=== PATIENT | male | born 1950 | race Caucasian/White ===

== ENCOUNTER 2020-11-30 13:52 | Inpatient (IN) | payer MEDICARE, OTHER ==
[2020-11-30] MEDS ORDERED: Sodium Chloride 0.9% 2.5 ML Syringe FLUSH PRN (13:55)
[2020-11-30] MEDS ORDERED: Sodium Chloride 0.9% 10 ML Syringe FLUSH PRN (13:55)
[2020-11-30] MEDS ORDERED: REMDESIVIR 200 MG in Sodium Chloride 0.9% 250 ML IV ONE (14:45)
[2020-11-30] MEDS ORDERED: Dexamethasone 10 MG/ML SDV IVPUSH ONE (14:45)
[2020-11-30 14:46] LABS: BLOOD UREA NITROGEN,BUN 30 mg/dL (7.0-18.0); CARBON DIOXIDE,CO2 23.7 mmol/L (21.0-32.0); CHLORIDE,CL 100 mmol/L (98-107); GLUCOSE RANDOM 137 mg/dL (74-106); SODIUM,NA 136 mmol/L (136-148)
--- NOTE | 2020-11-30 15:18 | CR ---
Indication: Shortness of breath, COVID positive Technique: Chest 1 view Comparison: July 07, 2008 Findings/Impression: Normal cardiomediastinal silhouette. Diffuse opacities throughout the lungs are consistent with COVID-19 infection. No effusion or pneumothorax. No acute osseous abnormality. Dictated by Aishwarya Wills MD @ 11/30/2020 3:17:03 PM (Electronically Signed)
--- NOTE | 2020-11-30 16:37 | EDM.PDOC ---
ED HPI GENERAL MEDICAL PROBLEM - General Chief Complaint: Respiratory Problem Stated Complaint: COV POS HARD TIME BREATHING Time Seen by Provider: 11/30/20 14:05 - History of Present Illness INITIAL COMMENTS - FREE TEXT/NARRATIVE: CHIEF COMPLAINT(S): Shortness of breath HISTORY OF PRESENT ILLNESS: This is a 70-year-old man with a past medical history of a Covid positive test approximately 6 days ago at home who has no past medical history who presents to the emergency department as a medical resuscitation via walk-in triage with a chief complaint of shortness of breath. The patient states that for the last 6 days he has been experiencing shortness of breath, cough which is productive of unknown color of sputum. He denies any chest pain but states that he is having worsening shortness of breath and exertional dyspnea. He denies any lower extremity edema, recent travel, recent surgery or prior history of DVT or PE. He denies any history of CAD or CHF. He did not get the Covid vaccine. He denies any fever or chills and denies any pain anywhere in his body. He states that both his and his son have Covid. REVIEW OF SYSTEMS: Constitutional: Denies fever, chills. Eyes: Denies eye pain Ears, Nose, Mouth, & Throat: Denies earache Cardiovascular: Denies chest pain Respiratory: Positive for shortness of breath, productive cough, exertional dyspnea Gastrointestinal: Denies Nausea, vomiting, diarrhea, hematochezia. Genitourinary: Denies hematuria Skin:Denies a rash Neurological: Denies blurred vision Psychiatric: Denies depression PAST MEDICAL HISTORY: As per history of present illness and as reviewed below otherwise noncontributory. SURGICAL HISTORY: As per history of present illness and as reviewed below otherwise noncontributory SOCIAL HISTORY: As per history of present illness and as reviewed below otherwise noncontributory. FAMILY HISTORY: As per history of present illness and as reviewed below otherwise noncontributory. EXAMINATION OF ORGAN SYSTEMS/BODY AREAS: VITALS: Heart rate 94, respiratory rate 23 with an oxygen saturation of 59% on room air. 85% on 15 L nonrebreather. Blood pressure was 126/69 and temperature was 37.0. High flow nasal cannula with FiO2 of 89 and 40 L flow rate was 90 to 92% with good waveform.. GENERAL: The patient is well-nourished, well-developed, in no acute distress. Speaking in full sentences. HEAD: Normocephalic, atraumatic. EYES: EOMs intact. PERRL. ENT. External ears WNL. Nares patent. Oropharynx is clear with no erythema or exudate. No uvular or tongue swelling. NECK: Supple, no masses. Trachea is midline. LUNGS: The patient is mildly tachypneic but is speaking in full sentences. Bilateral inspiratory and expiratory lung sounds are normal without any wheezing, rales or rhonchi. CARDIOVASCULAR: Regular rate and rhythm with S1-S2. No murmur, rubs or gallops. No edema. No JVD. ABDOMEN: Soft, non-distended, non-tender. Bowel sounds present in all 4 quadrants. No rebound tenderness, guarding, or peritoneal signs. MUSCULOSKELETAL: No deformity. Patient is moving all 4 limbs spontaneously. NEUROLOGICAL: Alert and oriented x 3. No focal neurological deficits noted. SKIN: No rashes, or pallor. No signs of injury. MEDICAL DECISION MAKING AND COURSE IN THE ED WITH INTERPRETATION/REVIEW OF DIAGNOSTIC STUDIES: This is a 70-year-old man with a recent diagnosis of COVID- 19 approximately 6 days ago and no past medical history who presents to the emergency department as a medical resuscitation via walk-in triage with continued shortness of breath. Immediately upon entering the resuscitation room the patient was disrobed, placed on continuous cardiac monitoring, and IV access was established by nursing. Patient is able to speak thus displaying a patent airway, breath sounds are equal bilaterally, and patient has palpable pulses in all 4 extremities. Patient's room air oxygen was severely low therefore we placed the patient on 15 L nonrebreather. On 15 L nonrebreather the patient's pulse oximetry with good waveform was 85% persistently. Therefore we contacted respiratory therapy and started the patient on high flow nasal cannula with a flow rate of 40 L/min and FiO2 of 89%. The patient's pulse oximetry did come up to 90 to 93%. At this time we did obtain an EKG which was unremarkable. At this time given his history of COVID-19 we will obtain CBC, VBG, CMP, troponin, chest x-ray, and COVID-19 test. We did obtain a lactic acid. I do believe at this time that his hypoxia is secondary to COVID-19 as he has already been diagnosed however bacterial pneumonia cannot be excluded at this time. D ifferential also includes ACS. Laboratory: CBC is unremarkable. CMP reveals hyperglycemia at 137, elevated BUN at 30, elevated AST at 81, hypoalbuminemia at 2.8. Troponin is negative. Covid is positive. The radiological images were viewed by myself along with reading the report from the radiologist. Chest x-ray reveals diffuse opacities throughout the lungs which are consistent with COVID-19 infection. On reevaluation the patient's pulse oximetry continue to be in the low 90% range with good waveform. Patient was still tachypneic however he appeared to be more comfortable. At this time I did discuss admission and providing him with remdesivir and steroids. He was amenable to this plan. Therefore I contacted Dr. Feldman who accepted the patient for admission. DISPOSITION: Admission to ICU CONDITION: Serious PROCEDURES: Cardiac monitoring interpretation, pulse oximetry interpretation FINAL IMPRESSION(S)/DIAGNOSES: 1. Acute hypoxic respiratory failure requiring high flow nasal cannula secondary to COVID-19 pneumonia 2. Acute COVID-19 pneumonia. Critical Care Procedure Note Authorized and performed by: Jon Ye M.D. Critical Care Time: 68 minutes Due to a high probability of clinically significant, life threatening deterioration, the patient required my highest level of preparedness to intervene emergently and I personally spent this critical care time directly and personally managing the patient. This critical care time included obtaining a history, examining the patient, pulse oximetry; ordering and review of studies; arranging urgent treatment with development of a management plan; evaluation of a patients reponse to treatment; frequent assessment; and discussions with other providers. This critical care time was performed to assess and manage the high probability of imminent, life threatening deterioration that could result in multiorgan failure. It was exclusive of separate billable procedures and treating other patients. Please see MDM section and rest of the note for further information on patient assessment and treatment. Please see MDM section and rest of the note for further information on patient assessment and treatment. - Related Data Allergies Allergy/AdvReac Type Severity Reaction Status Date / Time No Known Allergies Allergy Verified 11/30/20 14:10 Home Meds: Home Meds . [No Known Home Meds] 11/30/20 [History] Past Medical History - Past Health History Medical/Surgical History: Denies Medical/Surgical History Social & Family History - Tobacco Use Tobacco Use Status *Q: Never Tobacco User - Recreational Drug Use Recreational Drug Use: No ED ROS GENERAL - Review of Systems Review Of Systems: See Below ED EXAM, GENERAL - Physical Exam Exam: See Below Course - Vital Signs Last Recorded V/S: Last Vital Signs Temp 37.5 C 11/30/20 18:53 Pulse 73 11/30/20 18:53 Resp 22 H 11/30/20 18:53 BP 120/88 11/30/20 18:53 Pulse Ox 91 L 11/30/20 18:53 - Orders/Labs/Meds Orders: Active Orders 24 hr Category Date Time Status Cardiac Monitoring [RC] . DIRECTED Care 11/30/20 14:00 Active CORONAVIRUS COVID-19 TONY [MOLEC] Stat Lab 11/30/20 14:00 Ordered Sodium Chloride 0.9% [Saline Flush] Med 11/30/20 13:55 Active 10 ml FLUSH ASDIRECTED PRN Sodium Chloride 0.9% [Saline Flush] Med 11/30/20 13:55 Active 2.5 ml FLUSH ASDIRECTED PRN Saline Lock Insert [OM.PC] Stat Oth 11/30/20 13:55 Ordered Medication Orders Albuterol/Ipratropium (Albuterol/Ipratropium 4 Gm Inhalation [place]) 0 gm INH Q4H PRN PRN Reason: Dyspnea Dexamethasone (Dexamethasone 4 Mg Tab) 6 mg PO DAILY [facility] Enoxaparin Sodium (Enoxaparin 40 Mg/0.4 Ml Syringe) 40 mg SUBCUT Q24H [facility] Last Admin: 11/30/20 19:07 Dose: 40 mg Documented by: NIA Famotidine (Famotidine 20 Mg/2 Ml Sdv) 20 mg IVPUSH BID [facility] Last Admin: 11/30/20 20:03 Dose: 20 mg Documented by: YISEL Remdesivir 100 mg/ Sodium (Chloride) 100 mls @ 100 mls/hr IV Q24H [facility] Stop: 12/04/20 14:59 Sodium Chloride (Sodium Chloride 0.9% 10 Ml Syringe) 10 ml FLUSH ASDIRECTED PRN PRN Reason: Keep Vein Open Last Admin: 11/30/20 14:17 Dose: 10 ml Documented by: RAINE Sodium Chloride (Sodium Chloride 0.9% 2.5 Ml Syringe) 2.5 ml FLUSH ASDIRECTED PRN PRN Reason: Keep Vein Open Last Admin: 11/30/20 14:17 Dose: 2.5 ml Documented by: RAINE Labs: Laboratory Tests 11/30/20 11/30/20 11/30/20 Range/Units 14:15 14:15 14:15 WBC 9.95 (4.0-11.0) K/uL RBC 4.68 (4.50-5.90) M/uL Hgb 14.7 (13.0-17.0) g/dL Hct 40.9 (38.0-50.0) % MCV 87.4 (80.0-98.0) fL MCH 31.4 (27.0-32.0) pg MCHC 35.9 (31.0-37.0) g/dL RDW Std Deviation 42.3 (28.0-62.0) fl RDW Coeff of Carly 13 (11.0-15.0) % Plt Count 247 (150-400) K/uL MPV 10.30 (7.40-12.00) fL Neut % (Auto) 88.3 H (48.0-80.0) % Lymph % (Auto) 5.4 L (16.0-40.0) % [place] % (Auto) 6.1 (0.0-15.0) % Eos % (Auto) 0.0 (0.0-7.0) % Baso % (Auto) 0.2 (0.0-1.5) % Neut # (Auto) 8.8 H (1.4-5.7) K/uL Lymph # (Auto) 0.5 L (0.6-2.4) K/uL [place] # (Auto) 0.6 (0.0-0.8) K/uL Eos # (Auto) 0.0 (0.0-0.7) K/uL Baso # (Auto) 0.0 (0.0-0.1) K/uL Nucleated RBC % 0.0 /100WBC Nucleated RBCs # 0 K/uL D-Dimer, Quantitative (0.0-0.50) mg/L FEU VBG pH 7.45 H (7.31-7.41) VBG pCO2 35 L (41-51) mmHG VBG pO2 33 mmHG VBG HCO3 25 (23-28) mEq/L VBG Total CO2 22 L (24-29) mmol/L VBG Base Excess 1.0 (-2.0-3.0) Sodium 136 (136-148) mmol/L Potassium 4.0 (3.5-5.1) mmol/L Chloride 100 (98-107) mmol/L Carbon Dioxide 23.7 (21.0-32.0) mmol/L BUN 30 H (7.0-18.0) mg/dL Creatinine 1.3 (0.8-1.3) mg/dL Est Cr Clr Drug Dosing 59.69 mL/min Estimated GFR (MDRD) 54.9 ml/min Glucose 137 H (74-106) mg/dL Lactic Acid (0.4-2.0) mmol/L Calcium 7.8 L (8.5-10.1) mg/dL Total Bilirubin 0.5 (0.2-1.0) mg/dL AST 81 H (15-37) IU/L ALT 52 (14-63) IU/L Alkaline Phosphatase 49 (46-116) U/L Troponin I < 0.050 (0.000-0.056) ng/mL C-Reactive Protein (0.00-0.90) mg/dL Total Protein 7.3 (6.4-8.2) g/dL Albumin 2.8 L (3.4-5.0) g/dL Globulin 4.5 H (2.6-4.0) g/dL Albumin/Globulin Ratio 0.6 L (0.9-1.6) SARS-CoV-2 RNA (TONY) (NEGATIVE) 11/30/20 11/30/20 11/30/20 Range/Units 14:15 14:15 14:18 WBC (4.0-11.0) K/uL RBC (4.50-5.90) M/uL Hgb (13.0-17.0) g/dL Hct (38.0-50.0) % MCV (80.0-98.0) fL MCH (27.0-32.0) pg MCHC (31.0-37.0) g/dL RDW Std Deviation (28.0-62.0) fl RDW Coeff of Carly (11.0-15.0) % Plt Count (150-400) K/uL MPV (7.40-12.00) fL Neut % (Auto) (48.0-80.0) % Lymph % (Auto) (16.0-40.0) % [place] % (Auto) (0.0-15.0) % Eos % (Auto) (0.0-7.0) % Baso % (Auto) (0.0-1.5) % Neut # (Auto) (1.4-5.7) K/uL Lymph # (Auto) (0.6-2.4) K/uL [place] # (Auto) (0.0-0.8) K/uL Eos # (Auto) (0.0-0.7) K/uL Baso # (Auto) (0.0-0.1) K/uL Nucleated RBC % /100WBC Nucleated RBCs # K/uL D-Dimer, Quantitative 1.38 H (0.0-0.50) mg/L FEU VBG pH (7.31-7.41) VBG pCO2 (41-51) mmHG VBG pO2 mmHG VBG HCO3 (23-28) mEq/L VBG Total CO2 (24-29) mmol/L VBG Base Excess (-2.0-3.0) Sodium (136-148) mmol/L Potassium (3.5-5.1) mmol/L Chloride (98-107) mmol/L Carbon Dioxide (21.0-32.0) mmol/L BUN (7.0-18.0) mg/dL Creatinine (0.8-1.3) mg/dL Est Cr Clr Drug Dosing mL/min Estimated GFR (MDRD) ml/min Glucose (74-106) mg/dL Lactic Acid (0.4-2.0) mmol/L Calcium (8.5-10.1) mg/dL Total Bilirubin (0.2-1.0) mg/dL AST (15-37) IU/L ALT (14-63) IU/L Alkaline Phosphatase (46-116) U/L Troponin I (0.000-0.056) ng/mL C-Reactive Protein 2.60 H (0.00-0.90) mg/dL Total Protein (6.4-8.2) g/dL Albumin (3.4-5.0) g/dL Globulin (2.6-4.0) g/dL Albumin/Globulin Ratio (0.9-1.6) SARS-CoV-2 RNA (TONY) POSITIVE H (NEGATIVE) 11/30/20 Range/Units 14:23 WBC (4.0-11.0) K/uL RBC (4.50-5.90) M/uL Hgb (13.0-17.0) g/dL Hct (38.0-50.0) % MCV (80.0-98.0) fL MCH (27.0-32.0) pg MCHC (31.0-37.0) g/dL RDW Std Deviation (28.0-62.0) fl RDW Coeff of Carly (11.0-15.0) % Plt Count (150-400) K/uL MPV (7.40-12.00) fL Neut % (Auto) (48.0-80.0) % Lymph % (Auto) (16.0-40.0) % [place] % (Auto) (0.0-15.0) % Eos % (Auto) (0.0-7.0) % Baso % (Auto) (0.0-1.5) % Neut # (Auto) (1.4-5.7) K/uL Lymph # (Auto) (0.6-2.4) K/uL [place] # (Auto) (0.0-0.8) K/uL Eos # (Auto) (0.0-0.7) K/uL Baso # (Auto) (0.0-0.1) K/uL Nucleated RBC % /100WBC Nucleated RBCs # K/uL D-Dimer, Quantitative (0.0-0.50) mg/L FEU VBG pH (7.31-7.41) VBG pCO2 (41-51) mmHG VBG pO2 mmHG VBG HCO3 (23-28) mEq/L VBG Total CO2 (24-29) mmol/L VBG Base Excess (-2.0-3.0) Sodium (136-148) mmol/L Potassium (3.5-5.1) mmol/L Chloride (98-107) mmol/L Carbon Dioxide (21.0-32.0) mmol/L BUN (7.0-18.0) mg/dL Creatinine (0.8-1.3) mg/dL Est Cr Clr Drug Dosing mL/min Estimated GFR (MDRD) ml/min Glucose (74-106) mg/dL Lactic Acid 1.7 (0.4-2.0) mmol/L Calcium (8.5-10.1) mg/dL Total Bilirubin (0.2-1.0) mg/dL AST (15-37) IU/L ALT (14-63) IU/L Alkaline Phosphatase (46-116) U/L Troponin I (0.000-0.056) ng/mL C-Reactive Protein (0.00-0.90) mg/dL Total Protein (6.4-8.2) g/dL Albumin (3.4-5.0) g/dL Globulin (2.6-4.0) g/dL Albumin/Globulin Ratio (0.9-1.6) SARS-CoV-2 RNA (TONY) (NEGATIVE) Meds: Medications Generic Name Dose Route Start Last Admin Trade Name Freq PRN Reason Stop Dose Admin Albuterol/Ipratropium 0 gm 11/30/20 18:18 Albuterol/Ipratropium 4 Gm Inhalation [place] INH Q4H PRN Dyspnea Dexamethasone 6 mg 12/01/20 14:00 Dexamethasone 4 Mg Tab PO DAILY [facility] Enoxaparin Sodium 40 mg 11/30/20 18:00 11/30/20 19:07 Enoxaparin 40 Mg/0.4 Ml Syringe SUBCUT 40 mg Q24H [facility] Administration Famotidine 20 mg 11/30/20 21:00 11/30/20 20:03 Famotidine 20 Mg/2 Ml Sdv IVPUSH 20 mg BID [facility] Administration Remdesivir 100 mg/ Sodium 100 mls @ 100 mls/hr 12/01/20 14:00 Chloride IV 12/04/20 14:59 Q24H [facility] Sodium Chloride 10 ml 11/30/20 13:55 11/30/20 14:17 Sodium Chloride 0.9% 10 Ml Syringe FLUSH 10 ml ASDIRECTED PRN Administration Keep Vein Open Sodium Chloride 2.5 ml 11/30/20 13:55 11/30/20 14:17 Sodium Chloride 0.9% 2.5 Ml Syringe FLUSH 2.5 ml ASDIRECTED PRN Administration Keep Vein Open Discontinued Medications Generic Name Dose Route Start Last Admin Trade Name Kyleq PRN Reason Stop Dose Admin Dexamethasone 6 mg 11/30/20 14:45 11/30/20 15:00 Dexamethasone 10 Mg/Ml Sdv IVPUSH 11/30/20 14:46 6 mg ONETIME ONE Administration Remdesivir 200 mg/ Sodium 250 mls @ 250 mls/hr 11/30/20 14:45 11/30/20 20:04 Chloride IV 11/30/20 14:46 250 mls/hr ONETIME ONE Administration Remdesivir 100 mg/ Sodium 100 mls @ 100 mls/hr 12/01/20 12:00 Chloride IV 12/04/20 12:59 Q24H [facility] Departure - Departure Time of Disposition: 15:26 Disposition: Admitted As Inpatient 68 Condition: Serious Clinical Impression: Acute hypoxemic respiratory failure due to COVID-19 - Discharge Information Sepsis Event Note (ED) - Evaluation Sepsis Screening Result: Possible Sepsis Risk - Focused Exam Vital Signs: Vital Signs Temp Pulse Resp BP Pulse Ox 11/30/20 14:05 37.0 C 94 23 H 126/69 59 L 11/30/20 13:55 85 L
--- NOTE | 2020-11-30 16:38 | PCM.EKG ---
#1 Interpretation EKG Date: 11/30/20 Time: 14:16 Rhythm: NSR Rate (Beats/Min): 83 [place]: Normal P-Wave: Present QRS: Normal ST-T: Normal QT: Normal Comparison: NA - No Prior EKG (Sinus rhythm with occasional PAC with nonspecific T wave inversion. Significant respiratory variation)
--- NOTE | 2020-11-30 18:00 | PN ---
THC Physician - Brief Progress [id number]/27/2021 17:53[facility] Patsy Mckeon, [place] - MWN (ARMANDO) - MWN REKHA SIMEON, LADYID+Date of Service 11/30/2020 17:53HPI/Ev ents of Note eICU Admission [id number] male admitted for acute hypoxemic respiratory failure sec ondary to COVID-19 pneumonia. Onset of symptoms was 6 days prior. Patient is unvaccinated. Requiri ng heated high flow nasal cannula.On cameraxthe patient is laying in bed, appears to be asleepReviewe dVitalsEMR notesLabsImagingAvailable microMedicationseICU impressionsAcute hypoxic respiratory failur eCOVID-19 pneumoniaQI measureseICU recommendationsHeated high flow nasal cannula, target SPO2 greater than or equal to 88%Self proning as toleratedFor progressive hypoxia or work of breathing can trial on noninvasive ventilationContinue Covid specific therapies, currently on Decadron and remdesivirCons ider eligibility for Tocilizumab or baricitinibCheck procalcitonin and D-dimerVTE prophylaxis, subcu Lovenox orderedGI prophylaxis, IV Pepcid orderedGlycemic control per protocolThank you for allowing u s to participate in the care of your patient. Critical care; 15 minutes total evaluation time Interve ntions Major-Hypoxemia - evaluation and management, Infection - evaluation and management, Respirator y failure - evaluation and management
--- NOTE | 2020-11-30 18:12 | PCM.HP.2 ---
H&P History of Present Illness - General Date of Service: 11/30/20 Admit Problem/Dx: Admission Diagnosis/Problem Admission Diagnosis/Problem Respiratory failure with hypoxia - History of Present Illness Initial Comments - Free Text/Narative: 70-year-old male presents to the emergency department due to shortness of breath. Patient states that he has been feeling ill for the past 6 to 7 days. Patient has no significant past medical history, does not take any prescription medications. Patient is not a smoker. Patient states over the weekend his symptoms became significantly worse and he was unable to walk around his home without significant shortness of breath. Out of concern patient presented to the emergency department today. Patient states fever, weakness, shortness of breath. Denies chest pain, chills, nausea, vomiting, diarrhea. Patient admitted to the ICU for close monitoring of acute hypoxic respiratory failure secondary to COVID-19 infection. Laboratory admission, white blood cell 9.95, platelet 247, D-dimer 1.3, BUN 30, creatinine 1.3, AST 81, ALT 52. Vitals in the ER oxygen saturation 59%, RR 23. Patient placed on heated high flow currently at O2 flow rate 60, FiO2 95 oxygen saturation 91% respiratory rate 22. Chest x-ray impression: Opacities throughout the lungs are consistent with COVID-19 infection. Patient was given dexamethasone and started on remdesivir in the ER. - Related Data Allergies/Adverse Reactions: Allergies Allergy/AdvReac Type Severity Reaction Status Date / Time No Known Allergies Allergy Verified 11/30/20 14:10 Home Medications: Home Meds . [No Known Home Meds] 11/30/20 [History] Past Medical History - Past Health History Medical/Surgical History: Denies Medical/Surgical History Social & Family History - Family History Family Medical History: No Pertinent Family History - Tobacco Use Tobacco Use Status *Q: Never Tobacco User - Caffeine Use Caffeine Use: Reports: Coffee, Soda - Recreational Drug Use Recreational Drug Use: No H&P Review of Systems - Review of Systems: Review Of Systems: See Below General: Reports: Weakness, Fatigue. Denies: Fever, Chills Pulmonary: Denies: Shortness of Breath, Wheezing, Cough Cardiovascular: Denies: Chest Pain, Orthopnea, Edema Gastrointestinal: Denies: Abdominal Pain, Diarrhea, Decreased Appetite, Nausea Neurological: Denies: Confusion, Dizziness, Headache Exam - Exam Exam: See Below - Vital Signs Vital Signs: Last Vital Signs Temp 98.6 F 11/30/20 14:05 Pulse 94 11/30/20 14:05 Resp 23 H 11/30/20 14:05 BP 126/69 11/30/20 14:05 Pulse Ox 59 L 11/30/20 14:05 Weight: 225 lb - Exam Quality Assessment: Supplemental Oxygen General: Alert, Oriented Lungs: Normal Respiratory Effort, Crackles Cardiovascular: Regular Rate, Regular Rhythm GI/Abdominal Exam: Soft, Non-Tender Extremities: No Pedal Edema Neuro Extensive - Mental Status: Alert, Oriented x3 Psychiatric: Alert - Patient Data Lab Results Last 24 hrs: Laboratory Results - last 24 hr 11/30/20 11/30/20 11/30/20 Range/Units 14:15 14:15 14:15 WBC 9.95 (4.0-11.0) K/uL RBC 4.68 (4.50-5.90) M/uL Hgb 14.7 (13.0-17.0) g/dL Hct 40.9 (38.0-50.0) % MCV 87.4 (80.0-98.0) fL MCH 31.4 (27.0-32.0) pg MCHC 35.9 (31.0-37.0) g/dL RDW Std Deviation 42.3 (28.0-62.0) fl RDW Coeff of Carly 13 (11.0-15.0) % Plt Count 247 (150-400) K/uL MPV 10.30 (7.40-12.00) fL Neut % (Auto) 88.3 H (48.0-80.0) % Lymph % (Auto) 5.4 L (16.0-40.0) % [place] % (Auto) 6.1 (0.0-15.0) % Eos % (Auto) 0.0 (0.0-7.0) % Baso % (Auto) 0.2 (0.0-1.5) % Neut # (Auto) 8.8 H (1.4-5.7) K/uL Lymph # (Auto) 0.5 L (0.6-2.4) K/uL [place] # (Auto) 0.6 (0.0-0.8) K/uL Eos # (Auto) 0.0 (0.0-0.7) K/uL Baso # (Auto) 0.0 (0.0-0.1) K/uL Nucleated RBC % 0.0 /100WBC Nucleated RBCs # 0 K/uL VBG pH 7.45 H (7.31-7.41) VBG pCO2 35 L (41-51) mmHG VBG pO2 33 mmHG VBG HCO3 25 (23-28) mEq/L VBG Total CO2 22 L (24-29) mmol/L VBG Base Excess 1.0 (-2.0-3.0) Sodium 136 (136-148) mmol/L Potassium 4.0 (3.5-5.1) mmol/L Chloride 100 (98-107) mmol/L Carbon Dioxide 23.7 (21.0-32.0) mmol/L BUN 30 H (7.0-18.0) mg/dL Creatinine 1.3 (0.8-1.3) mg/dL Est Cr Clr Drug Dosing 59.69 mL/min Estimated GFR (MDRD) 54.9 ml/min Glucose 137 H (74-106) mg/dL Lactic Acid (0.4-2.0) mmol/L Calcium 7.8 L (8.5-10.1) mg/dL Total Bilirubin 0.5 (0.2-1.0) mg/dL AST 81 H (15-37) IU/L ALT 52 (14-63) IU/L Alkaline Phosphatase 49 (46-116) U/L Troponin I < 0.050 (0.000-0.056) ng/mL C-Reactive Protein (0.00-0.90) mg/dL Total Protein 7.3 (6.4-8.2) g/dL Albumin 2.8 L (3.4-5.0) g/dL Globulin 4.5 H (2.6-4.0) g/dL Albumin/Globulin Ratio 0.6 L (0.9-1.6) SARS-CoV-2 RNA (TONY) (NEGATIVE) 11/30/20 11/30/20 11/30/20 Range/Units 14:15 14:18 14:23 WBC (4.0-11.0) K/uL RBC (4.50-5.90) M/uL Hgb (13.0-17.0) g/dL Hct (38.0-50.0) % MCV (80.0-98.0) fL MCH (27.0-32.0) pg MCHC (31.0-37.0) g/dL RDW Std Deviation (28.0-62.0) fl RDW Coeff of Carly (11.0-15.0) % Plt Count (150-400) K/uL MPV (7.40-12.00) fL Neut % (Auto) (48.0-80.0) % Lymph % (Auto) (16.0-40.0) % [place] % (Auto) (0.0-15.0) % Eos % (Auto) (0.0-7.0) % Baso % (Auto) (0.0-1.5) % Neut # (Auto) (1.4-5.7) K/uL Lymph # (Auto) (0.6-2.4) K/uL [place] # (Auto) (0.0-0.8) K/uL Eos # (Auto) (0.0-0.7) K/uL Baso # (Auto) (0.0-0.1) K/uL Nucleated RBC % /100WBC Nucleated RBCs # K/uL VBG pH (7.31-7.41) VBG pCO2 (41-51) mmHG VBG pO2 mmHG VBG HCO3 (23-28) mEq/L VBG Total CO2 (24-29) mmol/L VBG Base Excess (-2.0-3.0) Sodium (136-148) mmol/L Potassium (3.5-5.1) mmol/L Chloride (98-107) mmol/L Carbon Dioxide (21.0-32.0) mmol/L BUN (7.0-18.0) mg/dL Creatinine (0.8-1.3) mg/dL Est Cr Clr Drug Dosing mL/min Estimated GFR (MDRD) ml/min Glucose (74-106) mg/dL Lactic Acid 1.7 (0.4-2.0) mmol/L Calcium (8.5-10.1) mg/dL Total Bilirubin (0.2-1.0) mg/dL AST (15-37) IU/L ALT (14-63) IU/L Alkaline Phosphatase (46-116) U/L Troponin I (0.000-0.056) ng/mL C-Reactive Protein 2.60 H (0.00-0.90) mg/dL Total Protein (6.4-8.2) g/dL Albumin (3.4-5.0) g/dL Globulin (2.6-4.0) g/dL Albumin/Globulin Ratio (0.9-1.6) SARS-CoV-2 RNA (TONY) POSITIVE H (NEGATIVE) Result Diagrams: 11/30/20 14:15 11/30/20 14:15 Sepsis Event Note - Evaluation Sepsis Screening Result: No Definite Risk - Focused Exam Vital Signs: Vital Signs Temp Pulse Resp BP Pulse Ox 11/30/20 14:05 98.6 F 94 23 H 126/69 59 L 11/30/20 13:55 85 L - Problem List (1) Acute hypoxemic respiratory failure due to COVID-19 SNOMED Code(s): 270769960 ICD Code: U07.1 - COVID-19; J96.01 - ACUTE RESPIRATORY FAILURE WITH HYPOXIA Status: Acute Current Visit: Yes Problem List Initiated/Reviewed/Updated: Yes Orders Last 24hrs: Active Orders 24 hr Category Date Time Status Admission Status [Patient Status] [ADT] Stat ADT 11/30/20 15:26 Active Cardiac Monitoring [RC] . DIRECTED Care 11/30/20 14:00 Active Regular Diet [DIET] Diet 12/01/20 Dinner Active CORONAVIRUS COVID-19 TONY [MOLEC] Stat Lab 11/30/20 14:00 Ordered D-DIMER QUANTITATIVE [COAG] Routine Lab 11/30/20 14:15 Received PROCALCITONIN [REF] Routine Lab 11/30/20 14:15 Received Enoxaparin [Lovenox] Med 11/30/20 18:00 Active 40 mg SUBCUT Q24H Famotidine [Pepcid] Med 11/30/20 21:00 Active 20 mg IVPUSH BID Sodium Chloride 0.9% [Saline Flush] Med 11/30/20 13:55 Active 10 ml FLUSH ASDIRECTED PRN Sodium Chloride 0.9% [Saline Flush] Med 11/30/20 13:55 Active 2.5 ml FLUSH ASDIRECTED PRN Saline Lock Insert [OM.PC] Stat Oth 11/30/20 13:55 Ordered Medication Orders Enoxaparin Sodium (Enoxaparin 40 Mg/0.4 Ml Syringe) 40 mg SUBCUT Q24H FERNANDO Famotidine (Famotidine 20 Mg/2 Ml Sdv) 20 mg IVPUSH BID FERNANDO Sodium Chloride (Sodium Chloride 0.9% 10 Ml Syringe) 10 ml FLUSH ASDIRECTED PRN PRN Reason: Keep Vein Open Last Admin: 11/30/20 14:17 Dose: 10 ml Documented by: RAINE Sodium Chloride (Sodium Chloride 0.9% 2.5 Ml Syringe) 2.5 ml FLUSH ASDIRECTED PRN PRN Reason: Keep Vein Open Last Admin: 11/30/20 14:17 Dose: 2.5 ml Documented by: RAINE Assessment/Plan Comment:: Acute hypoxic respiratory failure secondary to COVID-19 pneumonia Currently on heated high flow, flow 40, FiO2 89. Monitor respiratory status may escalate to CPAP if necessary. Patient has received 200 mg IV remdesivir in the ED. Will begin 100 mg IV remdesivir every 24 hour days 25 Dexamethasone 6 mg p.o. daily Combivent as needed, incentive spirometry, prone positioning, Lovenox 40 mg subcu q24hr Patient states no history of past medical history or no prescription medications.
[2020-11-30] MEDS: Enoxaparin 40 MG/0.4 ML Syringe SUBCUT SCH (19:07)
[2020-11-30] MEDS: Famotidine 20 MG/2 ML SDV IVPUSH SCH (20:03)
[2020-12-01] MEDS: Albuterol/Ipratropium 4 GM Inhalation Spray INH PRN ×2 (02:25→21:10)
[2020-12-01 06:45] LABS: BLOOD UREA NITROGEN,BUN 26 mg/dL (7.0-18.0); CARBON DIOXIDE,CO2 26.6 mmol/L (21.0-32.0); CHLORIDE,CL 104 mmol/L (98-107); GLUCOSE RANDOM 152 mg/dL (74-106); POTASSIUM,K 4.5 mmol/L (3.5-5.1); SODIUM,NA 139 mmol/L (136-148)
[2020-12-01] MEDS: Famotidine 20 MG/2 ML SDV IVPUSH SCH ×2 (08:49→20:40)
--- NOTE | 2020-12-01 11:58 | PCM.PN ---
- General Info Date of Service: 12/01/20 - Review of Systems Systems Review Comment:: feeling better, reports cough - Patient Data Vitals - Most Recent: Last Vital Signs Temp 35.6 C L 12/01/20 04:00 Pulse 65 12/01/20 07:00 Resp 22 H 12/01/20 07:00 BP 107/66 12/01/20 06:00 Pulse Ox 91 L 12/01/20 07:00 Weight - Most Recent: 102.058 kg I&O - Last 24 Hours: Intake & Output 11/30/20 12/01/20 12/01/20 22:59 06:59 14:59 Intake Total 1200 200 Output Total 600 Balance 1200 -400 Lab Results Last 24 Hours: Laboratory Results - last 24 hr 11/30/20 11/30/20 11/30/20 Range/Units 14:15 14:15 14:15 WBC 9.95 (4.0-11.0) K/uL RBC 4.68 (4.50-5.90) M/uL Hgb 14.7 (13.0-17.0) g/dL Hct 40.9 (38.0-50.0) % MCV 87.4 (80.0-98.0) fL MCH 31.4 (27.0-32.0) pg MCHC 35.9 (31.0-37.0) g/dL RDW Std Deviation 42.3 (28.0-62.0) fl RDW Coeff of Carly 13 (11.0-15.0) % Plt Count 247 (150-400) K/uL MPV 10.30 (7.40-12.00) fL Neut % (Auto) 88.3 H (48.0-80.0) % Lymph % (Auto) 5.4 L (16.0-40.0) % [place] % (Auto) 6.1 (0.0-15.0) % Eos % (Auto) 0.0 (0.0-7.0) % Baso % (Auto) 0.2 (0.0-1.5) % Neut # (Auto) 8.8 H (1.4-5.7) K/uL Lymph # (Auto) 0.5 L (0.6-2.4) K/uL [place] # (Auto) 0.6 (0.0-0.8) K/uL Eos # (Auto) 0.0 (0.0-0.7) K/uL Baso # (Auto) 0.0 (0.0-0.1) K/uL Add Manual Diff Neutrophils % (Manual) (48.0-80.0) % Band Neutrophils % % Lymphocytes % (Manual) (16.0-40.0) % Monocytes % (Manual) (0.0-15.0) % Nucleated RBC % 0.0 /100WBC Absolute Seg Neuts (1.4-5.7) Band Neutrophils # Lymphocytes # (Manual) (0.6-2.4) Monocytes # (Manual) (0.0-0.8) Nucleated RBCs # 0 K/uL D-Dimer, Quantitative (0.0-0.50) mg/L FEU VBG pH 7.45 H (7.31-7.41) VBG pCO2 35 L (41-51) mmHG VBG pO2 33 mmHG VBG HCO3 25 (23-28) mEq/L VBG Total CO2 22 L (24-29) mmol/L VBG Base Excess 1.0 (-2.0-3.0) Sodium 136 (136-148) mmol/L Potassium 4.0 (3.5-5.1) mmol/L Chloride 100 (98-107) mmol/L Carbon Dioxide 23.7 (21.0-32.0) mmol/L BUN 30 H (7.0-18.0) mg/dL Creatinine 1.3 (0.8-1.3) mg/dL Est Cr Clr Drug Dosing 59.69 mL/min Estimated GFR (MDRD) 54.9 ml/min Glucose 137 H (74-106) mg/dL Lactic Acid (0.4-2.0) mmol/L Calcium 7.8 L (8.5-10.1) mg/dL Magnesium (1.8-2.4) mg/dL Total Bilirubin 0.5 (0.2-1.0) mg/dL AST 81 H (15-37) IU/L ALT 52 (14-63) IU/L Alkaline Phosphatase 49 (46-116) U/L Troponin I < 0.050 (0.000-0.056) ng/mL C-Reactive Protein (0.00-0.90) mg/dL Total Protein 7.3 (6.4-8.2) g/dL Albumin 2.8 L (3.4-5.0) g/dL Globulin 4.5 H (2.6-4.0) g/dL Albumin/Globulin Ratio 0.6 L (0.9-1.6) SARS-CoV-2 RNA (TONY) (NEGATIVE) 11/30/20 11/30/20 11/30/20 Range/Units 14:15 14:15 14:18 WBC (4.0-11.0) K/uL RBC (4.50-5.90) M/uL Hgb (13.0-17.0) g/dL Hct (38.0-50.0) % MCV (80.0-98.0) fL MCH (27.0-32.0) pg MCHC (31.0-37.0) g/dL RDW Std Deviation (28.0-62.0) fl RDW Coeff of Carly (11.0-15.0) % Plt Count (150-400) K/uL MPV (7.40-12.00) fL Neut % (Auto) (48.0-80.0) % Lymph % (Auto) (16.0-40.0) % [place] % (Auto) (0.0-15.0) % Eos % (Auto) (0.0-7.0) % Baso % (Auto) (0.0-1.5) % Neut # (Auto) (1.4-5.7) K/uL Lymph # (Auto) (0.6-2.4) K/uL [place] # (Auto) (0.0-0.8) K/uL Eos # (Auto) (0.0-0.7) K/uL Baso # (Auto) (0.0-0.1) K/uL Add Manual Diff Neutrophils % (Manual) (48.0-80.0) % Band Neutrophils % % Lymphocytes % (Manual) (16.0-40.0) % Monocytes % (Manual) (0.0-15.0) % Nucleated RBC % /100WBC Absolute Seg Neuts (1.4-5.7) Band Neutrophils # Lymphocytes # (Manual) (0.6-2.4) Monocytes # (Manual) (0.0-0.8) Nucleated RBCs # K/uL D-Dimer, Quantitative 1.38 H (0.0-0.50) mg/L FEU VBG pH (7.31-7.41) VBG pCO2 (41-51) mmHG VBG pO2 mmHG VBG HCO3 (23-28) mEq/L VBG Total CO2 (24-29) mmol/L VBG Base Excess (-2.0-3.0) Sodium (136-148) mmol/L Potassium (3.5-5.1) mmol/L Chloride (98-107) mmol/L Carbon Dioxide (21.0-32.0) mmol/L BUN (7.0-18.0) mg/dL Creatinine (0.8-1.3) mg/dL Est Cr Clr Drug Dosing mL/min Estimated GFR (MDRD) ml/min Glucose (74-106) mg/dL Lactic Acid (0.4-2.0) mmol/L Calcium (8.5-10.1) mg/dL Magnesium (1.8-2.4) mg/dL Total Bilirubin (0.2-1.0) mg/dL AST (15-37) IU/L ALT (14-63) IU/L Alkaline Phosphatase (46-116) U/L Troponin I (0.000-0.056) ng/mL C-Reactive Protein 2.60 H (0.00-0.90) mg/dL Total Protein (6.4-8.2) g/dL Albumin (3.4-5.0) g/dL Globulin (2.6-4.0) g/dL Albumin/Globulin Ratio (0.9-1.6) SARS-CoV-2 RNA (TONY) POSITIVE H (NEGATIVE) 11/30/20 12/01/20 12/01/20 Range/Units 14:23 04:35 04:35 WBC 8.06 (4.0-11.0) K/uL RBC 4.60 (4.50-5.90) M/uL Hgb 14.4 (13.0-17.0) g/dL Hct 40.3 (38.0-50.0) % MCV 87.6 (80.0-98.0) fL MCH 31.3 (27.0-32.0) pg MCHC 35.7 (31.0-37.0) g/dL RDW Std Deviation 42.3 (28.0-62.0) fl RDW Coeff of Carly 13 (11.0-15.0) % Plt Count 252 (150-400) K/uL MPV 10.50 (7.40-12.00) fL Neut % (Auto) (48.0-80.0) % Lymph % (Auto) (16.0-40.0) % [place] % (Auto) (0.0-15.0) % Eos % (Auto) (0.0-7.0) % Baso % (Auto) (0.0-1.5) % Neut # (Auto) (1.4-5.7) K/uL Lymph # (Auto) (0.6-2.4) K/uL [place] # (Auto) (0.0-0.8) K/uL Eos # (Auto) (0.0-0.7) K/uL Baso # (Auto) (0.0-0.1) K/uL Add Manual Diff YES Neutrophils % (Manual) 83 H (48.0-80.0) % Band Neutrophils % 2 % Lymphocytes % (Manual) 8 L (16.0-40.0) % Monocytes % (Manual) 7 (0.0-15.0) % Nucleated RBC % 0.0 /100WBC Absolute Seg Neuts 6.7 H (1.4-5.7) Band Neutrophils # 0.2 Lymphocytes # (Manual) 0.6 (0.6-2.4) Monocytes # (Manual) 0.6 (0.0-0.8) Nucleated RBCs # 0 K/uL D-Dimer, Quantitative (0.0-0.50) mg/L FEU VBG pH (7.31-7.41) VBG pCO2 (41-51) mmHG VBG pO2 mmHG VBG HCO3 (23-28) mEq/L VBG Total CO2 (24-29) mmol/L VBG Base Excess (-2.0-3.0) Sodium 139 (136-148) mmol/L Potassium 4.5 (3.5-5.1) mmol/L Chloride 104 (98-107) mmol/L Carbon Dioxide 26.6 (21.0-32.0) mmol/L BUN 26 H (7.0-18.0) mg/dL Creatinine 1.1 (0.8-1.3) mg/dL Est Cr Clr Drug Dosing 70.64 mL/min Estimated GFR (MDRD) > 60.0 ml/min Glucose 152 H (74-106) mg/dL Lactic Acid 1.7 (0.4-2.0) mmol/L Calcium 7.9 L (8.5-10.1) mg/dL Magnesium 2.5 H (1.8-2.4) mg/dL Total Bilirubin 0.4 (0.2-1.0) mg/dL AST 67 H (15-37) IU/L ALT 46 (14-63) IU/L Alkaline Phosphatase 45 L (46-116) U/L Troponin I (0.000-0.056) ng/mL C-Reactive Protein (0.00-0.90) mg/dL Total Protein 6.8 (6.4-8.2) g/dL Albumin 2.5 L (3.4-5.0) g/dL Globulin 4.3 H (2.6-4.0) g/dL Albumin/Globulin Ratio 0.6 L (0.9-1.6) SARS-CoV-2 RNA (TONY) (NEGATIVE) Med Orders - Current: Current Medications Albuterol/Ipratropium (Albuterol/Ipratropium 4 Gm Inhalation [place]) 0 gm INH Q4H PRN PRN Reason: Dyspnea Last Admin: 12/01/20 02:25 Dose: 1 puff Documented by: Dexamethasone (Dexamethasone 4 Mg Tab) 6 mg PO DAILY [facility] Enoxaparin Sodium (Enoxaparin 40 Mg/0.4 Ml Syringe) 40 mg SUBCUT Q24H [facility] Last Admin: 11/30/20 19:07 Dose: 40 mg Documented by: Famotidine (Famotidine 20 Mg/2 Ml Sdv) 20 mg IVPUSH BID [facility] Last Admin: 12/01/20 08:49 Dose: 20 mg Documented by: Remdesivir 100 mg/ Sodium (Chloride) 100 mls @ 100 mls/hr IV Q24H [facility] Stop: 12/04/20 18:59 Sodium Chloride (Sodium Chloride 0.9% 10 Ml Syringe) 10 ml FLUSH ASDIRECTED PRN PRN Reason: Keep Vein Open Last Admin: 11/30/20 14:17 Dose: 10 ml Documented by: Sodium Chloride (Sodium Chloride 0.9% 2.5 Ml Syringe) 2.5 ml FLUSH ASDIRECTED PRN PRN Reason: Keep Vein Open Last Admin: 11/30/20 14:17 Dose: 2.5 ml Documented by: Discontinued Medications Dexamethasone (Dexamethasone 10 Mg/Ml Sdv) 6 mg IVPUSH ONETIME ONE Stop: 11/30/20 14:46 Last Admin: 11/30/20 15:00 Dose: 6 mg Documented by: Remdesivir 200 mg/ Sodium (Chloride) 250 mls @ 250 mls/hr IV ONETIME ONE Stop: 11/30/20 14:46 Last Admin: 11/30/20 20:04 Dose: 250 mls/hr Documented by: - Exam General: Alert, Oriented Lungs: Normal Respiratory Effort, Rhonchi Cardiovascular: Regular Rate, Regular Rhythm GI/Abdominal Exam: Soft, Non-Tender, No Distention Extremities: Non-Tender, No Pedal Edema Skin: Warm, Dry, Intact Neurological: No New Focal Deficit - Patient Data Lab Results Last 24 hrs: Laboratory Results - last 24 hr 11/30/20 11/30/20 11/30/20 Range/Units 14:15 14:15 14:15 WBC 9.95 (4.0-11.0) K/uL RBC 4.68 (4.50-5.90) M/uL Hgb 14.7 (13.0-17.0) g/dL Hct 40.9 (38.0-50.0) % MCV 87.4 (80.0-98.0) fL MCH 31.4 (27.0-32.0) pg MCHC 35.9 (31.0-37.0) g/dL RDW Std Deviation 42.3 (28.0-62.0) fl RDW Coeff of Carly 13 (11.0-15.0) % Plt Count 247 (150-400) K/uL MPV 10.30 (7.40-12.00) fL Neut % (Auto) 88.3 H (48.0-80.0) % Lymph % (Auto) 5.4 L (16.0-40.0) % [place] % (Auto) 6.1 (0.0-15.0) % Eos % (Auto) 0.0 (0.0-7.0) % Baso % (Auto) 0.2 (0.0-1.5) % Neut # (Auto) 8.8 H (1.4-5.7) K/uL Lymph # (Auto) 0.5 L (0.6-2.4) K/uL [place] # (Auto) 0.6 (0.0-0.8) K/uL Eos # (Auto) 0.0 (0.0-0.7) K/uL Baso # (Auto) 0.0 (0.0-0.1) K/uL Add Manual Diff Neutrophils % (Manual) (48.0-80.0) % Band Neutrophils % % Lymphocytes % (Manual) (16.0-40.0) % Monocytes % (Manual) (0.0-15.0) % Nucleated RBC % 0.0 /100WBC Absolute Seg Neuts (1.4-5.7) Band Neutrophils # Lymphocytes # (Manual) (0.6-2.4) Monocytes # (Manual) (0.0-0.8) Nucleated RBCs # 0 K/uL D-Dimer, Quantitative (0.0-0.50) mg/L FEU VBG pH 7.45 H (7.31-7.41) VBG pCO2 35 L (41-51) mmHG VBG pO2 33 mmHG VBG HCO3 25 (23-28) mEq/L VBG Total CO2 22 L (24-29) mmol/L VBG Base Excess 1.0 (-2.0-3.0) Sodium 136 (136-148) mmol/L Potassium 4.0 (3.5-5.1) mmol/L Chloride 100 (98-107) mmol/L Carbon Dioxide 23.7 (21.0-32.0) mmol/L BUN 30 H (7.0-18.0) mg/dL Creatinine 1.3 (0.8-1.3) mg/dL Est Cr Clr Drug Dosing 59.69 mL/min Estimated GFR (MDRD) 54.9 ml/min Glucose 137 H (74-106) mg/dL Lactic Acid (0.4-2.0) mmol/L Calcium 7.8 L (8.5-10.1) mg/dL Magnesium (1.8-2.4) mg/dL Total Bilirubin 0.5 (0.2-1.0) mg/dL AST 81 H (15-37) IU/L ALT 52 (14-63) IU/L Alkaline Phosphatase 49 (46-116) U/L Troponin I < 0.050 (0.000-0.056) ng/mL C-Reactive Protein (0.00-0.90) mg/dL Total Protein 7.3 (6.4-8.2) g/dL Albumin 2.8 L (3.4-5.0) g/dL Globulin 4.5 H (2.6-4.0) g/dL Albumin/Globulin Ratio 0.6 L (0.9-1.6) SARS-CoV-2 RNA (TONY) (NEGATIVE) 11/30/20 11/30/20 11/30/20 Range/Units 14:15 14:15 14:18 WBC (4.0-11.0) K/uL RBC (4.50-5.90) M/uL Hgb (13.0-17.0) g/dL Hct (38.0-50.0) % MCV (80.0-98.0) fL MCH (27.0-32.0) pg MCHC (31.0-37.0) g/dL RDW Std Deviation (28.0-62.0) fl RDW Coeff of Carly (11.0-15.0) % Plt Count (150-400) K/uL MPV (7.40-12.00) fL Neut % (Auto) (48.0-80.0) % Lymph % (Auto) (16.0-40.0) % [place] % (Auto) (0.0-15.0) % Eos % (Auto) (0.0-7.0) % Baso % (Auto) (0.0-1.5) % Neut # (Auto) (1.4-5.7) K/uL Lymph # (Auto) (0.6-2.4) K/uL [place] # (Auto) (0.0-0.8) K/uL Eos # (Auto) (0.0-0.7) K/uL Baso # (Auto) (0.0-0.1) K/uL Add Manual Diff Neutrophils % (Manual) (48.0-80.0) % Band Neutrophils % % Lymphocytes % (Manual) (16.0-40.0) % Monocytes % (Manual) (0.0-15.0) % Nucleated RBC % /100WBC Absolute Seg Neuts (1.4-5.7) Band Neutrophils # Lymphocytes # (Manual) (0.6-2.4) Monocytes # (Manual) (0.0-0.8) Nucleated RBCs # K/uL D-Dimer, Quantitative 1.38 H (0.0-0.50) mg/L FEU VBG pH (7.31-7.41) VBG pCO2 (41-51) mmHG VBG pO2 mmHG VBG HCO3 (23-28) mEq/L VBG Total CO2 (24-29) mmol/L VBG Base Excess (-2.0-3.0) Sodium (136-148) mmol/L Potassium (3.5-5.1) mmol/L Chloride (98-107) mmol/L Carbon Dioxide (21.0-32.0) mmol/L BUN (7.0-18.0) mg/dL Creatinine (0.8-1.3) mg/dL Est Cr Clr Drug Dosing mL/min Estimated GFR (MDRD) ml/min Glucose (74-106) mg/dL Lactic Acid (0.4-2.0) mmol/L Calcium (8.5-10.1) mg/dL Magnesium (1.8-2.4) mg/dL Total Bilirubin (0.2-1.0) mg/dL AST (15-37) IU/L ALT (14-63) IU/L Alkaline Phosphatase (46-116) U/L Troponin I (0.000-0.056) ng/mL C-Reactive Protein 2.60 H (0.00-0.90) mg/dL Total Protein (6.4-8.2) g/dL Albumin (3.4-5.0) g/dL Globulin (2.6-4.0) g/dL Albumin/Globulin Ratio (0.9-1.6) SARS-CoV-2 RNA (TONY) POSITIVE H (NEGATIVE) 11/30/20 12/01/20 12/01/20 Range/Units 14:23 04:35 04:35 WBC 8.06 (4.0-11.0) K/uL RBC 4.60 (4.50-5.90) M/uL Hgb 14.4 (13.0-17.0) g/dL Hct 40.3 (38.0-50.0) % MCV 87.6 (80.0-98.0) fL MCH 31.3 (27.0-32.0) pg MCHC 35.7 (31.0-37.0) g/dL RDW Std Deviation 42.3 (28.0-62.0) fl RDW Coeff of Carly 13 (11.0-15.0) % Plt Count 252 (150-400) K/uL MPV 10.50 (7.40-12.00) fL Neut % (Auto) (48.0-80.0) % Lymph % (Auto) (16.0-40.0) % [place] % (Auto) (0.0-15.0) % Eos % (Auto) (0.0-7.0) % Baso % (Auto) (0.0-1.5) % Neut # (Auto) (1.4-5.7) K/uL Lymph # (Auto) (0.6-2.4) K/uL [place] # (Auto) (0.0-0.8) K/uL Eos # (Auto) (0.0-0.7) K/uL Baso # (Auto) (0.0-0.1) K/uL Add Manual Diff YES Neutrophils % (Manual) 83 H (48.0-80.0) % Band Neutrophils % 2 % Lymphocytes % (Manual) 8 L (16.0-40.0) % Monocytes % (Manual) 7 (0.0-15.0) % Nucleated RBC % 0.0 /100WBC Absolute Seg Neuts 6.7 H (1.4-5.7) Band Neutrophils # 0.2 Lymphocytes # (Manual) 0.6 (0.6-2.4) Monocytes # (Manual) 0.6 (0.0-0.8) Nucleated RBCs # 0 K/uL D-Dimer, Quantitative (0.0-0.50) mg/L FEU VBG pH (7.31-7.41) VBG pCO2 (41-51) mmHG VBG pO2 mmHG VBG HCO3 (23-28) mEq/L VBG Total CO2 (24-29) mmol/L VBG Base Excess (-2.0-3.0) Sodium 139 (136-148) mmol/L Potassium 4.5 (3.5-5.1) mmol/L Chloride 104 (98-107) mmol/L Carbon Dioxide 26.6 (21.0-32.0) mmol/L BUN 26 H (7.0-18.0) mg/dL Creatinine 1.1 (0.8-1.3) mg/dL Est Cr Clr Drug Dosing 70.64 mL/min Estimated GFR (MDRD) > 60.0 ml/min Glucose 152 H (74-106) mg/dL Lactic Acid 1.7 (0.4-2.0) mmol/L Calcium 7.9 L (8.5-10.1) mg/dL Magnesium 2.5 H (1.8-2.4) mg/dL Total Bilirubin 0.4 (0.2-1.0) mg/dL AST 67 H (15-37) IU/L ALT 46 (14-63) IU/L Alkaline Phosphatase 45 L (46-116) U/L Troponin I (0.000-0.056) ng/mL C-Reactive Protein (0.00-0.90) mg/dL Total Protein 6.8 (6.4-8.2) g/dL Albumin 2.5 L (3.4-5.0) g/dL Globulin 4.3 H (2.6-4.0) g/dL Albumin/Globulin Ratio 0.6 L (0.9-1.6) SARS-CoV-2 RNA (TONY) (NEGATIVE) Result Diagrams: 12/01/20 04:35 12/01/20 04:35 Sepsis Event Note - Evaluation Sepsis Screening Result: No Definite Risk - Focused Exam Vital Signs: Vital Signs Temp Pulse Resp BP Pulse Ox 12/01/20 07:00 65 22 H 91 L 12/01/20 06:00 53 L 15 107/66 93 L 12/01/20 05:00 54 L 15 102/63 92 L 12/01/20 04:00 35.6 C L 63 21 H 121/72 94 L 12/01/20 03:00 55 L 15 114/77 94 L 12/01/20 02:00 55 L 29 H 119/90 92 L 12/01/20 01:00 54 L 21 H 92 L 12/01/20 00:00 35.9 C L 57 L 25 H 111/67 92 L - Problem List Review Problem List Initiated/Reviewed/Updated: Yes - Plan Plan:: Acute hypoxic respiratory failure secondary to COVID-19 pneumonia Hypoxia: Currently on heated high flow, flow 55, FiO2 90. COVID: continue dexamethasone, and remdesivir. Combivent as needed, incentive spirometry, prone positioning, Lovenox 40 mg subcu q24hr
[2020-12-01] MEDS ORDERED: REMDESIVIR 100 MG in Sodium Chloride 0.9% 100 ML IV SCH ×2 (12:00→14:00)
[2020-12-01] MEDS: Dexamethasone 4 MG Tab PO SCH (14:42)
[2020-12-01] MEDS ORDERED: Iopamidol 755 MG/ML 500 ML Multipack Bottle IVPUSH STA (16:40)
--- NOTE | 2020-12-01 17:38 | CT ---
INDICATION: Shortness of breath. COVID-19 positive. COMPARISON: Chest radiograph from yesterday. TECHNIQUE: CT examination of the chest was performed with the uneventful intravenous administration of 100 cc of Isovue 370 while 1 mm thick axial sections were obtained through the pulmonary arteries. Please note that all CT scans at this facility use dose modulation, iterative reconstruction, and/or weight-based dosing when appropriate to reduce radiation dose to as low as reasonably achievable. FINDINGS: : There is no sign of pulmonary embolism, with normal enhancement and branching of the pulmonary arteries. There is mildly dense, confluent, ground-glass interstitial infiltrate involving the great majority of both lungs, with relative sparing anteriorly and superiorly. The findings are that of severe COVID-19 pneumonia. These findings correlate well with the appearance of yesterday`s chest radiograph. There is no sign of any pleural effusion. There is no sign of mediastinal or hilar mass or adenopathy. There is mild LAD coronary calcification. The heart is otherwise normal in appearance. There is age appropriate appearance of the thoracic aorta and ascending great vessels. There is no sign of supraclavicular or axillary mass or adenopathy. The visualized superior liver, spleen, pancreas, kidneys, and adrenals are normal in appearance. The osseous structures are normal in appearance for the patient`s age. IMPRESSION: No sign of pulmonary embolism. Severe COVID-19 pneumonia with mildly dense, confluent, ground-glass interstitial infiltrate involving the great majority of both lungs. Please note that all CT scans at this facility use dose modulation, iterative reconstruction, and/or weight-based dosing when appropriate to reduce radiation dose to as low as reasonably achievable. Dictated by Geraldo Amador MD @ 12/01/2020 5:36:53 PM (Electronically Signed)
[2020-12-01] MEDS: Enoxaparin 40 MG/0.4 ML Syringe SUBCUT SCH (18:48)
[2020-12-01] MEDS: REMDESIVIR 100 MG in Sodium Chloride 0.9% 100 ML IV SCH (18:49)
[2020-12-02] MEDS: Albuterol/Ipratropium 4 GM Inhalation Spray INH PRN ×3 (03:18→19:37)
[2020-12-02 06:41] LABS: BLOOD UREA NITROGEN,BUN 33 mg/dL (7.0-18.0); CARBON DIOXIDE,CO2 24.3 mmol/L (21.0-32.0); CHLORIDE,CL 103 mmol/L (98-107); GLUCOSE RANDOM 166 mg/dL (74-106); POTASSIUM,K 4.4 mmol/L (3.5-5.1); SODIUM,NA 139 mmol/L (136-148)
--- NOTE | 2020-12-02 08:49 | PCM.PN ---
- General Info Date of Service: 12/02/20 - Review of Systems Systems Review Comment:: feeling better, no new complaints, reports cough and shortness of breath - Patient Data Vitals - Most Recent: Last Vital Signs Temp 36.0 C L 12/02/20 04:00 Pulse 65 12/01/20 07:00 Resp 29 H 12/02/20 07:00 BP 118/62 12/02/20 07:00 Pulse Ox 93 L 12/02/20 07:00 Weight - Most Recent: 102.058 kg I&O - Last 24 Hours: Intake & Output 12/01/20 12/02/20 12/02/20 22:59 06:59 14:59 Intake Total 600 690 Output Total 520 800 Balance 80 -110 Lab Results Last 24 Hours: Laboratory Results - last 24 hr 11/30/20 12/01/20 12/02/20 Range/Units 14:15 04:35 05:48 WBC 10.82 (4.0-11.0) K/uL RBC 4.44 L (4.50-5.90) M/uL Hgb 14.0 (13.0-17.0) g/dL Hct 38.8 (38.0-50.0) % MCV 87.4 (80.0-98.0) fL MCH 31.5 (27.0-32.0) pg MCHC 36.1 (31.0-37.0) g/dL RDW Std Deviation 42.3 (28.0-62.0) fl RDW Coeff of Carly 13 (11.0-15.0) % Plt Count 338 (150-400) K/uL MPV 10.60 (7.40-12.00) fL Add Manual Diff YES Neutrophils % (Manual) 83 H 76 (48.0-80.0) % Band Neutrophils % 2 3 % Lymphocytes % (Manual) 8 L 12 L (16.0-40.0) % Monocytes % (Manual) 7 9 (0.0-15.0) % Absolute Seg Neuts 6.7 H 8.2 H (1.4-5.7) Band Neutrophils # 0.2 0.3 Lymphocytes # (Manual) 0.6 1.3 (0.6-2.4) Monocytes # (Manual) 0.6 1.0 H (0.0-0.8) Sodium (136-148) mmol/L Potassium (3.5-5.1) mmol/L Chloride (98-107) mmol/L Carbon Dioxide (21.0-32.0) mmol/L BUN (7.0-18.0) mg/dL Creatinine (0.8-1.3) mg/dL Est Cr Clr Drug Dosing mL/min Estimated GFR (MDRD) ml/min Glucose (74-106) mg/dL Calcium (8.5-10.1) mg/dL Total Bilirubin (0.2-1.0) mg/dL AST (15-37) IU/L ALT (14-63) IU/L Alkaline Phosphatase (46-116) U/L Total Protein (6.4-8.2) g/dL Albumin (3.4-5.0) g/dL Globulin (2.6-4.0) g/dL Albumin/Globulin Ratio (0.9-1.6) Procalcitonin 0.22 H ng/mL 12/02/20 Range/Units 05:48 WBC (4.0-11.0) K/uL RBC (4.50-5.90) M/uL Hgb (13.0-17.0) g/dL Hct (38.0-50.0) % MCV (80.0-98.0) fL MCH (27.0-32.0) pg MCHC (31.0-37.0) g/dL RDW Std Deviation (28.0-62.0) fl RDW Coeff of Carly (11.0-15.0) % Plt Count (150-400) K/uL MPV (7.40-12.00) fL Add Manual Diff Neutrophils % (Manual) (48.0-80.0) % Band Neutrophils % % Lymphocytes % (Manual) (16.0-40.0) % Monocytes % (Manual) (0.0-15.0) % Absolute Seg Neuts (1.4-5.7) Band Neutrophils # Lymphocytes # (Manual) (0.6-2.4) Monocytes # (Manual) (0.0-0.8) Sodium 139 (136-148) mmol/L Potassium 4.4 (3.5-5.1) mmol/L Chloride 103 (98-107) mmol/L Carbon Dioxide 24.3 (21.0-32.0) mmol/L BUN 33 H (7.0-18.0) mg/dL Creatinine 1.0 (0.8-1.3) mg/dL Est Cr Clr Drug Dosing 77.71 mL/min Estimated GFR (MDRD) > 60.0 ml/min Glucose 166 H (74-106) mg/dL Calcium 7.7 L (8.5-10.1) mg/dL Total Bilirubin 0.5 (0.2-1.0) mg/dL AST 57 H (15-37) IU/L ALT 48 (14-63) IU/L Alkaline Phosphatase 48 (46-116) U/L Total Protein 6.4 (6.4-8.2) g/dL Albumin 2.7 L (3.4-5.0) g/dL Globulin 3.7 (2.6-4.0) g/dL Albumin/Globulin Ratio 0.7 L (0.9-1.6) Procalcitonin ng/mL Med Orders - Current: Current Medications Albuterol/Ipratropium (Albuterol/Ipratropium 4 Gm Inhalation [place]) 0 gm INH Q4H PRN PRN Reason: Dyspnea Last Admin: 12/02/20 03:18 Dose: 1 puff Documented by: Dexamethasone (Dexamethasone 4 Mg Tab) 6 mg PO DAILY [facility] Last Admin: 12/01/20 14:42 Dose: 6 mg Documented by: Enoxaparin Sodium (Enoxaparin 40 Mg/0.4 Ml Syringe) 40 mg SUBCUT Q24H [facility] Last Admin: 12/01/20 18:48 Dose: 40 mg Documented by: Famotidine (Famotidine 20 Mg/2 Ml Sdv) 20 mg IVPUSH BID [facility] Last Admin: 12/01/20 20:40 Dose: 20 mg Documented by: Remdesivir 100 mg/ Sodium (Chloride) 100 mls @ 100 mls/hr IV Q24H [facility] Stop: 12/04/20 18:59 Last Admin: 12/01/20 18:49 Dose: 100 mls/hr Documented by: Sodium Chloride (Sodium Chloride 0.9% 10 Ml Syringe) 10 ml FLUSH ASDIRECTED PRN PRN Reason: Keep Vein Open Last Admin: 11/30/20 14:17 Dose: 10 ml Documented by: Sodium Chloride (Sodium Chloride 0.9% 2.5 Ml Syringe) 2.5 ml FLUSH ASDIRECTED PRN PRN Reason: Keep Vein Open Last Admin: 11/30/20 14:17 Dose: 2.5 ml Documented by: Discontinued Medications Dexamethasone (Dexamethasone 10 Mg/Ml Sdv) 6 mg IVPUSH ONETIME ONE Stop: 11/30/20 14:46 Last Admin: 11/30/20 15:00 Dose: 6 mg Documented by: Remdesivir 200 mg/ Sodium (Chloride) 250 mls @ 250 mls/hr IV ONETIME ONE Stop: 11/30/20 14:46 Last Admin: 11/30/20 20:04 Dose: 250 mls/hr Documented by: Iopamidol (Iopamidol 755 Mg/Ml 500 Ml Multipack Bottle) 100 ml IVPUSH ONETIME STA Stop: 12/01/20 16:41 Last Admin: 12/01/20 16:41 Dose: 100 ml Documented by: - Exam General: Alert, Oriented Neck: Supple Lungs: Clear to Auscultation, Normal Respiratory Effort Cardiovascular: Regular Rate, Regular Rhythm GI/Abdominal Exam: Normal Bowel Sounds, Soft, Non-Tender, No Distention Extremities: Non-Tender, No Pedal Edema Skin: Warm, Dry, Intact Neurological: No New Focal Deficit - Patient Data Lab Results Last 24 hrs: Laboratory Results - last 24 hr 11/30/20 12/01/20 12/02/20 Range/Units 14:15 04:35 05:48 WBC 10.82 (4.0-11.0) K/uL RBC 4.44 L (4.50-5.90) M/uL Hgb 14.0 (13.0-17.0) g/dL Hct 38.8 (38.0-50.0) % MCV 87.4 (80.0-98.0) fL MCH 31.5 (27.0-32.0) pg MCHC 36.1 (31.0-37.0) g/dL RDW Std Deviation 42.3 (28.0-62.0) fl RDW Coeff of Carly 13 (11.0-15.0) % Plt Count 338 (150-400) K/uL MPV 10.60 (7.40-12.00) fL Add Manual Diff YES Neutrophils % (Manual) 83 H 76 (48.0-80.0) % Band Neutrophils % 2 3 % Lymphocytes % (Manual) 8 L 12 L (16.0-40.0) % Monocytes % (Manual) 7 9 (0.0-15.0) % Absolute Seg Neuts 6.7 H 8.2 H (1.4-5.7) Band Neutrophils # 0.2 0.3 Lymphocytes # (Manual) 0.6 1.3 (0.6-2.4) Monocytes # (Manual) 0.6 1.0 H (0.0-0.8) Sodium (136-148) mmol/L Potassium (3.5-5.1) mmol/L Chloride (98-107) mmol/L Carbon Dioxide (21.0-32.0) mmol/L BUN (7.0-18.0) mg/dL Creatinine (0.8-1.3) mg/dL Est Cr Clr Drug Dosing mL/min Estimated GFR (MDRD) ml/min Glucose (74-106) mg/dL Calcium (8.5-10.1) mg/dL Total Bilirubin (0.2-1.0) mg/dL AST (15-37) IU/L ALT (14-63) IU/L Alkaline Phosphatase (46-116) U/L Total Protein (6.4-8.2) g/dL Albumin (3.4-5.0) g/dL Globulin (2.6-4.0) g/dL Albumin/Globulin Ratio (0.9-1.6) Procalcitonin 0.22 H ng/mL 12/02/20 Range/Units 05:48 WBC (4.0-11.0) K/uL RBC (4.50-5.90) M/uL Hgb (13.0-17.0) g/dL Hct (38.0-50.0) % MCV (80.0-98.0) fL MCH (27.0-32.0) pg MCHC (31.0-37.0) g/dL RDW Std Deviation (28.0-62.0) fl RDW Coeff of Carly (11.0-15.0) % Plt Count (150-400) K/uL MPV (7.40-12.00) fL Add Manual Diff Neutrophils % (Manual) (48.0-80.0) % Band Neutrophils % % Lymphocytes % (Manual) (16.0-40.0) % Monocytes % (Manual) (0.0-15.0) % Absolute Seg Neuts (1.4-5.7) Band Neutrophils # Lymphocytes # (Manual) (0.6-2.4) Monocytes # (Manual) (0.0-0.8) Sodium 139 (136-148) mmol/L Potassium 4.4 (3.5-5.1) mmol/L Chloride 103 (98-107) mmol/L Carbon Dioxide 24.3 (21.0-32.0) mmol/L BUN 33 H (7.0-18.0) mg/dL Creatinine 1.0 (0.8-1.3) mg/dL Est Cr Clr Drug Dosing 77.71 mL/min Estimated GFR (MDRD) > 60.0 ml/min Glucose 166 H (74-106) mg/dL Calcium 7.7 L (8.5-10.1) mg/dL Total Bilirubin 0.5 (0.2-1.0) mg/dL AST 57 H (15-37) IU/L ALT 48 (14-63) IU/L Alkaline Phosphatase 48 (46-116) U/L Total Protein 6.4 (6.4-8.2) g/dL Albumin 2.7 L (3.4-5.0) g/dL Globulin 3.7 (2.6-4.0) g/dL Albumin/Globulin Ratio 0.7 L (0.9-1.6) Procalcitonin ng/mL Result Diagrams: 12/02/20 05:48 12/02/20 05:48 Sepsis Event Note - Evaluation Sepsis Screening Result: No Definite Risk - Focused Exam Vital Signs: Vital Signs Temp Resp BP Pulse Ox 12/02/20 07:00 29 H 118/62 93 L 12/02/20 06:00 26 H 108/63 90 L 12/02/20 05:00 27 H 116/70 93 L 12/02/20 04:00 36.0 C L 31 H 112/73 93 L 12/02/20 03:00 31 H 110/68 93 L 12/02/20 02:00 20 110/63 91 L 12/02/20 01:00 36.0 C L 25 H 95/63 96 12/02/20 00:00 26 H 106/66 93 L 12/01/20 23:00 28 H 99/68 91 L 12/01/20 22:00 26 H 120/69 91 L 12/01/20 21:00 35.4 C L 18 105/63 86 L - Problem List Review Problem List Initiated/Reviewed/Updated: Yes - Plan Plan:: Acute hypoxic respiratory failure secondary to COVID-19 pneumonia Hypoxia: Currently on heated high flow, flow 60, FiO2 85. with CPAP prn COVID: continue dexamethasone, and remdesivir. Combivent as needed, incentive spirometry, prone positioning, Lovenox 40 mg subcu q24hr
[2020-12-02] MEDS: Famotidine 20 MG/2 ML SDV IVPUSH SCH ×2 (08:52→21:04)
[2020-12-02] MEDS: Dexamethasone 4 MG Tab PO SCH (08:53)
[2020-12-02] MEDS: guaiFENesin/Dextromethorphan 100-10 MG/5 ML Soln 10 ML Cup PO PRN ×2 (08:59→13:22)
[2020-12-02] MEDS: REMDESIVIR 100 MG in Sodium Chloride 0.9% 100 ML IV SCH (17:42)
[2020-12-02] MEDS: Enoxaparin 40 MG/0.4 ML Syringe SUBCUT SCH (17:44)
[2020-12-03] MEDS: Albuterol/Ipratropium 4 GM Inhalation Spray INH PRN ×3 (05:00→20:39)
[2020-12-03 07:52] LABS: BLOOD UREA NITROGEN,BUN 34 mg/dL (7.0-18.0); CARBON DIOXIDE,CO2 25.7 mmol/L (21.0-32.0); CHLORIDE,CL 104 mmol/L (98-107); GLUCOSE RANDOM 124 mg/dL (74-106); POTASSIUM,K 4.3 mmol/L (3.5-5.1); SODIUM,NA 140 mmol/L (136-148)
[2020-12-03] MEDS: Dexamethasone 4 MG Tab PO SCH (09:31)
[2020-12-03] MEDS: Famotidine 20 MG/2 ML SDV IVPUSH SCH ×2 (09:32→20:35)
--- NOTE | 2020-12-03 10:01 | PN ---
[facility] Physician - Brief Progress [id number]/29/2021 16:03[facility] Patsy Mckeon, [place] - MYRNA (ARMANDO) - MYRNA TELLEZREKHA PEREZDaija, COVID+Date of Service 12/02/2020 16:03HPI /Events of Note eICU Progress [id number] male, no significant PMH, admitted on 11/30 for acute hypoxemic respiratory failure secondary to COVID-19 pneumonia. Onset of symptoms was 6 days prior. Guille olivia is unvaccinated. Requiring heated high flow nasal cannula. CT OE on admission was negative for PE. On treatment with decadron, remdesivir and lovenox.Per RN report, patient is feeling better today , last night did not tolerate Bipap due to claustrophobia, he looks comfortable today. Patient was se en in camera, he was sitting up in a chair. Case discussed with bedside RN.eICU Recommendations:Wean off O2 as tolerated.Self proning as tolerated.Covid managment per hospital guidelinesTry to keep nega tive fluid balanceIn case of clinical deterioration obtain resp culture to guide antibiotic therapy a nd CT chest with contrast to evaluate for PE.Continue DVT prophylaxis and PUD prophylaxisThank you fo r allowing us to participate in the care of your patient.Interventions Major-Hypoxemia - evaluation a nd management, Respiratory failure - evaluation and managementIntermediate-Communication with other ealthcare providers and/or family
--- NOTE | 2020-12-03 11:41 | PCM.PN ---
<Abelardo Garza - Last Filed: 12/03/20 11:38> - General Info Date of Service: 12/03/20 Subjective Update: No overnight concerns, patient states sleeping well in the recliner. Patient denies fever, chills, nausea, vomiting. Patient states tolerating diet. Patient states mild intermittent cough which is controlled with Robitussin. - Review of Systems General: Denies: Fever, Chills Pulmonary: Reports: Cough. Denies: Wheezing Cardiovascular: Reports: Dyspnea on Exertion. Denies: Chest Pain, Edema Gastrointestinal: Denies: Abdominal Pain, Diarrhea, Nausea, Vomiting Neurological: Denies: Confusion, Dizziness - Patient Data Vitals - Most Recent: Last Vital Signs Temp 96.8 F L 12/03/20 06:00 Pulse 65 12/01/20 07:00 Resp 18 12/03/20 10:00 BP 119/73 12/03/20 10:00 Pulse Ox 90 L 12/03/20 10:00 Weight - Most Recent: 102.058 kg I&O - Last 24 Hours: Intake & Output 12/02/20 12/03/20 12/03/20 22:59 06:59 14:59 Intake Total 940 650 Output Total 900 750 Balance 40 -100 Lab Results Last 24 Hours: Laboratory Results - last 24 hr 12/03/20 12/03/20 Range/Units 06:16 06:16 WBC 13.25 H (4.0-11.0) K/uL RBC 4.47 L (4.50-5.90) M/uL Hgb 13.7 (13.0-17.0) g/dL Hct 39.4 (38.0-50.0) % MCV 88.1 (80.0-98.0) fL MCH 30.6 (27.0-32.0) pg MCHC 34.8 (31.0-37.0) g/dL RDW Std Deviation 42.7 (28.0-62.0) fl RDW Coeff of Carly 13 (11.0-15.0) % Plt Count 371 (150-400) K/uL MPV 10.60 (7.40-12.00) fL Add Manual Diff YES Neutrophils % (Manual) 83 H (48.0-80.0) % Lymphocytes % (Manual) 4 L (16.0-40.0) % Atypical Lymphs % 4 Monocytes % (Manual) 8 (0.0-15.0) % Eosinophils % (Manual) 1 (0.0-7.0) % Nucleated RBC % 0.0 /100WBC Absolute Seg Neuts 11.0 H (1.4-5.7) Lymphocytes # (Manual) 0.5 L (0.6-2.4) Monocytes # (Manual) 1.1 H (0.0-0.8) Eosinophils # (Manual) 0.1 (0.0-0.7) Nucleated RBCs # 0 K/uL Sodium 140 (136-148) mmol/L Potassium 4.3 (3.5-5.1) mmol/L Chloride 104 (98-107) mmol/L Carbon Dioxide 25.7 (21.0-32.0) mmol/L BUN 34 H (7.0-18.0) mg/dL Creatinine 1.0 (0.8-1.3) mg/dL Est Cr Clr Drug Dosing 77.71 mL/min Estimated GFR (MDRD) > 60.0 ml/min Glucose 124 H (74-106) mg/dL Calcium 7.6 L (8.5-10.1) mg/dL Phosphorus 4.1 (2.6-4.7) mg/dL Magnesium 2.4 (1.8-2.4) mg/dL Total Bilirubin 0.6 (0.2-1.0) mg/dL AST 45 H (15-37) IU/L ALT 43 (14-63) IU/L Alkaline Phosphatase 43 L (46-116) U/L Total Protein 6.1 L (6.4-8.2) g/dL Albumin 2.6 L (3.4-5.0) g/dL Globulin 3.5 (2.6-4.0) g/dL Albumin/Globulin Ratio 0.7 L (0.9-1.6) Med Orders - Current: Current Medications Albuterol/Ipratropium (Albuterol/Ipratropium 4 Gm Inhalation [place]) 0 gm INH Q4H PRN PRN Reason: Dyspnea Last Admin: 12/03/20 05:00 Dose: 1 puff Documented by: Dexamethasone (Dexamethasone 4 Mg Tab) 6 mg PO DAILY [facility] Last Admin: 12/03/20 09:31 Dose: 6 mg Documented by: Enoxaparin Sodium (Enoxaparin 40 Mg/0.4 Ml Syringe) 40 mg SUBCUT Q24H [facility] Last Admin: 12/02/20 17:44 Dose: 40 mg Documented by: Famotidine (Famotidine 20 Mg/2 Ml Sdv) 20 mg IVPUSH BID [facility] Last Admin: 12/03/20 09:32 Dose: 20 mg Documented by: Guaifenesin/Dextromethorphan (Guaifenesin/Dextromethorphan 100-10 Mg/5 Ml Soln 10 Ml Cup) 10 ml PO Q4H PRN PRN Reason: Cough Last Admin: 12/02/20 13:22 Dose: 10 ml Documented by: Remdesivir 100 mg/ Sodium (Chloride) 100 mls @ 100 mls/hr IV Q24H [facility] Stop: 12/04/20 18:59 Last Admin: 12/02/20 17:42 Dose: 100 mls/hr Documented by: Sodium Chloride (Sodium Chloride 0.9% 10 Ml Syringe) 10 ml FLUSH ASDIRECTED PRN PRN Reason: Keep Vein Open Last Admin: 11/30/20 14:17 Dose: 10 ml Documented by: Sodium Chloride (Sodium Chloride 0.9% 2.5 Ml Syringe) 2.5 ml FLUSH ASDIRECTED PRN PRN Reason: Keep Vein Open Last Admin: 11/30/20 14:17 Dose: 2.5 ml Documented by: Discontinued Medications Dexamethasone (Dexamethasone 10 Mg/Ml Sdv) 6 mg IVPUSH ONETIME ONE Stop: 11/30/20 14:46 Last Admin: 11/30/20 15:00 Dose: 6 mg Documented by: Remdesivir 200 mg/ Sodium (Chloride) 250 mls @ 250 mls/hr IV ONETIME ONE Stop: 11/30/20 14:46 Last Admin: 11/30/20 20:04 Dose: 250 mls/hr Documented by: Iopamidol (Iopamidol 755 Mg/Ml 500 Ml Multipack Bottle) 100 ml IVPUSH ONETIME STA Stop: 12/01/20 16:41 Last Admin: 12/01/20 16:41 Dose: 100 ml Documented by: - Exam Quality Assessment: Supplemental Oxygen (hhf) General: Alert, Oriented Lungs: Normal Respiratory Effort (while resting). No: Wheezing Cardiovascular: Regular Rate, Regular Rhythm GI/Abdominal Exam: Soft, Non-Tender Extremities: No Pedal Edema Psy/Mental Status: Alert - Patient Data Lab Results Last 24 hrs: Laboratory Results - last 24 hr 12/03/20 12/03/20 Range/Units 06:16 06:16 WBC 13.25 H (4.0-11.0) K/uL RBC 4.47 L (4.50-5.90) M/uL Hgb 13.7 (13.0-17.0) g/dL Hct 39.4 (38.0-50.0) % MCV 88.1 (80.0-98.0) fL MCH 30.6 (27.0-32.0) pg MCHC 34.8 (31.0-37.0) g/dL RDW Std Deviation 42.7 (28.0-62.0) fl RDW Coeff of Carly 13 (11.0-15.0) % Plt Count 371 (150-400) K/uL MPV 10.60 (7.40-12.00) fL Add Manual Diff YES Neutrophils % (Manual) 83 H (48.0-80.0) % Lymphocytes % (Manual) 4 L (16.0-40.0) % Atypical Lymphs % 4 Monocytes % (Manual) 8 (0.0-15.0) % Eosinophils % (Manual) 1 (0.0-7.0) % Nucleated RBC % 0.0 /100WBC Absolute Seg Neuts 11.0 H (1.4-5.7) Lymphocytes # (Manual) 0.5 L (0.6-2.4) Monocytes # (Manual) 1.1 H (0.0-0.8) Eosinophils # (Manual) 0.1 (0.0-0.7) Nucleated RBCs # 0 K/uL Sodium 140 (136-148) mmol/L Potassium 4.3 (3.5-5.1) mmol/L Chloride 104 (98-107) mmol/L Carbon Dioxide 25.7 (21.0-32.0) mmol/L BUN 34 H (7.0-18.0) mg/dL Creatinine 1.0 (0.8-1.3) mg/dL Est Cr Clr Drug Dosing 77.71 mL/min Estimated GFR (MDRD) > 60.0 ml/min Glucose 124 H (74-106) mg/dL Calcium 7.6 L (8.5-10.1) mg/dL Phosphorus 4.1 (2.6-4.7) mg/dL Magnesium 2.4 (1.8-2.4) mg/dL Total Bilirubin 0.6 (0.2-1.0) mg/dL AST 45 H (15-37) IU/L ALT 43 (14-63) IU/L Alkaline Phosphatase 43 L (46-116) U/L Total Protein 6.1 L (6.4-8.2) g/dL Albumin 2.6 L (3.4-5.0) g/dL Globulin 3.5 (2.6-4.0) g/dL Albumin/Globulin Ratio 0.7 L (0.9-1.6) Result Diagrams: 12/03/20 06:16 12/03/20 06:16 Sepsis Event Note - Evaluation Sepsis Screening Result: No Definite Risk - Focused Exam Vital Signs: Vital Signs Temp Resp BP Pulse Ox 12/03/20 10:00 18 119/73 90 L 12/03/20 09:00 25 H 90 L 12/03/20 08:00 26 H 91 L 12/03/20 07:00 25 H 120/63 94 L 12/03/20 06:00 96.8 F L 24 H 121/71 92 L 12/03/20 05:00 26 H 89 L 12/03/20 04:00 29 H 89 L 12/03/20 03:00 29 H 94 L 12/03/20 02:00 32 H 90 L 12/03/20 01:00 31 H 93 L 12/03/20 00:00 35 H 90 L - Problem List & Annotations (1) Acute hypoxemic respiratory failure due to COVID-19 SNOMED Code(s): 153842968 Code(s): U07.1 - COVID-19; J96.01 - ACUTE RESPIRATORY FAILURE WITH HYPOXIA Status: Acute Current Visit: Yes - Problem List Review Problem List Initiated/Reviewed/Updated: Yes - Plan Plan:: Acute hypoxic respiratory failure secondary to COVID-19 pneumonia Hypoxia: Currently on heated high flow, flow 60, FiO2 85. with CPAP prn COVID: continue dexamethasone, and remdesivir. Combivent as needed, incentive spirometry, prone positioning, Lovenox 40 mg subcu q24hr, Robitussin for cough. <Nimisha Julian - Last Filed: 12/05/20 15:31> - Patient Data Vitals - Most Recent: Last Vital Signs Temp 36.7 C 12/05/20 12:00 Pulse 65 12/01/20 07:00 Resp 26 H 12/05/20 12:00 BP 136/74 12/05/20 12:00 Pulse Ox 89 L 12/05/20 12:00 I&O - Last 24 Hours: Intake & Output 12/05/20 12/05/20 12/05/20 06:59 14:59 22:59 Intake Total 400 Output Total 650 Balance -250 Lab Results Last 24 Hours: Laboratory Results - last 24 hr 12/05/20 12/05/20 Range/Units 06:40 06:40 WBC 13.05 H (4.0-11.0) K/uL RBC 4.61 (4.50-5.90) M/uL Hgb 14.2 (13.0-17.0) g/dL Hct 40.7 (38.0-50.0) % MCV 88.3 (80.0-98.0) fL MCH 30.8 (27.0-32.0) pg MCHC 34.9 (31.0-37.0) g/dL RDW Std Deviation 42.7 (28.0-62.0) fl RDW Coeff of Carly 13 (11.0-15.0) % Plt Count 293 (150-400) K/uL MPV 10.10 (7.40-12.00) fL Neut % (Auto) 82.8 H (48.0-80.0) % Lymph % (Auto) 7.7 L (16.0-40.0) % Sampson % (Auto) 8.4 (0.0-15.0) % Eos % (Auto) 0.9 (0.0-7.0) % Baso % (Auto) 0.2 (0.0-1.5) % Neut # (Auto) 10.8 H (1.4-5.7) K/uL Lymph # (Auto) 1.0 (0.6-2.4) K/uL Sampson # (Auto) 1.1 H (0.0-0.8) K/uL Eos # (Auto) 0.1 (0.0-0.7) K/uL Baso # (Auto) 0.0 (0.0-0.1) K/uL Nucleated RBC % 0.0 /100WBC Nucleated RBCs # 0 K/uL Sodium 138 (136-148) mmol/L Potassium 4.5 (3.5-5.1) mmol/L Chloride 103 (98-107) mmol/L Carbon Dioxide 25.2 (21.0-32.0) mmol/L BUN 29 H (7.0-18.0) mg/dL Creatinine 0.9 (0.8-1.3) mg/dL Est Cr Clr Drug Dosing 86.34 mL/min Estimated GFR (MDRD) > 60.0 ml/min Glucose 101 (74-106) mg/dL Calcium 7.8 L (8.5-10.1) mg/dL Phosphorus 3.8 (2.6-4.7) mg/dL Magnesium 2.3 (1.8-2.4) mg/dL Total Bilirubin 0.8 (0.2-1.0) mg/dL AST 41 H (15-37) IU/L ALT 56 (14-63) IU/L Alkaline Phosphatase 47 (46-116) U/L Total Protein 6.3 L (6.4-8.2) g/dL Albumin 2.7 L (3.4-5.0) g/dL Globulin 3.6 (2.6-4.0) g/dL Albumin/Globulin Ratio 0.8 L (0.9-1.6) Med Orders - Current: Current Medications Albuterol/Ipratropium (Albuterol/Ipratropium 4 Gm Inhalation [place]) 0 gm INH Q4H PRN PRN Reason: Dyspnea Last Admin: 12/05/20 11:54 Dose: 1 puff Documented by: Dexamethasone (Dexamethasone 4 Mg Tab) 6 mg PO DAILY [facility] Last Admin: 12/05/20 08:55 Dose: 6 mg Documented by: Enoxaparin Sodium (Enoxaparin 40 Mg/0.4 Ml Syringe) 40 mg SUBCUT Q24H [facility] Last Admin: 12/04/20 18:12 Dose: 40 mg Documented by: Guaifenesin (Guaifenesin 100 Mg/5 Ml Soln 5 Ml Ud Cup) 100 mg PO Q4H [facility] Last Admin: 12/05/20 11:58 Dose: 100 mg Documented by: Pantoprazole Sodium 40 mg/ (Sodium Chloride) 10 mls @ 300 mls/hr IV Q24H [facility] Levofloxacin/Dextrose 750 mg/ (Premix) 150 mls @ 100 mls/hr IV Q24H [facility] Last Admin: 12/05/20 15:24 Dose: 100 mls/hr Documented by: Polyethylene Glycol (Polyethylene Glycol 3350 Powder 17 Gm Packet) 17 gm PO BEDTIME [facility] Sodium Chloride (Sodium Chloride 0.9% 10 Ml Syringe) 10 ml FLUSH ASDIRECTED PRN PRN Reason: Keep Vein Open Last Admin: 11/30/20 14:17 Dose: 10 ml Documented by: Sodium Chloride (Sodium Chloride 0.9% 2.5 Ml Syringe) 2.5 ml FLUSH ASDIRECTED PRN PRN Reason: Keep Vein Open Last Admin: 11/30/20 14:17 Dose: 2.5 ml Documented by: Discontinued Medications Dexamethasone (Dexamethasone 10 Mg/Ml Sdv) 6 mg IVPUSH ONETIME ONE Stop: 11/30/20 14:46 Last Admin: 11/30/20 15:00 Dose: 6 mg Documented by: Famotidine (Famotidine 20 Mg/2 Ml Sdv) 20 mg IVPUSH BID [facility] Last Admin: 12/05/20 08:55 Dose: 20 mg Documented by: Guaifenesin/Dextromethorphan (Guaifenesin/Dextromethorphan 100-10 Mg/5 Ml Soln 10 Ml Cup) 10 ml PO Q4H PRN PRN Reason: Cough Last Admin: 12/03/20 12:45 Dose: 10 ml Documented by: Guaifenesin/Dextromethorphan (Guaifenesin/Dextromethorphan 100-10 Mg/5 Ml Soln 10 Ml Cup) 10 ml PO Q4H [facility] Last Admin: 12/05/20 10:24 Dose: Not Given Documented by: Remdesivir 200 mg/ Sodium (Chloride) 250 mls @ 250 mls/hr IV ONETIME ONE Stop: 11/30/20 14:46 Last Admin: 11/30/20 20:04 Dose: 250 mls/hr Documented by: Remdesivir 100 mg/ Sodium (Chloride) 100 mls @ 100 mls/hr IV Q24H [facility] Stop: 12/04/20 18:59 Last Admin: 12/04/20 18:12 Dose: 100 mls/hr Documented by: Iopamidol (Iopamidol 755 Mg/Ml 500 Ml Multipack Bottle) 100 ml IVPUSH ONETIME STA Stop: 12/01/20 16:41 Last Admin: 12/01/20 16:41 Dose: 100 ml Documented by: - Patient Data Lab Results Last 24 hrs: Laboratory Results - last 24 hr 12/05/20 12/05/20 Range/Units 06:40 06:40 WBC 13.05 H (4.0-11.0) K/uL RBC 4.61 (4.50-5.90) M/uL Hgb 14.2 (13.0-17.0) g/dL Hct 40.7 (38.0-50.0) % MCV 88.3 (80.0-98.0) fL MCH 30.8 (27.0-32.0) pg MCHC 34.9 (31.0-37.0) g/dL RDW Std Deviation 42.7 (28.0-62.0) fl RDW Coeff of Carly 13 (11.0-15.0) % Plt Count 293 (150-400) K/uL MPV 10.10 (7.40-12.00) fL Neut % (Auto) 82.8 H (48.0-80.0) % Lymph % (Auto) 7.7 L (16.0-40.0) % Sampson % (Auto) 8.4 (0.0-15.0) % Eos % (Auto) 0.9 (0.0-7.0) % Baso % (Auto) 0.2 (0.0-1.5) % Neut # (Auto) 10.8 H (1.4-5.7) K/uL Lymph # (Auto) 1.0 (0.6-2.4) K/uL Sampson # (Auto) 1.1 H (0.0-0.8) K/uL Eos # (Auto) 0.1 (0.0-0.7) K/uL Baso # (Auto) 0.0 (0.0-0.1) K/uL Nucleated RBC % 0.0 /100WBC Nucleated RBCs # 0 K/uL Sodium 138 (136-148) mmol/L Potassium 4.5 (3.5-5.1) mmol/L Chloride 103 (98-107) mmol/L Carbon Dioxide 25.2 (21.0-32.0) mmol/L BUN 29 H (7.0-18.0) mg/dL Creatinine 0.9 (0.8-1.3) mg/dL Est Cr Clr Drug Dosing 86.34 mL/min Estimated GFR (MDRD) > 60.0 ml/min Glucose 101 (74-106) mg/dL Calcium 7.8 L (8.5-10.1) mg/dL Phosphorus 3.8 (2.6-4.7) mg/dL Magnesium 2.3 (1.8-2.4) mg/dL Total Bilirubin 0.8 (0.2-1.0) mg/dL AST 41 H (15-37) IU/L ALT 56 (14-63) IU/L Alkaline Phosphatase 47 (46-116) U/L Total Protein 6.3 L (6.4-8.2) g/dL Albumin 2.7 L (3.4-5.0) g/dL Globulin 3.6 (2.6-4.0) g/dL Albumin/Globulin Ratio 0.8 L (0.9-1.6) Result Diagrams: 12/05/20 06:40 12/05/20 06:40 Sepsis Event Note - Focused Exam Vital Signs: Vital Signs Temp Resp BP Pulse Ox 12/05/20 12:00 36.7 C 26 H 136/74 89 L 12/05/20 11:00 30 H 92 L 12/05/20 10:00 32 H 92 L 12/05/20 09:00 36.4 C 32 H 129/71 90 L 12/05/20 08:00 28 H 88 L 12/05/20 07:00 26 H 91 L 12/05/20 06:00 18 136/68 93 L 12/05/20 05:00 21 H 93 L 12/05/20 04:00 36.5 C 24 H 92 L - Plan Plan:: I have seen and evaluated the patient and agree with the residents note unless specified in my note
[2020-12-03] MEDS: guaiFENesin/Dextromethorphan 100-10 MG/5 ML Soln 10 ML Cup PO PRN (12:45)
[2020-12-03] MEDS: guaiFENesin/Dextromethorphan 100-10 MG/5 ML Soln 10 ML Cup PO SCH ×3 (16:41→23:38)
[2020-12-03] MEDS: REMDESIVIR 100 MG in Sodium Chloride 0.9% 100 ML IV SCH (17:54)
[2020-12-03] MEDS: Enoxaparin 40 MG/0.4 ML Syringe SUBCUT SCH (17:56)
[2020-12-04] MEDS: guaiFENesin/Dextromethorphan 100-10 MG/5 ML Soln 10 ML Cup PO SCH ×6 (03:10→23:50)
[2020-12-04] MEDS: Albuterol/Ipratropium 4 GM Inhalation Spray INH PRN (07:17)
[2020-12-04 07:24] LABS: BLOOD UREA NITROGEN,BUN 31 mg/dL (7.0-18.0); CARBON DIOXIDE,CO2 26.5 mmol/L (21.0-32.0); CHLORIDE,CL 104 mmol/L (98-107); GLUCOSE RANDOM 100 mg/dL (74-106); POTASSIUM,K 4.6 mmol/L (3.5-5.1); SODIUM,NA 139 mmol/L (136-148)
[2020-12-04] MEDS: Famotidine 20 MG/2 ML SDV IVPUSH SCH ×2 (08:15→21:06)
[2020-12-04] MEDS: Dexamethasone 4 MG Tab PO SCH (08:15)
--- NOTE | 2020-12-04 11:49 | PN ---
TH[facility] Physician - Brief Progress [id number]/01/2021 11:46[facility] Patsy lawler, [place] - MYRNA (ARMANDO) - REKHA ANDREWS, LADYID+Date of Service 12/04/2020 11:46HPI /Events of Note PICU progress noteActive problems:1. Acute hypoxemic respiratory failure2. COVID-19 pneumoniaLast 24 hours events:-Patient is sitting up in chair this morning on high flow oxygen nasal cannula and 85% FiO2-Afebrile, hemodynamically stableChart, labs and images reviewedPatient was eval uated by [facility] recommendations:-Continue current treatment plan as per primary hospital m edicine team: Dexamethasone, remdesivir, follow-up chest x-ray, wean FiO2, self proning as tolerated, DVT and stress ulcer prophylaxis-Case discussed with bedside ICU nursing staff, no immediate needs f rom eICU at this time.Interventions Major-Respiratory failure - evaluation and managementElectronical ly Signed by: Nancie Tan) on 12/04/2020 11:48
[2020-12-04] MEDS: Enoxaparin 40 MG/0.4 ML Syringe SUBCUT SCH (18:12)
[2020-12-04] MEDS: REMDESIVIR 100 MG in Sodium Chloride 0.9% 100 ML IV SCH (18:12)
--- NOTE | 2020-12-04 21:16 | PCM.PN ---
<Abelardo Garza - Last Filed: 12/04/20 21:13> - General Info Date of Service: 12/04/20 Subjective Update: Patient states not sleeping well overnight, due to uncomfortable vision. Patient also concerned about his shortness of breath with ambulation. Patient had prior reservations of using CPAP BiPAP, but upon conversation today patient states that he would try CPAP if it will improve his shortness of breath. Patient denies fever, chills, nausea, vomiting, vomiting, diarrhea. - Review of Systems General: Denies: Fever, Chills Pulmonary: Reports: Shortness of Breath Cardiovascular: Reports: Dyspnea on Exertion. Denies: Chest Pain, Edema Gastrointestinal: Denies: Decreased Appetite, Diarrhea, Nausea, Vomiting Neurological: Denies: Confusion, Dizziness Psychiatric: Denies: Confusion - Patient Data Vitals - Most Recent: Last Vital Signs Temp 97.7 F 12/04/20 20:00 Pulse 65 12/01/20 07:00 Resp 21 H 12/04/20 20:00 BP 128/79 12/04/20 16:00 Pulse Ox 93 L 12/04/20 20:00 Weight - Most Recent: 102.058 kg I&O - Last 24 Hours: Intake & Output 12/04/20 12/04/20 12/04/20 06:59 14:59 22:59 Intake Total 700 690 Output Total 800 500 Balance -100 190 Lab Results Last 24 Hours: Laboratory Results - last 24 hr 12/04/20 12/04/20 Range/Units 05:52 05:52 WBC 13.04 H (4.0-11.0) K/uL RBC 4.48 L (4.50-5.90) M/uL Hgb 13.7 (13.0-17.0) g/dL Hct 39.5 (38.0-50.0) % MCV 88.2 (80.0-98.0) fL MCH 30.6 (27.0-32.0) pg MCHC 34.7 (31.0-37.0) g/dL RDW Std Deviation 42.8 (28.0-62.0) fl RDW Coeff of Carly 13 (11.0-15.0) % Plt Count 342 (150-400) K/uL MPV 10.30 (7.40-12.00) fL Neut % (Auto) 83.6 H (48.0-80.0) % Lymph % (Auto) 7.7 L (16.0-40.0) % [place] % (Auto) 8.4 (0.0-15.0) % Eos % (Auto) 0.1 (0.0-7.0) % Baso % (Auto) 0.2 (0.0-1.5) % Neut # (Auto) 10.9 H (1.4-5.7) K/uL Lymph # (Auto) 1.0 (0.6-2.4) K/uL [place] # (Auto) 1.1 H (0.0-0.8) K/uL Eos # (Auto) 0.0 (0.0-0.7) K/uL Baso # (Auto) 0.0 (0.0-0.1) K/uL Nucleated RBC % 0.0 /100WBC Nucleated RBCs # 0 K/uL Sodium 139 (136-148) mmol/L Potassium 4.6 (3.5-5.1) mmol/L Chloride 104 (98-107) mmol/L Carbon Dioxide 26.5 (21.0-32.0) mmol/L BUN 31 H (7.0-18.0) mg/dL Creatinine 1.0 (0.8-1.3) mg/dL Est Cr Clr Drug Dosing 77.71 mL/min Estimated GFR (MDRD) > 60.0 ml/min Glucose 100 (74-106) mg/dL Calcium 7.5 L (8.5-10.1) mg/dL Phosphorus 3.8 (2.6-4.7) mg/dL Magnesium 2.3 (1.8-2.4) mg/dL Total Bilirubin 0.7 (0.2-1.0) mg/dL AST 62 H (15-37) IU/L ALT 62 (14-63) IU/L Alkaline Phosphatase 44 L (46-116) U/L Total Protein 6.0 L (6.4-8.2) g/dL Albumin 2.6 L (3.4-5.0) g/dL Globulin 3.4 (2.6-4.0) g/dL Albumin/Globulin Ratio 0.8 L (0.9-1.6) Med Orders - Current: Current Medications Albuterol/Ipratropium (Albuterol/Ipratropium 4 Gm Inhalation [place]) 0 gm INH Q4H PRN PRN Reason: Dyspnea Last Admin: 12/04/20 07:17 Dose: 1 puff Documented by: Dexamethasone (Dexamethasone 4 Mg Tab) 6 mg PO DAILY [facility] Last Admin: 12/04/20 08:15 Dose: 6 mg Documented by: Enoxaparin Sodium (Enoxaparin 40 Mg/0.4 Ml Syringe) 40 mg SUBCUT Q24H [facility] Last Admin: 12/04/20 18:12 Dose: 40 mg Documented by: Famotidine (Famotidine 20 Mg/2 Ml Sdv) 20 mg IVPUSH BID [facility] Last Admin: 12/04/20 21:06 Dose: 20 mg Documented by: Guaifenesin/Dextromethorphan (Guaifenesin/Dextromethorphan 100-10 Mg/5 Ml Soln 10 Ml Cup) 10 ml PO Q4H [facility] Last Admin: 12/04/20 18:42 Dose: 10 ml Documented by: Sodium Chloride (Sodium Chloride 0.9% 10 Ml Syringe) 10 ml FLUSH ASDIRECTED PRN PRN Reason: Keep Vein Open Last Admin: 11/30/20 14:17 Dose: 10 ml Documented by: Sodium Chloride (Sodium Chloride 0.9% 2.5 Ml Syringe) 2.5 ml FLUSH ASDIRECTED PRN PRN Reason: Keep Vein Open Last Admin: 11/30/20 14:17 Dose: 2.5 ml Documented by: Discontinued Medications Dexamethasone (Dexamethasone 10 Mg/Ml Sdv) 6 mg IVPUSH ONETIME ONE Stop: 11/30/20 14:46 Last Admin: 11/30/20 15:00 Dose: 6 mg Documented by: Guaifenesin/Dextromethorphan (Guaifenesin/Dextromethorphan 100-10 Mg/5 Ml Soln 10 Ml Cup) 10 ml PO Q4H PRN PRN Reason: Cough Last Admin: 12/03/20 12:45 Dose: 10 ml Documented by: Remdesivir 200 mg/ Sodium (Chloride) 250 mls @ 250 mls/hr IV ONETIME ONE Stop: 11/30/20 14:46 Last Admin: 11/30/20 20:04 Dose: 250 mls/hr Documented by: Remdesivir 100 mg/ Sodium (Chloride) 100 mls @ 100 mls/hr IV Q24H [facility] Stop: 12/04/20 18:59 Last Admin: 12/04/20 18:12 Dose: 100 mls/hr Documented by: Iopamidol (Iopamidol 755 Mg/Ml 500 Ml Multipack Bottle) 100 ml IVPUSH ONETIME STA Stop: 12/01/20 16:41 Last Admin: 12/01/20 16:41 Dose: 100 ml Documented by: - Exam General: Alert, Oriented Lungs: Crackles. No: Normal Respiratory Effort (increased work of breathing) Cardiovascular: Regular Rate, Regular Rhythm GI/Abdominal Exam: Soft, Non-Tender Extremities: No Pedal Edema Psy/Mental Status: Alert - Patient Data Lab Results Last 24 hrs: Laboratory Results - last 24 hr 12/04/20 12/04/20 Range/Units 05:52 05:52 WBC 13.04 H (4.0-11.0) K/uL RBC 4.48 L (4.50-5.90) M/uL Hgb 13.7 (13.0-17.0) g/dL Hct 39.5 (38.0-50.0) % MCV 88.2 (80.0-98.0) fL MCH 30.6 (27.0-32.0) pg MCHC 34.7 (31.0-37.0) g/dL RDW Std Deviation 42.8 (28.0-62.0) fl RDW Coeff of Carly 13 (11.0-15.0) % Plt Count 342 (150-400) K/uL MPV 10.30 (7.40-12.00) fL Neut % (Auto) 83.6 H (48.0-80.0) % Lymph % (Auto) 7.7 L (16.0-40.0) % [place] % (Auto) 8.4 (0.0-15.0) % Eos % (Auto) 0.1 (0.0-7.0) % Baso % (Auto) 0.2 (0.0-1.5) % Neut # (Auto) 10.9 H (1.4-5.7) K/uL Lymph # (Auto) 1.0 (0.6-2.4) K/uL [place] # (Auto) 1.1 H (0.0-0.8) K/uL Eos # (Auto) 0.0 (0.0-0.7) K/uL Baso # (Auto) 0.0 (0.0-0.1) K/uL Nucleated RBC % 0.0 /100WBC Nucleated RBCs # 0 K/uL Sodium 139 (136-148) mmol/L Potassium 4.6 (3.5-5.1) mmol/L Chloride 104 (98-107) mmol/L Carbon Dioxide 26.5 (21.0-32.0) mmol/L BUN 31 H (7.0-18.0) mg/dL Creatinine 1.0 (0.8-1.3) mg/dL Est Cr Clr Drug Dosing 77.71 mL/min Estimated GFR (MDRD) > 60.0 ml/min Glucose 100 (74-106) mg/dL Calcium 7.5 L (8.5-10.1) mg/dL Phosphorus 3.8 (2.6-4.7) mg/dL Magnesium 2.3 (1.8-2.4) mg/dL Total Bilirubin 0.7 (0.2-1.0) mg/dL AST 62 H (15-37) IU/L ALT 62 (14-63) IU/L Alkaline Phosphatase 44 L (46-116) U/L Total Protein 6.0 L (6.4-8.2) g/dL Albumin 2.6 L (3.4-5.0) g/dL Globulin 3.4 (2.6-4.0) g/dL Albumin/Globulin Ratio 0.8 L (0.9-1.6) Result Diagrams: 12/04/20 05:52 12/04/20 05:52 Sepsis Event Note - Evaluation Sepsis Screening Result: Sepsis Risk - Focused Exam Vital Signs: Vital Signs Temp Resp BP Pulse Ox 12/04/20 20:00 97.7 F 21 H 93 L 12/04/20 19:00 31 H 95 12/04/20 18:00 23 H 91 L 12/04/20 17:00 22 H 94 L 12/04/20 16:00 97.5 F 24 H 128/79 92 L 12/04/20 15:00 28 H 92 L 12/04/20 14:00 32 H 95 12/04/20 13:00 35 H 93 L 12/04/20 12:00 97.3 F 34 H 116/69 90 L 12/04/20 11:00 35 H 92 L 12/04/20 10:00 32 H 93 L - Problem List & Annotations (1) Acute hypoxemic respiratory failure due to COVID-19 SNOMED Code(s): 721988011 Code(s): U07.1 - COVID-19; J96.01 - ACUTE RESPIRATORY FAILURE WITH HYPOXIA Status: Acute Current Visit: Yes - Problem List Review Problem List Initiated/Reviewed/Updated: Yes - My Orders Last 24 Hours: My Active Orders 12/04/20 11:08 Intake and Output Strict [RC] Q12H - Plan Plan:: Acute hypoxic respiratory failure secondary to COVID-19 pneumonia Hypoxia: Currently on heated high flow, flow 55, FiO2 75. with CPAP prn COVID: continue dexamethasone, and remdesivir. Combivent as needed, incentive spirometry, prone positioning, Lovenox 40 mg subcu q24hr, Robitussin for cough. <Nimisha Julian - Last Filed: 12/05/20 15:37> - Patient Data Vitals - Most Recent: Last Vital Signs Temp 36.7 C 12/05/20 12:00 Pulse 65 12/01/20 07:00 Resp 26 H 12/05/20 12:00 BP 136/74 12/05/20 12:00 Pulse Ox 89 L 12/05/20 12:00 I&O - Last 24 Hours: Intake & Output 12/05/20 12/05/20 12/05/20 06:59 14:59 22:59 Intake Total 400 Output Total 650 Balance -250 Lab Results Last 24 Hours: Laboratory Results - last 24 hr 12/05/20 12/05/20 Range/Units 06:40 06:40 WBC 13.05 H (4.0-11.0) K/uL RBC 4.61 (4.50-5.90) M/uL Hgb 14.2 (13.0-17.0) g/dL Hct 40.7 (38.0-50.0) % MCV 88.3 (80.0-98.0) fL MCH 30.8 (27.0-32.0) pg MCHC 34.9 (31.0-37.0) g/dL RDW Std Deviation 42.7 (28.0-62.0) fl RDW Coeff of Carly 13 (11.0-15.0) % Plt Count 293 (150-400) K/uL MPV 10.10 (7.40-12.00) fL Neut % (Auto) 82.8 H (48.0-80.0) % Lymph % (Auto) 7.7 L (16.0-40.0) % [place] % (Auto) 8.4 (0.0-15.0) % Eos % (Auto) 0.9 (0.0-7.0) % Baso % (Auto) 0.2 (0.0-1.5) % Neut # (Auto) 10.8 H (1.4-5.7) K/uL Lymph # (Auto) 1.0 (0.6-2.4) K/uL [place] # (Auto) 1.1 H (0.0-0.8) K/uL Eos # (Auto) 0.1 (0.0-0.7) K/uL Baso # (Auto) 0.0 (0.0-0.1) K/uL Nucleated RBC % 0.0 /100WBC Nucleated RBCs # 0 K/uL Sodium 138 (136-148) mmol/L Potassium 4.5 (3.5-5.1) mmol/L Chloride 103 (98-107) mmol/L Carbon Dioxide 25.2 (21.0-32.0) mmol/L BUN 29 H (7.0-18.0) mg/dL Creatinine 0.9 (0.8-1.3) mg/dL Est Cr Clr Drug Dosing 86.34 mL/min Estimated GFR (MDRD) > 60.0 ml/min Glucose 101 (74-106) mg/dL Calcium 7.8 L (8.5-10.1) mg/dL Phosphorus 3.8 (2.6-4.7) mg/dL Magnesium 2.3 (1.8-2.4) mg/dL Total Bilirubin 0.8 (0.2-1.0) mg/dL AST 41 H (15-37) IU/L ALT 56 (14-63) IU/L Alkaline Phosphatase 47 (46-116) U/L Total Protein 6.3 L (6.4-8.2) g/dL Albumin 2.7 L (3.4-5.0) g/dL Globulin 3.6 (2.6-4.0) g/dL Albumin/Globulin Ratio 0.8 L (0.9-1.6) Med Orders - Current: Current Medications Albuterol/Ipratropium (Albuterol/Ipratropium 4 Gm Inhalation [place]) 0 gm INH Q4H PRN PRN Reason: Dyspnea Last Admin: 12/05/20 11:54 Dose: 1 puff Documented by: Dexamethasone (Dexamethasone 4 Mg Tab) 6 mg PO DAILY [facility] Last Admin: 12/05/20 08:55 Dose: 6 mg Documented by: Enoxaparin Sodium (Enoxaparin 40 Mg/0.4 Ml Syringe) 40 mg SUBCUT Q24H [facility] Last Admin: 12/04/20 18:12 Dose: 40 mg Documented by: Guaifenesin (Guaifenesin 100 Mg/5 Ml Soln 5 Ml Ud Cup) 100 mg PO Q4H [facility] Last Admin: 12/05/20 11:58 Dose: 100 mg Documented by: Pantoprazole Sodium 40 mg/ (Sodium Chloride) 10 mls @ 300 mls/hr IV Q24H [facility] Levofloxacin/Dextrose 750 mg/ (Premix) 150 mls @ 100 mls/hr IV Q24H [facility] Last Admin: 12/05/20 15:24 Dose: 100 mls/hr Documented by: Polyethylene Glycol (Polyethylene Glycol 3350 Powder 17 Gm Packet) 17 gm PO BEDTIME [facility] Sodium Chloride (Sodium Chloride 0.9% 10 Ml Syringe) 10 ml FLUSH ASDIRECTED PRN PRN Reason: Keep Vein Open Last Admin: 11/30/20 14:17 Dose: 10 ml Documented by: Sodium Chloride (Sodium Chloride 0.9% 2.5 Ml Syringe) 2.5 ml FLUSH ASDIRECTED PRN PRN Reason: Keep Vein Open Last Admin: 11/30/20 14:17 Dose: 2.5 ml Documented by: Discontinued Medications Dexamethasone (Dexamethasone 10 Mg/Ml Sdv) 6 mg IVPUSH ONETIME ONE Stop: 11/30/20 14:46 Last Admin: 11/30/20 15:00 Dose: 6 mg Documented by: Famotidine (Famotidine 20 Mg/2 Ml Sdv) 20 mg IVPUSH BID [facility] Last Admin: 12/05/20 08:55 Dose: 20 mg Documented by: Guaifenesin/Dextromethorphan (Guaifenesin/Dextromethorphan 100-10 Mg/5 Ml Soln 10 Ml Cup) 10 ml PO Q4H PRN PRN Reason: Cough Last Admin: 12/03/20 12:45 Dose: 10 ml Documented by: Guaifenesin/Dextromethorphan (Guaifenesin/Dextromethorphan 100-10 Mg/5 Ml Soln 10 Ml Cup) 10 ml PO Q4H [facility] Last Admin: 12/05/20 10:24 Dose: Not Given Documented by: Remdesivir 200 mg/ Sodium (Chloride) 250 mls @ 250 mls/hr IV ONETIME ONE Stop: 11/30/20 14:46 Last Admin: 11/30/20 20:04 Dose: 250 mls/hr Documented by: Remdesivir 100 mg/ Sodium (Chloride) 100 mls @ 100 mls/hr IV Q24H [facility] Stop: 12/04/20 18:59 Last Admin: 12/04/20 18:12 Dose: 100 mls/hr Documented by: Iopamidol (Iopamidol 755 Mg/Ml 500 Ml Multipack Bottle) 100 ml IVPUSH ONETIME STA Stop: 12/01/20 16:41 Last Admin: 12/01/20 16:41 Dose: 100 ml Documented by: - Patient Data Lab Results Last 24 hrs: Laboratory Results - last 24 hr 12/05/20 12/05/20 Range/Units 06:40 06:40 WBC 13.05 H (4.0-11.0) K/uL RBC 4.61 (4.50-5.90) M/uL Hgb 14.2 (13.0-17.0) g/dL Hct 40.7 (38.0-50.0) % MCV 88.3 (80.0-98.0) fL MCH 30.8 (27.0-32.0) pg MCHC 34.9 (31.0-37.0) g/dL RDW Std Deviation 42.7 (28.0-62.0) fl RDW Coeff of Carly 13 (11.0-15.0) % Plt Count 293 (150-400) K/uL MPV 10.10 (7.40-12.00) fL Neut % (Auto) 82.8 H (48.0-80.0) % Lymph % (Auto) 7.7 L (16.0-40.0) % [place] % (Auto) 8.4 (0.0-15.0) % Eos % (Auto) 0.9 (0.0-7.0) % Baso % (Auto) 0.2 (0.0-1.5) % Neut # (Auto) 10.8 H (1.4-5.7) K/uL Lymph # (Auto) 1.0 (0.6-2.4) K/uL [place] # (Auto) 1.1 H (0.0-0.8) K/uL Eos # (Auto) 0.1 (0.0-0.7) K/uL Baso # (Auto) 0.0 (0.0-0.1) K/uL Nucleated RBC % 0.0 /100WBC Nucleated RBCs # 0 K/uL Sodium 138 (136-148) mmol/L Potassium 4.5 (3.5-5.1) mmol/L Chloride 103 (98-107) mmol/L Carbon Dioxide 25.2 (21.0-32.0) mmol/L BUN 29 H (7.0-18.0) mg/dL Creatinine 0.9 (0.8-1.3) mg/dL Est Cr Clr Drug Dosing 86.34 mL/min Estimated GFR (MDRD) > 60.0 ml/min Glucose 101 (74-106) mg/dL Calcium 7.8 L (8.5-10.1) mg/dL Phosphorus 3.8 (2.6-4.7) mg/dL Magnesium 2.3 (1.8-2.4) mg/dL Total Bilirubin 0.8 (0.2-1.0) mg/dL AST 41 H (15-37) IU/L ALT 56 (14-63) IU/L Alkaline Phosphatase 47 (46-116) U/L Total Protein 6.3 L (6.4-8.2) g/dL Albumin 2.7 L (3.4-5.0) g/dL Globulin 3.6 (2.6-4.0) g/dL Albumin/Globulin Ratio 0.8 L (0.9-1.6) Result Diagrams: 12/05/20 06:40 12/05/20 06:40 Sepsis Event Note - Focused Exam Vital Signs: Vital Signs Temp Resp BP Pulse Ox 12/05/20 12:00 36.7 C 26 H 136/74 89 L 12/05/20 11:00 30 H 92 L 12/05/20 10:00 32 H 92 L 12/05/20 09:00 36.4 C 32 H 129/71 90 L 12/05/20 08:00 28 H 88 L 12/05/20 07:00 26 H 91 L 12/05/20 06:00 18 136/68 93 L 12/05/20 05:00 21 H 93 L 12/05/20 04:00 36.5 C 24 H 92 L - Plan Plan:: I have seen and evaluated the patient and agree with the residents note unless specified in my note
[2020-12-05] MEDS: Albuterol/Ipratropium 4 GM Inhalation Spray INH PRN ×5 (01:30→22:17)
[2020-12-05] MEDS: guaiFENesin/Dextromethorphan 100-10 MG/5 ML Soln 10 ML Cup PO SCH ×2 (03:27→10:24)
[2020-12-05 07:39] LABS: BLOOD UREA NITROGEN,BUN 29 mg/dL (7.0-18.0); CARBON DIOXIDE,CO2 25.2 mmol/L (21.0-32.0); CHLORIDE,CL 103 mmol/L (98-107); GLUCOSE RANDOM 101 mg/dL (74-106); POTASSIUM,K 4.5 mmol/L (3.5-5.1); SODIUM,NA 138 mmol/L (136-148)
[2020-12-05] MEDS: Famotidine 20 MG/2 ML SDV IVPUSH SCH (08:55)
[2020-12-05] MEDS: Dexamethasone 4 MG Tab PO SCH (08:55)
[2020-12-05] MEDS ORDERED: guaiFENesin 100 MG/5 ML Soln 5 ML UD Cup PO PRN (11:00)
[2020-12-05] MEDS ORDERED: guaiFENesin 100 MG/5 ML Soln 5 ML UD Cup PO SCH (11:45)
[2020-12-05] MEDS: guaiFENesin 100 MG/5 ML Soln 5 ML UD Cup PO SCH ×4 (11:58→23:43)
--- NOTE | 2020-12-05 12:01 | CR ---
Indication: Hypoxia. Technique: AP portable view of the chest. Comparison: November 30, 2020. Findings: The heart is normal in size. Bilateral patchy infiltrates are identified. These are slightly increased in density, particularly within the left lower lobe. No pleural effusion or pneumothorax is identified. Impression: Bilateral infiltrates, slightly increased particularly within the left lower lobe. Dictated by Abbie Dolan MD @ 12/05/2020 11:59:30 AM (Electronically Signed)
--- NOTE | 2020-12-05 12:56 | PCM.PN ---
<Abelardo Garza - Last Filed: 12/05/20 13:01> - General Info Date of Service: 12/05/20 Subjective Update: Patient appears frustrated this morning upon conversation. Patient would like to know when he will get better, would also like to know if he can go home on oxygen. Have explained the patient that he is to be assessed daily, and there is no accurate timeline on when patients can be discharged. Patient also explained that due to his current oxygen demand we would not advise him to go home. Patient denies fever, chills, nausea, vomiting. Patient states moderate shortness of breath with activity. - Review of Systems General: Reports: Fatigue. Denies: Fever, Chills Pulmonary: Reports: Shortness of Breath, Cough Cardiovascular: Reports: Dyspnea on Exertion. Denies: Chest Pain, Edema Gastrointestinal: Denies: Abdominal Pain, Diarrhea, Nausea, Vomiting Neurological: Denies: Confusion, Dizziness, Headache Psychiatric: Denies: Confusion - Patient Data Vitals - Most Recent: Last Vital Signs Temp 98.1 F 12/05/20 12:00 Pulse 65 12/01/20 07:00 Resp 26 H 12/05/20 12:00 BP 136/74 12/05/20 12:00 Pulse Ox 89 L 12/05/20 12:00 Weight - Most Recent: 102.058 kg I&O - Last 24 Hours: Intake & Output 12/04/20 12/05/20 12/05/20 22:59 06:59 14:59 Intake Total 690 400 Output Total 500 650 Balance 190 -250 Lab Results Last 24 Hours: Laboratory Results - last 24 hr 12/05/20 12/05/20 Range/Units 06:40 06:40 WBC 13.05 H (4.0-11.0) K/uL RBC 4.61 (4.50-5.90) M/uL Hgb 14.2 (13.0-17.0) g/dL Hct 40.7 (38.0-50.0) % MCV 88.3 (80.0-98.0) fL MCH 30.8 (27.0-32.0) pg MCHC 34.9 (31.0-37.0) g/dL RDW Std Deviation 42.7 (28.0-62.0) fl RDW Coeff of Carly 13 (11.0-15.0) % Plt Count 293 (150-400) K/uL MPV 10.10 (7.40-12.00) fL Neut % (Auto) 82.8 H (48.0-80.0) % Lymph % (Auto) 7.7 L (16.0-40.0) % [place] % (Auto) 8.4 (0.0-15.0) % Eos % (Auto) 0.9 (0.0-7.0) % Baso % (Auto) 0.2 (0.0-1.5) % Neut # (Auto) 10.8 H (1.4-5.7) K/uL Lymph # (Auto) 1.0 (0.6-2.4) K/uL [place] # (Auto) 1.1 H (0.0-0.8) K/uL Eos # (Auto) 0.1 (0.0-0.7) K/uL Baso # (Auto) 0.0 (0.0-0.1) K/uL Nucleated RBC % 0.0 /100WBC Nucleated RBCs # 0 K/uL Sodium 138 (136-148) mmol/L Potassium 4.5 (3.5-5.1) mmol/L Chloride 103 (98-107) mmol/L Carbon Dioxide 25.2 (21.0-32.0) mmol/L BUN 29 H (7.0-18.0) mg/dL Creatinine 0.9 (0.8-1.3) mg/dL Est Cr Clr Drug Dosing 86.34 mL/min Estimated GFR (MDRD) > 60.0 ml/min Glucose 101 (74-106) mg/dL Calcium 7.8 L (8.5-10.1) mg/dL Phosphorus 3.8 (2.6-4.7) mg/dL Magnesium 2.3 (1.8-2.4) mg/dL Total Bilirubin 0.8 (0.2-1.0) mg/dL AST 41 H (15-37) IU/L ALT 56 (14-63) IU/L Alkaline Phosphatase 47 (46-116) U/L Total Protein 6.3 L (6.4-8.2) g/dL Albumin 2.7 L (3.4-5.0) g/dL Globulin 3.6 (2.6-4.0) g/dL Albumin/Globulin Ratio 0.8 L (0.9-1.6) Med Orders - Current: Current Medications Albuterol/Ipratropium (Albuterol/Ipratropium 4 Gm Inhalation [place]) 0 gm INH Q4H PRN PRN Reason: Dyspnea Last Admin: 12/05/20 11:54 Dose: 1 puff Documented by: Dexamethasone (Dexamethasone 4 Mg Tab) 6 mg PO DAILY [facility] Last Admin: 12/05/20 08:55 Dose: 6 mg Documented by: Enoxaparin Sodium (Enoxaparin 40 Mg/0.4 Ml Syringe) 40 mg SUBCUT Q24H [facility] Last Admin: 12/04/20 18:12 Dose: 40 mg Documented by: Famotidine (Famotidine 20 Mg/2 Ml Sdv) 20 mg IVPUSH BID [facility] Last Admin: 12/05/20 08:55 Dose: 20 mg Documented by: Guaifenesin (Guaifenesin 100 Mg/5 Ml Soln 5 Ml Ud Cup) 100 mg PO Q4H [facility] Last Admin: 12/05/20 11:58 Dose: 100 mg Documented by: Polyethylene Glycol (Polyethylene Glycol 3350 Powder 17 Gm Packet) 17 gm PO BEDTIME [facility] Sodium Chloride (Sodium Chloride 0.9% 10 Ml Syringe) 10 ml FLUSH ASDIRECTED PRN PRN Reason: Keep Vein Open Last Admin: 11/30/20 14:17 Dose: 10 ml Documented by: Sodium Chloride (Sodium Chloride 0.9% 2.5 Ml Syringe) 2.5 ml FLUSH ASDIRECTED PRN PRN Reason: Keep Vein Open Last Admin: 11/30/20 14:17 Dose: 2.5 ml Documented by: Discontinued Medications Dexamethasone (Dexamethasone 10 Mg/Ml Sdv) 6 mg IVPUSH ONETIME ONE Stop: 11/30/20 14:46 Last Admin: 11/30/20 15:00 Dose: 6 mg Documented by: Guaifenesin/Dextromethorphan (Guaifenesin/Dextromethorphan 100-10 Mg/5 Ml Soln 10 Ml Cup) 10 ml PO Q4H PRN PRN Reason: Cough Last Admin: 12/03/20 12:45 Dose: 10 ml Documented by: Guaifenesin/Dextromethorphan (Guaifenesin/Dextromethorphan 100-10 Mg/5 Ml Soln 10 Ml Cup) 10 ml PO Q4H [facility] Last Admin: 12/05/20 10:24 Dose: Not Given Documented by: Remdesivir 200 mg/ Sodium (Chloride) 250 mls @ 250 mls/hr IV ONETIME ONE Stop: 11/30/20 14:46 Last Admin: 11/30/20 20:04 Dose: 250 mls/hr Documented by: Remdesivir 100 mg/ Sodium (Chloride) 100 mls @ 100 mls/hr IV Q24H [facility] Stop: 12/04/20 18:59 Last Admin: 12/04/20 18:12 Dose: 100 mls/hr Documented by: Iopamidol (Iopamidol 755 Mg/Ml 500 Ml Multipack Bottle) 100 ml IVPUSH ONETIME S TA Stop: 12/01/20 16:41 Last Admin: 12/01/20 16:41 Dose: 100 ml Documented by: - Exam General: Alert, Oriented Lungs: Crackles (FINE). No: Normal Respiratory Effort Cardiovascular: Regular Rate, Regular Rhythm GI/Abdominal Exam: Soft, Non-Tender, No Distention Extremities: No Pedal Edema Psy/Mental Status: Alert - Patient Data Lab Results Last 24 hrs: Laboratory Results - last 24 hr 12/05/20 12/05/20 Range/Units 06:40 06:40 WBC 13.05 H (4.0-11.0) K/uL RBC 4.61 (4.50-5.90) M/uL Hgb 14.2 (13.0-17.0) g/dL Hct 40.7 (38.0-50.0) % MCV 88.3 (80.0-98.0) fL MCH 30.8 (27.0-32.0) pg MCHC 34.9 (31.0-37.0) g/dL RDW Std Deviation 42.7 (28.0-62.0) fl RDW Coeff of Carly 13 (11.0-15.0) % Plt Count 293 (150-400) K/uL MPV 10.10 (7.40-12.00) fL Neut % (Auto) 82.8 H (48.0-80.0) % Lymph % (Auto) 7.7 L (16.0-40.0) % [place] % (Auto) 8.4 (0.0-15.0) % Eos % (Auto) 0.9 (0.0-7.0) % Baso % (Auto) 0.2 (0.0-1.5) % Neut # (Auto) 10.8 H (1.4-5.7) K/uL Lymph # (Auto) 1.0 (0.6-2.4) K/uL [place] # (Auto) 1.1 H (0.0-0.8) K/uL Eos # (Auto) 0.1 (0.0-0.7) K/uL Baso # (Auto) 0.0 (0.0-0.1) K/uL Nucleated RBC % 0.0 /100WBC Nucleated RBCs # 0 K/uL Sodium 138 (136-148) mmol/L Potassium 4.5 (3.5-5.1) mmol/L Chloride 103 (98-107) mmol/L Carbon Dioxide 25.2 (21.0-32.0) mmol/L BUN 29 H (7.0-18.0) mg/dL Creatinine 0.9 (0.8-1.3) mg/dL Est Cr Clr Drug Dosing 86.34 mL/min Estimated GFR (MDRD) > 60.0 ml/min Glucose 101 (74-106) mg/dL Calcium 7.8 L (8.5-10.1) mg/dL Phosphorus 3.8 (2.6-4.7) mg/dL Magnesium 2.3 (1.8-2.4) mg/dL Total Bilirubin 0.8 (0.2-1.0) mg/dL AST 41 H (15-37) IU/L ALT 56 (14-63) IU/L Alkaline Phosphatase 47 (46-116) U/L Total Protein 6.3 L (6.4-8.2) g/dL Albumin 2.7 L (3.4-5.0) g/dL Globulin 3.6 (2.6-4.0) g/dL Albumin/Globulin Ratio 0.8 L (0.9-1.6) Result Diagrams: 12/05/20 06:40 12/05/20 06:40 Sepsis Event Note - Evaluation Sepsis Screening Result: Sepsis Risk - Focused Exam Vital Signs: Vital Signs Temp Resp BP Pulse Ox 12/05/20 12:00 98.1 F 26 H 136/74 89 L 12/05/20 11:00 30 H 92 L 12/05/20 10:00 32 H 92 L 12/05/20 09:00 97.5 F 32 H 129/71 90 L 12/05/20 08:00 28 H 88 L 12/05/20 07:00 26 H 91 L 12/05/20 06:00 18 136/68 93 L 12/05/20 05:00 21 H 93 L 12/05/20 04:00 97.7 F 24 H 92 L 12/05/20 03:00 27 H 136/72 92 L 12/05/20 02:00 26 H 90 L 12/05/20 01:00 23 H 93 L - Problem List & Annotations (1) Acute hypoxemic respiratory failure due to COVID-19 SNOMED Code(s): 702173132 Code(s): U07.1 - COVID-19; J96.01 - ACUTE RESPIRATORY FAILURE WITH HYPOXIA Status: Acute Current Visit: Yes - Problem List Review Problem List Initiated/Reviewed/Updated: Yes - My Orders Last 24 Hours: My Active Orders 12/05/20 11:54 guaiFENesin [Robitussin] 100 mg PO Q4H 12/05/20 21:00 polyethylene glycoL 3350 [MiraLAX] 17 gm PO BEDTIME - Plan Plan:: Acute hypoxic respiratory failure secondary to COVID-19 pneumonia Hypoxia: Currently on heated high flow, flow 55, FiO2 70. with CPAP prn. Wean oxygen as tolerated. COVID: continue dexamethasone, remdesivir course completed Combivent as needed, incentive spirometry, prone positioning, Lovenox 40 mg subcu q24hr, Robitussin for cough. Patient's daughter contacted and given updated of patient's situation. <Nimisha Julian - Last Filed: 12/19/20 15:32> - Patient Data Vitals - Most Recent: Last Vital Signs Temp 35.8 C L 12/19/20 12:00 Pulse 65 12/01/20 07:00 Resp 15 12/19/20 15:00 BP 121/77 12/19/20 15:00 Pulse Ox 95 12/19/20 15:00 I&O - Last 24 Hours: Intake & Output 12/19/20 12/19/20 12/19/20 06:59 14:59 22:59 Intake Total 450 Output Total 750 Balance -300 Lab Results Last 24 Hours: Laboratory Results - last 24 hr 12/19/20 12/19/20 Range/Units 05:45 05:45 WBC 13.69 H (4.0-11.0) K/uL RBC 4.23 L (4.50-5.90) M/uL Hgb 13.1 (13.0-17.0) g/dL Hct 38.6 (38.0-50.0) % MCV 91.3 (80.0-98.0) fL MCH 31.0 (27.0-32.0) pg MCHC 33.9 (31.0-37.0) g/dL RDW Std Deviation 46.0 (28.0-62.0) fl RDW Coeff of Carly 14 (11.0-15.0) % Plt Count 245 (150-400) K/uL MPV 10.00 (7.40-12.00) fL Add Manual Diff YES Neutrophils % (Manual) 60 (48.0-80.0) % Band Neutrophils % 3 % Lymphocytes % (Manual) 21 (16.0-40.0) % Monocytes % (Manual) 12 (0.0-15.0) % Eosinophils % (Manual) 4 (0.0-7.0) % Nucleated RBC % 0.0 /100WBC Absolute Seg Neuts 8.2 H (1.4-5.7) Band Neutrophils # 0.4 Lymphocytes # (Manual) 2.9 H (0.6-2.4) Monocytes # (Manual) 1.6 H (0.0-0.8) Eosinophils # (Manual) 0.5 (0.0-0.7) Nucleated RBCs # 0 K/uL Sodium 139 (136-148) mmol/L Potassium 4.5 (3.5-5.1) mmol/L Chloride 104 (98-107) mmol/L Carbon Dioxide 28.2 (21.0-32.0) mmol/L BUN 27 H (7.0-18.0) mg/dL Creatinine 0.8 (0.8-1.3) mg/dL Est Cr Clr Drug Dosing 97.14 mL/min Estimated GFR (MDRD) > 60.0 ml/min Glucose 85 (74-106) mg/dL Calcium 8.0 L (8.5-10.1) mg/dL Total Bilirubin 0.6 (0.2-1.0) mg/dL AST 23 (15-37) IU/L ALT 47 (14-63) IU/L Alkaline Phosphatase 56 (46-116) U/L Total Protein 5.8 L (6.4-8.2) g/dL Albumin 2.3 L (3.4-5.0) g/dL Globulin 3.5 (2.6-4.0) g/dL Albumin/Globulin Ratio 0.7 L (0.9-1.6) Med Orders - Current: Current Medications Albuterol/Ipratropium (Albuterol/Ipratropium 4 Gm Inhalation [place]) 0 gm INH Q4H PRN PRN Reason: Dyspnea Last Admin: 12/15/20 14:20 Dose: 1 puff Documented by: Albuterol/Ipratropium (Albuterol/Ipratropium 3.0-0.5 Mg/3 Ml Neb Soln) 3 ml NEB Q4HRRT PRN PRN Reason: Wheezing Last Admin: 12/18/20 18:07 Dose: 3 ml Documented by: Alprazolam (Alprazolam 0.25 Mg Tab) 0.25 mg PO Q6H PRN PRN Reason: Anxiety Last Admin: 12/19/20 14:37 Dose: 0.25 mg Documented by: Benzonatate (Benzonatate 100 Mg Cap) 200 mg PO TID [facility] Last Admin: 12/19/20 14:36 Dose: 200 mg Documented by: Docusate Sodium (Docusate Sodium 100 Mg Cap) 100 mg PO BID [facility] Last Admin: 12/19/20 08:05 Dose: 100 mg Documented by: Enoxaparin Sodium (Enoxaparin 40 Mg/0.4 Ml Syringe) 40 mg SUBCUT Q24H [facility] Last Admin: 12/18/20 19:16 Dose: 40 mg Documented by: Guaifenesin/Codeine Phosphate (Codeine/Guaifenesin 10-100 Mg/5 Ml Syrup 5 Ml Cup) 5 ml PO Q4H PRN PRN Reason: Cough Melatonin (Melatonin 3 Mg Tab) 6 mg PO BEDTIME PRN PRN Reason: Insomnia Last Admin: 12/18/20 20:32 Dose: 6 mg Documented by: Pantoprazole Sodium (Pantoprazole 40 Mg Tab.Cr) 40 mg PO DAILY [facility] Last Admin: 12/19/20 08:04 Dose: 40 mg Documented by: Polyethylene Glycol (Polyethylene Glycol 3350 Powder 17 Gm Packet) 17 gm PO DAILY [facility] Last Admin: 12/19/20 08:05 Dose: 17 gm Documented by: Prednisone (Prednisone 20 Mg Tab) 40 mg PO WITHBREAKFAST [facility] Last Admin: 12/19/20 08:04 Dose: 40 mg Documented by: Sodium Chloride (Sodium Chloride 0.9% 10 Ml Syringe) 10 ml FLUSH ASDIRECTED PRN PRN Reason: Keep Vein Open Last Admin: 11/30/20 14:17 Dose: 10 ml Documented by: Sodium Chloride (Sodium Chloride 0.9% 2.5 Ml Syringe) 2.5 ml FLUSH ASDIRECTED P RN PRN Reason: Keep Vein Open Last Admin: 11/30/20 14:17 Dose: 2.5 ml Documented by: Sodium Chloride (Sodium Chloride 0.65% Nasal [place] 45 Ml Bottle) 1 ml LATHA Q6H PRN PRN Reason: Congestion Last Admin: 12/09/20 12:20 Dose: 1 spray Documented by: Discontinued Medications Dexamethasone (Dexamethasone 10 Mg/Ml Sdv) 6 mg IVPUSH ONETIME ONE Stop: 11/30/20 14:46 Last Admin: 11/30/20 15:00 Dose: 6 mg Documented by: Dexamethasone (Dexamethasone 4 Mg Tab) 6 mg PO DAILY [facility] Last Admin: 12/12/20 09:12 Dose: 6 mg Documented by: Famotidine (Famotidine 20 Mg/2 Ml Sdv) 20 mg IVPUSH BID [facility] Last Admin: 12/05/20 08:55 Dose: 20 mg Documented by: Guaifenesin (Guaifenesin 100 Mg/5 Ml Soln 5 Ml Ud Cup) 100 mg PO Q4H [facility] Last Admin: 12/06/20 04:02 Dose: 100 mg Documented by: Guaifenesin/Codeine Phosphate (Codeine/Guaifenesin 10-100 Mg/5 Ml Syrup 5 Ml Cup) 5 ml PO Q4H [facility] Last Admin: 12/11/20 17:21 Dose: 5 ml Documented by: Guaifenesin/Codeine Phosphate (Codeine/Guaifenesin 10-100 Mg/5 Ml Syrup 5 Ml Cup) 5 ml PO Q4H [facility] Last Admin: 12/19/20 12:47 Dose: 5 ml Documented by: Guaifenesin/Dextromethorphan (Guaifenesin/Dextromethorphan 100-10 Mg/5 Ml Soln 10 Ml Cup) 10 ml PO Q4H PRN PRN Reason: Cough Last Admin: 12/03/20 12:45 Dose: 10 ml Documented by: Guaifenesin/Dextromethorphan (Guaifenesin/Dextromethorphan 100-10 Mg/5 Ml Soln 10 Ml Cup) 10 ml PO Q4H [facility] Last Admin: 12/05/20 10:24 Dose: Not Given Documented by: Remdesivir 200 mg/ Sodium (Chloride) 250 mls @ 250 mls/hr IV ONETIME ONE Stop: 11/30/20 14:46 Last Admin: 11/30/20 20:04 Dose: 250 mls/hr Documented by: Remdesivir 100 mg/ Sodium (Chloride) 100 mls @ 100 mls/hr IV Q24H [facility] Stop: 12/04/20 18:59 Last Admin: 12/04/20 18:12 Dose: 100 mls/hr Documented by: Pantoprazole Sodium 40 mg/ (Sodium Chloride) 10 mls @ 300 mls/hr IV Q24H [facility] Last Admin: 12/09/20 08:56 Dose: 300 mls/hr Documented by: Levofloxacin/Dextrose 750 mg/ (Premix) 150 mls @ 100 mls/hr IV Q24H [facility] Last Admin: 12/11/20 15:24 Dose: 100 mls/hr Documented by: Lactated Ringer's (Ringers, Lactated) 250 mls @ 250 mls/hr IV ASDIRECTED [facility] Iopamidol (Iopamidol 755 Mg/Ml 500 Ml Multipack Bottle) 100 ml IVPUSH ONETIME [facility]A Stop: 12/01/20 16:41 Last Admin: 12/01/20 16:41 Dose: 100 ml Documented by: Lorazepam (Lorazepam 2 Mg/Ml Sdv) 1 mg IVPUSH Q12H PRN PRN Reason: Anxiety Last Admin: 12/12/20 15:53 Dose: 1 mg Documented by: Lorazepam (Lorazepam 2 Mg/Ml Sdv) 0.5 mg IVPUSH Q8H PRN PRN Reason: Anxiety Melatonin (Melatonin 3 Mg Tab) 6 mg PO BEDTIME [facility] Melatonin (Melatonin 3 Mg Tab) 6 mg PO BEDTIME PRN PRN Reason: Insomnia Last Admin: 12/06/20 21:39 Dose: 6 mg Documented by: Methylprednisolone Sodium Succinate (Methylprednisolone Sodium Succinate 40 Mg/1 Ml Sdv) 40 mg IVPUSH Q8H [facility] Last Admin: 12/16/20 03:51 Dose: 40 mg Documented by: Methylprednisolone Sodium Succinate (Methylprednisolone Sodium Succinate 40 Mg/1 Ml Sdv) 40 mg IVPUSH Q12H [facility] Last Admin: 12/18/20 09:06 Dose: 40 mg Documented by: Polyethylene Glycol (Polyethylene Glycol 3350 Powder 17 Gm Packet) 17 gm PO BEDTIME [facility] Last Admin: 12/12/20 22:28 Dose: Not Given Documented by: - Patient Data Lab Results Last 24 hrs: Laboratory Results - last 24 hr 12/19/20 12/19/20 Range/Units 05:45 05:45 WBC 13.69 H (4.0-11.0) K/uL RBC 4.23 L (4.50-5.90) M/uL Hgb 13.1 (13.0-17.0) g/dL Hct 38.6 (38.0-50.0) % MCV 91.3 (80.0-98.0) fL MCH 31.0 (27.0-32.0) pg MCHC 33.9 (31.0-37.0) g/dL RDW Std Deviation 46.0 (28.0-62.0) fl RDW Coeff of Carly 14 (11.0-15.0) % Plt Count 245 (150-400) K/uL MPV 10.00 (7.40-12.00) fL Add Manual Diff YES Neutrophils % (Manual) 60 (48.0-80.0) % Band Neutrophils % 3 % Lymphocytes % (Manual) 21 (16.0-40.0) % Monocytes % (Manual) 12 (0.0-15.0) % Eosinophils % (Manual) 4 (0.0-7.0) % Nucleated RBC % 0.0 /100WBC Absolute Seg Neuts 8.2 H (1.4-5.7) Band Neutrophils # 0.4 Lymphocytes # (Manual) 2.9 H (0.6-2.4) Monocytes # (Manual) 1.6 H (0.0-0.8) Eosinophils # (Manual) 0.5 (0.0-0.7) Nucleated RBCs # 0 K/uL Sodium 139 (136-148) mmol/L Potassium 4.5 (3.5-5.1) mmol/L Chloride 104 (98-107) mmol/L Carbon Dioxide 28.2 (21.0-32.0) mmol/L BUN 27 H (7.0-18.0) mg/dL Creatinine 0.8 (0.8-1.3) mg/dL Est Cr Clr Drug Dosing 97.14 mL/min Estimated GFR (MDRD) > 60.0 ml/min Glucose 85 (74-106) mg/dL Calcium 8.0 L (8.5-10.1) mg/dL Total Bilirubin 0.6 (0.2-1.0) mg/dL AST 23 (15-37) IU/L ALT 47 (14-63) IU/L Alkaline Phosphatase 56 (46-116) U/L Total Protein 5.8 L (6.4-8.2) g/dL Albumin 2.3 L (3.4-5.0) g/dL Globulin 3.5 (2.6-4.0) g/dL Albumin/Globulin Ratio 0.7 L (0.9-1.6) Result Diagrams: 12/19/20 05:45 12/19/20 05:45 Sepsis Event Note - Focused Exam Vital Signs: Vital Signs Temp Resp BP Pulse Ox 12/19/20 15:00 15 121/77 95 12/19/20 14:00 28 H 125/68 93 L 12/19/20 13:00 25 H 118/65 95 12/19/20 12:00 35.8 C L 23 H 113/64 91 L 12/19/20 11:00 19 117/61 93 L 12/19/20 10:00 23 H 122/86 88 L 12/19/20 09:00 17 112/58 L 91 L 12/19/20 08:00 36.4 C 15 110/58 L 96 12/19/20 07:00 13 109/59 L 92 L 12/19/20 06:00 17 107/60 97 12/19/20 05:00 36.3 C 19 106/58 L 99 12/19/20 04:00 17 106/56 L 99 - Problem List & Annotations (1) Acute hypoxemic respiratory failure due to COVID-19 SNOMED Code(s): 121513634 Code(s): U07.1 - COVID-19; J96.01 - ACUTE RESPIRATORY FAILURE WITH HYPOXIA Status: Acute Current Visit: Yes (2) Anxiety about health SNOMED Code(s): 452164616 Code(s): F41.8 - OTHER SPECIFIED ANXIETY DISORDERS Status: Acute Current Visit: Yes - Plan Plan:: I have seen and evaluated the patient and agree with the residents note unless specified in my note
[2020-12-05] MEDS: Levofloxacin/Dextrose 5%-Water 750 MG in Premix Bag 1 BAG IV SCH (15:24)
[2020-12-05] MEDS: Enoxaparin 40 MG/0.4 ML Syringe SUBCUT SCH (18:16)
[2020-12-05] MEDS: Polyethylene Glycol 3350 Powder 17 GM Packet PO SCH (20:43)
[2020-12-06] MEDS: Albuterol/Ipratropium 4 GM Inhalation Spray INH PRN ×2 (02:50→08:18)
[2020-12-06] MEDS: guaiFENesin 100 MG/5 ML Soln 5 ML UD Cup PO SCH (04:02)
[2020-12-06 07:19] LABS: BLOOD UREA NITROGEN,BUN 25 mg/dL (7.0-18.0); CARBON DIOXIDE,CO2 25.6 mmol/L (21.0-32.0); CHLORIDE,CL 102 mmol/L (98-107); GLUCOSE RANDOM 104 mg/dL (74-106); POTASSIUM,K 4.7 mmol/L (3.5-5.1); SODIUM,NA 137 mmol/L (136-148)
[2020-12-06] MEDS: Codeine/guaiFENesin 10-100 MG/5 ML Syrup 5 ML Cup PO SCH ×4 (07:51→20:19)
[2020-12-06] MEDS: Dexamethasone 4 MG Tab PO SCH (08:09)
[2020-12-06] MEDS: Pantoprazole 40 MG in Sodium Chloride 0.9% 10 ML IV SCH (08:09)
--- NOTE | 2020-12-06 13:23 | PCM.PN ---
- General Info Date of Service: 12/06/20 - Review of Systems Systems Review Comment:: reports fatigue, short of breath with exertion - Patient Data Vitals - Most Recent: Last Vital Signs Temp 36.4 C 12/06/20 08:00 Pulse 65 12/01/20 07:00 Resp 34 H 12/06/20 10:00 BP 130/64 12/06/20 08:00 Pulse Ox 88 L 12/06/20 10:00 Weight - Most Recent: 102.058 kg I&O - Last 24 Hours: Intake & Output 12/05/20 12/06/20 12/06/20 22:59 06:59 14:59 Intake Total 570 310 Output Total 500 550 Balance 70 -240 Lab Results Last 24 Hours: Laboratory Results - last 24 hr 12/06/20 12/06/20 Range/Units 06:20 06:20 WBC 14.68 H (4.0-11.0) K/uL RBC 4.49 L (4.50-5.90) M/uL Hgb 14.0 (13.0-17.0) g/dL Hct 39.4 (38.0-50.0) % MCV 87.8 (80.0-98.0) fL MCH 31.2 (27.0-32.0) pg MCHC 35.5 (31.0-37.0) g/dL RDW Std Deviation 42.2 (28.0-62.0) fl RDW Coeff of Carly 13 (11.0-15.0) % Plt Count 282 (150-400) K/uL MPV 10.00 (7.40-12.00) fL Add Manual Diff YES Neutrophils % (Manual) 85 H (48.0-80.0) % Band Neutrophils % 1 % Lymphocytes % (Manual) 8 L (16.0-40.0) % Monocytes % (Manual) 5 (0.0-15.0) % Eosinophils % (Manual) 1 (0.0-7.0) % Nucleated RBC % 0.0 /100WBC Absolute Seg Neuts 12.5 H (1.4-5.7) Band Neutrophils # 0.1 Lymphocytes # (Manual) 1.2 (0.6-2.4) Monocytes # (Manual) 0.7 (0.0-0.8) Eosinophils # (Manual) 0.1 (0.0-0.7) Nucleated RBCs # 0 K/uL Sodium 137 (136-148) mmol/L Potassium 4.7 (3.5-5.1) mmol/L Chloride 102 (98-107) mmol/L Carbon Dioxide 25.6 (21.0-32.0) mmol/L BUN 25 H (7.0-18.0) mg/dL Creatinine 1.0 (0.8-1.3) mg/dL Est Cr Clr Drug Dosing 77.71 mL/min Estimated GFR (MDRD) > 60.0 ml/min Glucose 104 (74-106) mg/dL Calcium 7.7 L (8.5-10.1) mg/dL Magnesium 2.3 (1.8-2.4) mg/dL Total Bilirubin 0.7 (0.2-1.0) mg/dL AST 28 (15-37) IU/L ALT 47 (14-63) IU/L Alkaline Phosphatase 46 (46-116) U/L Total Protein 6.2 L (6.4-8.2) g/dL Albumin 2.5 L (3.4-5.0) g/dL Globulin 3.7 (2.6-4.0) g/dL Albumin/Globulin Ratio 0.7 L (0.9-1.6) Med Orders - Current: Current Medications Albuterol/Ipratropium (Albuterol/Ipratropium 4 Gm Inhalation [place]) 0 gm INH Q4H PRN PRN Reason: Dyspnea Last Admin: 12/06/20 08:18 Dose: 1 puff Documented by: Dexamethasone (Dexamethasone 4 Mg Tab) 6 mg PO DAILY [facility] Last Admin: 12/06/20 08:09 Dose: 6 mg Documented by: Enoxaparin Sodium (Enoxaparin 40 Mg/0.4 Ml Syringe) 40 mg SUBCUT Q24H [facility] Last Admin: 12/05/20 18:16 Dose: 40 mg Documented by: Guaifenesin/Codeine Phosphate (Codeine/Guaifenesin 10-100 Mg/5 Ml Syrup 5 Ml Cup) 5 ml PO Q4H [facility] Last Admin: 12/06/20 11:57 Dose: 5 ml Documented by: Pantoprazole Sodium 40 mg/ (Sodium Chloride) 10 mls @ 300 mls/hr IV Q24H [facility] Last Admin: 10/03/21 08:09 Dose: 300 mls/hr Documented by: Levofloxacin/Dextrose 750 mg/ (Premix) 150 mls @ 100 mls/hr IV Q24H [facility] Last Admin: 12/05/20 15:24 Dose: 100 mls/hr Documented by: Polyethylene Glycol (Polyethylene Glycol 3350 Powder 17 Gm Packet) 17 gm PO BEDTIME [facility] Last Admin: 12/05/20 20:43 Dose: Not Given Documented by: Sodium Chloride (Sodium Chloride 0.9% 10 Ml Syringe) 10 ml FLUSH ASDIRECTED PRN PRN Reason: Keep Vein Open Last Admin: 11/30/20 14:17 Dose: 10 ml Documented by: Sodium Chloride (Sodium Chloride 0.9% 2.5 Ml Syringe) 2.5 ml FLUSH ASDIRECTED PRN PRN Reason: Keep Vein Open Last Admin: 11/30/20 14:17 Dose: 2.5 ml Documented by: Discontinued Medications Dexamethasone (Dexamethasone 10 Mg/Ml Sdv) 6 mg IVPUSH ONETIME ONE Stop: 11/30/20 14:46 Last Admin: 11/30/20 15:00 Dose: 6 mg Documented by: Famotidine (Famotidine 20 Mg/2 Ml Sdv) 20 mg IVPUSH BID [facility] Last Admin: 12/05/20 08:55 Dose: 20 mg Documented by: Guaifenesin (Guaifenesin 100 Mg/5 Ml Soln 5 Ml Ud Cup) 100 mg PO Q4H [facility] Last Admin: 12/06/20 04:02 Dose: 100 mg Documented by: Guaifenesin/Dextromethorphan (Guaifenesin/Dextromethorphan 100-10 Mg/5 Ml Soln 10 Ml Cup) 10 ml PO Q4H PRN PRN Reason: Cough Last Admin: 12/03/20 12:45 Dose: 10 ml Documented by: Guaifenesin/Dextromethorphan (Guaifenesin/Dextromethorphan 100-10 Mg/5 Ml Soln 10 Ml Cup) 10 ml PO Q4H [facility] Last Admin: 12/05/20 10:24 Dose: Not Given Documented by: Remdesivir 200 mg/ Sodium (Chloride) 250 mls @ 250 mls/hr IV ONETIME ONE Stop: 11/30/20 14:46 Last Admin: 11/30/20 20:04 Dose: 250 mls/hr Documented by: Remdesivir 100 mg/ Sodium (Chloride) 100 mls @ 100 mls/hr IV Q24H [facility] Stop: 12/04/20 18:59 Last Admin: 12/04/20 18:12 Dose: 100 mls/hr Documented by: Iopamidol (Iopamidol 755 Mg/Ml 500 Ml Multipack Bottle) 100 ml IVPUSH ONETIME STA Stop: 12/01/20 16:41 Last Admin: 12/01/20 16:41 Dose: 100 ml Documented by: - Exam General: Alert, Oriented Neck: Supple Lungs: Clear to Auscultation, Normal Respiratory Effort Cardiovascular: Regular Rate, Regular Rhythm GI/Abdominal Exam: Normal Bowel Sounds, Soft, Non-Tender Extremities: Non-Tender, No Pedal Edema Skin: Warm, Dry, Intact Neurological: No New Focal Deficit - Patient Data Lab Results Last 24 hrs: Laboratory Results - last 24 hr 12/06/20 12/06/20 Range/Units 06:20 06:20 WBC 14.68 H (4.0-11.0) K/uL RBC 4.49 L (4.50-5.90) M/uL Hgb 14.0 (13.0-17.0) g/dL Hct 39.4 (38.0-50.0) % MCV 87.8 (80.0-98.0) fL MCH 31.2 (27.0-32.0) pg MCHC 35.5 (31.0-37.0) g/dL RDW Std Deviation 42.2 (28.0-62.0) fl RDW Coeff of Carly 13 (11.0-15.0) % Plt Count 282 (150-400) K/uL MPV 10.00 (7.40-12.00) fL Add Manual Diff YES Neutrophils % (Manual) 85 H (48.0-80.0) % Band Neutrophils % 1 % Lymphocytes % (Manual) 8 L (16.0-40.0) % Monocytes % (Manual) 5 (0.0-15.0) % Eosinophils % (Manual) 1 (0.0-7.0) % Nucleated RBC % 0.0 /100WBC Absolute Seg Neuts 12.5 H (1.4-5.7) Band Neutrophils # 0.1 Lymphocytes # (Manual) 1.2 (0.6-2.4) Monocytes # (Manual) 0.7 (0.0-0.8) Eosinophils # (Manual) 0.1 (0.0-0.7) Nucleated RBCs # 0 K/uL Sodium 137 (136-148) mmol/L Potassium 4.7 (3.5-5.1) mmol/L Chloride 102 (98-107) mmol/L Carbon Dioxide 25.6 (21.0-32.0) mmol/L BUN 25 H (7.0-18.0) mg/dL Creatinine 1.0 (0.8-1.3) mg/dL Est Cr Clr Drug Dosing 77.71 mL/min Estimated GFR (MDRD) > 60.0 ml/min Glucose 104 (74-106) mg/dL Calcium 7.7 L (8.5-10.1) mg/dL Magnesium 2.3 (1.8-2.4) mg/dL Total Bilirubin 0.7 (0.2-1.0) mg/dL AST 28 (15-37) IU/L ALT 47 (14-63) IU/L Alkaline Phosphatase 46 (46-116) U/L Total Protein 6.2 L (6.4-8.2) g/dL Albumin 2.5 L (3.4-5.0) g/dL Globulin 3.7 (2.6-4.0) g/dL Albumin/Globulin Ratio 0.7 L (0.9-1.6) Result Diagrams: 12/06/20 06:20 12/06/20 06:20 Sepsis Event Note - Evaluation Sepsis Screening Result: Sepsis Risk - Focused Exam Vital Signs: Vital Signs Temp Resp BP Pulse Ox 12/06/20 10:00 34 H 88 L 12/06/20 09:00 26 H 90 L 12/06/20 08:00 36.4 C 34 H 130/64 90 L 12/06/20 07:00 25 H 92 L 12/06/20 06:00 24 H 92 L 12/06/20 05:00 26 H 92 L 12/06/20 04:00 36.3 C 21 H 128/75 90 L 12/06/20 03:00 23 H 91 L 12/06/20 02:00 21 H 91 L - Problem List & Annotations (1) Acute hypoxemic respiratory failure due to COVID-19 SNOMED Code(s): 343972849 Code(s): U07.1 - COVID-19; J96.01 - ACUTE RESPIRATORY FAILURE WITH HYPOXIA Status: Acute Current Visit: Yes - Problem List Review Problem List Initiated/Reviewed/Updated: Yes - Plan Plan:: Acute hypoxic respiratory failure secondary to COVID-19 pneumonia Hypoxia: Currently on heated high flow, flow 55, FiO2 65. with CPAP prn. Wean oxygen as tolerated. COVID: continue dexamethasone, remdesivir course completed started Levaquin yesterday Combivent as needed, incentive spirometry, prone positioning, Lovenox 40 mg subcu q24hr, Robitussin for cough.
[2020-12-06] MEDS: Levofloxacin/Dextrose 5%-Water 750 MG in Premix Bag 1 BAG IV SCH (15:21)
[2020-12-06] MEDS: Enoxaparin 40 MG/0.4 ML Syringe SUBCUT SCH (17:48)
[2020-12-06] MEDS: Polyethylene Glycol 3350 Powder 17 GM Packet PO SCH (20:19)
[2020-12-06] MEDS ORDERED: Melatonin 3 MG Tab PO PRN (21:36)
[2020-12-07] MEDS: Codeine/guaiFENesin 10-100 MG/5 ML Syrup 5 ML Cup PO SCH ×7 (00:01→23:19)
[2020-12-07] MEDS: Pantoprazole 40 MG in Sodium Chloride 0.9% 10 ML IV SCH (08:18)
[2020-12-07] MEDS: Dexamethasone 4 MG Tab PO SCH (08:19)
[2020-12-07 09:22] LABS: BLOOD UREA NITROGEN,BUN 28 mg/dL (7.0-18.0); CARBON DIOXIDE,CO2 25.9 mmol/L (21.0-32.0); CHLORIDE,CL 100 mmol/L (98-107); GLUCOSE RANDOM 124 mg/dL (74-106); POTASSIUM,K 4.2 mmol/L (3.5-5.1); SODIUM,NA 136 mmol/L (136-148)
[2020-12-07] MEDS: Albuterol/Ipratropium 4 GM Inhalation Spray INH PRN ×3 (11:56→21:10)
--- NOTE | 2020-12-07 14:38 | PCM.PN ---
- General Info Date of Service: 12/07/20 - Review of Systems Systems Review Comment:: reports shortness of breath with exertion and rest - Patient Data Vitals - Most Recent: Last Vital Signs Temp 36.8 C 12/07/20 12:00 Pulse 65 12/01/20 07:00 Resp 30 H 12/07/20 14:00 BP 106/68 12/07/20 12:00 Pulse Ox 90 L 12/07/20 14:00 Weight - Most Recent: 102.058 kg I&O - Last 24 Hours: Intake & Output 12/06/20 12/07/20 12/07/20 22:59 06:59 14:59 Intake Total 690 450 Output Total 1025 650 Balance -335 -200 Lab Results Last 24 Hours: Laboratory Results - last 24 hr 12/07/20 12/07/20 Range/Units 08:16 08:16 WBC 16.64 H (4.0-11.0) K/uL RBC 4.79 (4.50-5.90) M/uL Hgb 14.9 (13.0-17.0) g/dL Hct 42.5 (38.0-50.0) % MCV 88.7 (80.0-98.0) fL MCH 31.1 (27.0-32.0) pg MCHC 35.1 (31.0-37.0) g/dL RDW Std Deviation 43.5 (28.0-62.0) fl RDW Coeff of Carly 13 (11.0-15.0) % Plt Count 321 (150-400) K/uL MPV 9.90 (7.40-12.00) fL Add Manual Diff YES Neutrophils % (Manual) 80 (48.0-80.0) % Band Neutrophils % 2 % Lymphocytes % (Manual) 4 L (16.0-40.0) % Monocytes % (Manual) 8 (0.0-15.0) % Eosinophils % (Manual) 6 (0.0-7.0) % Nucleated RBC % 0.0 /100WBC Absolute Seg Neuts 13.3 H (1.4-5.7) Band Neutrophils # 0.3 Lymphocytes # (Manual) 0.7 (0.6-2.4) Monocytes # (Manual) 1.3 H (0.0-0.8) Eosinophils # (Manual) 1.0 H (0.0-0.7) Nucleated RBCs # 0 K/uL Sodium 136 (136-148) mmol/L Potassium 4.2 (3.5-5.1) mmol/L Chloride 100 (98-107) mmol/L Carbon Dioxide 25.9 (21.0-32.0) mmol/L BUN 28 H (7.0-18.0) mg/dL Creatinine 1.2 (0.8-1.3) mg/dL Est Cr Clr Drug Dosing 64.76 mL/min Estimated GFR (MDRD) > 60.0 ml/min Glucose 124 H (74-106) mg/dL Calcium 8.0 L (8.5-10.1) mg/dL Total Bilirubin 0.8 (0.2-1.0) mg/dL AST 31 (15-37) IU/L ALT 46 (14-63) IU/L Alkaline Phosphatase 56 (46-116) U/L Total Protein 6.7 (6.4-8.2) g/dL Albumin 2.7 L (3.4-5.0) g/dL Globulin 4.0 (2.6-4.0) g/dL Albumin/Globulin Ratio 0.7 L (0.9-1.6) Med Orders - Current: Current Medications Albuterol/Ipratropium (Albuterol/Ipratropium 4 Gm Inhalation [place]) 0 gm INH Q4H PRN PRN Reason: Dyspnea Last Admin: 12/07/20 11:56 Dose: 1 puff Documented by: Dexamethasone (Dexamethasone 4 Mg Tab) 6 mg PO DAILY [facility] Last Admin: 12/07/20 08:19 Dose: 6 mg Documented by: Enoxaparin Sodium (Enoxaparin 40 Mg/0.4 Ml Syringe) 40 mg SUBCUT Q24H [facility] Last Admin: 12/06/20 17:48 Dose: 40 mg Documented by: Guaifenesin/Codeine Phosphate (Codeine/Guaifenesin 10-100 Mg/5 Ml Syrup 5 Ml Cup) 5 ml PO Q4H [facility] Last Admin: 12/07/20 11:36 Dose: 5 ml Documented by: Pantoprazole Sodium 40 mg/ (Sodium Chloride) 10 mls @ 300 mls/hr IV Q24H [facility] Last Admin: 12/07/20 08:18 Dose: 300 mls/hr Documented by: Levofloxacin/Dextrose 750 mg/ (Premix) 150 mls @ 100 mls/hr IV Q24H [facility] Last Admin: 12/06/20 15:21 Dose: 100 mls/hr Documented by: Melatonin (Melatonin 3 Mg Tab) 6 mg PO BEDTIME PRN PRN Reason: Insomnia Last Admin: 12/06/20 21:39 Dose: 6 mg Documented by: Polyethylene Glycol (Polyethylene Glycol 3350 Powder 17 Gm Packet) 17 gm PO BEDTIME [facility] Last Admin: 12/06/20 20:19 Dose: Not Given Documented by: Sodium Chloride (Sodium Chloride 0.9% 10 Ml Syringe) 10 ml FLUSH ASDIRECTED PRN PRN Reason: Keep Vein Open Last Admin: 11/30/20 14:17 Dose: 10 ml Documented by: Sodium Chloride (Sodium Chloride 0.9% 2.5 Ml Syringe) 2.5 ml FLUSH ASDIRECTED PRN PRN Reason: Keep Vein Open Last Admin: 11/30/20 14:17 Dose: 2.5 ml Documented by: Discontinued Medications Dexamethasone (Dexamethasone 10 Mg/Ml Sdv) 6 mg IVPUSH ONETIME ONE Stop: 11/30/20 14:46 Last Admin: 11/30/20 15:00 Dose: 6 mg Documented by: Famotidine (Famotidine 20 Mg/2 Ml Sdv) 20 mg IVPUSH BID [facility] Last Admin: 12/05/20 08:55 Dose: 20 mg Documented by: Guaifenesin (Guaifenesin 100 Mg/5 Ml Soln 5 Ml Ud Cup) 100 mg PO Q4H [facility] Last Admin: 12/06/20 04:02 Dose: 100 mg Documented by: Guaifenesin/Dextromethorphan (Guaifenesin/Dextromethorphan 100-10 Mg/5 Ml Soln 10 Ml Cup) 10 ml PO Q4H PRN PRN Reason: Cough Last Admin: 12/03/20 12:45 Dose: 10 ml Documented by: Guaifenesin/Dextromethorphan (Guaifenesin/Dextromethorphan 100-10 Mg/5 Ml Soln 10 Ml Cup) 10 ml PO Q4H [facility] Last Admin: 12/05/20 10:24 Dose: Not Given Documented by: Remdesivir 200 mg/ Sodium (Chloride) 250 mls @ 250 mls/hr IV ONETIME ONE Stop: 11/30/20 14:46 Last Admin: 11/30/20 20:04 Dose: 250 mls/hr Documented by: Remdesivir 100 mg/ Sodium (Chloride) 100 mls @ 100 mls/hr IV Q24H [facility] Stop: 12/04/20 18:59 Last Admin: 12/04/20 18:12 Dose: 100 mls/hr Documented by: Iopamidol (Iopamidol 755 Mg/Ml 500 Ml Multipack Bottle) 100 ml IVPUSH ONETIME [facility]A Stop: 12/01/20 16:41 Last Admin: 12/01/20 16:41 Dose: 100 ml Documented by: Melatonin (Melatonin 3 Mg Tab) 6 mg PO BEDTIME [facility] - Exam General: Alert, Oriented Neck: Supple Lungs: Normal Respiratory Effort, Rhonchi GI/Abdominal Exam: Soft, Non-Tender, No Distention Extremities: Non-Tender, No Pedal Edema Skin: Warm, Dry, Intact Neurological: No New Focal Deficit - Patient Data Lab Results Last 24 hrs: Laboratory Results - last 24 hr 12/07/20 12/07/20 Range/Units 08:16 08:16 WBC 16.64 H (4.0-11.0) K/uL RBC 4.79 (4.50-5.90) M/uL Hgb 14.9 (13.0-17.0) g/dL Hct 42.5 (38.0-50.0) % MCV 88.7 (80.0-98.0) fL MCH 31.1 (27.0-32.0) pg MCHC 35.1 (31.0-37.0) g/dL RDW Std Deviation 43.5 (28.0-62.0) fl RDW Coeff of Carly 13 (11.0-15.0) % Plt Count 321 (150-400) K/uL MPV 9.90 (7.40-12.00) fL Add Manual Diff YES Neutrophils % (Manual) 80 (48.0-80.0) % Band Neutrophils % 2 % Lymphocytes % (Manual) 4 L (16.0-40.0) % Monocytes % (Manual) 8 (0.0-15.0) % Eosinophils % (Manual) 6 (0.0-7.0) % Nucleated RBC % 0.0 /100WBC Absolute Seg Neuts 13.3 H (1.4-5.7) Band Neutrophils # 0.3 Lymphocytes # (Manual) 0.7 (0.6-2.4) Monocytes # (Manual) 1.3 H (0.0-0.8) Eosinophils # (Manual) 1.0 H (0.0-0.7) Nucleated RBCs # 0 K/uL Sodium 136 (136-148) mmol/L Potassium 4.2 (3.5-5.1) mmol/L Chloride 100 (98-107) mmol/L Carbon Dioxide 25.9 (21.0-32.0) mmol/L BUN 28 H (7.0-18.0) mg/dL Creatinine 1.2 (0.8-1.3) mg/dL Est Cr Clr Drug Dosing 64.76 mL/min Estimated GFR (MDRD) > 60.0 ml/min Glucose 124 H (74-106) mg/dL Calcium 8.0 L (8.5-10.1) mg/dL Total Bilirubin 0.8 (0.2-1.0) mg/dL AST 31 (15-37) IU/L ALT 46 (14-63) IU/L Alkaline Phosphatase 56 (46-116) U/L Total Protein 6.7 (6.4-8.2) g/dL Albumin 2.7 L (3.4-5.0) g/dL Globulin 4.0 (2.6-4.0) g/dL Albumin/Globulin Ratio 0.7 L (0.9-1.6) Result Diagrams: 12/07/20 08:16 12/07/20 08:16 Sepsis Event Note - Evaluation Sepsis Screening Result: Sepsis Risk - Focused Exam Vital Signs: Vital Signs Temp Resp BP Pulse Ox 12/07/20 14:00 30 H 90 L 12/07/20 13:00 28 H 91 L 12/07/20 12:00 36.8 C 30 H 106/68 89 L 12/07/20 11:00 29 H 89 L 12/07/20 10:00 31 H 91 L 12/07/20 09:00 28 H 90 L 12/07/20 08:00 36.7 C 25 H 122/68 89 L 12/07/20 07:00 24 H 91 L 12/07/20 06:00 25 H 91 L 12/07/20 05:00 22 H 92 L 12/07/20 04:00 36.3 C 22 H 121/69 92 L 12/07/20 03:00 22 H 93 L - Problem List & Annotations (1) Acute hypoxemic respiratory failure due to COVID-19 SNOMED Code(s): 648165111 Code(s): U07.1 - COVID-19; J96.01 - ACUTE RESPIRATORY FAILURE WITH HYPOXIA Status: Acute Current Visit: Yes - Problem List Review Problem List Initiated/Reviewed/Updated: Yes - My Orders Last 24 Hours: My Active Orders 12/08/20 05:11 CBC WITH AUTO DIFF [HEME] AM COMPREHENSIVE METABOLIC PN,CMP [CHEM] AM - Plan Plan:: Acute hypoxic respiratory failure secondary to COVID-19 pneumonia Hypoxia: Currently on heated high flow, flow 55, FiO2 60. with CPAP prn. Wean oxygen as tolerated. COVID: continue dexamethasone, remdesivir course completed continue levaquin Combivent as needed, incentive spirometry, prone positioning, Lovenox 40 mg subcu q24hr, Robitussin for cough.
[2020-12-07] MEDS: Levofloxacin/Dextrose 5%-Water 750 MG in Premix Bag 1 BAG IV SCH (15:50)
[2020-12-07] MEDS: Enoxaparin 40 MG/0.4 ML Syringe SUBCUT SCH (18:34)
[2020-12-07] MEDS: Polyethylene Glycol 3350 Powder 17 GM Packet PO SCH (20:40)
[2020-12-07] MEDS ORDERED: Melatonin 3 MG Tab PO SCH (21:00)
[2020-12-07] MEDS: Melatonin 3 MG Tab PO PRN (21:09)
[2020-12-08] MEDS: Albuterol/Ipratropium 4 GM Inhalation Spray INH PRN ×4 (01:07→15:56)
[2020-12-08] MEDS ORDERED: Albuterol/Ipratropium 3.0-0.5 MG/3 ML Neb Soln NEB PRN (02:56)
[2020-12-08] MEDS: Codeine/guaiFENesin 10-100 MG/5 ML Syrup 5 ML Cup PO SCH ×5 (03:04→20:45)
[2020-12-08] MEDS: Albuterol/Ipratropium 3.0-0.5 MG/3 ML Neb Soln NEB PRN ×2 (03:04→08:17)
[2020-12-08 07:25] LABS: BLOOD UREA NITROGEN,BUN 31 mg/dL (7.0-18.0); CHLORIDE,CL 100 mmol/L (98-107); GLUCOSE RANDOM 93 mg/dL (74-106); POTASSIUM,K 4.8 mmol/L (3.5-5.1); SODIUM,NA 135 mmol/L (136-148)
[2020-12-08] MEDS: Pantoprazole 40 MG in Sodium Chloride 0.9% 10 ML IV SCH (08:18)
[2020-12-08] MEDS: Dexamethasone 4 MG Tab PO SCH (08:18)
--- NOTE | 2020-12-08 13:10 | PCM.PN ---
- General Info Date of Service: 12/08/20 Subjective Update: Patient states good sleep overnight with melatonin. Patient also states symptom relief with duo nebs. Patient still states moderate shortness of breath with am bulation. Patient states tolerating oral diet - Review of Systems General: Denies: Fever, Chills Pulmonary: Reports: Cough Cardiovascular: Reports: Dyspnea on Exertion. Denies: Chest Pain, Edema Gastrointestinal: Denies: Abdominal Pain, Decreased Appetite, Diarrhea, Nausea, Vomiting Neurological: Denies: Confusion, Dizziness, Headache Psychiatric: Denies: Confusion - Patient Data Vitals - Most Recent: Last Vital Signs Temp 96.1 F L 12/08/20 08:00 Pulse 65 12/01/20 07:00 Resp 32 H 12/08/20 12:00 BP 114/73 12/08/20 09:00 Pulse Ox 90 L 12/08/20 12:00 Weight - Most Recent: 224 lb 15.99 oz I&O - Last 24 Hours: Intake & Output 12/07/20 12/08/20 12/08/20 22:59 06:59 14:59 Intake Total 690 500 10 Output Total 425 750 Balance 265 -250 10 Lab Results Last 24 Hours: Laboratory Results - last 24 hr 12/08/20 12/08/20 Range/Units 05:07 05:07 WBC 17.11 H (4.0-11.0) K/uL RBC 4.79 (4.50-5.90) M/uL Hgb 14.5 (13.0-17.0) g/dL Hct 41.9 (38.0-50.0) % MCV 87.5 (80.0-98.0) fL MCH 30.3 (27.0-32.0) pg MCHC 34.6 (31.0-37.0) g/dL RDW Std Deviation 42.8 (28.0-62.0) fl RDW Coeff of Carly 13 (11.0-15.0) % Plt Count 308 (150-400) K/uL MPV 10.10 (7.40-12.00) fL Add Manual Diff YES Neutrophils % (Manual) 70 (48.0-80.0) % Band Neutrophils % 2 % Lymphocytes % (Manual) 5 L (16.0-40.0) % Monocytes % (Manual) 17 H (0.0-15.0) % Metamyelocytes % 3 % Myelocytes % 3 % Nucleated RBC % 0.0 /100WBC Absolute Seg Neuts 12.0 H (1.4-5.7) Band Neutrophils # 0.3 Lymphocytes # (Manual) 0.9 (0.6-2.4) Monocytes # (Manual) 2.9 H (0.0-0.8) Absolute Metamyelocyte 0.5 Absolute Myelocytes 0.5 Nucleated RBCs # 0 K/uL Sodium 135 L (136-148) mmol/L Potassium 4.8 (3.5-5.1) mmol/L Chloride 100 (98-107) mmol/L Carbon Dioxide 21.0 (21.0-32.0) mmol/L BUN 31 H (7.0-18.0) mg/dL Creatinine 0.9 (0.8-1.3) mg/dL Est Cr Clr Drug Dosing 86.34 mL/min Estimated GFR (MDRD) > 60.0 ml/min Glucose 93 (74-106) mg/dL Calcium 8.3 L (8.5-10.1) mg/dL Total Bilirubin 0.7 (0.2-1.0) mg/dL AST 21 (15-37) IU/L ALT 35 (14-63) IU/L Alkaline Phosphatase 49 (46-116) U/L Total Protein 6.7 (6.4-8.2) g/dL Albumin 2.7 L (3.4-5.0) g/dL Globulin 4.0 (2.6-4.0) g/dL Albumin/Globulin Ratio 0.7 L (0.9-1.6) Med Orders - Current: Current Medications Albuterol/Ipratropium (Albuterol/Ipratropium 4 Gm Inhalation [place]) 0 gm INH Q4H PRN PRN Reason: Dyspnea Last Admin: 12/08/20 05:56 Dose: 1 puff Documented by: Albuterol/Ipratropium (Albuterol/Ipratropium 3.0-0.5 Mg/3 Ml Neb Soln) 3 ml NEB Q4HRRT PRN PRN Reason: Wheezing Last Admin: 12/08/20 08:17 Dose: 3 ml Documented by: Dexamethasone (Dexamethasone 4 Mg Tab) 6 mg PO DAILY [facility] Last Admin: 12/08/20 08:18 Dose: 6 mg Documented by: Enoxaparin Sodium (Enoxaparin 40 Mg/0.4 Ml Syringe) 40 mg SUBCUT Q24H [facility] Last Admin: 12/07/20 18:34 Dose: 40 mg Documented by: Guaifenesin/Codeine Phosphate (Codeine/Guaifenesin 10-100 Mg/5 Ml Syrup 5 Ml Cup) 5 ml PO Q4H [facility] Last Admin: 12/08/20 12:13 Dose: 5 ml Documented by: Pantoprazole Sodium 40 mg/ (Sodium Chloride) 10 mls @ 300 mls/hr IV Q24H [facility] Last Admin: 12/08/20 08:18 Dose: 300 mls/hr Documented by: Levofloxacin/Dextrose 750 mg/ (Premix) 150 mls @ 100 mls/hr IV Q24H [facility] Last Admin: 12/07/20 15:50 Dose: 100 mls/hr Documented by: Melatonin (Melatonin 3 Mg Tab) 6 mg PO BEDTIME PRN PRN Reason: Insomnia Last Admin: 12/07/20 21:09 Dose: 6 mg Documented by: Polyethylene Glycol (Polyethylene Glycol 3350 Powder 17 Gm Packet) 17 gm PO BEDTIME [facility] Last Admin: 12/07/20 20:40 Dose: Not Given Documented by: Sodium Chloride (Sodium Chloride 0.9% 10 Ml Syringe) 10 ml FLUSH ASDIRECTED PRN PRN Reason: Keep Vein Open Last Admin: 11/30/20 14:17 Dose: 10 ml Documented by: Sodium Chloride (Sodium Chloride 0.9% 2.5 Ml Syringe) 2.5 ml FLUSH ASDIRECTED PRN PRN Reason: Keep Vein Open Last Admin: 11/30/20 14:17 Dose: 2.5 ml Documented by: Discontinued Medications Dexamethasone (Dexamethasone 10 Mg/Ml Sdv) 6 mg IVPUSH ONETIME ONE Stop: 11/30/20 14:46 Last Admin: 11/30/20 15:00 Dose: 6 mg Documented by: Famotidine (Famotidine 20 Mg/2 Ml Sdv) 20 mg IVPUSH BID [facility] Last Admin: 12/05/20 08:55 Dose: 20 mg Documented by: Guaifenesin (Guaifenesin 100 Mg/5 Ml Soln 5 Ml Ud Cup) 100 mg PO Q4H [facility] Last Admin: 12/06/20 04:02 Dose: 100 mg Documented by: Guaifenesin/Dextromethorphan (Guaifenesin/Dextromethorphan 100-10 Mg/5 Ml Soln 10 Ml Cup) 10 ml PO Q4H PRN PRN Reason: Cough Last Admin: 12/03/20 12:45 Dose: 10 ml Documented by: Guaifenesin/Dextromethorphan (Guaifenesin/Dextromethorphan 100-10 Mg/5 Ml Soln 10 Ml Cup) 10 ml PO Q4H [facility]ERNANDO Last Admin: 12/05/20 10:24 Dose: Not Given Documented by: Remdesivir 200 mg/ Sodium (Chloride) 250 mls @ 250 mls/hr IV ONETIME ONE Stop: 11/30/20 14:46 Last Admin: 11/30/20 20:04 Dose: 250 mls/hr Documented by: Remdesivir 100 mg/ Sodium (Chloride) 100 mls @ 100 mls/hr IV Q24H [facility]ER[facility] Stop: 12/04/20 18:59 Last Admin: 12/04/20 18:12 Dose: 100 mls/hr Documented by: Iopamidol (Iopamidol 755 Mg/Ml 500 Ml Multipack Bottle) 100 ml IVPUSH ONETIME STA Stop: 12/01/20 16:41 Last Admin: 12/01/20 16:41 Dose: 100 ml Documented by: Melatonin (Melatonin 3 Mg Tab) 6 mg PO BEDTIME FERNANDO Melatonin (Melatonin 3 Mg Tab) 6 mg PO BEDTIME PRN PRN Reason: Insomnia Last Admin: 12/06/20 21:39 Dose: 6 mg Documented by: - Exam Quality Assessment: Supplemental Oxygen General: Alert, Oriented Lungs: Clear to Auscultation, Crackles (fine ) Cardiovascular: Regular Rate, Regular Rhythm GI/Abdominal Exam: Soft, Non-Tender, No Distention Extremities: No Pedal Edema Psy/Mental Status: Alert - Patient Data Lab Results Last 24 hrs: Laboratory Results - last 24 hr 12/08/20 12/08/20 Range/Units 05:07 05:07 WBC 17.11 H (4.0-11.0) K/uL RBC 4.79 (4.50-5.90) M/uL Hgb 14.5 (13.0-17.0) g/dL Hct 41.9 (38.0-50.0) % MCV 87.5 (80.0-98.0) fL MCH 30.3 (27.0-32.0) pg MCHC 34.6 (31.0-37.0) g/dL RDW Std Deviation 42.8 (28.0-62.0) fl RDW Coeff of Carly 13 (11.0-15.0) % Plt Count 308 (150-400) K/uL MPV 10.10 (7.40-12.00) fL Add Manual Diff YES Neutrophils % (Manual) 70 (48.0-80.0) % Band Neutrophils % 2 % Lymphocytes % (Manual) 5 L (16.0-40.0) % Monocytes % (Manual) 17 H (0.0-15.0) % Metamyelocytes % 3 % Myelocytes % 3 % Nucleated RBC % 0.0 /100WBC Absolute Seg Neuts 12.0 H (1.4-5.7) Band Neutrophils # 0.3 Lymphocytes # (Manual) 0.9 (0.6-2.4) Monocytes # (Manual) 2.9 H (0.0-0.8) Absolute Metamyelocyte 0.5 Absolute Myelocytes 0.5 Nucleated RBCs # 0 K/uL Sodium 135 L (136-148) mmol/L Potassium 4.8 (3.5-5.1) mmol/L Chloride 100 (98-107) mmol/L Carbon Dioxide 21.0 (21.0-32.0) mmol/L BUN 31 H (7.0-18.0) mg/dL Creatinine 0.9 (0.8-1.3) mg/dL Est Cr Clr Drug Dosing 86.34 mL/min Estimated GFR (MDRD) > 60.0 ml/min Glucose 93 (74-106) mg/dL Calcium 8.3 L (8.5-10.1) mg/dL Total Bilirubin 0.7 (0.2-1.0) mg/dL AST 21 (15-37) IU/L ALT 35 (14-63) IU/L Alkaline Phosphatase 49 (46-116) U/L Total Protein 6.7 (6.4-8.2) g/dL Albumin 2.7 L (3.4-5.0) g/dL Globulin 4.0 (2.6-4.0) g/dL Albumin/Globulin Ratio 0.7 L (0.9-1.6) Result Diagrams: 12/08/20 05:07 12/08/20 05:07 Sepsis Event Note - Evaluation Sepsis Screening Result: Sepsis Risk - Focused Exam Vital Signs: Vital Signs Temp Temp Resp BP Pulse Ox 12/08/20 12:00 32 H 90 L 12/08/20 11:00 30 H 92 L 12/08/20 10:00 32 H 90 L 12/08/20 09:00 26 H 114/73 91 L 12/08/20 08:00 96.1 F L 28 H 90 L 12/08/20 07:00 31 H 89 L 12/08/20 06:00 25 H 92 L 12/08/20 05:00 24 H 91 L 12/08/20 04:00 97.7 F 28 H 90 L 12/08/20 03:30 109/72 12/08/20 03:00 23 H 93 L 12/08/20 02:00 30 H 90 L - Problem List & Annotations (1) Acute hypoxemic respiratory failure due to COVID-19 SNOMED Code(s): 932361701 Code(s): U07.1 - COVID-19; J96.01 - ACUTE RESPIRATORY FAILURE WITH HYPOXIA Status: Acute Current Visit: Yes - Problem List Review Problem List Initiated/Reviewed/Updated: Yes - My Orders Last 24 Hours: My Active Orders 12/07/20 21:00 Melatonin 6 mg PO BEDTIME PRN - Plan Plan:: Acute hypoxic respiratory failure secondary to COVID-19 pneumonia Hypoxia: Currently on heated high flow, flow 55, FiO2 70, with CPAP prn. Wean oxygen as tolerated. COVID: continue dexamethasone, remdesivir course completed continue levaquin Combivent as needed, incentive spirometry, prone positioning, Lovenox 40 mg subcu q24hr, Robitussin for cough. Melatonin 6mg prn bedtime
[2020-12-08] MEDS: Levofloxacin/Dextrose 5%-Water 750 MG in Premix Bag 1 BAG IV SCH (15:51)
[2020-12-08] MEDS: Enoxaparin 40 MG/0.4 ML Syringe SUBCUT SCH (17:54)
--- NOTE | 2020-12-08 19:46 | PN ---
THC Physician - Brief Progress [id number]/05/2021 19:40[facility] Patsy Mckeon, [place] - MARLYN (ARMANDO) - MWN REKHA SIMEON, LADYID+Date of Service 12/08/2020 19:40HPI /Events of Note Pt sitting in chair, mildly dyspneic at rest on HHFNC with flow 55 L and fio2 65%. Sp o2 is 89-90% consistently. Later this evening, he was on a phone call and had conversational dyspnea, but spo2 unchanged. VS: 83, 29, 91%. No BP or temp recorded for several hours.Gen: Comfortable, NADH eart: NSR with normal HR on telemetryLungs: Tachypneic and mildly dyspneic at rest on HHFNC with flow 55L and fio2 65%, +conversational dyspneaNeuro: Awake, A&O to his phone conversation, NAD moves all 4 limbs without difficultyASSESSMENT:Acute hypoxic respiratory failureCommunity acquired pneumonia d/ t [id number] via HHFNC, wean as toleratedMaintain spo2 >90% and po2 >60 mmHgDroplet isolation per protocolDexamethasoneDuoNeb PRNEmpiric Levaquin per bedside teamInterventions Major-Hypoxemia - e valuation and management, Infection - evaluation and management, Respiratory failure - evaluation and management
[2020-12-08] MEDS: Polyethylene Glycol 3350 Powder 17 GM Packet PO SCH (20:55)
[2020-12-08] MEDS: Melatonin 3 MG Tab PO PRN (20:55)
[2020-12-09] MEDS: Codeine/guaiFENesin 10-100 MG/5 ML Syrup 5 ML Cup PO SCH ×6 (00:02→21:01)
[2020-12-09 07:41] LABS: BLOOD UREA NITROGEN,BUN 28 mg/dL (7.0-18.0); CARBON DIOXIDE,CO2 25.7 mmol/L (21.0-32.0); CHLORIDE,CL 100 mmol/L (98-107); GLUCOSE RANDOM 88 mg/dL (74-106); POTASSIUM,K 4.8 mmol/L (3.5-5.1); SODIUM,NA 136 mmol/L (136-148)
[2020-12-09] MEDS: Albuterol/Ipratropium 4 GM Inhalation Spray INH PRN ×4 (08:00→21:01)
[2020-12-09] MEDS: Dexamethasone 4 MG Tab PO SCH (08:56)
[2020-12-09] MEDS: Pantoprazole 40 MG in Sodium Chloride 0.9% 10 ML IV SCH (08:56)
[2020-12-09] MEDS ORDERED: Sodium Chloride 0.65% Nasal Spray 45 ML Bottle NAS PRN (12:13)
--- NOTE | 2020-12-09 13:15 | PCM.PN ---
<Abelardo Garza - Last Filed: 12/09/20 13:05> - General Info Date of Service: 12/09/20 Subjective Update: Patient states feeling better this morning. Patient states less shortness of breath, able to speak in full sentences without shortness of breath. Patient denies fever, chills, nausea, vomiting, headaches. States mild nasal stuffiness. - Review of Systems General: Denies: Fever, Chills Pulmonary: Reports: Shortness of Breath, Cough Cardiovascular: Reports: Dyspnea on Exertion. Denies: Chest Pain, Edema Gastrointestinal: Denies: Abdominal Pain, Decreased Appetite, Nausea, Vomiting Neurological: Denies: Confusion, Dizziness, Headache - Patient Data Vitals - Most Recent: Last Vital Signs Temp 96.3 F L 12/09/20 08:00 Pulse 65 12/01/20 07:00 Resp 34 H 12/09/20 10:00 BP 123/66 12/09/20 08:00 Pulse Ox 91 L 12/09/20 10:00 Weight - Most Recent: 102.058 kg I&O - Last 24 Hours: Intake & Output 12/08/20 12/09/20 12/09/20 22:59 06:59 14:59 Intake Total 750 Output Total 250 Balance 500 Lab Results Last 24 Hours: Laboratory Results - last 24 hr 12/09/20 12/09/20 Range/Units 05:35 05:35 WBC 19.10 H (4.0-11.0) K/uL RBC 4.58 (4.50-5.90) M/uL Hgb 14.2 (13.0-17.0) g/dL Hct 40.8 (38.0-50.0) % MCV 89.1 (80.0-98.0) fL MCH 31.0 (27.0-32.0) pg MCHC 34.8 (31.0-37.0) g/dL RDW Std Deviation 43.7 (28.0-62.0) fl RDW Coeff of Carly 13 (11.0-15.0) % Plt Count 286 (150-400) K/uL MPV 10.40 (7.40-12.00) fL Add Manual Diff YES Neutrophils % (Manual) 75 (48.0-80.0) % Band Neutrophils % 2 % Lymphocytes % (Manual) 5 L (16.0-40.0) % Monocytes % (Manual) 15 (0.0-15.0) % Eosinophils % (Manual) 1 (0.0-7.0) % Nucleated RBC % 0.0 /100WBC Absolute Seg Neuts 14.3 H (1.4-5.7) Band Neutrophils # 0.4 Lymphocytes # (Manual) 1.0 (0.6-2.4) Monocytes # (Manual) 2.9 H (0.0-0.8) Eosinophils # (Manual) 0.2 (0.0-0.7) Nucleated RBCs # 0 K/uL Sodium 136 (136-148) mmol/L Potassium 4.8 (3.5-5.1) mmol/L Chloride 100 (98-107) mmol/L Carbon Dioxide 25.7 (21.0-32.0) mmol/L BUN 28 H (7.0-18.0) mg/dL Creatinine 0.9 (0.8-1.3) mg/dL Est Cr Clr Drug Dosing 86.34 mL/min Estimated GFR (MDRD) > 60.0 ml/min Glucose 88 (74-106) mg/dL Calcium 7.9 L (8.5-10.1) mg/dL Total Bilirubin 0.7 (0.2-1.0) mg/dL AST 25 (15-37) IU/L ALT 38 (14-63) IU/L Alkaline Phosphatase 50 (46-116) U/L Total Protein 6.3 L (6.4-8.2) g/dL Albumin 2.5 L (3.4-5.0) g/dL Globulin 3.8 (2.6-4.0) g/dL Albumin/Globulin Ratio 0.7 L (0.9-1.6) Med Orders - Current: Current Medications Albuterol/Ipratropium (Albuterol/Ipratropium 4 Gm Inhalation [place]) 0 gm INH Q4H PRN PRN Reason: Dyspnea Last Admin: 12/09/20 12:10 Dose: 1 puff Documented by: Albuterol/Ipratropium (Albuterol/Ipratropium 3.0-0.5 Mg/3 Ml Neb Soln) 3 ml NEB Q4HRRT PRN PRN Reason: Wheezing Last Admin: 12/08/20 08:17 Dose: 3 ml Documented by: Dexamethasone (Dexamethasone 4 Mg Tab) 6 mg PO DAILY [facility] [place] Last Admin: 12/09/20 08:56 Dose: 6 mg Documented by: Enoxaparin Sodium (Enoxaparin 40 Mg/0.4 Ml Syringe) 40 mg SUBCUT Q24H [facility] [place] Last Admin: 12/08/20 17:54 Dose: 40 mg Documented by: Guaifenesin/Codeine Phosphate (Codeine/Guaifenesin 10-100 Mg/5 Ml Syrup 5 Ml Cup) 5 ml PO Q4H [facility] [place] Last Admin: 12/09/20 12:10 Dose: 5 ml Documented by: Pantoprazole Sodium 40 mg/ (Sodium Chloride) 10 mls @ 300 mls/hr IV Q24H [facility] [place] Last Admin: 12/09/20 08:56 Dose: 300 mls/hr Documented by: Levofloxacin/Dextrose 750 mg/ (Premix) 150 mls @ 100 mls/hr IV Q24H [facility] [place] Last Admin: 12/08/20 15:51 Dose: 100 mls/hr Documented by: Melatonin (Melatonin 3 Mg Tab) 6 mg PO BEDTIME PRN PRN Reason: Insomnia Last Admin: 12/08/20 20:55 Dose: 6 mg Documented by: Polyethylene Glycol (Polyethylene Glycol 3350 Powder 17 Gm Packet) 17 gm PO BEDTIME [facility] [place] Last Admin: 12/08/20 20:55 Dose: Not Given Documented by: Sodium Chloride (Sodium Chloride 0.9% 10 Ml Syringe) 10 ml FLUSH ASDIRECTED PRN PRN Reason: Keep Vein Open Last Admin: 11/30/20 14:17 Dose: 10 ml Documented by: Sodium Chloride (Sodium Chloride 0.9% 2.5 Ml Syringe) 2.5 ml FLUSH ASDIRECTED PRN PRN Reason: Keep Vein Open Last Admin: 11/30/20 14:17 Dose: 2.5 ml Documented by: Sodium Chloride (Sodium Chloride 0.65% Nasal [place] 45 Ml Bottle) 1 ml LATHA Q6H PRN PRN Reason: Congestion Last Admin: 12/09/20 12:20 Dose: 1 spray Documented by: Discontinued Medications Dexamethasone (Dexamethasone 10 Mg/Ml Sdv) 6 mg IVPUSH ONETIME ONE Stop: 11/30/20 14:46 Last Admin: 11/30/20 15:00 Dose: 6 mg Documented by: Famotidine (Famotidine 20 Mg/2 Ml Sdv) 20 mg IVPUSH BID [facility] [place] Last Admin: 12/05/20 08:55 Dose: 20 mg Documented by: Guaifenesin (Guaifenesin 100 Mg/5 Ml Soln 5 Ml Ud Cup) 100 mg PO Q4H FERNANDO Last Admin: 12/06/20 04:02 Dose: 100 mg Documented by: Guaifenesin/Dextromethorphan (Guaifenesin/Dextromethorphan 100-10 Mg/5 Ml Soln 10 Ml Cup) 10 ml PO Q4H PRN PRN Reason: Cough Last Admin: 12/03/20 12:45 Dose: 10 ml Documented by: Guaifenesin/Dextromethorphan (Guaifenesin/Dextromethorphan 100-10 Mg/5 Ml Soln 10 Ml Cup) 10 ml PO Q4H [facility] [place] Last Admin: 12/05/20 10:24 Dose: Not Given Documented by: Remdesivir 200 mg/ Sodium (Chloride) 250 mls @ 250 mls/hr IV ONETIME ONE Stop: 11/30/20 14:46 Last Admin: 11/30/20 20:04 Dose: 250 mls/hr Documented by: Remdesivir 100 mg/ Sodium (Chloride) 100 mls @ 100 mls/hr IV Q24H [facility]ER[place]NDO Stop: 12/04/20 18:59 Last Admin: 12/04/20 18:12 Dose: 100 mls/hr Documented by: Iopamidol (Iopamidol 755 Mg/Ml 500 Ml Multipack Bottle) 100 ml IVPUSH ONETIME STA Stop: 12/01/20 16:41 Last Admin: 12/01/20 16:41 Dose: 100 ml Documented by: Melatonin (Melatonin 3 Mg Tab) 6 mg PO BEDTIME [facility] Melatonin (Melatonin 3 Mg Tab) 6 mg PO BEDTIME PRN PRN Reason: Insomnia Last Admin: 12/06/20 21:39 Dose: 6 mg Documented by: - Exam Quality Assessment: Supplemental Oxygen General: Alert, Oriented Lungs: Normal Respiratory Effort (with hhf), Crackles Cardiovascular: Regular Rate, Regular Rhythm GI/Abdominal Exam: Soft, Non-Tender, No Distention Extremities: No Pedal Edema Psy/Mental Status: Alert - Patient Data Lab Results Last 24 hrs: Laboratory Results - last 24 hr 12/09/20 12/09/20 Range/Units 05:35 05:35 WBC 19.10 H (4.0-11.0) K/uL RBC 4.58 (4.50-5.90) M/uL Hgb 14.2 (13.0-17.0) g/dL Hct 40.8 (38.0-50.0) % MCV 89.1 (80.0-98.0) fL MCH 31.0 (27.0-32.0) pg MCHC 34.8 (31.0-37.0) g/dL RDW Std Deviation 43.7 (28.0-62.0) fl RDW Coeff of Carly 13 (11.0-15.0) % Plt Count 286 (150-400) K/uL MPV 10.40 (7.40-12.00) fL Add Manual Diff YES Neutrophils % (Manual) 75 (48.0-80.0) % Band Neutrophils % 2 % Lymphocytes % (Manual) 5 L (16.0-40.0) % Monocytes % (Manual) 15 (0.0-15.0) % Eosinophils % (Manual) 1 (0.0-7.0) % Nucleated RBC % 0.0 /100WBC Absolute Seg Neuts 14.3 H (1.4-5.7) Band Neutrophils # 0.4 Lymphocytes # (Manual) 1.0 (0.6-2.4) Monocytes # (Manual) 2.9 H (0.0-0.8) Eosinophils # (Manual) 0.2 (0.0-0.7) Nucleated RBCs # 0 K/uL Sodium 136 (136-148) mmol/L Potassium 4.8 (3.5-5.1) mmol/L Chloride 100 (98-107) mmol/L Carbon Dioxide 25.7 (21.0-32.0) mmol/L BUN 28 H (7.0-18.0) mg/dL Creatinine 0.9 (0.8-1.3) mg/dL Est Cr Clr Drug Dosing 86.34 mL/min Estimated GFR (MDRD) > 60.0 ml/min Glucose 88 (74-106) mg/dL Calcium 7.9 L (8.5-10.1) mg/dL Total Bilirubin 0.7 (0.2-1.0) mg/dL AST 25 (15-37) IU/L ALT 38 (14-63) IU/L Alkaline Phosphatase 50 (46-116) U/L Total Protein 6.3 L (6.4-8.2) g/dL Albumin 2.5 L (3.4-5.0) g/dL Globulin 3.8 (2.6-4.0) g/dL Albumin/Globulin Ratio 0.7 L (0.9-1.6) Result Diagrams: 12/09/20 05:35 12/09/20 05:35 Sepsis Event Note - Evaluation Sepsis Screening Result: Sepsis Risk - Focused Exam Vital Signs: Vital Signs Temp Resp BP Pulse Ox 12/09/20 10:00 34 H 91 L 12/09/20 09:00 26 H 90 L 12/09/20 08:00 96.3 F L 34 H 123/66 88 L 12/09/20 07:20 88 L 12/09/20 07:00 33 H 82 L 12/09/20 02:00 19 91 L - Problem List & Annotations (1) Acute hypoxemic respiratory failure due to COVID-19 SNOMED Code(s): 473001166 Code(s): U07.1 - COVID-19; J96.01 - ACUTE RESPIRATORY FAILURE WITH HYPOXIA Status: Acute Current Visit: Yes - Problem List Review Problem List Initiated/Reviewed/Updated: Yes - My Orders Last 24 Hours: My Active Orders 12/09/20 12:13 Sodium Chloride 0.65% [[place] Nasal [place]] 1 ml LATHA Q6H PRN 12/10/20 05:11 CBC WITH AUTO DIFF [HEME] AM CMP [COMPREHENSIVE METABOLIC PN,CMP] [CHEM] AM 12/11/20 05:11 CBC WITH AUTO DIFF [HEME] AM CMP [COMPREHENSIVE METABOLIC PN,CMP] [CHEM] AM - Plan Plan:: Acute hypoxic respiratory failure secondary to COVID-19 pneumonia Hypoxia: Currently on heated high flow, flow 55, FiO2 75, with CPAP prn. Wean oxygen as tolerated. COVID: continue dexamethasone, remdesivir course completed continue levaquin Combivent as needed, incentive spirometry, prone positioning, Lovenox 40 mg subcu q24hr, Robitussin for cough, ocean spray for nasal stuffiness. Melatonin 6mg prn bedtime <Nimisha Julian - Last Filed: 12/19/20 15:43> - Patient Data Vitals - Most Recent: Last Vital Signs Temp 35.8 C L 12/19/20 12:00 Pulse 65 12/01/20 07:00 Resp 15 12/19/20 15:00 BP 121/77 12/19/20 15:00 Pulse Ox 95 12/19/20 15:00 I&O - Last 24 Hours: Intake & Output 12/19/20 12/19/20 12/19/20 06:59 14:59 22:59 Intake Total 450 Output Total 750 Balance -300 Lab Results Last 24 Hours: Laboratory Results - last 24 hr 12/19/20 12/19/20 Range/Units 05:45 05:45 WBC 13.69 H (4.0-11.0) K/uL RBC 4.23 L (4.50-5.90) M/uL Hgb 13.1 (13.0-17.0) g/dL Hct 38.6 (38.0-50.0) % MCV 91.3 (80.0-98.0) fL MCH 31.0 (27.0-32.0) pg MCHC 33.9 (31.0-37.0) g/dL RDW Std Deviation 46.0 (28.0-62.0) fl RDW Coeff of Carly 14 (11.0-15.0) % Plt Count 245 (150-400) K/uL MPV 10.00 (7.40-12.00) fL Add Manual Diff YES Neutrophils % (Manual) 60 (48.0-80.0) % Band Neutrophils % 3 % Lymphocytes % (Manual) 21 (16.0-40.0) % Monocytes % (Manual) 12 (0.0-15.0) % Eosinophils % (Manual) 4 (0.0-7.0) % Nucleated RBC % 0.0 /100WBC Absolute Seg Neuts 8.2 H (1.4-5.7) Band Neutrophils # 0.4 Lymphocytes # (Manual) 2.9 H (0.6-2.4) Monocytes # (Manual) 1.6 H (0.0-0.8) Eosinophils # (Manual) 0.5 (0.0-0.7) Nucleated RBCs # 0 K/uL Sodium 139 (136-148) mmol/L Potassium 4.5 (3.5-5.1) mmol/L Chloride 104 (98-107) mmol/L Carbon Dioxide 28.2 (21.0-32.0) mmol/L BUN 27 H (7.0-18.0) mg/dL Creatinine 0.8 (0.8-1.3) mg/dL Est Cr Clr Drug Dosing 97.14 mL/min Estimated GFR (MDRD) > 60.0 ml/min Glucose 85 (74-106) mg/dL Calcium 8.0 L (8.5-10.1) mg/dL Total Bilirubin 0.6 (0.2-1.0) mg/dL AST 23 (15-37) IU/L ALT 47 (14-63) IU/L Alkaline Phosphatase 56 (46-116) U/L Total Protein 5.8 L (6.4-8.2) g/dL Albumin 2.3 L (3.4-5.0) g/dL Globulin 3.5 (2.6-4.0) g/dL Albumin/Globulin Ratio 0.7 L (0.9-1.6) Med Orders - Current: Current Medications Albuterol/Ipratropium (Albuterol/Ipratropium 4 Gm Inhalation [place]) 0 gm INH Q4H PRN PRN Reason: Dyspnea Last Admin: 12/15/20 14:20 Dose: 1 puff Documented by: Albuterol/Ipratropium (Albuterol/Ipratropium 3.0-0.5 Mg/3 Ml Neb Soln) 3 ml NEB Q4HRRT PRN PRN Reason: Wheezing Last Admin: 12/18/20 18:07 Dose: 3 ml Documented by: Alprazolam (Alprazolam 0.25 Mg Tab) 0.25 mg PO Q6H PRN PRN Reason: Anxiety Last Admin: 12/19/20 14:37 Dose: 0.25 mg Documented by: Benzonatate (Benzonatate 100 Mg Cap) 200 mg PO TID [facility] Last Admin: 12/19/20 14:36 Dose: 200 mg Documented by: Docusate Sodium (Docusate Sodium 100 Mg Cap) 100 mg PO BID [facility] [place] Last Admin: 12/19/20 08:05 Dose: 100 mg Documented by: Enoxaparin Sodium (Enoxaparin 40 Mg/0.4 Ml Syringe) 40 mg SUBCUT Q24H [facility] [place] Last Admin: 12/18/20 19:16 Dose: 40 mg Documented by: Guaifenesin/Codeine Phosphate (Codeine/Guaifenesin 10-100 Mg/5 Ml Syrup 5 Ml Cup) 5 ml PO Q4H PRN PRN Reason: Cough Melatonin (Melatonin 3 Mg Tab) 6 mg PO BEDTIME PRN PRN Reason: Insomnia Last Admin: 12/18/20 20:32 Dose: 6 mg Documented by: Pantoprazole Sodium (Pantoprazole 40 Mg Tab.Cr) 40 mg PO DAILY [facility] [place] Last Admin: 12/19/20 08:04 Dose: 40 mg Documented by: Polyethylene Glycol (Polyethylene Glycol 3350 Powder 17 Gm Packet) 17 gm PO DAILY [facility] [place] Last Admin: 12/19/20 08:05 Dose: 17 gm Documented by: Prednisone (Prednisone 20 Mg Tab) 40 mg PO WITHBREAKFAST [facility] [place] Last Admin: 12/19/20 08:04 Dose: 40 mg Documented by: Sodium Chloride (Sodium Chloride 0.9% 10 Ml Syringe) 10 ml FLUSH ASDIRECTED PRN PRN Reason: Keep Vein Open Last Admin: 11/30/20 14:17 Dose: 10 ml Documented by: Sodium Chloride (Sodium Chloride 0.9% 2.5 Ml Syringe) 2.5 ml FLUSH ASDIRECTED PRN PRN Reason: Keep Vein Open Last Admin: 11/30/20 14:17 Dose: 2.5 ml Documented by: Sodium Chloride (Sodium Chloride 0.65% Nasal [place] 45 Ml Bottle) 1 ml LATHA Q6H PRN PRN Reason: Congestion Last Admin: 12/09/20 12:20 Dose: 1 spray Documented by: Discontinued Medications Dexamethasone (Dexamethasone 10 Mg/Ml Sdv) 6 mg IVPUSH ONETIME ONE Stop: 11/30/20 14:46 Last Admin: 11/30/20 15:00 Dose: 6 mg Documented by: Dexamethasone (Dexamethasone 4 Mg Tab) 6 mg PO DAILY [facility] [place] Last Admin: 12/12/20 09:12 Dose: 6 mg Documented by: Famotidine (Famotidine 20 Mg/2 Ml Sdv) 20 mg IVPUSH BID [facility] [place] Last Admin: 12/05/20 08:55 Dose: 20 mg Documented by: Guaifenesin (Guaifenesin 100 Mg/5 Ml Soln 5 Ml Ud Cup) 100 mg PO Q4H [facility] Last Admin: 12/06/20 04:02 Dose: 100 mg Documented by: Guaifenesin/Codeine Phosphate (Codeine/Guaifenesin 10-100 Mg/5 Ml Syrup 5 Ml Cup) 5 ml PO Q4H [facility] [place] Last Admin: 12/11/20 17:21 Dose: 5 ml Documented by: Guaifenesin/Codeine Phosphate (Codeine/Guaifenesin 10-100 Mg/5 Ml Syrup 5 Ml Cup) 5 ml PO Q4H [facility] [place] Last Admin: 12/19/20 12:47 Dose: 5 ml Documented by: Guaifenesin/Dextromethorphan (Guaifenesin/Dextromethorphan 100-10 Mg/5 Ml Soln 10 Ml Cup) 10 ml PO Q4H PRN PRN Reason: Cough Last Admin: 12/03/20 12:45 Dose: 10 ml Documented by: Guaifenesin/Dextromethorphan (Guaifenesin/Dextromethorphan 100-10 Mg/5 Ml Soln 10 Ml Cup) 10 ml PO Q4H [facility] [place] Last Admin: 12/05/20 10:24 Dose: Not Given Documented by: Remdesivir 200 mg/ Sodium (Chloride) 250 mls @ 250 mls/hr IV ONETIME ONE Stop: 11/30/20 14:46 Last Admin: 11/30/20 20:04 Dose: 250 mls/hr Documented by: Remdesivir 100 mg/ Sodium (Chloride) 100 mls @ 100 mls/hr IV Q24H [facility] [place] Stop: 12/04/20 18:59 Last Admin: 12/04/20 18:12 Dose: 100 mls/hr Documented by: Pantoprazole Sodium 40 mg/ (Sodium Chloride) 10 mls @ 300 mls/hr IV Q24H [facility] [place] Last Admin: 12/09/20 08:56 Dose: 300 mls/hr Documented by: Levofloxacin/Dextrose 750 mg/ (Premix) 150 mls @ 100 mls/hr IV Q24H [facility] [place] Last Admin: 12/11/20 15:24 Dose: 100 mls/hr Documented by: Lactated Ringer's (Ringers, Lactated) 250 mls @ 250 mls/hr IV ASDIRECTED [facility] [place] Iopamidol (Iopamidol 755 Mg/Ml 500 Ml Multipack Bottle) 100 ml IVPUSH ONETIME STA Stop: 12/01/20 16:41 Last Admin: 12/01/20 16:41 Dose: 100 ml Documented by: Lorazepam (Lorazepam 2 Mg/Ml Sdv) 1 mg IVPUSH Q12H PRN PRN Reason: Anxiety Last Admin: 12/12/20 15:53 Dose: 1 mg Documented by: Lorazepam (Lorazepam 2 Mg/Ml Sdv) 0.5 mg IVPUSH Q8H PRN PRN Reason: Anxiety Melatonin (Melatonin 3 Mg Tab) 6 mg PO BEDTIME [facility]ER[place]NDO Melatonin (Melatonin 3 Mg Tab) 6 mg PO BEDTIME PRN PRN Reason: Insomnia Last Admin: 12/06/20 21:39 Dose: 6 mg Documented by: Methylprednisolone Sodium Succinate (Methylprednisolone Sodium Succinate 40 Mg/1 Ml Sdv) 40 mg IVPUSH Q8H [facility] [place] Last Admin: 12/16/20 03:51 Dose: 40 mg Documented by: Methylprednisolone Sodium Succinate (Methylprednisolone Sodium Succinate 40 Mg/1 Ml Sdv) 40 mg IVPUSH Q12H [facility] [place] Last Admin: 12/18/20 09:06 Dose: 40 mg Documented by: Polyethylene Glycol (Polyethylene Glycol 3350 Powder 17 Gm Packet) 17 gm PO BEDTIME [facility] [place] Last Admin: 12/12/20 22:28 Dose: Not Given Documented by: - Patient Data Lab Results Last 24 hrs: Laboratory Results - last 24 hr 12/19/20 12/19/20 Range/Units 05:45 05:45 WBC 13.69 H (4.0-11.0) K/uL RBC 4.23 L (4.50-5.90) M/uL Hgb 13.1 (13.0-17.0) g/dL Hct 38.6 (38.0-50.0) % MCV 91.3 (80.0-98.0) fL MCH 31.0 (27.0-32.0) pg MCHC 33.9 (31.0-37.0) g/dL RDW Std Deviation 46.0 (28.0-62.0) fl RDW Coeff of Carly 14 (11.0-15.0) % Plt Count 245 (150-400) K/uL MPV 10.00 (7.40-12.00) fL Add Manual Diff YES Neutrophils % (Manual) 60 (48.0-80.0) % Band Neutrophils % 3 % Lymphocytes % (Manual) 21 (16.0-40.0) % Monocytes % (Manual) 12 (0.0-15.0) % Eosinophils % (Manual) 4 (0.0-7.0) % Nucleated RBC % 0.0 /100WBC Absolute Seg Neuts 8.2 H (1.4-5.7) Band Neutrophils # 0.4 Lymphocytes # (Manual) 2.9 H (0.6-2.4) Monocytes # (Manual) 1.6 H (0.0-0.8) Eosinophils # (Manual) 0.5 (0.0-0.7) Nucleated RBCs # 0 K/uL Sodium 139 (136-148) mmol/L Potassium 4.5 (3.5-5.1) mmol/L Chloride 104 (98-107) mmol/L Carbon Dioxide 28.2 (21.0-32.0) mmol/L BUN 27 H (7.0-18.0) mg/dL Creatinine 0.8 (0.8-1.3) mg/dL Est Cr Clr Drug Dosing 97.14 mL/min Estimated GFR (MDRD) > 60.0 ml/min Glucose 85 (74-106) mg/dL Calcium 8.0 L (8.5-10.1) mg/dL Total Bilirubin 0.6 (0.2-1.0) mg/dL AST 23 (15-37) IU/L ALT 47 (14-63) IU/L Alkaline Phosphatase 56 (46-116) U/L Total Protein 5.8 L (6.4-8.2) g/dL Albumin 2.3 L (3.4-5.0) g/dL Globulin 3.5 (2.6-4.0) g/dL Albumin/Globulin Ratio 0.7 L (0.9-1.6) Result Diagrams: 12/19/20 05:45 12/19/20 05:45 Sepsis Event Note - Focused Exam Vital Signs: Vital Signs Temp Resp BP Pulse Ox 12/19/20 15:00 15 121/77 95 12/19/20 14:00 28 H 125/68 93 L 12/19/20 13:00 25 H 118/65 95 12/19/20 12:00 35.8 C L 23 H 113/64 91 L 12/19/20 11:00 19 117/61 93 L 12/19/20 10:00 23 H 122/86 88 L 12/19/20 09:00 17 112/58 L 91 L 12/19/20 08:00 36.4 C 15 110/58 L 96 12/19/20 07:00 13 109/59 L 92 L 12/19/20 06:00 17 107/60 97 12/19/20 05:00 36.3 C 19 106/58 L 99 12/19/20 04:00 17 106/56 L 99 - Problem List & Annotations (1) Acute hypoxemic respiratory failure due to COVID-19 SNOMED Code(s): 275887024 Code(s): U07.1 - COVID-19; J96.01 - ACUTE RESPIRATORY FAILURE WITH HYPOXIA Status: Acute Current Visit: Yes (2) Anxiety about health SNOMED Code(s): 360431338 Code(s): F41.8 - OTHER SPECIFIED ANXIETY DISORDERS Status: Acute Current Visit: Yes - Plan Plan:: I have seen and evaluated the patient and agree with the residents note unless specified in my note
[2020-12-09] MEDS: Levofloxacin/Dextrose 5%-Water 750 MG in Premix Bag 1 BAG IV SCH (15:13)
[2020-12-09] MEDS: Enoxaparin 40 MG/0.4 ML Syringe SUBCUT SCH (18:16)
[2020-12-09] MEDS: Melatonin 3 MG Tab PO PRN (21:01)
[2020-12-09] MEDS: Polyethylene Glycol 3350 Powder 17 GM Packet PO SCH (21:03)
[2020-12-10] MEDS: Codeine/guaiFENesin 10-100 MG/5 ML Syrup 5 ML Cup PO SCH ×7 (00:27→21:03)
[2020-12-10] MEDS: Albuterol/Ipratropium 4 GM Inhalation Spray INH PRN ×3 (06:30→21:00)
[2020-12-10 06:32] LABS: BLOOD UREA NITROGEN,BUN 26 mg/dL (7.0-18.0); CARBON DIOXIDE,CO2 28.4 mmol/L (21.0-32.0); CHLORIDE,CL 100 mmol/L (98-107); GLUCOSE RANDOM 98 mg/dL (74-106); POTASSIUM,K 4.8 mmol/L (3.5-5.1); SODIUM,NA 138 mmol/L (136-148)
[2020-12-10] MEDS: Pantoprazole 40 MG Tab.CR PO SCH (08:50)
[2020-12-10] MEDS: Dexamethasone 4 MG Tab PO SCH (08:50)
[2020-12-10] MEDS ORDERED: Lactated Ringers 250 ML IV SCH (09:30)
--- NOTE | 2020-12-10 10:31 | PCM.PN ---
<Abelardo Garza - Last Filed: 12/10/20 10:32> - General Info Date of Service: 12/10/20 Subjective Update: Patient states no concerns overnight. Patient states sleeping very well, tolerating diet. States improvement in shortness of breath with ambulation. - Review of Systems General: Denies: Fever, Chills Pulmonary: Reports: Shortness of Breath, Cough Cardiovascular: Reports: Dyspnea on Exertion (Improving). Denies: Chest Pain, Edema Gastrointestinal: Denies: Abdominal Pain, Decreased Appetite, Diarrhea, Nausea, Vomiting Neurological: Denies: Confusion, Dizziness, Headache Psychiatric: Denies: Confusion - Patient Data Vitals - Most Recent: Last Vital Signs Temp 98 F 12/10/20 00:00 Pulse 65 12/01/20 07:00 Resp 22 H 12/10/20 07:00 BP 111/73 12/10/20 04:00 Pulse Ox 96 12/10/20 07:00 Weight - Most Recent: 102.058 kg I&O - Last 24 Hours: Intake & Output 12/09/20 12/10/20 12/10/20 22:59 06:59 14:59 Intake Total 1120 450 Output Total 300 550 Balance 820 -100 Lab Results Last 24 Hours: Laboratory Results - last 24 hr 12/10/20 12/10/20 Range/Units 05:07 05:07 WBC 16.90 H (4.0-11.0) K/uL RBC 4.58 (4.50-5.90) M/uL Hgb 14.3 (13.0-17.0) g/dL Hct 41.1 (38.0-50.0) % MCV 89.7 (80.0-98.0) fL MCH 31.2 (27.0-32.0) pg MCHC 34.8 (31.0-37.0) g/dL RDW Std Deviation 43.8 (28.0-62.0) fl RDW Coeff of Carly 13 (11.0-15.0) % Plt Count 264 (150-400) K/uL MPV 10.40 (7.40-12.00) fL Add Manual Diff YES Neutrophils % (Manual) 72 (48.0-80.0) % Lymphocytes % (Manual) 6 L (16.0-40.0) % Monocytes % (Manual) 13 (0.0-15.0) % Metamyelocytes % 5 % Myelocytes % 4 % Nucleated RBC % 0.0 /100WBC Absolute Seg Neuts 12.2 H (1.4-5.7) Lymphocytes # (Manual) 1.0 (0.6-2.4) Monocytes # (Manual) 2.2 H (0.0-0.8) Absolute Metamyelocyte 0.8 Absolute Myelocytes 0.7 Nucleated RBCs # 0 K/uL Sodium 138 (136-148) mmol/L Potassium 4.8 (3.5-5.1) mmol/L Chloride 100 (98-107) mmol/L Carbon Dioxide 28.4 (21.0-32.0) mmol/L BUN 26 H (7.0-18.0) mg/dL Creatinine 0.9 (0.8-1.3) mg/dL Est Cr Clr Drug Dosing 86.34 mL/min Estimated GFR (MDRD) > 60.0 ml/min Glucose 98 (74-106) mg/dL Calcium 8.1 L (8.5-10.1) mg/dL Total Bilirubin 0.8 (0.2-1.0) mg/dL AST 19 (15-37) IU/L ALT 36 (14-63) IU/L Alkaline Phosphatase 52 (46-116) U/L Total Protein 6.5 (6.4-8.2) g/dL Albumin 2.5 L (3.4-5.0) g/dL Globulin 4.0 (2.6-4.0) g/dL Albumin/Globulin Ratio 0.6 L (0.9-1.6) Med Orders - Current: Current Medications Albuterol/Ipratropium (Albuterol/Ipratropium 4 Gm Inhalation Mcintosh) 0 gm INH Q4H PRN PRN Reason: Dyspnea Last Admin: 12/10/20 06:30 Dose: 1 puff Documented by: Albuterol/Ipratropium (Albuterol/Ipratropium 3.0-0.5 Mg/3 Ml Neb Soln) 3 ml NEB Q4HRRT PRN PRN Reason: Wheezing Last Admin: 12/08/20 08:17 Dose: 3 ml Documented by: Dexamethasone (Dexamethasone 4 Mg Tab) 6 mg PO DAILY [facility] Last Admin: 12/10/20 08:50 Dose: 6 mg Documented by: Enoxaparin Sodium (Enoxaparin 40 Mg/0.4 Ml Syringe) 40 mg SUBCUT Q24H [facility] Last Admin: 12/09/20 18:16 Dose: 40 mg Documented by: Guaifenesin/Codeine Phosphate (Codeine/Guaifenesin 10-100 Mg/5 Ml Syrup 5 Ml Cup) 5 ml PO Q4H [facility] Last Admin: 12/10/20 08:50 Dose: 5 ml Documented by: Levofloxacin/Dextrose 750 mg/ (Premix) 150 mls @ 100 mls/hr IV Q24H [facility] Last Admin: 12/09/20 15:13 Dose: 100 mls/hr Documented by: Melatonin (Melatonin 3 Mg Tab) 6 mg PO BEDTIME PRN PRN Reason: Insomnia Last Admin: 12/09/20 21:01 Dose: 6 mg Documented by: Pantoprazole Sodium (Pantoprazole 40 Mg Tab.Cr) 40 mg PO DAILY [facility] Last Admin: 12/10/20 08:50 Dose: 40 mg Documented by: Polyethylene Glycol (Polyethylene Glycol 3350 Powder 17 Gm Packet) 17 gm PO BEDTIME [facility] Last Admin: 12/09/20 21:03 Dose: Not Given Documented by: Sodium Chloride (Sodium Chloride 0.9% 10 Ml Syringe) 10 ml FLUSH ASDIRECTED PRN PRN Reason: Keep Vein Open Last Admin: 11/30/20 14:17 Dose: 10 ml Documented by: Sodium Chloride (Sodium Chloride 0.9% 2.5 Ml Syringe) 2.5 ml FLUSH ASDIRECTED PRN PRN Reason: Keep Vein Open Last Admin: 11/30/20 14:17 Dose: 2.5 ml Documented by: Sodium Chloride (Sodium Chloride 0.65% Nasal Mcintosh 45 Ml Bottle) 1 ml LATHA Q6H PRN PRN Reason: Congestion Last Admin: 12/09/20 12:20 Dose: 1 spray Documented by: Discontinued Medications Dexamethasone (Dexamethasone 10 Mg/Ml Sdv) 6 mg IVPUSH ONETIME ONE Stop: 11/30/20 14:46 Last Admin: 11/30/20 15:00 Dose: 6 mg Documented by: Famotidine (Famotidine 20 Mg/2 Ml Sdv) 20 mg IVPUSH BID [facility] Last Admin: 12/05/20 08:55 Dose: 20 mg Documented by: Guaifenesin (Guaifenesin 100 Mg/5 Ml Soln 5 Ml Ud Cup) 100 mg PO Q4H [facility] Last Admin: 12/06/20 04:02 Dose: 100 mg Documented by: Guaifenesin/Dextromethorphan (Guaifenesin/Dextromethorphan 100-10 Mg/5 Ml Soln 10 Ml Cup) 10 ml PO Q4H PRN PRN Reason: Cough Last Admin: 12/03/20 12:45 Dose: 10 ml Documented by: Guaifenesin/Dextromethorphan (Guaifenesin/Dextromethorphan 100-10 Mg/5 Ml Soln 10 Ml Cup) 10 ml PO Q4H [facility] Last Admin: 12/05/20 10:24 Dose: Not Given Documented by: Remdesivir 200 mg/ Sodium (Chloride) 250 mls @ 250 mls/hr IV ONETIME ONE Stop: 11/30/20 14:46 Last Admin: 11/30/20 20:04 Dose: 250 mls/hr Documented by: Remdesivir 100 mg/ Sodium (Chloride) 100 mls @ 100 mls/hr IV Q24H [facility] Stop: 12/04/20 18:59 Last Admin: 12/04/20 18:12 Dose: 100 mls/hr Documented by: Pantoprazole Sodium 40 mg/ (Sodium Chloride) 10 mls @ 300 mls/hr IV Q24H [facility] Last Admin: 12/09/20 08:56 Dose: 300 mls/hr Documented by: Lactated Ringer's (Ringers, Lactated) 250 mls @ 250 mls/hr IV ASDIRECTED [facility] Iopamidol (Iopamidol 755 Mg/Ml 500 Ml Multipack Bottle) 100 ml IVPUSH ONETIME STA Stop: 12/01/20 16:41 Last Admin: 12/01/20 16:41 Dose: 100 ml Documented by: Melatonin (Melatonin 3 Mg Tab) 6 mg PO BEDTIME [facility] Melatonin (Melatonin 3 Mg Tab) 6 mg PO BEDTIME PRN PRN Reason: Insomnia Last Admin: 12/06/20 21:39 Dose: 6 mg Documented by: - Exam Quality Assessment: Supplemental Oxygen (hhf) General: Alert, Oriented Lungs: Normal Respiratory Effort (with hhf), Crackles (fine). No: Clear to Auscultation Cardiovascular: Regular Rate, Regular Rhythm GI/Abdominal Exam: Non-Tender, No Distention Extremities: No Pedal Edema - Patient Data Lab Results Last 24 hrs: Laboratory Results - last 24 hr 12/10/20 12/10/20 Range/Units 05:07 05:07 WBC 16.90 H (4.0-11.0) K/uL RBC 4.58 (4.50-5.90) M/uL Hgb 14.3 (13.0-17.0) g/dL Hct 41.1 (38.0-50.0) % MCV 89.7 (80.0-98.0) fL MCH 31.2 (27.0-32.0) pg MCHC 34.8 (31.0-37.0) g/dL RDW Std Deviation 43.8 (28.0-62.0) fl RDW Coeff of Carly 13 (11.0-15.0) % Plt Count 264 (150-400) K/uL MPV 10.40 (7.40-12.00) fL Add Manual Diff YES Neutrophils % (Manual) 72 (48.0-80.0) % Lymphocytes % (Manual) 6 L (16.0-40.0) % Monocytes % (Manual) 13 (0.0-15.0) % Metamyelocytes % 5 % Myelocytes % 4 % Nucleated RBC % 0.0 /100WBC Absolute Seg Neuts 12.2 H (1.4-5.7) Lymphocytes # (Manual) 1.0 (0.6-2.4) Monocytes # (Manual) 2.2 H (0.0-0.8) Absolute Metamyelocyte 0.8 Absolute Myelocytes 0.7 Nucleated RBCs # 0 K/uL Sodium 138 (136-148) mmol/L Potassium 4.8 (3.5-5.1) mmol/L Chloride 100 (98-107) mmol/L Carbon Dioxide 28.4 (21.0-32.0) mmol/L BUN 26 H (7.0-18.0) mg/dL Creatinine 0.9 (0.8-1.3) mg/dL Est Cr Clr Drug Dosing 86.34 mL/min Estimated GFR (MDRD) > 60.0 ml/min Glucose 98 (74-106) mg/dL Calcium 8.1 L (8.5-10.1) mg/dL Total Bilirubin 0.8 (0.2-1.0) mg/dL AST 19 (15-37) IU/L ALT 36 (14-63) IU/L Alkaline Phosphatase 52 (46-116) U/L Total Protein 6.5 (6.4-8.2) g/dL Albumin 2.5 L (3.4-5.0) g/dL Globulin 4.0 (2.6-4.0) g/dL Albumin/Globulin Ratio 0.6 L (0.9-1.6) Result Diagrams: 12/10/20 05:07 12/10/20 05:07 Sepsis Event Note - Evaluation Sepsis Screening Result: Sepsis Risk - Focused Exam Vital Signs: Vital Signs Temp Resp BP Pulse Ox 12/10/20 07:00 22 H 96 12/10/20 06:00 25 H 88 L 12/10/20 05:00 18 96 12/10/20 04:00 25 H 111/73 93 L 12/10/20 03:00 18 94 L 12/10/20 02:00 17 95 12/10/20 01:00 29 H 94 L 12/10/20 00:00 98 F 23 H 114/62 92 L 12/09/20 23:00 18 93 L - Problem List & Annotations (1) Acute hypoxemic respiratory failure due to COVID-19 SNOMED Code(s): 108508351 Code(s): U07.1 - COVID-19; J96.01 - ACUTE RESPIRATORY FAILURE WITH HYPOXIA Status: Acute Current Visit: Yes - Problem List Review Problem List Initiated/Reviewed/Updated: Yes - My Orders Last 24 Hours: My Active Orders 12/09/20 12:13 Sodium Chloride 0.65% [[place] Nasal Mcintosh] 1 ml LATHA Q6H PRN 12/11/20 05:11 CBC WITH AUTO DIFF [HEME] AM CMP [COMPREHENSIVE METABOLIC PN,CMP] [CHEM] AM - Plan Plan:: Acute hypoxic respiratory failure secondary to COVID-19 pneumonia Hypoxia: Currently on heated high flow, flow 55, FiO2 75, with CPAP prn. Wean oxygen as tolerated. White blood cell count decreased to 16.09. COVID: continue dexamethasone, remdesivir course completed continue levaquin Combivent as needed, incentive spirometry, prone positioning, Lovenox 40 mg subcu q24hr, Robitussin for cough, ocean spray for nasal stuffiness. Melatonin 6mg prn bedtime <Nimisha Julian - Last Filed: 12/19/20 15:48> - Patient Data Vitals - Most Recent: Last Vital Signs Temp 35.8 C L 12/19/20 12:00 Pulse 65 12/01/20 07:00 Resp 15 12/19/20 15:00 BP 121/77 12/19/20 15:00 Pulse Ox 95 12/19/20 15:00 I&O - Last 24 Hours: Intake & Output 12/19/20 12/19/20 12/19/20 06:59 14:59 22:59 Intake Total 450 Output Total 750 Balance -300 Lab Results Last 24 Hours: Laboratory Results - last 24 hr 12/19/20 12/19/20 Range/Units 05:45 05:45 WBC 13.69 H (4.0-11.0) K/uL RBC 4.23 L (4.50-5.90) M/uL Hgb 13.1 (13.0-17.0) g/dL Hct 38.6 (38.0-50.0) % MCV 91.3 (80.0-98.0) fL MCH 31.0 (27.0-32.0) pg MCHC 33.9 (31.0-37.0) g/dL RDW Std Deviation 46.0 (28.0-62.0) fl RDW Coeff of Carly 14 (11.0-15.0) % Plt Count 245 (150-400) K/uL MPV 10.00 (7.40-12.00) fL Add Manual Diff YES Neutrophils % (Manual) 60 (48.0-80.0) % Band Neutrophils % 3 % Lymphocytes % (Manual) 21 (16.0-40.0) % Monocytes % (Manual) 12 (0.0-15.0) % Eosinophils % (Manual) 4 (0.0-7.0) % Nucleated RBC % 0.0 /100WBC Absolute Seg Neuts 8.2 H (1.4-5.7) Band Neutrophils # 0.4 Lymphocytes # (Manual) 2.9 H (0.6-2.4) Monocytes # (Manual) 1.6 H (0.0-0.8) Eosinophils # (Manual) 0.5 (0.0-0.7) Nucleated RBCs # 0 K/uL Sodium 139 (136-148) mmol/L Potassium 4.5 (3.5-5.1) mmol/L Chloride 104 (98-107) mmol/L Carbon Dioxide 28.2 (21.0-32.0) mmol/L BUN 27 H (7.0-18.0) mg/dL Creatinine 0.8 (0.8-1.3) mg/dL Est Cr Clr Drug Dosing 97.14 mL/min Estimated GFR (MDRD) > 60.0 ml/min Glucose 85 (74-106) mg/dL Calcium 8.0 L (8.5-10.1) mg/dL Total Bilirubin 0.6 (0.2-1.0) mg/dL AST 23 (15-37) IU/L ALT 47 (14-63) IU/L Alkaline Phosphatase 56 (46-116) U/L Total Protein 5.8 L (6.4-8.2) g/dL Albumin 2.3 L (3.4-5.0) g/dL Globulin 3.5 (2.6-4.0) g/dL Albumin/Globulin Ratio 0.7 L (0.9-1.6) Med Orders - Current: Current Medications Albuterol/Ipratropium (Albuterol/Ipratropium 4 Gm Inhalation Mcintosh) 0 gm INH Q4H PRN PRN Reason: Dyspnea Last Admin: 12/15/20 14:20 Dose: 1 puff Documented by: Albuterol/Ipratropium (Albuterol/Ipratropium 3.0-0.5 Mg/3 Ml Neb Soln) 3 ml NEB Q4HRRT PRN PRN Reason: Wheezing Last Admin: 12/18/20 18:07 Dose: 3 ml Documented by: Alprazolam (Alprazolam 0.25 Mg Tab) 0.25 mg PO Q6H PRN PRN Reason: Anxiety Last Admin: 12/19/20 14:37 Dose: 0.25 mg Documented by: Benzonatate (Benzonatate 100 Mg Cap) 200 mg PO TID [facility] Last Admin: 12/19/20 14:36 Dose: 200 mg Documented by: Docusate Sodium (Docusate Sodium 100 Mg Cap) 100 mg PO BID [facility] Last Admin: 12/19/20 08:05 Dose: 100 mg Documented by: Enoxaparin Sodium (Enoxaparin 40 Mg/0.4 Ml Syringe) 40 mg SUBCUT Q24H [facility] Last Admin: 12/18/20 19:16 Dose: 40 mg Documented by: Guaifenesin/Codeine Phosphate (Codeine/Guaifenesin 10-100 Mg/5 Ml Syrup 5 Ml Cup) 5 ml PO Q4H PRN PRN Reason: Cough Melatonin (Melatonin 3 Mg Tab) 6 mg PO BEDTIME PRN PRN Reason: Insomnia Last Admin: 12/18/20 20:32 Dose: 6 mg Documented by: Pantoprazole Sodium (Pantoprazole 40 Mg Tab.Cr) 40 mg PO DAILY [facility] Last Admin: 12/19/20 08:04 Dose: 40 mg Documented by: Polyethylene Glycol (Polyethylene Glycol 3350 Powder 17 Gm Packet) 17 gm PO DAILY [facility] Last Admin: 12/19/20 08:05 Dose: 17 gm Documented by: Prednisone (Prednisone 20 Mg Tab) 40 mg PO WITHBREAKFAST [facility] Last Admin: 12/19/20 08:04 Dose: 40 mg Documented by: Sodium Chloride (Sodium Chloride 0.9% 10 Ml Syringe) 10 ml FLUSH ASDIRECTED PRN PRN Reason: Keep Vein Open Last Admin: 11/30/20 14:17 Dose: 10 ml Documented by: Sodium Chloride (Sodium Chloride 0.9% 2.5 Ml Syringe) 2.5 ml FLUSH ASDIRECTED PRN PRN Reason: Keep Vein Open Last Admin: 11/30/20 14:17 Dose: 2.5 ml Documented by: Sodium Chloride (Sodium Chloride 0.65% Nasal Mcintosh 45 Ml Bottle) 1 ml LATHA Q6H PRN PRN Reason: Congestion Last Admin: 12/09/20 12:20 Dose: 1 spray Documented by: Discontinued Medications Dexamethasone (Dexamethasone 10 Mg/Ml Sdv) 6 mg IVPUSH ONETIME ONE Stop: 11/30/20 14:46 Last Admin: 11/30/20 15:00 Dose: 6 mg Documented by: Dexamethasone (Dexamethasone 4 Mg Tab) 6 mg PO DAILY [facility] Last Admin: 12/12/20 09:12 Dose: 6 mg Documented by: Famotidine (Famotidine 20 Mg/2 Ml Sdv) 20 mg IVPUSH BID [facility] Last Admin: 12/05/20 08:55 Dose: 20 mg Documented by: Guaifenesin (Guaifenesin 100 Mg/5 Ml Soln 5 Ml Ud Cup) 100 mg PO Q4H [facility] Last Admin: 12/06/20 04:02 Dose: 100 mg Documented by: Guaifenesin/Codeine Phosphate (Codeine/Guaifenesin 10-100 Mg/5 Ml Syrup 5 Ml Cup) 5 ml PO Q4H [facility] Last Admin: 12/11/20 17:21 Dose: 5 ml Documented by: Guaifenesin/Codeine Phosphate (Codeine/Guaifenesin 10-100 Mg/5 Ml Syrup 5 Ml Cup) 5 ml PO Q4H [facility] Last Admin: 12/19/20 12:47 Dose: 5 ml Documented by: Guaifenesin/Dextromethorphan (Guaifenesin/Dextromethorphan 100-10 Mg/5 Ml Soln 10 Ml Cup) 10 ml PO Q4H PRN PRN Reason: Cough Last Admin: 12/03/20 12:45 Dose: 10 ml Documented by: Guaifenesin/Dextromethorphan (Guaifenesin/Dextromethorphan 100-10 Mg/5 Ml Soln 10 Ml Cup) 10 ml PO Q4H [facility] Last Admin: 12/05/20 10:24 Dose: Not Given Documented by: Remdesivir 200 mg/ Sodium (Chloride) 250 mls @ 250 mls/hr IV ONETIME ONE Stop: 11/30/20 14:46 Last Admin: 11/30/20 20:04 Dose: 250 mls/hr Documented by: Remdesivir 100 mg/ Sodium (Chloride) 100 mls @ 100 mls/hr IV Q24H [facility] Stop: 12/04/20 18:59 Last Admin: 12/04/20 18:12 Dose: 100 mls/hr Documented by: Pantoprazole Sodium 40 mg/ (Sodium Chloride) 10 mls @ 300 mls/hr IV Q24H [facility] Last Admin: 12/09/20 08:56 Dose: 300 mls/hr Documented by: Levofloxacin/Dextrose 750 mg/ (Premix) 150 mls @ 100 mls/hr IV Q24H [facility] Last Admin: 12/11/20 15:24 Dose: 100 mls/hr Documented by: Lactated Ringer's (Ringers, Lactated) 250 mls @ 250 mls/hr IV ASDIRECTED [facility] Iopamidol (Iopamidol 755 Mg/Ml 500 Ml Multipack Bottle) 100 ml IVPUSH ONETIME STA Stop: 12/01/20 16:41 Last Admin: 12/01/20 16:41 Dose: 100 ml Documented by: Lorazepam (Lorazepam 2 Mg/Ml Sdv) 1 mg IVPUSH Q12H PRN PRN Reason: Anxiety Last Admin: 12/12/20 15:53 Dose: 1 mg Documented by: Lorazepam (Lorazepam 2 Mg/Ml Sdv) 0.5 mg IVPUSH Q8H PRN PRN Reason: Anxiety Melatonin (Melatonin 3 Mg Tab) 6 mg PO BEDTIME [facility] Melatonin (Melatonin 3 Mg Tab) 6 mg PO BEDTIME PRN PRN Reason: Insomnia Last Admin: 12/06/20 21:39 Dose: 6 mg Documented by: Methylprednisolone Sodium Succinate (Methylprednisolone Sodium Succinate 40 Mg/1 Ml Sdv) 40 mg IVPUSH Q8H [facility] Last Admin: 12/16/20 03:51 Dose: 40 mg Documented by: Methylprednisolone Sodium Succinate (Methylprednisolone Sodium Succinate 40 Mg/1 Ml Sdv) 40 mg IVPUSH Q12H [facility] Last Admin: 12/18/20 09:06 Dose: 40 mg Documented by: Polyethylene Glycol (Polyethylene Glycol 3350 Powder 17 Gm Packet) 17 gm PO BE DTIME [facility] Last Admin: 12/12/20 22:28 Dose: Not Given Documented by: - Patient Data Lab Results Last 24 hrs: Laboratory Results - last 24 hr 12/19/20 12/19/20 Range/Units 05:45 05:45 WBC 13.69 H (4.0-11.0) K/uL RBC 4.23 L (4.50-5.90) M/uL Hgb 13.1 (13.0-17.0) g/dL Hct 38.6 (38.0-50.0) % MCV 91.3 (80.0-98.0) fL MCH 31.0 (27.0-32.0) pg MCHC 33.9 (31.0-37.0) g/dL RDW Std Deviation 46.0 (28.0-62.0) fl RDW Coeff of Carly 14 (11.0-15.0) % Plt Count 245 (150-400) K/uL MPV 10.00 (7.40-12.00) fL Add Manual Diff YES Neutrophils % (Manual) 60 (48.0-80.0) % Band Neutrophils % 3 % Lymphocytes % (Manual) 21 (16.0-40.0) % Monocytes % (Manual) 12 (0.0-15.0) % Eosinophils % (Manual) 4 (0.0-7.0) % Nucleated RBC % 0.0 /100WBC Absolute Seg Neuts 8.2 H (1.4-5.7) Band Neutrophils # 0.4 Lymphocytes # (Manual) 2.9 H (0.6-2.4) Monocytes # (Manual) 1.6 H (0.0-0.8) Eosinophils # (Manual) 0.5 (0.0-0.7) Nucleated RBCs # 0 K/uL Sodium 139 (136-148) mmol/L Potassium 4.5 (3.5-5.1) mmol/L Chloride 104 (98-107) mmol/L Carbon Dioxide 28.2 (21.0-32.0) mmol/L BUN 27 H (7.0-18.0) mg/dL Creatinine 0.8 (0.8-1.3) mg/dL Est Cr Clr Drug Dosing 97.14 mL/min Estimated GFR (MDRD) > 60.0 ml/min Glucose 85 (74-106) mg/dL Calcium 8.0 L (8.5-10.1) mg/dL Total Bilirubin 0.6 (0.2-1.0) mg/dL AST 23 (15-37) IU/L ALT 47 (14-63) IU/L Alkaline Phosphatase 56 (46-116) U/L Total Protein 5.8 L (6.4-8.2) g/dL Albumin 2.3 L (3.4-5.0) g/dL Globulin 3.5 (2.6-4.0) g/dL Albumin/Globulin Ratio 0.7 L (0.9-1.6) Result Diagrams: 12/19/20 05:45 12/19/20 05:45 Sepsis Event Note - Focused Exam Vital Signs: Vital Signs Temp Resp BP Pulse Ox 12/19/20 15:00 15 121/77 95 12/19/20 14:00 28 H 125/68 93 L 12/19/20 13:00 25 H 118/65 95 12/19/20 12:00 35.8 C L 23 H 113/64 91 L 12/19/20 11:00 19 117/61 93 L 12/19/20 10:00 23 H 122/86 88 L 12/19/20 09:00 17 112/58 L 91 L 12/19/20 08:00 36.4 C 15 110/58 L 96 12/19/20 07:00 13 109/59 L 92 L 12/19/20 06:00 17 107/60 97 12/19/20 05:00 36.3 C 19 106/58 L 99 12/19/20 04:00 17 106/56 L 99 - Problem List & Annotations (1) Acute hypoxemic respiratory failure due to COVID-19 SNOMED Code(s): 397239482 Code(s): U07.1 - COVID-19; J96.01 - ACUTE RESPIRATORY FAILURE WITH HYPOXIA Status: Acute Current Visit: Yes (2) Anxiety about health SNOMED Code(s): 484835421 Code(s): F41.8 - OTHER SPECIFIED ANXIETY DISORDERS Status: Acute Current Visit: Yes - Plan Plan:: I have seen and evaluated the patient and agree with the residents note unless specified in my note
[2020-12-10] MEDS: Levofloxacin/Dextrose 5%-Water 750 MG in Premix Bag 1 BAG IV SCH (16:00)
[2020-12-10] MEDS: Enoxaparin 40 MG/0.4 ML Syringe SUBCUT SCH (18:05)
[2020-12-10] MEDS: Polyethylene Glycol 3350 Powder 17 GM Packet PO SCH (20:28)
[2020-12-10] MEDS: Melatonin 3 MG Tab PO PRN (21:03)
[2020-12-11] MEDS: Codeine/guaiFENesin 10-100 MG/5 ML Syrup 5 ML Cup PO SCH ×6 (00:09→21:21)
[2020-12-11] MEDS: Albuterol/Ipratropium 4 GM Inhalation Spray INH PRN ×3 (05:36→21:45)
[2020-12-11 07:20] LABS: BLOOD UREA NITROGEN,BUN 25 mg/dL (7.0-18.0); CARBON DIOXIDE,CO2 28.1 mmol/L (21.0-32.0); CHLORIDE,CL 102 mmol/L (98-107); GLUCOSE RANDOM 88 mg/dL (74-106); SODIUM,NA 137 mmol/L (136-148)
[2020-12-11] MEDS: Pantoprazole 40 MG Tab.CR PO SCH (08:23)
[2020-12-11] MEDS: Dexamethasone 4 MG Tab PO SCH (08:23)
--- NOTE | 2020-12-11 14:00 | PCM.PN ---
- General Info Date of Service: 12/11/20 Admission Dx/Problem (Free Text): Admission Diagnosis/Problem Admission Diagnosis/Problem Respiratory failure with hypoxia Subjective Update: Patient states no concerns overnight. States improvement in shortness of breath with ambulation. Currently needing 60% FiO2 on heated high flow Functional Status: Reports: Tolerating Diet, Ambulating, Urinating - Review of Systems General: Reports: Weakness, Fatigue. Denies: Fever, Malaise, Chills Cardiovascular: Reports: Dyspnea on Exertion. Denies: Chest Pain, Palpitations, Lightheadedness Gastrointestinal: Denies: Abdominal Pain, Constipation, Decreased Appetite Genitourinary: Denies: Dysuria, Frequency, Burning, Pain Musculoskeletal: Denies: Neck Pain, Shoulder Pain, Arm Pain Skin: Denies: Cyanosis, Jaundice, Mottled, Pallor Neurological: Denies: Confusion, Dizziness, Headache, Numbness - Patient Data Vitals - Most Recent: Last Vital Signs Temp 35.6 C L 12/11/20 09:00 Pulse 65 12/01/20 07:00 Resp 32 H 12/11/20 12:00 BP 111/57 L 12/11/20 09:00 Pulse Ox 88 L 12/11/20 12:00 Weight - Most Recent: 102.058 kg I&O - Last 24 Hours: Intake & Output 12/10/20 12/11/20 12/11/20 22:59 06:59 14:59 Intake Total 650 350 100 Output Total 400 350 Balance 250 0 100 Lab Results Last 24 Hours: Laboratory Results - last 24 hr 12/11/20 12/11/20 Range/Units 05:35 05:35 WBC 14.79 H (4.0-11.0) K/uL RBC 4.46 L (4.50-5.90) M/uL Hgb 13.9 (13.0-17.0) g/dL Hct 39.8 (38.0-50.0) % MCV 89.2 (80.0-98.0) fL MCH 31.2 (27.0-32.0) pg MCHC 34.9 (31.0-37.0) g/dL RDW Std Deviation 44.3 (28.0-62.0) fl RDW Coeff of Carly 14 (11.0-15.0) % Plt Count 246 (150-400) K/uL MPV 10.50 (7.40-12.00) fL Add Manual Diff YES Neutrophils % (Manual) 64 (48.0-80.0) % Lymphocytes % (Manual) 15 L (16.0-40.0) % Monocytes % (Manual) 14 (0.0-15.0) % Eosinophils % (Manual) 1 (0.0-7.0) % Metamyelocytes % 4 % Myelocytes % 1 % Nucleated RBC % 0.0 /100WBC Absolute Seg Neuts 9.5 H (1.4-5.7) Lymphocytes # (Manual) 2.2 (0.6-2.4) Monocytes # (Manual) 2.1 H (0.0-0.8) Eosinophils # (Manual) 0.1 (0.0-0.7) Absolute Metamyelocyte 0.6 Absolute Myelocytes 0.1 Nucleated RBCs # 0 K/uL Sodium 137 (136-148) mmol/L Potassium 5.0 (3.5-5.1) mmol/L Chloride 102 (98-107) mmol/L Carbon Dioxide 28.1 (21.0-32.0) mmol/L BUN 25 H (7.0-18.0) mg/dL Creatinine 0.9 (0.8-1.3) mg/dL Est Cr Clr Drug Dosing 86.34 mL/min Estimated GFR (MDRD) > 60.0 ml/min Glucose 88 (74-106) mg/dL Calcium 8.0 L (8.5-10.1) mg/dL Total Bilirubin 0.6 (0.2-1.0) mg/dL AST 24 (15-37) IU/L ALT 36 (14-63) IU/L Alkaline Phosphatase 49 (46-116) U/L Total Protein 6.1 L (6.4-8.2) g/dL Albumin 2.3 L (3.4-5.0) g/dL Globulin 3.8 (2.6-4.0) g/dL Albumin/Globulin Ratio 0.6 L (0.9-1.6) Med Orders - Current: Current Medications Albuterol/Ipratropium (Albuterol/Ipratropium 4 Gm Inhalation [place]) 0 gm INH Q4H PRN PRN Reason: Dyspnea Last Admin: 12/11/20 05:36 Dose: 1 puff Documented by: Albuterol/Ipratropium (Albuterol/Ipratropium 3.0-0.5 Mg/3 Ml Neb Soln) 3 ml NEB Q4HRRT PRN PRN Reason: Wheezing Last Admin: 12/08/20 08:17 Dose: 3 ml Documented by: Dexamethasone (Dexamethasone 4 Mg Tab) 6 mg PO DAILY [facility] Last Admin: 12/11/20 08:23 Dose: 6 mg Documented by: Enoxaparin Sodium (Enoxaparin 40 Mg/0.4 Ml Syringe) 40 mg SUBCUT Q24H [facility] Last Admin: 12/10/20 18:05 Dose: 40 mg Documented by: Guaifenesin/Codeine Phosphate (Codeine/Guaifenesin 10-100 Mg/5 Ml Syrup 5 Ml Cup ) 5 ml PO Q4H [facility] Last Admin: 12/11/20 13:52 Dose: 5 ml Documented by: Levofloxacin/Dextrose 750 mg/ (Premix) 150 mls @ 100 mls/hr IV Q24H [facility] Last Admin: 12/10/20 16:00 Dose: 100 mls/hr Documented by: Melatonin (Melatonin 3 Mg Tab) 6 mg PO BEDTIME PRN PRN Reason: Insomnia Last Admin: 12/10/20 21:03 Dose: 6 mg Documented by: Pantoprazole Sodium (Pantoprazole 40 Mg Tab.Cr) 40 mg PO DAILY [facility] Last Admin: 12/11/20 08:23 Dose: 40 mg Documented by: Polyethylene Glycol (Polyethylene Glycol 3350 Powder 17 Gm Packet) 17 gm PO BEDTIME [facility] Last Admin: 12/10/20 20:28 Dose: Not Given Documented by: Sodium Chloride (Sodium Chloride 0.9% 10 Ml Syringe) 10 ml FLUSH ASDIRECTED PRN PRN Reason: Keep Vein Open Last Admin: 11/30/20 14:17 Dose: 10 ml Documented by: Sodium Chloride (Sodium Chloride 0.9% 2.5 Ml Syringe) 2.5 ml FLUSH ASDIRECTED PRN PRN Reason: Keep Vein Open Last Admin: 11/30/20 14:17 Dose: 2.5 ml Documented by: Sodium Chloride (Sodium Chloride 0.65% Nasal [place] 45 Ml Bottle) 1 ml LATHA Q6H PRN PRN Reason: Congestion Last Admin: 12/09/20 12:20 Dose: 1 spray Documented by: Discontinued Medications Dexamethasone (Dexamethasone 10 Mg/Ml Sdv) 6 mg IVPUSH ONETIME ONE Stop: 11/30/20 14:46 Last Admin: 11/30/20 15:00 Dose: 6 mg Documented by: Famotidine (Famotidine 20 Mg/2 Ml Sdv) 20 mg IVPUSH BID [facility] Last Admin: 12/05/20 08:55 Dose: 20 mg Documented by: Guaifenesin (Guaifenesin 100 Mg/5 Ml Soln 5 Ml Ud Cup) 100 mg PO Q4H [facility] Last Admin: 12/06/20 04:02 Dose: 100 mg Documented by: Guaifenesin/Dextromethorphan (Guaifenesin/Dextromethorphan 100-10 Mg/5 Ml Soln 10 Ml Cup) 10 ml PO Q4H PRN PRN Reason: Cough Last Admin: 12/03/20 12:45 Dose: 10 ml Documented by: Guaifenesin/Dextromethorphan (Guaifenesin/Dextromethorphan 100-10 Mg/5 Ml Soln 10 Ml Cup) 10 ml PO Q4H [facility] Last Admin: 12/05/20 10:24 Dose: Not Given Documented by: Remdesivir 200 mg/ Sodium (Chloride) 250 mls @ 250 mls/hr IV ONETIME ONE Stop: 11/30/20 14:46 Last Admin: 11/30/20 20:04 Dose: 250 mls/hr Documented by: Remdesivir 100 mg/ Sodium (Chloride) 100 mls @ 100 mls/hr IV Q24H [facility] Stop: 12/04/20 18:59 Last Admin: 12/04/20 18:12 Dose: 100 mls/hr Documented by: Pantoprazole Sodium 40 mg/ (Sodium Chloride) 10 mls @ 300 mls/hr IV Q24H [facility] Last Admin: 12/09/20 08:56 Dose: 300 mls/hr Documented by: Lactated Ringer's (Ringers, Lactated) 250 mls @ 250 mls/hr IV ASDIRECTED [facility] Iopamidol (Iopamidol 755 Mg/Ml 500 Ml Multipack Bottle) 100 ml IVPUSH ONETIME STA Stop: 12/01/20 16:41 Last Admin: 12/01/20 16:41 Dose: 100 ml Documented by: Melatonin (Melatonin 3 Mg Tab) 6 mg PO BEDTIME [facility] Melatonin (Melatonin 3 Mg Tab) 6 mg PO BEDTIME PRN PRN Reason: Insomnia Last Admin: 12/06/20 21:39 Dose: 6 mg Documented by: - Exam Quality Assessment: Supplemental Oxygen General: Alert, Oriented, Cooperative, No Acute Distress Neck: Supple Lungs: Normal Respiratory Effort, Decreased Breath Sounds, Crackles Cardiovascular: Regular Rate, Regular Rhythm, No Murmurs GI/Abdominal Exam: Normal Bowel Sounds, Soft, Non-Tender - Patient Data Lab Results Last 24 hrs: Laboratory Results - last 24 hr 12/11/20 12/11/20 Range/Units 05:35 05:35 WBC 14.79 H (4.0-11.0) K/uL RBC 4.46 L (4.50-5.90) M/uL Hgb 13.9 (13.0-17.0) g/dL Hct 39.8 (38.0-50.0) % MCV 89.2 (80.0-98.0) fL MCH 31.2 (27.0-32.0) pg MCHC 34.9 (31.0-37.0) g/dL RDW Std Deviation 44.3 (28.0-62.0) fl RDW Coeff of Carly 14 (11.0-15.0) % Plt Count 246 (150-400) K/uL MPV 10.50 (7.40-12.00) fL Add Manual Diff YES Neutrophils % (Manual) 64 (48.0-80.0) % Lymphocytes % (Manual) 15 L (16.0-40.0) % Monocytes % (Manual) 14 (0.0-15.0) % Eosinophils % (Manual) 1 (0.0-7.0) % Metamyelocytes % 4 % Myelocytes % 1 % Nucleated RBC % 0.0 /100WBC Absolute Seg Neuts 9.5 H (1.4-5.7) Lymphocytes # (Manual) 2.2 (0.6-2.4) Monocytes # (Manual) 2.1 H (0.0-0.8) Eosinophils # (Manual) 0.1 (0.0-0.7) Absolute Metamyelocyte 0.6 Absolute Myelocytes 0.1 Nucleated RBCs # 0 K/uL Sodium 137 (136-148) mmol/L Potassium 5.0 (3.5-5.1) mmol/L Chloride 102 (98-107) mmol/L Carbon Dioxide 28.1 (21.0-32.0) mmol/L BUN 25 H (7.0-18.0) mg/dL Creatinine 0.9 (0.8-1.3) mg/dL Est Cr Clr Drug Dosing 86.34 mL/min Estimated GFR (MDRD) > 60.0 ml/min Glucose 88 (74-106) mg/dL Calcium 8.0 L (8.5-10.1) mg/dL Total Bilirubin 0.6 (0.2-1.0) mg/dL AST 24 (15-37) IU/L ALT 36 (14-63) IU/L Alkaline Phosphatase 49 (46-116) U/L Total Protein 6.1 L (6.4-8.2) g/dL Albumin 2.3 L (3.4-5.0) g/dL Globulin 3.8 (2.6-4.0) g/dL Albumin/Globulin Ratio 0.6 L (0.9-1.6) Result Diagrams: 12/11/20 05:35 12/11/20 05:35 Sepsis Event Note - Evaluation Sepsis Screening Result: Sepsis Risk - Focused Exam Vital Signs: Vital Signs Temp Resp BP Pulse Ox 12/11/20 12:00 32 H 88 L 12/11/20 11:00 30 H 92 L 12/11/20 10:00 27 H 92 L 12/11/20 09:00 35.6 C L 29 H 111/57 L 92 L 12/11/20 08:00 18 94 L 12/11/20 07:00 20 95 12/11/20 06:00 19 95 12/11/20 05:00 30 H 114/69 95 12/11/20 04:00 18 95 12/11/20 03:00 16 96 12/11/20 02:00 18 94 L - Problem List Review Problem List Initiated/Reviewed/Updated: Yes - My Orders Last 24 Hours: My Active Orders 12/11/20 13:18 Consult to Physical Therapy [PT Evaluation and Treatment] [CONS] Routine - Plan Plan:: Acute hypoxic respiratory failure secondary to COVID-19 pneumonia Hypoxia: Currently on heated high flow, flow 55, FiO2 60, Wean oxygen as tolerated. COVID: continue dexamethasone, remdesivir course completed continue levaquin, last dose today Combivent as needed, incentive spirometry, prone positioning, Lovenox 40 mg subcu q24hr, Robitussin for cough, ocean spray for nasal stuffiness. Melatonin 6mg prn bedtime We will consult physical therapy
[2020-12-11] MEDS: Levofloxacin/Dextrose 5%-Water 750 MG in Premix Bag 1 BAG IV SCH (15:24)
[2020-12-11] MEDS: Enoxaparin 40 MG/0.4 ML Syringe SUBCUT SCH (17:21)
[2020-12-11] MEDS: Melatonin 3 MG Tab PO PRN (21:21)
[2020-12-11] MEDS: Polyethylene Glycol 3350 Powder 17 GM Packet PO SCH (22:01)
[2020-12-12] MEDS: Codeine/guaiFENesin 10-100 MG/5 ML Syrup 5 ML Cup PO SCH ×6 (00:50→20:43)
[2020-12-12 07:30] LABS: BLOOD UREA NITROGEN,BUN 24 mg/dL (7.0-18.0); CARBON DIOXIDE,CO2 27.7 mmol/L (21.0-32.0); CHLORIDE,CL 102 mmol/L (98-107); GLUCOSE RANDOM 80 mg/dL (74-106); POTASSIUM,K 4.7 mmol/L (3.5-5.1); SODIUM,NA 138 mmol/L (136-148)
[2020-12-12] MEDS: Dexamethasone 4 MG Tab PO SCH (09:12)
[2020-12-12] MEDS: Pantoprazole 40 MG Tab.CR PO SCH (09:13)
[2020-12-12] MEDS: Albuterol/Ipratropium 4 GM Inhalation Spray INH PRN (09:30)
[2020-12-12] MEDS ORDERED: LORazepam 2 MG/ML SDV IVPUSH PRN ×2 (13:03→19:00)
--- NOTE | 2020-12-12 15:01 | PCM.PN ---
- General Info Date of Service: 12/12/20 Admission Dx/Problem (Free Text): Admission Diagnosis/Problem Admission Diagnosis/Problem Respiratory failure with hypoxia Subjective Update: Patient seen at bedside, during physical therapy patient's oxygen saturations dropped and FiO2 had to be bumped up to 90 percent, currently FiO2 is 80 percent and we are continuing to wean it back down, patient is tolerated the weaning process well, patient does get anxious during the process of weaning as he feels that he could drop his oxygen and feels short of breath again, education was provided to the patient about weaning off the oxygen and necessity to decrease FiO2 as tolerated. Patient understands and is cooperative. Functional Status: Reports: Tolerating Diet, Ambulating, Urinating - Review of Systems General: Reports: Weakness, Fatigue, Malaise. Denies: Fever, Chills, Night Sweats Pulmonary: Reports: Shortness of Breath, Cough. Denies: Pleuritic Chest Pain Cardiovascular: Reports: Dyspnea on Exertion. Denies: Palpitations, Orthopnea, Lightheadedness Gastrointestinal: Denies: Abdominal Pain, Constipation, Decreased Appetite Genitourinary: Denies: Dysuria, Frequency, Burning Musculoskeletal: Denies: Neck Pain, Shoulder Pain, Arm Pain Skin: Denies: Cyanosis, Jaundice, Mottled, Pallor, Diaphoresis - Patient Data Vitals - Most Recent: Last Vital Signs Temp 36.2 C 12/12/20 12:00 Pulse 65 12/01/20 07:00 Resp 31 H 12/12/20 13:00 BP 121/61 12/12/20 08:00 Pulse Ox 89 L 12/12/20 13:00 Weight - Most Recent: 102.058 kg I&O - Last 24 Hours: Intake & Output 12/11/20 12/12/20 12/12/20 22:59 06:59 14:59 Intake Total 1050 500 Output Total 850 600 225 Balance 200 -100 -225 Lab Results Last 24 Hours: Laboratory Results - last 24 hr 12/12/20 12/12/20 Range/Units 06:41 06:41 WBC 16.22 H (4.0-11.0) K/uL RBC 4.52 (4.50-5.90) M/uL Hgb 14.1 (13.0-17.0) g/dL Hct 40.7 (38.0-50.0) % MCV 90.0 (80.0-98.0) fL MCH 31.2 (27.0-32.0) pg MCHC 34.6 (31.0-37.0) g/dL RDW Std Deviation 44.8 (28.0-62.0) fl RDW Coeff of Carly 14 (11.0-15.0) % Plt Count 264 (150-400) K/uL MPV 10.40 (7.40-12.00) fL Add Manual Diff YES Neutrophils % (Manual) 77 (48.0-80.0) % Band Neutrophils % 1 % Lymphocytes % (Manual) 9 L (16.0-40.0) % Monocytes % (Manual) 10 (0.0-15.0) % Eosinophils % (Manual) 1 (0.0-7.0) % Metamyelocytes % 1 % Myelocytes % 1 % Nucleated RBC % 0.0 /100WBC Absolute Seg Neuts 12.5 H (1.4-5.7) Band Neutrophils # 0.2 Lymphocytes # (Manual) 1.5 (0.6-2.4) Monocytes # (Manual) 1.6 H (0.0-0.8) Eosinophils # (Manual) 0.2 (0.0-0.7) Absolute Metamyelocyte 0.2 Absolute Myelocytes 0.2 Nucleated RBCs # 0 K/uL Sodium 138 (136-148) mmol/L Potassium 4.7 (3.5-5.1) mmol/L Chloride 102 (98-107) mmol/L Carbon Dioxide 27.7 (21.0-32.0) mmol/L BUN 24 H (7.0-18.0) mg/dL Creatinine 0.9 (0.8-1.3) mg/dL Est Cr Clr Drug Dosing 86.34 mL/min Estimated GFR (MDRD) > 60.0 ml/min Glucose 80 (74-106) mg/dL Calcium 8.1 L (8.5-10.1) mg/dL Phosphorus 4.1 (2.6-4.7) mg/dL Magnesium 2.3 (1.8-2.4) mg/dL Med Orders - Current: Current Medications Albuterol/Ipratropium (Albuterol/Ipratropium 4 Gm Inhalation [place]) 0 gm INH Q4H PRN PRN Reason: Dyspnea Last Admin: 12/12/20 09:30 Dose: 1 puff Documented by: Albuterol/Ipratropium (Albuterol/Ipratropium 3.0-0.5 Mg/3 Ml Neb Soln) 3 ml NEB Q4HRRT PRN PRN Reason: Wheezing Last Admin: 12/08/20 08:17 Dose: 3 ml Documented by: Dexamethasone (Dexamethasone 4 Mg Tab) 6 mg PO DAILY [facility] Last Admin: 12/12/20 09:12 Dose: 6 mg Documented by: Enoxaparin Sodium (Enoxaparin 40 Mg/0.4 Ml Syringe) 40 mg SUBCUT Q24H [facility] Last Admin: 12/11/20 17:21 Dose: 40 mg Documented by: Guaifenesin/Codeine Phosphate (Codeine/Guaifenesin 10-100 Mg/5 Ml Syrup 5 Ml Cup) 5 ml PO Q4H [facility] Last Admin: 12/12/20 13:17 Dose: 5 ml Documented by: Lorazepam (Lorazepam 2 Mg/Ml Sdv) 1 mg IVPUSH Q12H PRN PRN Reason: Anxiety Melatonin (Melatonin 3 Mg Tab) 6 mg PO BEDTIME PRN PRN Reason: Insomnia Last Admin: 12/11/20 21:21 Dose: 6 mg Documented by: Pantoprazole Sodium (Pantoprazole 40 Mg Tab.Cr) 40 mg PO DAILY [facility] Last Admin: 12/12/20 09:13 Dose: 40 mg Documented by: Polyethylene Glycol (Polyethylene Glycol 3350 Powder 17 Gm Packet) 17 gm PO BEDTIME [facility] Last Admin: 12/11/20 22:01 Dose: Not Given Documented by: Sodium Chloride (Sodium Chloride 0.9% 10 Ml Syringe) 10 ml FLUSH ASDIRECTED PRN PRN Reason: Keep Vein Open Last Admin: 11/30/20 14:17 Dose: 10 ml Documented by: Sodium Chloride (Sodium Chloride 0.9% 2.5 Ml Syringe) 2.5 ml FLUSH ASDIRECTED PRN PRN Reason: Keep Vein Open Last Admin: 11/30/20 14:17 Dose: 2.5 ml Documented by: Sodium Chloride (Sodium Chloride 0.65% Nasal [place] 45 Ml Bottle) 1 ml LATHA Q6H PRN PRN Reason: Congestion Last Admin: 12/09/20 12:20 Dose: 1 spray Documented by: Discontinued Medications Dexamethasone (Dexamethasone 10 Mg/Ml Sdv) 6 mg IVPUSH ONETIME ONE Stop: 11/30/20 14:46 Last Admin: 11/30/20 15:00 Dose: 6 mg Documented by: Famotidine (Famotidine 20 Mg/2 Ml Sdv) 20 mg IVPUSH BID [facility] Last Admin: 12/05/20 08:55 Dose: 20 mg Documented by: Guaifenesin (Guaifenesin 100 Mg/5 Ml Soln 5 Ml Ud Cup) 100 mg PO Q4H [facility] Last Admin: 12/06/20 04:02 Dose: 100 mg Documented by: Guaifenesin/Codeine Phosphate (Codeine/Guaifenesin 10-100 Mg/5 Ml Syrup 5 Ml Cup) 5 ml PO Q4H [facility] Last Admin: 12/11/20 17:21 Dose: 5 ml Documented by: Guaifenesin/Dextromethorphan (Guaifenesin/Dextromethorphan 100-10 Mg/5 Ml Soln 10 Ml Cup) 10 ml PO Q4H PRN PRN Reason: Cough Last Admin: 12/03/20 12:45 Dose: 10 ml Documented by: Guaifenesin/Dextromethorphan (Guaifenesin/Dextromethorphan 100-10 Mg/5 Ml Soln 10 Ml Cup) 10 ml PO Q4H [facility] Last Admin: 12/05/20 10:24 Dose: Not Given Documented by: Remdesivir 200 mg/ Sodium (Chloride) 250 mls @ 250 mls/hr IV ONETIME ONE Stop: 11/30/20 14:46 Last Admin: 11/30/20 20:04 Dose: 250 mls/hr Documented by: Remdesivir 100 mg/ Sodium (Chloride) 100 mls @ 100 mls/hr IV Q24H [facility] Stop: 12/04/20 18:59 Last Admin: 12/04/20 18:12 Dose: 100 mls/hr Documented by: Pantoprazole Sodium 40 mg/ (Sodium Chloride) 10 mls @ 300 mls/hr IV Q24H [facility] Last Admin: 12/09/20 08:56 Dose: 300 mls/hr Documented by: Levofloxacin/Dextrose 750 mg/ (Premix) 150 mls @ 100 mls/hr IV Q24H [facility] Last Admin: 12/11/20 15:24 Dose: 100 mls/hr Documented by: Lactated Ringer's (Ringers, Lactated) 250 mls @ 250 mls/hr IV ASDIRECTED [facility] Iopamidol (Iopamidol 755 Mg/Ml 500 Ml Multipack Bottle) 100 ml IVPUSH ONETIME STA Stop: 12/01/20 16:41 Last Admin: 12/01/20 16:41 Dose: 100 ml Documented by: Melatonin (Melatonin 3 Mg Tab) 6 mg PO BEDTIME [facility] Melatonin (Melatonin 3 Mg Tab) 6 mg PO BEDTIME PRN PRN Reason: Insomnia Last Admin: 12/06/20 21:39 Dose: 6 mg Documented by: - Exam Quality Assessment: Supplemental Oxygen General: Alert, Oriented Lungs: Decreased Breath Sounds, Crackles, Rales Cardiovascular: Regular Rate, Regular Rhythm GI/Abdominal Exam: Normal Bowel Sounds, Soft, Non-Tender Extremities: Normal Inspection, Normal Range of Motion - Patient Data Lab Results Last 24 hrs: Laboratory Results - last 24 hr 12/12/20 12/12/20 Range/Units 06:41 06:41 WBC 16.22 H (4.0-11.0) K/uL RBC 4.52 (4.50-5.90) M/uL Hgb 14.1 (13.0-17.0) g/dL Hct 40.7 (38.0-50.0) % MCV 90.0 (80.0-98.0) fL MCH 31.2 (27.0-32.0) pg MCHC 34.6 (31.0-37.0) g/dL RDW Std Deviation 44.8 (28.0-62.0) fl RDW Coeff of Carly 14 (11.0-15.0) % Plt Count 264 (150-400) K/uL MPV 10.40 (7.40-12.00) fL Add Manual Diff YES Neutrophils % (Manual) 77 (48.0-80.0) % Band Neutrophils % 1 % Lymphocytes % (Manual) 9 L (16.0-40.0) % Monocytes % (Manual) 10 (0.0-15.0) % Eosinophils % (Manual) 1 (0.0-7.0) % Metamyelocytes % 1 % Myelocytes % 1 % Nucleated RBC % 0.0 /100WBC Absolute Seg Neuts 12.5 H (1.4-5.7) Band Neutrophils # 0.2 Lymphocytes # (Manual) 1.5 (0.6-2.4) Monocytes # (Manual) 1.6 H (0.0-0.8) Eosinophils # (Manual) 0.2 (0.0-0.7) Absolute Metamyelocyte 0.2 Absolute Myelocytes 0.2 Nucleated RBCs # 0 K/uL Sodium 138 (136-148) mmol/L Potassium 4.7 (3.5-5.1) mmol/L Chloride 102 (98-107) mmol/L Carbon Dioxide 27.7 (21.0-32.0) mmol/L BUN 24 H (7.0-18.0) mg/dL Creatinine 0.9 (0.8-1.3) mg/dL Est Cr Clr Drug Dosing 86.34 mL/min Estimated GFR (MDRD) > 60.0 ml/min Glucose 80 (74-106) mg/dL Calcium 8.1 L (8.5-10.1) mg/dL Phosphorus 4.1 (2.6-4.7) mg/dL Magnesium 2.3 (1.8-2.4) mg/dL Result Diagrams: 12/12/20 06:41 12/12/20 06:41 Sepsis Event Note - Evaluation Sepsis Screening Result: Sepsis Risk - Focused Exam Vital Signs: Vital Signs Temp Resp BP Pulse Ox 12/12/20 13:00 31 H 89 L 12/12/20 12:00 36.2 C 40 H 89 L 12/12/20 11:00 32 H 90 L 12/12/20 10:40 82 L 12/12/20 10:00 26 H 76 L 12/12/20 09:00 36 H 79 L 12/12/20 08:00 36.5 C 29 H 121/61 87 L 12/12/20 07:00 27 H 90 L 12/12/20 06:00 28 H 88 L 12/12/20 05:00 36.6 C 21 H 124/64 91 L 12/12/20 04:00 25 H 89 L 12/12/20 03:00 17 93 L - Problem List & Annotations (1) Acute hypoxemic respiratory failure due to COVID-19 SNOMED Code(s): 771296756 Code(s): U07.1 - COVID-19; J96.01 - ACUTE RESPIRATORY FAILURE WITH HYPOXIA Status: Acute Current Visit: Yes (2) Anxiety about health SNOMED Code(s): 609717231 Code(s): F41.8 - OTHER SPECIFIED ANXIETY DISORDERS Status: Acute Current Visit: Yes - Problem List Review Problem List Initiated/Reviewed/Updated: Yes - My Orders Last 24 Hours: My Active Orders 12/12/20 13:03 LORazepam [Ativan] 1 mg IVPUSH Q12H PRN 12/12/20 14:56 CRP, HIGH SENSITIVITY [REF] Routine - Plan Plan:: Acute hypoxic respiratory failure secondary to COVID-19 pneumonia Hypoxia: Currently on heated high flow, flow 55, FiO2 80, Wean oxygen as tolerated, FiO2 requirement went up to morning session physical therapy. COVID: continue dexamethasone, remdesivir course completed Complete course of Levaquin, will check CRP and decide if patient needs to be started on baricitinib Combivent as needed, incentive spirometry, prone positioning, Lovenox 40 mg subcu q24hr, Robitussin for cough, ocean spray for nasal stuffiness. Melatonin 6mg prn bedtime Physical therapy on board Patient will receive 1 mg IV Ativan for anxiety, we will watch respiratory status very closely
[2020-12-12] MEDS: Enoxaparin 40 MG/0.4 ML Syringe SUBCUT SCH (17:03)
[2020-12-12] MEDS: methylPREDNISolone Sodium Succinate 40 MG/1 ML SDV IVPUSH SCH (20:43)
[2020-12-12] MEDS: Melatonin 3 MG Tab PO PRN (21:30)
[2020-12-12] MEDS: Polyethylene Glycol 3350 Powder 17 GM Packet PO SCH (22:28)
[2020-12-13] MEDS: Codeine/guaiFENesin 10-100 MG/5 ML Syrup 5 ML Cup PO SCH ×6 (00:51→20:37)
[2020-12-13] MEDS: methylPREDNISolone Sodium Succinate 40 MG/1 ML SDV IVPUSH SCH ×3 (04:52→20:04)
[2020-12-13 07:34] LABS: BLOOD UREA NITROGEN,BUN 27 mg/dL (7.0-18.0); CARBON DIOXIDE,CO2 25.9 mmol/L (21.0-32.0); CHLORIDE,CL 102 mmol/L (98-107); GLUCOSE RANDOM 139 mg/dL (74-106); POTASSIUM,K 4.9 mmol/L (3.5-5.1); SODIUM,NA 138 mmol/L (136-148)
[2020-12-13] MEDS: Pantoprazole 40 MG Tab.CR PO SCH (09:48)
[2020-12-13] MEDS: Polyethylene Glycol 3350 Powder 17 GM Packet PO SCH ×2 (09:48→11:05)
--- NOTE | 2020-12-13 15:56 | PCM.PN ---
- General Info Date of Service: 12/13/20 Admission Dx/Problem (Free Text): Admission Diagnosis/Problem Admission Diagnosis/Problem Respiratory failure with hypoxia Subjective Update: Patient seen at bedside, no acute distress, requiring 70% FiO2, states he can breathe better and has more energy as well as appetite. Functional Status: Reports: Tolerating Diet, Ambulating, Urinating - Review of Systems General: Reports: Weakness, Fatigue. Denies: Malaise, Chills Pulmonary: Reports: Shortness of Breath, Cough. Denies: Pleuritic Chest Pain Cardiovascular: Reports: Dyspnea on Exertion. Denies: Chest Pain, Palpitations, Orthopnea Gastrointestinal: Denies: Abdominal Pain, Constipation, Decreased Appetite Genitourinary: Denies: Dysuria, Frequency, Burning, Pain Musculoskeletal: Denies: Neck Pain, Shoulder Pain, Arm Pain, Hand Pain Skin: Denies: Cyanosis, Jaundice, Mottled, Pallor - Patient Data Vitals - Most Recent: Last Vital Signs Temp 36.3 C 12/13/20 12:00 Pulse 65 12/01/20 07:00 Resp 30 H 12/13/20 13:00 BP 130/72 12/13/20 12:00 Pulse Ox 90 L 12/13/20 13:00 Weight - Most Recent: 102.058 kg I&O - Last 24 Hours: Intake & Output 12/13/20 12/13/20 12/13/20 06:59 14:59 22:59 Intake Total 300 Output Total 400 Balance -100 Lab Results Last 24 Hours: Laboratory Results - last 24 hr 12/13/20 12/13/20 Range/Units 06:32 06:32 WBC 16.22 H (4.0-11.0) K/uL RBC 4.19 L (4.50-5.90) M/uL Hgb 12.9 L (13.0-17.0) g/dL Hct 37.1 L (38.0-50.0) % MCV 88.5 (80.0-98.0) fL MCH 30.8 (27.0-32.0) pg MCHC 34.8 (31.0-37.0) g/dL RDW Std Deviation 43.5 (28.0-62.0) fl RDW Coeff of Carly 13 (11.0-15.0) % Plt Count 276 (150-400) K/uL MPV 10.30 (7.40-12.00) fL Add Manual Diff YES Neutrophils % (Manual) 80 (48.0-80.0) % Band Neutrophils % 4 % Lymphocytes % (Manual) 5 L (16.0-40.0) % Monocytes % (Manual) 6 (0.0-15.0) % Metamyelocytes % 3 % Myelocytes % 2 % Nucleated RBC % 0.0 /100WBC Absolute Seg Neuts 13.0 H (1.4-5.7) Band Neutrophils # 0.6 Lymphocytes # (Manual) 0.8 (0.6-2.4) Monocytes # (Manual) 1.0 H (0.0-0.8) Absolute Metamyelocyte 0.5 Absolute Myelocytes 0.3 Nucleated RBCs # 0 K/uL Sodium 138 (136-148) mmol/L Potassium 4.9 (3.5-5.1) mmol/L Chloride 102 (98-107) mmol/L Carbon Dioxide 25.9 (21.0-32.0) mmol/L BUN 27 H (7.0-18.0) mg/dL Creatinine 0.8 (0.8-1.3) mg/dL Est Cr Clr Drug Dosing 97.14 mL/min Estimated GFR (MDRD) > 60.0 ml/min Glucose 139 H (74-106) mg/dL Calcium 8.0 L (8.5-10.1) mg/dL Phosphorus 4.6 (2.6-4.7) mg/dL Magnesium 2.2 (1.8-2.4) mg/dL Total Bilirubin 0.6 (0.2-1.0) mg/dL AST 20 (15-37) IU/L ALT 30 (14-63) IU/L Alkaline Phosphatase 55 (46-116) U/L Total Protein 6.1 L (6.4-8.2) g/dL Albumin 2.2 L (3.4-5.0) g/dL Globulin 3.9 (2.6-4.0) g/dL Albumin/Globulin Ratio 0.6 L (0.9-1.6) Med Orders - Current: Current Medications Albuterol/Ipratropium (Albuterol/Ipratropium 4 Gm Inhalation [place]) 0 gm INH Q4H PRN PRN Reason: Dyspnea Last Admin: 12/12/20 09:30 Dose: 1 puff Documented by: Albuterol/Ipratropium (Albuterol/Ipratropium 3.0-0.5 Mg/3 Ml Neb Soln) 3 ml NEB Q4HRRT PRN PRN Reason: Wheezing Last Admin: 12/08/20 08:17 Dose: 3 ml Documented by: Enoxaparin Sodium (Enoxaparin 40 Mg/0.4 Ml Syringe) 40 mg SUBCUT Q24H [facility] Last Admin: 12/12/20 17:03 Dose: 40 mg Documented by: Guaifenesin/Codeine Phosphate (Codeine/Guaifenesin 10-100 Mg/5 Ml Syrup 5 Ml Cup) 5 ml PO Q4H [facility] Last Admin: 12/13/20 12:36 Dose: 5 ml Documented by: Lorazepam (Lorazepam 2 Mg/Ml Sdv) 0.5 mg IVPUSH Q8H PRN PRN Reason: Anxiety Melatonin (Melatonin 3 Mg Tab) 6 mg PO BEDTIME PRN PRN Reason: Insomnia Last Admin: 12/12/20 21:30 Dose: 6 mg Documented by: Methylprednisolone Sodium Succinate (Methylprednisolone Sodium Succinate 40 Mg/1 Ml Sdv) 40 mg IVPUSH Q8H [facility] Last Admin: 12/13/20 12:36 Dose: 40 mg Documented by: Pantoprazole Sodium (Pantoprazole 40 Mg Tab.Cr) 40 mg PO DAILY [facility] Last Admin: 12/13/20 09:48 Dose: 40 mg Documented by: Polyethylene Glycol (Polyethylene Glycol 3350 Powder 17 Gm Packet) 17 gm PO DAILY [facility] Last Admin: 12/13/20 11:05 Dose: Not Given Documented by: Sodium Chloride (Sodium Chloride 0.9% 10 Ml Syringe) 10 ml FLUSH ASDIRECTED PRN PRN Reason: Keep Vein Open Last Admin: 11/30/20 14:17 Dose: 10 ml Documented by: Sodium Chloride (Sodium Chloride 0.9% 2.5 Ml Syringe) 2.5 ml FLUSH ASDIRECTED PRN PRN Reason: Keep Vein Open Last Admin: 11/30/20 14:17 Dose: 2.5 ml Documented by: Sodium Chloride (Sodium Chloride 0.65% Nasal [place] 45 Ml Bottle) 1 ml LATHA Q6H PRN PRN Reason: Congestion Last Admin: 12/09/20 12:20 Dose: 1 spray Documented by: Discontinued Medications Dexamethasone (Dexamethasone 10 Mg/Ml Sdv) 6 mg IVPUSH ONETIME ONE Stop: 11/30/20 14:46 Last Admin: 11/30/20 15:00 Dose: 6 mg Documented by: Dexamethasone (Dexamethasone 4 Mg Tab) 6 mg PO DAILY [facility] Last Admin: 12/12/20 09:12 Dose: 6 mg Documented by: Famotidine (Famotidine 20 Mg/2 Ml Sdv) 20 mg IVPUSH BID [facility] Last Admin: 12/05/20 08:55 Dose: 20 mg Documented by: Guaifenesin (Guaifenesin 100 Mg/5 Ml Soln 5 Ml Ud Cup) 100 mg PO Q4H [facility] Last Admin: 12/06/20 04:02 Dose: 100 mg Documented by: Guaifenesin/Codeine Phosphate (Codeine/Guaifenesin 10-100 Mg/5 Ml Syrup 5 Ml Cup) 5 ml PO Q4H [facility] Last Admin: 12/11/20 17:21 Dose: 5 ml Documented by: Guaifenesin/Dextromethorphan (Guaifenesin/Dextromethorphan 100-10 Mg/5 Ml Soln 10 Ml Cup) 10 ml PO Q4H PRN PRN Reason: Cough Last Admin: 12/03/20 12:45 Dose: 10 ml Documented by: Guaifenesin/Dextromethorphan (Guaifenesin/Dextromethorphan 100-10 Mg/5 Ml Soln 10 Ml Cup) 10 ml PO Q4H [facility] Last Admin: 12/05/20 10:24 Dose: Not Given Documented by: Remdesivir 200 mg/ Sodium (Chloride) 250 mls @ 250 mls/hr IV ONETIME ONE Stop: 11/30/20 14:46 Last Admin: 11/30/20 20:04 Dose: 250 mls/hr Documented by: Remdesivir 100 mg/ Sodium (Chloride) 100 mls @ 100 mls/hr IV Q24H [facility] Stop: 12/04/20 18:59 Last Admin: 12/04/20 18:12 Dose: 100 mls/hr Documented by: Pantoprazole Sodium 40 mg/ (Sodium Chloride) 10 mls @ 300 mls/hr IV Q24H [facility] Last Admin: 12/09/20 08:56 Dose: 300 mls/hr Documented by: Levofloxacin/Dextrose 750 mg/ (Premix) 150 mls @ 100 mls/hr IV Q24H [facility] Last Admin: 12/11/20 15:24 Dose: 100 mls/hr Documented by: Lactated Ringer's (Ringers, Lactated) 250 mls @ 250 mls/hr IV ASDIRECTED [facility] Iopamidol (Iopamidol 755 Mg/Ml 500 Ml Multipack Bottle) 100 ml IVPUSH ONETIME STA Stop: 12/01/20 16:41 Last Admin: 12/01/20 16:41 Dose: 100 ml Documented by: Lorazepam (Lorazepam 2 Mg/Ml Sdv) 1 mg IVPUSH Q12H PRN PRN Reason: Anxiety Last Admin: 12/12/20 15:53 Dose: 1 mg Documented by: Melatonin (Melatonin 3 Mg Tab) 6 mg PO BEDTIME [facility] Melatonin (Melatonin 3 Mg Tab) 6 mg PO BEDTIME PRN PRN Reason: Insomnia Last Admin: 12/06/20 21:39 Dose: 6 mg Documented by: Polyethylene Glycol (Polyethylene Glycol 3350 Powder 17 Gm Packet) 17 gm PO BEDTIME [facility] Last Admin: 12/12/20 22:28 Dose: Not Given Documented by: - Exam Quality Assessment: Supplemental Oxygen General: Alert, Oriented, Cooperative, No Acute Distress Neck: Supple Lungs: Decreased Breath Sounds, Crackles, Rales Cardiovascular: Regular Rate, Regular Rhythm. No: Bradycardia, Tachycardia GI/Abdominal Exam: Normal Bowel Sounds, Soft, Non-Tender - Patient Data Lab Results Last 24 hrs: Laboratory Results - last 24 hr 12/13/20 12/13/20 Range/Units 06:32 06:32 WBC 16.22 H (4.0-11.0) K/uL RBC 4.19 L (4.50-5.90) M/uL Hgb 12.9 L (13.0-17.0) g/dL Hct 37.1 L (38.0-50.0) % MCV 88.5 (80.0-98.0) fL MCH 30.8 (27.0-32.0) pg MCHC 34.8 (31.0-37.0) g/dL RDW Std Deviation 43.5 (28.0-62.0) fl RDW Coeff of Carly 13 (11.0-15.0) % Plt Count 276 (150-400) K/uL MPV 10.30 (7.40-12.00) fL Add Manual Diff YES Neutrophils % (Manual) 80 (48.0-80.0) % Band Neutrophils % 4 % Lymphocytes % (Manual) 5 L (16.0-40.0) % Monocytes % (Manual) 6 (0.0-15.0) % Metamyelocytes % 3 % Myelocytes % 2 % Nucleated RBC % 0.0 /100WBC Absolute Seg Neuts 13.0 H (1.4-5.7) Band Neutrophils # 0.6 Lymphocytes # (Manual) 0.8 (0.6-2.4) Monocytes # (Manual) 1.0 H (0.0-0.8) Absolute Metamyelocyte 0.5 Absolute Myelocytes 0.3 Nucleated RBCs # 0 K/uL Sodium 138 (136-148) mmol/L Potassium 4.9 (3.5-5.1) mmol/L Chloride 102 (98-107) mmol/L Carbon Dioxide 25.9 (21.0-32.0) mmol/L BUN 27 H (7.0-18.0) mg/dL Creatinine 0.8 (0.8-1.3) mg/dL Est Cr Clr Drug Dosing 97.14 mL/min Estimated GFR (MDRD) > 60.0 ml/min Glucose 139 H (74-106) mg/dL Calcium 8.0 L (8.5-10.1) mg/dL Phosphorus 4.6 (2.6-4.7) mg/dL Magnesium 2.2 (1.8-2.4) mg/dL Total Bilirubin 0.6 (0.2-1.0) mg/dL AST 20 (15-37) IU/L ALT 30 (14-63) IU/L Alkaline Phosphatase 55 (46-116) U/L Total Protein 6.1 L (6.4-8.2) g/dL Albumin 2.2 L (3.4-5.0) g/dL Globulin 3.9 (2.6-4.0) g/dL Albumin/Globulin Ratio 0.6 L (0.9-1.6) Result Diagrams: 12/13/20 06:32 12/13/20 06:32 Sepsis Event Note - Evaluation Sepsis Screening Result: Sepsis Risk - Focused Exam Vital Signs: Vital Signs Temp Resp BP Pulse Ox 12/13/20 13:00 30 H 90 L 12/13/20 12:00 36.3 C 22 H 130/72 87 L 12/13/20 11:00 26 H 86 L 12/13/20 10:00 26 H 88 L 12/13/20 09:00 31 H 88 L 12/13/20 08:00 36.2 C 30 H 117/73 87 L 12/13/20 07:00 20 91 L 12/13/20 06:00 22 H 92 L 12/13/20 05:00 36.1 C 27 H 114/65 91 L 12/13/20 04:00 27 H 94 L - Problem List & Annotations (1) Acute hypoxemic respiratory failure due to COVID-19 SNOMED Code(s): 741140436 Code(s): U07.1 - COVID-19; J96.01 - ACUTE RESPIRATORY FAILURE WITH HYPOXIA Status: Acute Current Visit: Yes (2) Anxiety about health SNOMED Code(s): 155938940 Code(s): F41.8 - OTHER SPECIFIED ANXIETY DISORDERS Status: Acute Current Visit: Yes - Problem List Review Problem List Initiated/Reviewed/Updated: Yes - My Orders Last 24 Hours: My Active Orders 12/12/20 19:00 LORazepam [Ativan] 0.5 mg IVPUSH Q8H PRN 12/12/20 20:00 methylPREDNISolone Sod Succ [Solu-MEDROL] 40 mg IVPUSH Q8H 12/13/20 06:32 CRP [C-REACTIVE PROTEIN] [CHEM] Routine 12/14/20 05:11 CBC WITH AUTO DIFF [HEME] AM CMP [COMPREHENSIVE METABOLIC PN,CMP] [CHEM] AM MAGNESIUM [CHEM] AM PHOSPHORUS [CHEM] AM - Plan Plan:: Acute hypoxic respiratory failure secondary to COVID-19 pneumonia Hypoxia: Currently on heated high flow, flow 55, FiO2 70, Wean oxygen as tolerated, COVID: continue dexamethasone, remdesivir course completed Complete course of Levaquin, f/u on crp and decide if patient needs to be started on baricitinib Combivent as needed, incentive spirometry, prone positioning, Lovenox 40 mg subcu q24hr, Robitussin for cough, ocean spray for nasal stuffiness. Melatonin 6mg prn bedtime Physical therapy on board
[2020-12-13] MEDS: Enoxaparin 40 MG/0.4 ML Syringe SUBCUT SCH (17:47)
[2020-12-13] MEDS: Docusate Sodium 100 MG Cap PO SCH (21:58)
[2020-12-13] MEDS: Melatonin 3 MG Tab PO PRN (21:58)
[2020-12-14] MEDS: Codeine/guaiFENesin 10-100 MG/5 ML Syrup 5 ML Cup PO SCH ×6 (00:56→21:04)
[2020-12-14] MEDS: methylPREDNISolone Sodium Succinate 40 MG/1 ML SDV IVPUSH SCH ×3 (04:54→21:04)
[2020-12-14 06:34] LABS: BLOOD UREA NITROGEN,BUN 27 mg/dL (7.0-18.0); CARBON DIOXIDE,CO2 27.2 mmol/L (21.0-32.0); CHLORIDE,CL 102 mmol/L (98-107); GLUCOSE RANDOM 118 mg/dL (74-106); POTASSIUM,K 4.7 mmol/L (3.5-5.1); SODIUM,NA 138 mmol/L (136-148)
[2020-12-14] MEDS: Docusate Sodium 100 MG Cap PO SCH ×2 (09:18→21:04)
[2020-12-14] MEDS: Pantoprazole 40 MG Tab.CR PO SCH (09:18)
[2020-12-14] MEDS: Polyethylene Glycol 3350 Powder 17 GM Packet PO SCH ×2 (09:18→10:27)
--- NOTE | 2020-12-14 16:09 | PCM.PN ---
- General Info Date of Service: 12/14/20 Subjective Update: Patient states mild to moderate shortness of breath while ambulating. Patient states he is not working with physical therapy as he begins to cough and feel shortness of breath. Patient denies fever, chills, nausea, vomiting. - Review of Systems General: Denies: Fever, Chills Pulmonary: Reports: Cough. Denies: Wheezing Cardiovascular: Reports: Dyspnea on Exertion. Denies: Chest Pain, Orthopnea, Edema Gastrointestinal: Denies: Abdominal Pain, Decreased Appetite, Diarrhea, Nausea, Vomiting Neurological: Denies: Confusion, Dizziness, Headache Psychiatric: Denies: Confusion - Patient Data Vitals - Most Recent: Last Vital Signs Temp 96.6 F L 12/14/20 12:00 Pulse 65 12/01/20 07:00 Resp 29 H 12/14/20 15:00 BP 120/57 L 12/14/20 13:00 Pulse Ox 90 L 12/14/20 15:00 Weight - Most Recent: 224 lb 15.99 oz I&O - Last 24 Hours: Intake & Output 12/14/20 12/14/20 12/14/20 06:59 14:59 22:59 Intake Total 600 Output Total 800 Balance -200 Lab Results Last 24 Hours: Laboratory Results - last 24 hr 12/12/20 12/14/20 12/14/20 Range/Units 06:41 05:24 05:24 WBC 20.20 H (4.0-11.0) K/uL RBC 4.43 L (4.50-5.90) M/uL Hgb 13.7 (13.0-17.0) g/dL Hct 39.8 (38.0-50.0) % MCV 89.8 (80.0-98.0) fL MCH 30.9 (27.0-32.0) pg MCHC 34.4 (31.0-37.0) g/dL RDW Std Deviation 42.2 (28.0-62.0) fl RDW Coeff of Carly 13 (11.0-15.0) % Plt Count 280 (150-400) K/uL MPV 10.20 (7.40-12.00) fL Neut % (Auto) 85.6 H (48.0-80.0) % Lymph % (Auto) 5.4 L (16.0-40.0) % [place] % (Auto) 8.9 (0.0-15.0) % Eos % (Auto) 0.0 (0.0-7.0) % Baso % (Auto) 0.1 (0.0-1.5) % Neut # (Auto) 17.3 H (1.4-5.7) K/uL Lymph # (Auto) 1.1 (0.6-2.4) K/uL [place] # (Auto) 1.8 H (0.0-0.8) K/uL Eos # (Auto) 0.0 (0.0-0.7) K/uL Baso # (Auto) 0.0 (0.0-0.1) K/uL Sodium 138 (136-148) mmol/L Potassium 4.7 (3.5-5.1) mmol/L Chloride 102 (98-107) mmol/L Carbon Dioxide 27.2 (21.0-32.0) mmol/L BUN 27 H (7.0-18.0) mg/dL Creatinine 0.9 (0.8-1.3) mg/dL Est Cr Clr Drug Dosing 86.34 mL/min Estimated GFR (MDRD) > 60.0 ml/min Glucose 118 H (74-106) mg/dL Calcium 8.4 L (8.5-10.1) mg/dL Phosphorus 4.4 (2.6-4.7) mg/dL Magnesium 2.1 (1.8-2.4) mg/dL Total Bilirubin 0.6 (0.2-1.0) mg/dL AST 26 (15-37) IU/L ALT 39 (14-63) IU/L Alkaline Phosphatase 55 (46-116) U/L C-React Prot High Sens 11.42 mg/L Total Protein 6.3 L (6.4-8.2) g/dL Albumin 2.3 L (3.4-5.0) g/dL Globulin 4.0 (2.6-4.0) g/dL Albumin/Globulin Ratio 0.6 L (0.9-1.6) Med Orders - Current: Current Medications Albuterol/Ipratropium (Albuterol/Ipratropium 4 Gm Inhalation [place]) 0 gm INH Q4H PRN PRN Reason: Dyspnea Last Admin: 12/12/20 09:30 Dose: 1 puff Documented by: Albuterol/Ipratropium (Albuterol/Ipratropium 3.0-0.5 Mg/3 Ml Neb Soln) 3 ml NEB Q4HRRT PRN PRN Reason: Wheezing Last Admin: 12/08/20 08:17 Dose: 3 ml Documented by: Docusate Sodium (Docusate Sodium 100 Mg Cap) 100 mg PO BID [facility] Last Admin: 12/14/20 09:18 Dose: 100 mg Documented by: Enoxaparin Sodium (Enoxaparin 40 Mg/0.4 Ml Syringe) 40 mg SUBCUT Q24H [facility] Last Admin: 12/13/20 17:47 Dose: 40 mg Documented by: Guaifenesin/Codeine Phosphate (Codeine/Guaifenesin 10-100 Mg/5 Ml Syrup 5 Ml Cup) 5 ml PO Q4H [facility] Last Admin: 12/14/20 13:10 Dose: 5 ml Documented by: Lorazepam (Lorazepam 2 Mg/Ml Sdv) 0.5 mg IVPUSH Q8H PRN PRN Reason: Anxiety Melatonin (Melatonin 3 Mg Tab) 6 mg PO BEDTIME PRN PRN Reason: Insomnia Last Admin: 12/13/20 21:58 Dose: 6 mg Documented by: Methylprednisolone Sodium Succinate (Methylprednisolone Sodium Succinate 40 Mg/1 Ml Sdv) 40 mg IVPUSH Q8H [facility] Last Admin: 12/14/20 13:00 Dose: 40 mg Documented by: Pantoprazole Sodium (Pantoprazole 40 Mg Tab.Cr) 40 mg PO DAILY [facility] Last Admin: 12/14/20 09:18 Dose: 40 mg Documented by: Polyethylene Glycol (Polyethylene Glycol 3350 Powder 17 Gm Packet) 17 gm PO DAILY [facility] Last Admin: 12/14/20 10:27 Dose: Not Given Documented by: Sodium Chloride (Sodium Chloride 0.9% 10 Ml Syringe) 10 ml FLUSH ASDIRECTED PRN PRN Reason: Keep Vein Open Last Admin: 11/30/20 14:17 Dose: 10 ml Documented by: Sodium Chloride (Sodium Chloride 0.9% 2.5 Ml Syringe) 2.5 ml FLUSH ASDIRECTED PRN PRN Reason: Keep Vein Open Last Admin: 11/30/20 14:17 Dose: 2.5 ml Documented by: Sodium Chloride (Sodium Chloride 0.65% Nasal [place] 45 Ml Bottle) 1 ml LATHA Q6H PRN PRN Reason: Congestion Last Admin: 12/09/20 12:20 Dose: 1 spray Documented by: Discontinued Medications Dexamethasone (Dexamethasone 10 Mg/Ml Sdv) 6 mg IVPUSH ONETIME ONE Stop: 11/30/20 14:46 Last Admin: 11/30/20 15:00 Dose: 6 mg Documented by: Dexamethasone (Dexamethasone 4 Mg Tab) 6 mg PO DAILY [facility] Last Admin: 12/12/20 09:12 Dose: 6 mg Documented by: Famotidine (Famotidine 20 Mg/2 Ml Sdv) 20 mg IVPUSH BID [facility] Last Admin: 12/05/20 08:55 Dose: 20 mg Documented by: Guaifenesin (Guaifenesin 100 Mg/5 Ml Soln 5 Ml Ud Cup) 100 mg PO Q4H [facility] Last Admin: 12/06/20 04:02 Dose: 100 mg Documented by: Guaifenesin/Codeine Phosphate (Codeine/Guaifenesin 10-100 Mg/5 Ml Syrup 5 Ml Cup) 5 ml PO Q4H [facility] Last Admin: 12/11/20 17:21 Dose: 5 ml Documented by: Guaifenesin/Dextromethorphan (Guaifenesin/Dextromethorphan 100-10 Mg/5 Ml Soln 10 Ml Cup) 10 ml PO Q4H PRN PRN Reason: Cough Last Admin: 12/03/20 12:45 Dose: 10 ml Documented by: Guaifenesin/Dextromethorphan (Guaifenesin/Dextromethorphan 100-10 Mg/5 Ml Soln 10 Ml Cup) 10 ml PO Q4H [facility] Last Admin: 12/05/20 10:24 Dose: Not Given Documented by: Remdesivir 200 mg/ Sodium (Chloride) 250 mls @ 250 mls/hr IV ONETIME ONE Stop: 11/30/20 14:46 Last Admin: 11/30/20 20:04 Dose: 250 mls/hr Documented by: Remdesivir 100 mg/ Sodium (Chloride) 100 mls @ 100 mls/hr IV Q24H [facility] Stop: 12/04/20 18:59 Last Admin: 12/04/20 18:12 Dose: 100 mls/hr Documented by: Pantoprazole Sodium 40 mg/ (Sodium Chloride) 10 mls @ 300 mls/hr IV Q24H [facility] Last Admin: 12/09/20 08:56 Dose: 300 mls/hr Documented by: Levofloxacin/Dextrose 750 mg/ (Premix) 150 mls @ 100 mls/hr IV Q24H [facility] Last Admin: 12/11/20 15:24 Dose: 100 mls/hr Documented by: Lactated Ringer's (Ringers, Lactated) 250 mls @ 250 mls/hr IV ASDIRECTED [facility] Iopamidol (Iopamidol 755 Mg/Ml 500 Ml Multipack Bottle) 100 ml IVPUSH ONETIME STA Stop: 12/01/20 16:41 Last Admin: 12/01/20 16:41 Dose: 100 ml Documented by: Lorazepam (Lorazepam 2 Mg/Ml Sdv) 1 mg IVPUSH Q12H PRN PRN Reason: Anxiety Last Admin: 12/12/20 15:53 Dose: 1 mg Documented by: Melatonin (Melatonin 3 Mg Tab) 6 mg PO BEDTIME [facility] Melatonin (Melatonin 3 Mg Tab) 6 mg PO BEDTIME PRN PRN Reason: Insomnia Last Admin: 12/06/20 21:39 Dose: 6 mg Documented by: Polyethylene Glycol (Polyethylene Glycol 3350 Powder 17 Gm Packet) 17 gm PO BEDTIME [facility] Last Admin: 12/12/20 22:28 Dose: Not Given Documented by: - Exam Quality Assessment: Supplemental Oxygen General: Alert, Oriented Lungs: Crackles. No: Normal Respiratory Effort (guarding due to cough) Cardiovascular: Regular Rate, Regular Rhythm GI/Abdominal Exam: Soft, Non-Tender, No Distention Extremities: No Pedal Edema Psy/Mental Status: Alert - Patient Data Lab Results Last 24 hrs: Laboratory Results - last 24 hr 12/12/20 12/14/20 12/14/20 Range/Units 06:41 05:24 05:24 WBC 20.20 H (4.0-11.0) K/uL RBC 4.43 L (4.50-5.90) M/uL Hgb 13.7 (13.0-17.0) g/dL Hct 39.8 (38.0-50.0) % MCV 89.8 (80.0-98.0) fL MCH 30.9 (27.0-32.0) pg MCHC 34.4 (31.0-37.0) g/dL RDW Std Deviation 42.2 (28.0-62.0) fl RDW Coeff of Carly 13 (11.0-15.0) % Plt Count 280 (150-400) K/uL MPV 10.20 (7.40-12.00) fL Neut % (Auto) 85.6 H (48.0-80.0) % Lymph % (Auto) 5.4 L (16.0-40.0) % [place] % (Auto) 8.9 (0.0-15.0) % Eos % (Auto) 0.0 (0.0-7.0) % Baso % (Auto) 0.1 (0.0-1.5) % Neut # (Auto) 17.3 H (1.4-5.7) K/uL Lymph # (Auto) 1.1 (0.6-2.4) K/uL [place] # (Auto) 1.8 H (0.0-0.8) K/uL Eos # (Auto) 0.0 (0.0-0.7) K/uL Baso # (Auto) 0.0 (0.0-0.1) K/uL Sodium 138 (136-148) mmol/L Potassium 4.7 (3.5-5.1) mmol/L Chloride 102 (98-107) mmol/L Carbon Dioxide 27.2 (21.0-32.0) mmol/L BUN 27 H (7.0-18.0) mg/dL Creatinine 0.9 (0.8-1.3) mg/dL Est Cr Clr Drug Dosing 86.34 mL/min Estimated GFR (MDRD) > 60.0 ml/min Glucose 118 H (74-106) mg/dL Calcium 8.4 L (8.5-10.1) mg/dL Phosphorus 4.4 (2.6-4.7) mg/dL Magnesium 2.1 (1.8-2.4) mg/dL Total Bilirubin 0.6 (0.2-1.0) mg/dL AST 26 (15-37) IU/L ALT 39 (14-63) IU/L Alkaline Phosphatase 55 (46-116) U/L C-React Prot High Sens 11.42 mg/L Total Protein 6.3 L (6.4-8.2) g/dL Albumin 2.3 L (3.4-5.0) g/dL Globulin 4.0 (2.6-4.0) g/dL Albumin/Globulin Ratio 0.6 L (0.9-1.6) Result Diagrams: 12/14/20 05:24 12/14/20 05:24 Sepsis Event Note - Evaluation Sepsis Screening Result: Sepsis Risk - Focused Exam Vital Signs: Vital Signs Temp Resp BP BP Pulse Ox 12/14/20 15:00 29 H 90 L 12/14/20 14:00 22 H 84 L 12/14/20 13:00 26 H 120/57 L 87 L 12/14/20 12:00 96.6 F L 12/14/20 11:00 29 H 88 L 12/14/20 10:00 30 H 130/72 88 L 12/14/20 09:00 25 H 85 L 12/14/20 08:00 21 H 89 L 12/14/20 07:00 17 92 L 12/14/20 06:00 18 94 L 12/14/20 05:00 97.3 F 22 H 121/73 90 L - Problem List & Annotations (1) Acute hypoxemic respiratory failure due to COVID-19 SNOMED Code(s): 863259636 Code(s): U07.1 - COVID-19; J96.01 - ACUTE RESPIRATORY FAILURE WITH HYPOXIA Status: Acute Current Visit: Yes - Problem List Review Problem List Initiated/Reviewed/Updated: Yes - Plan Plan:: Acute hypoxic respiratory failure secondary to COVID-19 pneumonia Hypoxia: Currently on heated high flow, flow 40, FiO2 60, Wean oxygen as tolerated, encourage physical therapy, I/S. (Patient has guarding with deep inspiration as he believes he will cough) COVID: continue dexamethasone, remdesivir course completed Barcitinib- CRP 2.3-patient is currently on day 15 of admission and began covid symptoms prior 2-3 days prior to admission. Discussion with eICU with recommendation that barcitinib would not change patients current oxygen demand at this time due to duration of time and low elevated crp of 2.3. Patient may however take barcitinib if patient would like to try medication and exhaust all treatment options. Will discuss barcitinib with patient and daughter. Combivent as needed, incentive spirometry, prone positioning, Lovenox 40 mg subcu q24hr, Robitussin for cough, ocean spray for nasal stuffiness. Melatonin 6mg prn bedtime Physical therapy-Patient has not been working with physical therapy as he states that he develops shortness of breath and weakness while therapy. Physical therapy has educated the patient and give him exercises to complete while on his own time.
[2020-12-14] MEDS: Enoxaparin 40 MG/0.4 ML Syringe SUBCUT SCH (17:01)
[2020-12-14] MEDS: Melatonin 3 MG Tab PO PRN (21:05)
[2020-12-14] MEDS: Albuterol/Ipratropium 4 GM Inhalation Spray INH PRN (21:06)
--- NOTE | 2020-12-14 21:49 | PN ---
[facility] Physician - Brief Progress [id number]/11/2021 21:49[facility] Patsy Mcke[place], [place] - MYRNA (ARMANDO) - MYRNA REKHA SIMEON, COVID+Date of Service 12/14/2020 21:49HPI /Events of Note eICU Progress NotePt is a 70 yo M admitted 11/30 with COVID pneumonia. He was started on Dexamethasone and Remdesivir, but hesitant about Baricitinib, so it was not given at the time. He has subsequently received a course of Levofloxicin during his stay, but continues to remain relativel y stagnant on HF NC with little improvement. I discussed considering Baricitinib therapy at this poin t with the resident physician on the case. Although it will not likely make an impact on his overall status, they are going to discuss giving the medication with the patient, and if agreeable, they may give it to him. Pt is currently sitting up in a chair in [facility] with stable VS on an FiO2 of 60% with 40 L of flow. Case was discussed with the resident physician and the patient's nurse Maribel.eICU Recomme ndations:1) Consider course of Baricitinib if pt agreeable2) Encourage activity and sitting up in a c hair as tolerated3) Pt may benefit from BIPAP at HS to allow for better rest and respiratory support and further weaning of HF NC during the day4) Continue GI/DVT prophylaxis per protocolThank you for a llowing us to participate in the care of your patient.Interventions Major-Hypoxemia - evaluation and management, Infection - evaluation and management, Respiratory failure - evaluation and managementInt [id number]-Bsaq-xjiqrbgn therapies (e.g. VTE, beta karma, etc.), Communication with other healthcare providers and/or family, Medication change / dose adjustment
[2020-12-15] MEDS: Codeine/guaiFENesin 10-100 MG/5 ML Syrup 5 ML Cup PO SCH ×6 (01:00→21:08)
[2020-12-15] MEDS: methylPREDNISolone Sodium Succinate 40 MG/1 ML SDV IVPUSH SCH ×3 (04:13→21:08)
[2020-12-15 06:58] LABS: BLOOD UREA NITROGEN,BUN 30 mg/dL (7.0-18.0); CARBON DIOXIDE,CO2 27.9 mmol/L (21.0-32.0); CHLORIDE,CL 102 mmol/L (98-107); GLUCOSE RANDOM 121 mg/dL (74-106); POTASSIUM,K 4.7 mmol/L (3.5-5.1); SODIUM,NA 138 mmol/L (136-148)
[2020-12-15] MEDS: Pantoprazole 40 MG Tab.CR PO SCH (09:17)
[2020-12-15] MEDS: Docusate Sodium 100 MG Cap PO SCH ×2 (09:17→21:08)
[2020-12-15] MEDS: Polyethylene Glycol 3350 Powder 17 GM Packet PO SCH (09:28)
--- NOTE | 2020-12-15 09:51 | PCM.PN ---
- General Info Date of Service: 12/15/20 - Review of Systems Systems Review Comment:: no new symptoms, reports cough and shortness of breath. - Patient Data Vitals - Most Recent: Last Vital Signs Temp 36.0 C L 12/15/20 05:00 Pulse 65 12/01/20 07:00 Resp 27 H 12/15/20 07:00 BP 115/68 12/15/20 05:00 Pulse Ox 87 L 12/15/20 07:00 Weight - Most Recent: 102.058 kg I&O - Last 24 Hours: Intake & Output 12/14/20 12/15/20 12/15/20 22:59 06:59 14:59 Intake Total 700 240 Output Total 1000 650 Balance -300 -410 Lab Results Last 24 Hours: Laboratory Results - last 24 hr 12/15/20 12/15/20 Range/Units 05:33 05:33 WBC 18.78 H (4.0-11.0) K/uL RBC 4.41 L (4.50-5.90) M/uL Hgb 13.7 (13.0-17.0) g/dL Hct 40.1 (38.0-50.0) % MCV 90.9 (80.0-98.0) fL MCH 31.1 (27.0-32.0) pg MCHC 34.2 (31.0-37.0) g/dL RDW Std Deviation 42.9 (28.0-62.0) fl RDW Coeff of Carly 13 (11.0-15.0) % Plt Count 270 (150-400) K/uL MPV 10.20 (7.40-12.00) fL Add Manual Diff YES Neutrophils % (Manual) 74 (48.0-80.0) % Band Neutrophils % 2 % Lymphocytes % (Manual) 13 L (16.0-40.0) % Monocytes % (Manual) 10 (0.0-15.0) % Myelocytes % 1 % Absolute Seg Neuts 13.9 H (1.4-5.7) Band Neutrophils # 0.4 Lymphocytes # (Manual) 2.4 (0.6-2.4) Monocytes # (Manual) 1.9 H (0.0-0.8) Absolute Myelocytes 0.2 Sodium 138 (136-148) mmol/L Potassium 4.7 (3.5-5.1) mmol/L Chloride 102 (98-107) mmol/L Carbon Dioxide 27.9 (21.0-32.0) mmol/L BUN 30 H (7.0-18.0) mg/dL Creatinine 0.8 (0.8-1.3) mg/dL Est Cr Clr Drug Dosing 97.14 mL/min Estimated GFR (MDRD) > 60.0 ml/min Glucose 121 H (74-106) mg/dL Calcium 8.1 L (8.5-10.1) mg/dL Med Orders - Current: Current Medications Albuterol/Ipratropium (Albuterol/Ipratropium 4 Gm Inhalation [place]) 0 gm INH Q4H PRN PRN Reason: Dyspnea Last Admin: 12/14/20 21:06 Dose: 1 puff Documented by: Albuterol/Ipratropium (Albuterol/Ipratropium 3.0-0.5 Mg/3 Ml Neb Soln) 3 ml NEB Q4HRRT PRN PRN Reason: Wheezing Last Admin: 12/08/20 08:17 Dose: 3 ml Documented by: Docusate Sodium (Docusate Sodium 100 Mg Cap) 100 mg PO BID [facility] Last Admin: 12/15/20 09:17 Dose: 100 mg Documented by: Enoxaparin Sodium (Enoxaparin 40 Mg/0.4 Ml Syringe) 40 mg SUBCUT Q24H [facility] Last Admin: 12/14/20 17:01 Dose: 40 mg Documented by: Guaifenesin/Codeine Phosphate (Codeine/Guaifenesin 10-100 Mg/5 Ml Syrup 5 Ml Cup) 5 ml PO Q4H [facility] Last Admin: 12/15/20 09:17 Dose: 5 ml Documented by: Lorazepam (Lorazepam 2 Mg/Ml Sdv) 0.5 mg IVPUSH Q8H PRN PRN Reason: Anxiety Melatonin (Melatonin 3 Mg Tab) 6 mg PO BEDTIME PRN PRN Reason: Insomnia Last Admin: 12/14/20 21:05 Dose: 6 mg Documented by: Methylprednisolone Sodium Succinate (Methylprednisolone Sodium Succinate 40 Mg/1 Ml Sdv) 40 mg IVPUSH Q8H [facility] Last Admin: 12/15/20 04:13 Dose: 40 mg Documented by: Pantoprazole Sodium (Pantoprazole 40 Mg Tab.Cr) 40 mg PO DAILY [facility] Last Admin: 12/15/20 09:17 Dose: 40 mg Documented by: Polyethylene Glycol (Polyethylene Glycol 3350 Powder 17 Gm Packet) 17 gm PO DAILY [facility] Last Admin: 12/15/20 09:28 Dose: 17 gm Documented by: Sodium Chloride (Sodium Chloride 0.9% 10 Ml Syringe) 10 ml FLUSH ASDIRECTED PRN PRN Reason: Keep Vein Open Last Admin: 11/30/20 14:17 Dose: 10 ml Documented by: Sodium Chloride (Sodium Chloride 0.9% 2.5 Ml Syringe) 2.5 ml FLUSH ASDIRECTED PRN PRN Reason: Keep Vein Open Last Admin: 11/30/20 14:17 Dose: 2.5 ml Documented by: Sodium Chloride (Sodium Chloride 0.65% Nasal [place] 45 Ml Bottle) 1 ml LATHA Q6H PRN PRN Reason: Congestion Last Admin: 12/09/20 12:20 Dose: 1 spray Documented by: Discontinued Medications Dexamethasone (Dexamethasone 10 Mg/Ml Sdv) 6 mg IVPUSH ONETIME ONE Stop: 11/30/20 14:46 Last Admin: 11/30/20 15:00 Dose: 6 mg Documented by: Dexamethasone (Dexamethasone 4 Mg Tab) 6 mg PO DAILY [facility] Last Admin: 12/12/20 09:12 Dose: 6 mg Documented by: Famotidine (Famotidine 20 Mg/2 Ml Sdv) 20 mg IVPUSH BID [facility] Last Admin: 12/05/20 08:55 Dose: 20 mg Documented by: Guaifenesin (Guaifenesin 100 Mg/5 Ml Soln 5 Ml Ud Cup) 100 mg PO Q4H [facility] Last Admin: 12/06/20 04:02 Dose: 100 mg Documented by: Guaifenesin/Codeine Phosphate (Codeine/Guaifenesin 10-100 Mg/5 Ml Syrup 5 Ml Cup) 5 ml PO Q4H [facility] Last Admin: 12/11/20 17:21 Dose: 5 ml Documented by: Guaifenesin/Dextromethorphan (Guaifenesin/Dextromethorphan 100-10 Mg/5 Ml Soln 10 Ml Cup) 10 ml PO Q4H PRN PRN Reason: Cough Last Admin: 12/03/20 12:45 Dose: 10 ml Documented by: Guaifenesin/Dextromethorphan (Guaifenesin/Dextromethorphan 100-10 Mg/5 Ml Soln 10 Ml Cup) 10 ml PO Q4H [facility] Last Admin: 12/05/20 10:24 Dose: Not Given Documented by: Remdesivir 200 mg/ Sodium (Chloride) 250 mls @ 250 mls/hr IV ONETIME ONE Stop: 11/30/20 14:46 Last Admin: 11/30/20 20:04 Dose: 250 mls/hr Documented by: Remdesivir 100 mg/ Sodium (Chloride) 100 mls @ 100 mls/hr IV Q24H [facility] Stop: 12/04/20 18:59 Last Admin: 12/04/20 18:12 Dose: 100 mls/hr Documented by: Pantoprazole Sodium 40 mg/ (Sodium Chloride) 10 mls @ 300 mls/hr IV Q24H [facility] Last Admin: 12/09/20 08:56 Dose: 300 mls/hr Documented by: Levofloxacin/Dextrose 750 mg/ (Premix) 150 mls @ 100 mls/hr IV Q24H [facility] Last Admin: 12/11/20 15:24 Dose: 100 mls/hr Documented by: Lactated Ringer's (Ringers, Lactated) 250 mls @ 250 mls/hr IV ASDIRECTED [facility] Iopamidol (Iopamidol 755 Mg/Ml 500 Ml Multipack Bottle) 100 ml IVPUSH ONETIME STA Stop: 12/01/20 16:41 Last Admin: 12/01/20 16:41 Dose: 100 ml Documented by: Lorazepam (Lorazepam 2 Mg/Ml Sdv) 1 mg IVPUSH Q12H PRN PRN Reason: Anxiety Last Admin: 12/12/20 15:53 Dose: 1 mg Documented by: Melatonin (Melatonin 3 Mg Tab) 6 mg PO BEDTIME [facility] Melatonin (Melatonin 3 Mg Tab) 6 mg PO BEDTIME PRN PRN Reason: Insomnia Last Admin: 12/06/20 21:39 Dose: 6 mg Documented by: Polyethylene Glycol (Polyethylene Glycol 3350 Powder 17 Gm Packet) 17 gm PO BEDTIME [facility] Last Admin: 12/12/20 22:28 Dose: Not Given Documented by: - Exam General: Alert, Oriented Lungs: Normal Respiratory Effort, Rhonchi Cardiovascular: Regular Rate, Regular Rhythm GI/Abdominal Exam: Soft, Non-Tender Extremities: Non-Tender, No Pedal Edema Skin: Warm, Dry, Intact Neurological: No New Focal Deficit - Patient Data Lab Results Last 24 hrs: Laboratory Results - last 24 hr 12/15/20 12/15/20 Range/Units 05:33 05:33 WBC 18.78 H (4.0-11.0) K/uL RBC 4.41 L (4.50-5.90) M/uL Hgb 13.7 (13.0-17.0) g/dL Hct 40.1 (38.0-50.0) % MCV 90.9 (80.0-98.0) fL MCH 31.1 (27.0-32.0) pg MCHC 34.2 (31.0-37.0) g/dL RDW Std Deviation 42.9 (28.0-62.0) fl RDW Coeff of Carly 13 (11.0-15.0) % Plt Count 270 (150-400) K/uL MPV 10.20 (7.40-12.00) fL Add Manual Diff YES Neutrophils % (Manual) 74 (48.0-80.0) % Band Neutrophils % 2 % Lymphocytes % (Manual) 13 L (16.0-40.0) % Monocytes % (Manual) 10 (0.0-15.0) % Myelocytes % 1 % Absolute Seg Neuts 13.9 H (1.4-5.7) Band Neutrophils # 0.4 Lymphocytes # (Manual) 2.4 (0.6-2.4) Monocytes # (Manual) 1.9 H (0.0-0.8) Absolute Myelocytes 0.2 Sodium 138 (136-148) mmol/L Potassium 4.7 (3.5-5.1) mmol/L Chloride 102 (98-107) mmol/L Carbon Dioxide 27.9 (21.0-32.0) mmol/L BUN 30 H (7.0-18.0) mg/dL Creatinine 0.8 (0.8-1.3) mg/dL Est Cr Clr Drug Dosing 97.14 mL/min Estimated GFR (MDRD) > 60.0 ml/min Glucose 121 H (74-106) mg/dL Calcium 8.1 L (8.5-10.1) mg/dL Result Diagrams: 12/15/20 05:33 12/15/20 05:33 Sepsis Event Note - Evaluation Sepsis Screening Result: Sepsis Risk - Focused Exam Vital Signs: Vital Signs Temp Resp BP Pulse Ox 12/15/20 07:00 27 H 87 L 12/15/20 06:00 23 H 87 L 12/15/20 05:00 36.0 C L 18 115/68 90 L 12/15/20 04:00 17 93 L 12/15/20 03:00 17 92 L 12/15/20 02:00 21 H 91 L 12/15/20 01:00 36.2 C 20 115/71 91 L 12/15/20 00:00 20 92 L 12/14/20 23:00 18 94 L 12/14/20 22:00 19 92 L - Problem List & Annotations (1) Acute hypoxemic respiratory failure due to COVID-19 SNOMED Code(s): 128747439 Code(s): U07.1 - COVID-19; J96.01 - ACUTE RESPIRATORY FAILURE WITH HYPOXIA Status: Acute Current Visit: Yes - Problem List Review Problem List Initiated/Reviewed/Updated: Yes - Plan Plan:: 70 yo male admitted for Acute hypoxic respiratory failure secondary to COVID-19 pneumonia Hypoxia: Currently on heated high flow, flow 40, FiO2 60, Wean oxygen as tolerated, encourage physical therapy, I/S. COVID: on solumdrol, remdesivir course completed Combivent as needed, incentive spirometry, prone positioning, Lovenox 40 mg subcu q24hr, Robitussin for cough, ocean spray for nasal stuffiness. Melatonin 6mg prn bedtime
[2020-12-15] MEDS: Albuterol/Ipratropium 4 GM Inhalation Spray INH PRN (14:20)
[2020-12-15] MEDS: Albuterol/Ipratropium 3.0-0.5 MG/3 ML Neb Soln NEB PRN (14:21)
[2020-12-15] MEDS: Enoxaparin 40 MG/0.4 ML Syringe SUBCUT SCH (17:13)
[2020-12-15] MEDS: Melatonin 3 MG Tab PO PRN (21:09)
[2020-12-16] MEDS: Codeine/guaiFENesin 10-100 MG/5 ML Syrup 5 ML Cup PO SCH ×6 (00:37→21:10)
[2020-12-16] MEDS: methylPREDNISolone Sodium Succinate 40 MG/1 ML SDV IVPUSH SCH ×3 (03:51→19:42)
[2020-12-16 06:33] LABS: BLOOD UREA NITROGEN,BUN 40 mg/dL (7.0-18.0); CHLORIDE,CL 102 mmol/L (98-107); GLUCOSE RANDOM 134 mg/dL (74-106); POTASSIUM,K 4.9 mmol/L (3.5-5.1); SODIUM,NA 138 mmol/L (136-148)
[2020-12-16] MEDS: Pantoprazole 40 MG Tab.CR PO SCH (08:59)
[2020-12-16] MEDS: Docusate Sodium 100 MG Cap PO SCH ×2 (08:59→21:11)
[2020-12-16] MEDS: Polyethylene Glycol 3350 Powder 17 GM Packet PO SCH (09:00)
--- NOTE | 2020-12-16 13:51 | PCM.PN ---
- General Info Date of Service: 12/16/20 Subjective Update: Patient states increase fatigue this morning, states mild shortness of breath with ambulation. Patient denies chest pain, fever, chills. - Review of Systems General: Reports: Fatigue. Denies: Fever, Chills Pulmonary: Reports: Cough Cardiovascular: Reports: Dyspnea on Exertion. Denies: Chest Pain, Edema Gastrointestinal: Denies: Abdominal Pain, Diarrhea, Nausea, Vomiting Neurological: Denies: Confusion, Dizziness, Headache - Patient Data Vitals - Most Recent: Last Vital Signs Temp 95.6 F L 12/16/20 04:00 Pulse 65 12/01/20 07:00 Resp 26 H 12/16/20 06:00 BP 123/81 12/16/20 04:00 Pulse Ox 87 L 12/16/20 06:00 Weight - Most Recent: 224 lb 15.99 oz I&O - Last 24 Hours: Intake & Output 12/15/20 12/16/20 12/16/20 22:59 06:59 14:59 Intake Total 980 100 Output Total 600 400 Balance 380 -300 Lab Results Last 24 Hours: Laboratory Results - last 24 hr 12/16/20 12/16/20 Range/Units 04:50 04:50 WBC 19.61 H (4.0-11.0) K/uL RBC 4.86 (4.50-5.90) M/uL Hgb 15.1 (13.0-17.0) g/dL Hct 43.2 (38.0-50.0) % MCV 88.9 (80.0-98.0) fL MCH 31.1 (27.0-32.0) pg MCHC 35.0 (31.0-37.0) g/dL RDW Std Deviation 44.2 (28.0-62.0) fl RDW Coeff of Carly 14 (11.0-15.0) % Plt Count 318 (150-400) K/uL MPV 10.40 (7.40-12.00) fL Add Manual Diff YES Neutrophils % (Manual) 85 H (48.0-80.0) % Lymphocytes % (Manual) 6 L (16.0-40.0) % Monocytes % (Manual) 9 (0.0-15.0) % Nucleated RBC % 0.0 /100WBC Absolute Seg Neuts 16.7 H (1.4-5.7) Lymphocytes # (Manual) 1.2 (0.6-2.4) Monocytes # (Manual) 1.8 H (0.0-0.8) Nucleated RBCs # 0 K/uL Sodium 138 (136-148) mmol/L Potassium 4.9 (3.5-5.1) mmol/L Chloride 102 (98-107) mmol/L Carbon Dioxide 24.0 (21.0-32.0) mmol/L BUN 40 H (7.0-18.0) mg/dL Creatinine 0.8 (0.8-1.3) mg/dL Est Cr Clr Drug Dosing 97.14 mL/min Estimated GFR (MDRD) > 60.0 ml/min Glucose 134 H (74-106) mg/dL Calcium 8.4 L (8.5-10.1) mg/dL Total Bilirubin 0.8 (0.2-1.0) mg/dL AST 20 (15-37) IU/L ALT 48 (14-63) IU/L Alkaline Phosphatase 65 (46-116) U/L Total Protein 7.4 (6.4-8.2) g/dL Albumin 2.8 L (3.4-5.0) g/dL Globulin 4.6 H (2.6-4.0) g/dL Albumin/Globulin Ratio 0.6 L (0.9-1.6) Med Orders - Current: Current Medications Albuterol/Ipratropium (Albuterol/Ipratropium 4 Gm Inhalation [place]) 0 gm INH Q4H PRN PRN Reason: Dyspnea Last Admin: 12/15/20 14:20 Dose: 1 puff Documented by: Albuterol/Ipratropium (Albuterol/Ipratropium 3.0-0.5 Mg/3 Ml Neb Soln) 3 ml NEB Q4HRRT PRN PRN Reason: Wheezing Last Admin: 12/15/20 14:21 Dose: 3 ml Documented by: Docusate Sodium (Docusate Sodium 100 Mg Cap) 100 mg PO BID [facility] Last Admin: 12/16/20 08:59 Dose: 100 mg Documented by: Enoxaparin Sodium (Enoxaparin 40 Mg/0.4 Ml Syringe) 40 mg SUBCUT Q24H [facility] Last Admin: 12/15/20 17:13 Dose: 40 mg Documented by: Guaifenesin/Codeine Phosphate (Codeine/Guaifenesin 10-100 Mg/5 Ml Syrup 5 Ml Cup) 5 ml PO Q4H [facility] Last Admin: 12/16/20 13:04 Dose: 5 ml Documented by: Lorazepam (Lorazepam 2 Mg/Ml Sdv) 0.5 mg IVPUSH Q8H PRN PRN Reason: Anxiety Melatonin (Melatonin 3 Mg Tab) 6 mg PO BEDTIME PRN PRN Reason: Insomnia Last Admin: 12/15/20 21:09 Dose: 6 mg Documented by: Methylprednisolone Sodium Succinate (Methylprednisolone Sodium Succinate 40 Mg/1 Ml Sdv) 40 mg IVPUSH Q12H [facility] Last Admin: 12/16/20 08:59 Dose: 40 mg Documented by: Pantoprazole Sodium (Pantoprazole 40 Mg Tab.Cr) 40 mg PO DAILY [facility] Last Admin: 12/16/20 08:59 Dose: 40 mg Documented by: Polyethylene Glycol (Polyethylene Glycol 3350 Powder 17 Gm Packet) 17 gm PO DAILY [facility] Last Admin: 12/16/20 09:00 Dose: 17 gm Documented by: Sodium Chloride (Sodium Chloride 0.9% 10 Ml Syringe) 10 ml FLUSH ASDIRECTED PRN PRN Reason: Keep Vein Open Last Admin: 11/30/20 14:17 Dose: 10 ml Documented by: Sodium Chloride (Sodium Chloride 0.9% 2.5 Ml Syringe) 2.5 ml FLUSH ASDIRECTED PRN PRN Reason: Keep Vein Open Last Admin: 11/30/20 14:17 Dose: 2.5 ml Documented by: Sodium Chloride (Sodium Chloride 0.65% Nasal [place] 45 Ml Bottle) 1 ml LATHA Q6H PRN PRN Reason: Congestion Last Admin: 12/09/20 12:20 Dose: 1 spray Documented by: Discontinued Medications Dexamethasone (Dexamethasone 10 Mg/Ml Sdv) 6 mg IVPUSH ONETIME ONE Stop: 11/30/20 14:46 Last Admin: 11/30/20 15:00 Dose: 6 mg Documented by: Dexamethasone (Dexamethasone 4 Mg Tab) 6 mg PO DAILY [facility] Last Admin: 12/12/20 09:12 Dose: 6 mg Documented by: Famotidine (Famotidine 20 Mg/2 Ml Sdv) 20 mg IVPUSH BID [facility] Last Admin: 12/05/20 08:55 Dose: 20 mg Documented by: Guaifenesin (Guaifenesin 100 Mg/5 Ml Soln 5 Ml Ud Cup) 100 mg PO Q4H [facility] Last Admin: 12/06/20 04:02 Dose: 100 mg Documented by: Guaifenesin/Codeine Phosphate (Codeine/Guaifenesin 10-100 Mg/5 Ml Syrup 5 Ml Cup) 5 ml PO Q4H [facility] Last Admin: 12/11/20 17:21 Dose: 5 ml Documented by: Guaifenesin/Dextromethorphan (Guaifenesin/Dextromethorphan 100-10 Mg/5 Ml Soln 10 Ml Cup) 10 ml PO Q4H PRN PRN Reason: Cough Last Admin: 12/03/20 12:45 Dose: 10 ml Documented by: Guaifenesin/Dextromethorphan (Guaifenesin/Dextromethorphan 100-10 Mg/5 Ml Soln 10 Ml Cup) 10 ml PO Q4H [facility] Last Admin: 12/05/20 10:24 Dose: Not Given Documented by: Remdesivir 200 mg/ Sodium (Chloride) 250 mls @ 250 mls/hr IV ONETIME ONE Stop: 11/30/20 14:46 Last Admin: 11/30/20 20:04 Dose: 250 mls/hr Documented by: Remdesivir 100 mg/ Sodium (Chloride) 100 mls @ 100 mls/hr IV Q24H [facility] Stop: 12/04/20 18:59 Last Admin: 12/04/20 18:12 Dose: 100 mls/hr Documented by: Pantoprazole Sodium 40 mg/ (Sodium Chloride) 10 mls @ 300 mls/hr IV Q24H [facility] Last Admin: 12/09/20 08:56 Dose: 300 mls/hr Documented by: Levofloxacin/Dextrose 750 mg/ (Premix) 150 mls @ 100 mls/hr IV Q24H [facility] Last Admin: 12/11/20 15:24 Dose: 100 mls/hr Documented by: Lactated Ringer's (Ringers, Lactated) 250 mls @ 250 mls/hr IV ASDIRECTED [facility] Iopamidol (Iopamidol 755 Mg/Ml 500 Ml Multipack Bottle) 100 ml IVPUSH ONETIME STA Stop: 12/01/20 16:41 Last Admin: 12/01/20 16:41 Dose: 100 ml Documented by: Lorazepam (Lorazepam 2 Mg/Ml Sdv) 1 mg IVPUSH Q12H PRN PRN Reason: Anxiety Last Admin: 12/12/20 15:53 Dose: 1 mg Documented by: Melatonin (Melatonin 3 Mg Tab) 6 mg PO BEDTIME [facility] Melatonin (Melatonin 3 Mg Tab) 6 mg PO BEDTIME PRN PRN Reason: Insomnia Last Admin: 12/06/20 21:39 Dose: 6 mg Documented by: Methylprednisolone Sodium Succinate (Methylprednisolone Sodium Succinate 40 Mg/1 Ml Sdv) 40 mg IVPUSH Q8H [facility] Last Admin: 12/16/20 03:51 Dose: 40 mg Documented by: Polyethylene Glycol (Polyethylene Glycol 3350 Powder 17 Gm Packet) 17 gm PO BEDTIME [facility] Last Admin: 12/12/20 22:28 Dose: Not Given Documented by: - Exam Quality Assessment: Supplemental Oxygen General: Alert, Oriented Lungs: Crackles. No: Normal Respiratory Effort Cardiovascular: Regular Rate, Regular Rhythm GI/Abdominal Exam: Soft, Non-Tender, No Distention Extremities: No Pedal Edema Psy/Mental Status: Alert - Patient Data Lab Results Last 24 hrs: Laboratory Results - last 24 hr 12/16/20 12/16/20 Range/Units 04:50 04:50 WBC 19.61 H (4.0-11.0) K/uL RBC 4.86 (4.50-5.90) M/uL Hgb 15.1 (13.0-17.0) g/dL Hct 43.2 (38.0-50.0) % MCV 88.9 (80.0-98.0) fL MCH 31.1 (27.0-32.0) pg MCHC 35.0 (31.0-37.0) g/dL RDW Std Deviation 44.2 (28.0-62.0) fl RDW Coeff of Carly 14 (11.0-15.0) % Plt Count 318 (150-400) K/uL MPV 10.40 (7.40-12.00) fL Add Manual Diff YES Neutrophils % (Manual) 85 H (48.0-80.0) % Lymphocytes % (Manual) 6 L (16.0-40.0) % Monocytes % (Manual) 9 (0.0-15.0) % Nucleated RBC % 0.0 /100WBC Absolute Seg Neuts 16.7 H (1.4-5.7) Lymphocytes # (Manual) 1.2 (0.6-2.4) Monocytes # (Manual) 1.8 H (0.0-0.8) Nucleated RBCs # 0 K/uL Sodium 138 (136-148) mmol/L Potassium 4.9 (3.5-5.1) mmol/L Chloride 102 (98-107) mmol/L Carbon Dioxide 24.0 (21.0-32.0) mmol/L BUN 40 H (7.0-18.0) mg/dL Creatinine 0.8 (0.8-1.3) mg/dL Est Cr Clr Drug Dosing 97.14 mL/min Estimated GFR (MDRD) > 60.0 ml/min Glucose 134 H (74-106) mg/dL Calcium 8.4 L (8.5-10.1) mg/dL Total Bilirubin 0.8 (0.2-1.0) mg/dL AST 20 (15-37) IU/L ALT 48 (14-63) IU/L Alkaline Phosphatase 65 (46-116) U/L Total Protein 7.4 (6.4-8.2) g/dL Albumin 2.8 L (3.4-5.0) g/dL Globulin 4.6 H (2.6-4.0) g/dL Albumin/Globulin Ratio 0.6 L (0.9-1.6) Result Diagrams: 12/16/20 04:50 12/16/20 04:50 Sepsis Event Note - Evaluation Sepsis Screening Result: Sepsis Risk - Focused Exam Vital Signs: Vital Signs Temp Resp BP Pulse Ox 12/16/20 06:00 26 H 87 L 12/16/20 05:00 25 H 88 L 12/16/20 04:00 95.6 F L 22 H 123/81 90 L 12/16/20 03:00 17 92 L 12/16/20 02:00 95 - Problem List & Annotations (1) Acute hypoxemic respiratory failure due to COVID-19 SNOMED Code(s): 945332733 Code(s): U07.1 - COVID-19; J96.01 - ACUTE RESPIRATORY FAILURE WITH HYPOXIA Status: Acute Current Visit: Yes - Problem List Review Problem List Initiated/Reviewed/Updated: Yes - My Orders Last 24 Hours: My Active Orders 12/16/20 08:00 methylPREDNISolone Sod Succ [Solu-MEDROL] 40 mg IVPUSH Q12H - Plan Plan:: Acute hypoxic respiratory failure secondary to COVID-19 pneumonia heated high flow, flow 40, FiO2 75, Wean oxygen as tolerated, encourage physical therapy, I/S. (Patient has guarding with deep inspiration as he believes he will cough) COVID: solumedrol, remdesivir course completed Combivent as needed, incentive spirometry, prone positioning, Lovenox 40 mg subcu q24hr, Robitussin for cough, ocean spray for nasal stuffiness. Melatonin 6mg prn bedtime Physical therapy-Patient has not been working with physical therapy as he states that he develops shortness of breath and weakness while therapy. Physical therapy has educated the patient and give him exercises to complete while on his own time.
--- NOTE | 2020-12-16 15:31 | PN ---
THC Physician - Brief Progress [id number]/13/2021 15:26[facility] Patsy Mckeon, [place] - MWN (ARMANDO[facility] Shawna, COVID+Date of Service 12/16/2020 15:26HPI /Events of Note eICU Progress NotePt is a 70 yo M admitted 11/30 with COVID pneumonia. He was started on Dexamethasone and Remdesivir, but hesitant about Baricitinib, so it was not given at the time. He has subsequently received a course of Levofloxicin during his stay, but continues to remain relativel y stagnant on HF NC with little improvement.. He is currently on dexamethasone.Patient was seen via niki álvarez and is sitting upright madeleine chair.Per RN report, he continues to have dysnea and fatigue, he is on HHFNC 40L/85%, satting 94%. He is very anxious and does not want to get up from his chair.eICU Rec ommendations:Continue COVID treatment per hospital guidelines.Self-proning as tolerated.Management of anxiety.PUD and DVT prophylaxis.Keep fluid balance negativeThank you for allowing us to participate in the care of your patient.Interventions Major-Hypoxemia - evaluation and management, Respiratory fa ilure - evaluation and managementIntermediate-Communication with other healthcare providers and/or fa mily
[2020-12-16] MEDS: Enoxaparin 40 MG/0.4 ML Syringe SUBCUT SCH (17:08)
[2020-12-16] MEDS: ALPRAZolam 0.25 MG Tab PO PRN (19:42)
[2020-12-16] MEDS: Albuterol/Ipratropium 3.0-0.5 MG/3 ML Neb Soln NEB PRN (20:00)
[2020-12-16] MEDS: Melatonin 3 MG Tab PO PRN (20:07)
[2020-12-17] MEDS: Albuterol/Ipratropium 3.0-0.5 MG/3 ML Neb Soln NEB PRN ×5 (00:11→22:02)
[2020-12-17] MEDS: Codeine/guaiFENesin 10-100 MG/5 ML Syrup 5 ML Cup PO SCH ×6 (00:32→22:02)
[2020-12-17] MEDS: ALPRAZolam 0.25 MG Tab PO PRN ×4 (02:29→20:45)
[2020-12-17 07:49] LABS: BLOOD UREA NITROGEN,BUN 41 mg/dL (7.0-18.0); CARBON DIOXIDE,CO2 25.7 mmol/L (21.0-32.0); CHLORIDE,CL 101 mmol/L (98-107); GLUCOSE RANDOM 112 mg/dL (74-106); POTASSIUM,K 4.9 mmol/L (3.5-5.1); SODIUM,NA 139 mmol/L (136-148)
[2020-12-17] MEDS: Polyethylene Glycol 3350 Powder 17 GM Packet PO SCH (08:02)
[2020-12-17] MEDS: Docusate Sodium 100 MG Cap PO SCH ×2 (08:02→22:01)
[2020-12-17] MEDS: Pantoprazole 40 MG Tab.CR PO SCH (08:02)
[2020-12-17] MEDS: methylPREDNISolone Sodium Succinate 40 MG/1 ML SDV IVPUSH SCH ×2 (08:04→19:51)
--- NOTE | 2020-12-17 14:47 | PCM.PN ---
- General Info Date of Service: 12/17/20 Subjective Update: Patient states no overnight concerns or concerns this morning. Patient states that he feels less short of breath and is able to ambulate for longer distances. Patient does however state that he has not been drinking as much fluids as usual, and he was encouraged to do so throughout the day. - Review of Systems General: Denies: Fever, Chills Pulmonary: Reports: Cough Cardiovascular: Reports: Dyspnea on Exertion. Denies: Chest Pain, Orthopnea, Edema Gastrointestinal: Denies: Abdominal Pain, Decreased Appetite, Diarrhea, Nausea, Vomiting Skin: Reports: Cyanosis Neurological: Denies: Confusion, Dizziness, Headache Psychiatric: Denies: Confusion - Patient Data Vitals - Most Recent: Last Vital Signs Temp 97.5 F 12/17/20 08:00 Pulse 65 12/01/20 07:00 Resp 15 12/17/20 11:00 BP 126/66 12/17/20 08:00 Pulse Ox 89 L 12/17/20 11:00 Weight - Most Recent: 224 lb 15.99 oz I&O - Last 24 Hours: Intake & Output 12/16/20 12/17/20 12/17/20 22:59 06:59 14:59 Intake Total 400 Output Total 425 Balance -25 Lab Results Last 24 Hours: Laboratory Results - last 24 hr 12/17/20 12/17/20 Range/Units 05:37 05:37 WBC 18.27 H (4.0-11.0) K/uL RBC 4.62 (4.50-5.90) M/uL Hgb 14.0 (13.0-17.0) g/dL Hct 41.6 (38.0-50.0) % MCV 90.0 (80.0-98.0) fL MCH 30.3 (27.0-32.0) pg MCHC 33.7 (31.0-37.0) g/dL RDW Std Deviation 45.2 (28.0-62.0) fl RDW Coeff of Carly 14 (11.0-15.0) % Plt Count 270 (150-400) K/uL MPV 10.50 (7.40-12.00) fL Add Manual Diff YES Neutrophils % (Manual) 79 (48.0-80.0) % Lymphocytes % (Manual) 7 L (16.0-40.0) % Atypical Lymphs % 14 Nucleated RBC % 0.0 /100WBC Absolute Seg Neuts 14.4 H (1.4-5.7) Lymphocytes # (Manual) 1.3 (0.6-2.4) Nucleated RBCs # 0 K/uL Sodium 139 (136-148) mmol/L Potassium 4.9 (3.5-5.1) mmol/L Chloride 101 (98-107) mmol/L Carbon Dioxide 25.7 (21.0-32.0) mmol/L BUN 41 H (7.0-18.0) mg/dL Creatinine 0.8 (0.8-1.3) mg/dL Est Cr Clr Drug Dosing 97.14 mL/min Estimated GFR (MDRD) > 60.0 ml/min Glucose 112 H (74-106) mg/dL Calcium 8.1 L (8.5-10.1) mg/dL Total Bilirubin 0.8 (0.2-1.0) mg/dL AST 21 (15-37) IU/L ALT 44 (14-63) IU/L Alkaline Phosphatase 60 (46-116) U/L Total Protein 6.7 (6.4-8.2) g/dL Albumin 2.5 L (3.4-5.0) g/dL Globulin 4.2 H (2.6-4.0) g/dL Albumin/Globulin Ratio 0.6 L (0.9-1.6) Med Orders - Current: Current Medications Albuterol/Ipratropium (Albuterol/Ipratropium 4 Gm Inhalation [place]) 0 gm INH Q4H PRN PRN Reason: Dyspnea Last Admin: 12/15/20 14:20 Dose: 1 puff Documented by: Albuterol/Ipratropium (Albuterol/Ipratropium 3.0-0.5 Mg/3 Ml Neb Soln) 3 ml NEB Q4HRRT PRN PRN Reason: Wheezing Last Admin: 12/17/20 08:49 Dose: 3 ml Documented by: Alprazolam (Alprazolam 0.25 Mg Tab) 0.25 mg PO Q6H PRN PRN Reason: Anxiety Last Admin: 12/17/20 14:32 Dose: 0.25 mg Documented by: Docusate Sodium (Docusate Sodium 100 Mg Cap) 100 mg PO BID [facility] Last Admin: 12/17/20 08:02 Dose: 100 mg Documented by: Enoxaparin Sodium (Enoxaparin 40 Mg/0.4 Ml Syringe) 40 mg SUBCUT Q24H [facility] Last Admin: 12/16/20 17:08 Dose: 40 mg Documented by: Guaifenesin/Codeine Phosphate (Codeine/Guaifenesin 10-100 Mg/5 Ml Syrup 5 Ml Cup) 5 ml PO Q4H [facility] Last Admin: 12/17/20 12:31 Dose: 5 ml Documented by: Lorazepam (Lorazepam 2 Mg/Ml Sdv) 0.5 mg IVPUSH Q8H PRN PRN Reason: Anxiety Melatonin (Melatonin 3 Mg Tab) 6 mg PO BEDTIME PRN PRN Reason: Insomnia Last Admin: 12/16/20 20:07 Dose: 6 mg Documented by: Methylprednisolone Sodium Succinate (Methylprednisolone Sodium Succinate 40 Mg/1 Ml Sdv) 40 mg IVPUSH Q12H [facility] Last Admin: 12/17/20 08:04 Dose: 40 mg Documented by: Pantoprazole Sodium (Pantoprazole 40 Mg Tab.Cr) 40 mg PO DAILY [facility] Last Admin: 12/17/20 08:02 Dose: 40 mg Documented by: Polyethylene Glycol (Polyethylene Glycol 3350 Powder 17 Gm Packet) 17 gm PO DAILY [facility] Last Admin: 12/17/20 08:02 Dose: 17 gm Documented by: Sodium Chloride (Sodium Chloride 0.9% 10 Ml Syringe) 10 ml FLUSH ASDIRECTED PRN PRN Reason: Keep Vein Open Last Admin: 11/30/20 14:17 Dose: 10 ml Documented by: Sodium Chloride (Sodium Chloride 0.9% 2.5 Ml Syringe) 2.5 ml FLUSH ASDIRECTED PRN PRN Reason: Keep Vein Open Last Admin: 11/30/20 14:17 Dose: 2.5 ml Documented by: Sodium Chloride (Sodium Chloride 0.65% Nasal [place] 45 Ml Bottle) 1 ml LATHA Q6H PRN PRN Reason: Congestion Last Admin: 12/09/20 12:20 Dose: 1 spray Documented by: Discontinued Medications Dexamethasone (Dexamethasone 10 Mg/Ml Sdv) 6 mg IVPUSH ONETIME ONE Stop: 11/30/20 14:46 Last Admin: 11/30/20 15:00 Dose: 6 mg Documented by: Dexamethasone (Dexamethasone 4 Mg Tab) 6 mg PO DAILY [facility] Last Admin: 12/12/20 09:12 Dose: 6 mg Documented by: Famotidine (Famotidine 20 Mg/2 Ml Sdv) 20 mg IVPUSH BID [facility] Last Admin: 12/05/20 08:55 Dose: 20 mg Documented by: Guaifenesin (Guaifenesin 100 Mg/5 Ml Soln 5 Ml Ud Cup) 100 mg PO Q4H [facility] Last Admin: 12/06/20 04:02 Dose: 100 mg Documented by: Guaifenesin/Codeine Phosphate (Codeine/Guaifenesin 10-100 Mg/5 Ml Syrup 5 Ml Cup) 5 ml PO Q4H [facility] Last Admin: 12/11/20 17:21 Dose: 5 ml Documented by: Guaifenesin/Dextromethorphan (Guaifenesin/Dextromethorphan 100-10 Mg/5 Ml Soln 10 Ml Cup) 10 ml PO Q4H PRN PRN Reason: Cough Last Admin: 12/03/20 12:45 Dose: 10 ml Documented by: Guaifenesin/Dextromethorphan (Guaifenesin/Dextromethorphan 100-10 Mg/5 Ml Soln 10 Ml Cup) 10 ml PO Q4H [facility] Last Admin: 12/05/20 10:24 Dose: Not Given Documented by: Remdesivir 200 mg/ Sodium (Chloride) 250 mls @ 250 mls/hr IV ONETIME ONE Stop: 11/30/20 14:46 Last Admin: 11/30/20 20:04 Dose: 250 mls/hr Documented by: Remdesivir 100 mg/ Sodium (Chloride) 100 mls @ 100 mls/hr IV Q24H [facility] Stop: 12/04/20 18:59 Last Admin: 12/04/20 18:12 Dose: 100 mls/hr Documented by: Pantoprazole Sodium 40 mg/ (Sodium Chloride) 10 mls @ 300 mls/hr IV Q24H [facility] Last Admin: 12/09/20 08:56 Dose: 300 mls/hr Documented by: Levofloxacin/Dextrose 750 mg/ (Premix) 150 mls @ 100 mls/hr IV Q24H [facility] Last Admin: 12/11/20 15:24 Dose: 100 mls/hr Documented by: Lactated Ringer's (Ringers, Lactated) 250 mls @ 250 mls/hr IV ASDIRECTED [facility] Iopamidol (Iopamidol 755 Mg/Ml 500 Ml Multipack Bottle) 100 ml IVPUSH ONETIME STA Stop: 12/01/20 16:41 Last Admin: 12/01/20 16:41 Dose: 100 ml Documented by: Lorazepam (Lorazepam 2 Mg/Ml Sdv) 1 mg IVPUSH Q12H PRN PRN Reason: Anxiety Last Admin: 12/12/20 15:53 Dose: 1 mg Documented by: Melatonin (Melatonin 3 Mg Tab) 6 mg PO BEDTIME [facility] Melatonin (Melatonin 3 Mg Tab) 6 mg PO BEDTIME PRN PRN Reason: Insomnia Last Admin: 12/06/20 21:39 Dose: 6 mg Documented by: Methylprednisolone Sodium Succinate (Methylprednisolone Sodium Succinate 40 Mg/1 Ml Sdv) 40 mg IVPUSH Q8H [facility] Last Admin: 12/16/20 03:51 Dose: 40 mg Documented by: Polyethylene Glycol (Polyethylene Glycol 3350 Powder 17 Gm Packet) 17 gm PO BEDTIME [facility] Last Admin: 12/12/20 22:28 Dose: Not Given Documented by: - Exam Quality Assessment: Supplemental Oxygen General: Alert, Oriented Lungs: Clear to Auscultation, Normal Respiratory Effort (with hhf) Cardiovascular: Regular Rate, Regular Rhythm GI/Abdominal Exam: Soft, Non-Tender, No Distention Extremities: No Pedal Edema Psy/Mental Status: Alert - Patient Data Lab Results Last 24 hrs: Laboratory Results - last 24 hr 12/17/20 12/17/20 Range/Units 05:37 05:37 WBC 18.27 H (4.0-11.0) K/uL RBC 4.62 (4.50-5.90) M/uL Hgb 14.0 (13.0-17.0) g/dL Hct 41.6 (38.0-50.0) % MCV 90.0 (80.0-98.0) fL MCH 30.3 (27.0-32.0) pg MCHC 33.7 (31.0-37.0) g/dL RDW Std Deviation 45.2 (28.0-62.0) fl RDW Coeff of Carly 14 (11.0-15.0) % Plt Count 270 (150-400) K/uL MPV 10.50 (7.40-12.00) fL Add Manual Diff YES Neutrophils % (Manual) 79 (48.0-80.0) % Lymphocytes % (Manual) 7 L (16.0-40.0) % Atypical Lymphs % 14 Nucleated RBC % 0.0 /100WBC Absolute Seg Neuts 14.4 H (1.4-5.7) Lymphocytes # (Manual) 1.3 (0.6-2.4) Nucleated RBCs # 0 K/uL Sodium 139 (136-148) mmol/L Potassium 4.9 (3.5-5.1) mmol/L Chloride 101 (98-107) mmol/L Carbon Dioxide 25.7 (21.0-32.0) mmol/L BUN 41 H (7.0-18.0) mg/dL Creatinine 0.8 (0.8-1.3) mg/dL Est Cr Clr Drug Dosing 97.14 mL/min Estimated GFR (MDRD) > 60.0 ml/min Glucose 112 H (74-106) mg/dL Calcium 8.1 L (8.5-10.1) mg/dL Total Bilirubin 0.8 (0.2-1.0) mg/dL AST 21 (15-37) IU/L ALT 44 (14-63) IU/L Alkaline Phosphatase 60 (46-116) U/L Total Protein 6.7 (6.4-8.2) g/dL Albumin 2.5 L (3.4-5.0) g/dL Globulin 4.2 H (2.6-4.0) g/dL Albumin/Globulin Ratio 0.6 L (0.9-1.6) Result Diagrams: 12/17/20 05:37 12/17/20 05:37 Sepsis Event Note - Evaluation Sepsis Screening Result: Sepsis Risk - Focused Exam Vital Signs: Vital Signs Temp Resp BP Pulse Ox 12/17/20 11:00 15 89 L 12/17/20 10:00 27 H 88 L 12/17/20 09:00 14 94 L 12/17/20 08:00 97.5 F 18 126/66 95 12/17/20 06:53 16 96 12/17/20 06:00 18 94 L 12/17/20 05:00 21 H 93 L 12/17/20 04:00 97.3 F 22 H 107/70 94 L 12/17/20 03:00 18 95 - Problem List & Annotations (1) Acute hypoxemic respiratory failure due to COVID-19 SNOMED Code(s): 717863510 Code(s): U07.1 - COVID-19; J96.01 - ACUTE RESPIRATORY FAILURE WITH HYPOXIA Status: Acute Current Visit: Yes - Problem List Review Problem List Initiated/Reviewed/Updated: Yes - My Orders Last 24 Hours: My Active Orders 12/17/20 09:51 Consult to Physical Therapy [PT Evaluation and Treatment] [CONS] Routine - Plan Plan:: Acute hypoxic respiratory failure secondary to COVID-19 pneumonia heated high flow, flow 50, FiO2 75, Wean oxygen as tolerated, encourage physical therapy, I/S. (Patient has guarding with deep inspiration as he believes he will cough) COVID: solumedrol, remdesivir course completed Combivent as needed, incentive spirometry, prone positioning, Lovenox 40 mg subcu q24hr, Robitussin for cough, ocean spray for nasal stuffiness. Melatonin 6mg prn bedtime Physical therapy-Will resume PT today.
[2020-12-17] MEDS: Enoxaparin 40 MG/0.4 ML Syringe SUBCUT SCH (17:39)
[2020-12-17] MEDS: Melatonin 3 MG Tab PO PRN (19:51)
[2020-12-18] MEDS: Codeine/guaiFENesin 10-100 MG/5 ML Syrup 5 ML Cup PO SCH ×6 (01:05→20:33)
[2020-12-18] MEDS: Albuterol/Ipratropium 3.0-0.5 MG/3 ML Neb Soln NEB PRN ×4 (01:26→18:07)
[2020-12-18] MEDS: ALPRAZolam 0.25 MG Tab PO PRN ×3 (02:25→20:32)
[2020-12-18 07:10] LABS: BLOOD UREA NITROGEN,BUN 33 mg/dL (7.0-18.0); CARBON DIOXIDE,CO2 28.3 mmol/L (21.0-32.0); CHLORIDE,CL 102 mmol/L (98-107); GLUCOSE RANDOM 126 mg/dL (74-106); SODIUM,NA 139 mmol/L (136-148)
[2020-12-18] MEDS: Polyethylene Glycol 3350 Powder 17 GM Packet PO SCH (09:06)
[2020-12-18] MEDS: methylPREDNISolone Sodium Succinate 40 MG/1 ML SDV IVPUSH SCH (09:06)
[2020-12-18] MEDS: Docusate Sodium 100 MG Cap PO SCH ×2 (09:06→20:33)
[2020-12-18] MEDS: Pantoprazole 40 MG Tab.CR PO SCH (09:06)
--- NOTE | 2020-12-18 11:27 | PCM.PN ---
- General Info Date of Service: 12/18/20 Subjective Update: Patient states he feels better today, states antianxiety medications are helping. Patient also states being more medically focused and ready to work with physical therapy and continue to do spirometry regularly. - Review of Systems General: Reports: Fatigue. Denies: Fever, Chills Pulmonary: Reports: Cough Cardiovascular: Reports: Dyspnea on Exertion. Denies: Chest Pain, Orthopnea, Edema Gastrointestinal: Denies: Abdominal Pain, Decreased Appetite, Diarrhea, Nausea, Vomiting Neurological: Denies: Confusion, Dizziness, Headache Psychiatric: Denies: Confusion - Patient Data Vitals - Most Recent: Last Vital Signs Temp 97.3 F 12/18/20 08:00 Pulse 65 12/01/20 07:00 Resp 17 12/18/20 10:00 BP 110/68 12/18/20 04:00 Pulse Ox 91 L 12/18/20 10:00 Weight - Most Recent: 224 lb 15.99 oz I&O - Last 24 Hours: Intake & Output 12/17/20 12/18/20 12/18/20 22:59 06:59 14:59 Intake Total 600 600 Output Total 300 475 Balance 300 125 Lab Results Last 24 Hours: Laboratory Results - last 24 hr 12/18/20 12/18/20 Range/Units 04:57 04:57 WBC 15.91 H (4.0-11.0) K/uL RBC 4.36 L (4.50-5.90) M/uL Hgb 13.4 (13.0-17.0) g/dL Hct 39.6 (38.0-50.0) % MCV 90.8 (80.0-98.0) fL MCH 30.7 (27.0-32.0) pg MCHC 33.8 (31.0-37.0) g/dL RDW Std Deviation 45.7 (28.0-62.0) fl RDW Coeff of Carly 14 (11.0-15.0) % Plt Count 254 (150-400) K/uL MPV 10.70 (7.40-12.00) fL Add Manual Diff YES Neutrophils % (Manual) 72 (48.0-80.0) % Band Neutrophils % 1 % Lymphocytes % (Manual) 15 L (16.0-40.0) % Monocytes % (Manual) 8 (0.0-15.0) % Metamyelocytes % 2 % Myelocytes % 2 % Nucleated RBC % 0.0 /100WBC Absolute Seg Neuts 11.5 H (1.4-5.7) Band Neutrophils # 0.2 Lymphocytes # (Manual) 2.4 (0.6-2.4) Monocytes # (Manual) 1.3 H (0.0-0.8) Absolute Metamyelocyte 0.3 Absolute Myelocytes 0.3 Nucleated RBCs # 0 K/uL Sodium 139 (136-148) mmol/L Potassium 5.0 (3.5-5.1) mmol/L Chloride 102 (98-107) mmol/L Carbon Dioxide 28.3 (21.0-32.0) mmol/L BUN 33 H (7.0-18.0) mg/dL Creatinine 0.8 (0.8-1.3) mg/dL Est Cr Clr Drug Dosing 97.14 mL/min Estimated GFR (MDRD) > 60.0 ml/min Glucose 126 H (74-106) mg/dL Calcium 7.9 L (8.5-10.1) mg/dL Total Bilirubin 0.7 (0.2-1.0) mg/dL AST 23 (15-37) IU/L ALT 54 (14-63) IU/L Alkaline Phosphatase 58 (46-116) U/L Total Protein 6.1 L (6.4-8.2) g/dL Albumin 2.4 L (3.4-5.0) g/dL Globulin 3.7 (2.6-4.0) g/dL Albumin/Globulin Ratio 0.7 L (0.9-1.6) Med Orders - Current: Current Medications Albuterol/Ipratropium (Albuterol/Ipratropium 4 Gm Inhalation [place]) 0 gm INH Q4H PRN PRN Reason: Dyspnea Last Admin: 12/15/20 14:20 Dose: 1 puff Documented by: Albuterol/Ipratropium (Albuterol/Ipratropium 3.0-0.5 Mg/3 Ml Neb Soln) 3 ml NEB Q4HRRT PRN PRN Reason: Wheezing Last Admin: 12/18/20 09:17 Dose: 3 ml Documented by: Alprazolam (Alprazolam 0.25 Mg Tab) 0.25 mg PO Q6H PRN PRN Reason: Anxiety Last Admin: 12/18/20 09:06 Dose: 0.25 mg Documented by: Docusate Sodium (Docusate Sodium 100 Mg Cap) 100 mg PO BID [facility] Last Admin: 12/18/20 09:06 Dose: 100 mg Documented by: Enoxaparin Sodium (Enoxaparin 40 Mg/0.4 Ml Syringe) 40 mg SUBCUT Q24H [facility] Last Admin: 12/17/20 17:39 Dose: 40 mg Documented by: Guaifenesin/Codeine Phosphate (Codeine/Guaifenesin 10-100 Mg/5 Ml Syrup 5 Ml Cup) 5 ml PO Q4H [facility] Last Admin: 12/18/20 09:06 Dose: 5 ml Documented by: Melatonin (Melatonin 3 Mg Tab) 6 mg PO BEDTIME PRN PRN Reason: Insomnia Last Admin: 12/17/20 19:51 Dose: 6 mg Documented by: Methylprednisolone Sodium Succinate (Methylprednisolone Sodium Succinate 40 Mg/1 Ml Sdv) 40 mg IVPUSH Q12H [facility] Last Admin: 12/18/20 09:06 Dose: 40 mg Documented by: Pantoprazole Sodium (Pantoprazole 40 Mg Tab.Cr) 40 mg PO DAILY [facility] Last Admin: 12/18/20 09:06 Dose: 40 mg Documented by: Polyethylene Glycol (Polyethylene Glycol 3350 Powder 17 Gm Packet) 17 gm PO DAILY [facility] Last Admin: 12/18/20 09:06 Dose: 17 gm Documented by: Sodium Chloride (Sodium Chloride 0.9% 10 Ml Syringe) 10 ml FLUSH ASDIRECTED PRN PRN Reason: Keep Vein Open Last Admin: 11/30/20 14:17 Dose: 10 ml Documented by: Sodium Chloride (Sodium Chloride 0.9% 2.5 Ml Syringe) 2.5 ml FLUSH ASDIRECTED PRN PRN Reason: Keep Vein Open Last Admin: 11/30/20 14:17 Dose: 2.5 ml Documented by: Sodium Chloride (Sodium Chloride 0.65% Nasal [place] 45 Ml Bottle) 1 ml LATHA Q6H PRN PRN Reason: Congestion Last Admin: 12/09/20 12:20 Dose: 1 spray Documented by: Discontinued Medications Dexamethasone (Dexamethasone 10 Mg/Ml Sdv) 6 mg IVPUSH ONETIME ONE Stop: 11/30/20 14:46 Last Admin: 11/30/20 15:00 Dose: 6 mg Documented by: Dexamethasone (Dexamethasone 4 Mg Tab) 6 mg PO DAILY [facility] Last Admin: 12/12/20 09:12 Dose: 6 mg Documented by: Famotidine (Famotidine 20 Mg/2 Ml Sdv) 20 mg IVPUSH BID [facility] Last Admin: 12/05/20 08:55 Dose: 20 mg Documented by: Guaifenesin (Guaifenesin 100 Mg/5 Ml Soln 5 Ml Ud Cup) 100 mg PO Q4H [facility] Last Admin: 12/06/20 04:02 Dose: 100 mg Documented by: Guaifenesin/Codeine Phosphate (Codeine/Guaifenesin 10-100 Mg/5 Ml Syrup 5 Ml Cup) 5 ml PO Q4H [facility] Last Admin: 12/11/20 17:21 Dose: 5 ml Documented by: Guaifenesin/Dextromethorphan (Guaifenesin/Dextromethorphan 100-10 Mg/5 Ml Soln 10 Ml Cup) 10 ml PO Q4H PRN PRN Reason: Cough Last Admin: 12/03/20 12:45 Dose: 10 ml Documented by: Guaifenesin/Dextromethorphan (Guaifenesin/Dextromethorphan 100-10 Mg/5 Ml Soln 10 Ml Cup) 10 ml PO Q4H [facility] Last Admin: 12/05/20 10:24 Dose: Not Given Documented by: Remdesivir 200 mg/ Sodium (Chloride) 250 mls @ 250 mls/hr IV ONETIME ONE Stop: 11/30/20 14:46 Last Admin: 11/30/20 20:04 Dose: 250 mls/hr Documented by: Remdesivir 100 mg/ Sodium (Chloride) 100 mls @ 100 mls/hr IV Q24H [facility] Stop: 12/04/20 18:59 Last Admin: 12/04/20 18:12 Dose: 100 mls/hr Documented by: Pantoprazole Sodium 40 mg/ (Sodium Chloride) 10 mls @ 300 mls/hr IV Q24H [facility] Last Admin: 12/09/20 08:56 Dose: 300 mls/hr Documented by: Levofloxacin/Dextrose 750 mg/ (Premix) 150 mls @ 100 mls/hr IV Q24H [facility] Last Admin: 12/11/20 15:24 Dose: 100 mls/hr Documented by: Lactated Ringer's (Ringers, Lactated) 250 mls @ 250 mls/hr IV ASDIRECTED [facility] Iopamidol (Iopamidol 755 Mg/Ml 500 Ml Multipack Bottle) 100 ml IVPUSH ONETIME STA Stop: 12/01/20 16:41 Last Admin: 12/01/20 16:41 Dose: 100 ml Documented by: Lorazepam (Lorazepam 2 Mg/Ml Sdv) 1 mg IVPUSH Q12H PRN PRN Reason: Anxiety Last Admin: 12/12/20 15:53 Dose: 1 mg Documented by: Lorazepam (Lorazepam 2 Mg/Ml Sdv) 0.5 mg IVPUSH Q8H PRN PRN Reason: Anxiety Melatonin (Melatonin 3 Mg Tab) 6 mg PO BEDTIME FERNANDO Melatonin (Melatonin 3 Mg Tab) 6 mg PO BEDTIME PRN PRN Reason: Insomnia Last Admin: 12/06/20 21:39 Dose: 6 mg Documented by: Methylprednisolone Sodium Succinate (Methylprednisolone Sodium Succinate 40 Mg/1 Ml Sdv) 40 mg IVPUSH Q8H [facility] Last Admin: 12/16/20 03:51 Dose: 40 mg Documented by: Polyethylene Glycol (Polyethylene Glycol 3350 Powder 17 Gm Packet) 17 gm PO BEDTIME [facility] Last Admin: 12/12/20 22:28 Dose: Not Given Documented by: - Exam General: Alert, Oriented Lungs: Clear to Auscultation. No: Normal Respiratory Effort (requires hhf) Cardiovascular: Regular Rate, Regular Rhythm GI/Abdominal Exam: Soft, Non-Tender, No Distention Extremities: No Pedal Edema Psy/Mental Status: Alert - Patient Data Lab Results Last 24 hrs: Laboratory Results - last 24 hr 12/18/20 12/18/20 Range/Units 04:57 04:57 WBC 15.91 H (4.0-11.0) K/uL RBC 4.36 L (4.50-5.90) M/uL Hgb 13.4 (13.0-17.0) g/dL Hct 39.6 (38.0-50.0) % MCV 90.8 (80.0-98.0) fL MCH 30.7 (27.0-32.0) pg MCHC 33.8 (31.0-37.0) g/dL RDW Std Deviation 45.7 (28.0-62.0) fl RDW Coeff of Carly 14 (11.0-15.0) % Plt Count 254 (150-400) K/uL MPV 10.70 (7.40-12.00) fL Add Manual Diff YES Neutrophils % (Manual) 72 (48.0-80.0) % Band Neutrophils % 1 % Lymphocytes % (Manual) 15 L (16.0-40.0) % Monocytes % (Manual) 8 (0.0-15.0) % Metamyelocytes % 2 % Myelocytes % 2 % Nucleated RBC % 0.0 /100WBC Absolute Seg Neuts 11.5 H (1.4-5.7) Band Neutrophils # 0.2 Lymphocytes # (Manual) 2.4 (0.6-2.4) Monocytes # (Manual) 1.3 H (0.0-0.8) Absolute Metamyelocyte 0.3 Absolute Myelocytes 0.3 Nucleated RBCs # 0 K/uL Sodium 139 (136-148) mmol/L Potassium 5.0 (3.5-5.1) mmol/L Chloride 102 (98-107) mmol/L Carbon Dioxide 28.3 (21.0-32.0) mmol/L BUN 33 H (7.0-18.0) mg/dL Creatinine 0.8 (0.8-1.3) mg/dL Est Cr Clr Drug Dosing 97.14 mL/min Estimated GFR (MDRD) > 60.0 ml/min Glucose 126 H (74-106) mg/dL Calcium 7.9 L (8.5-10.1) mg/dL Total Bilirubin 0.7 (0.2-1.0) mg/dL AST 23 (15-37) IU/L ALT 54 (14-63) IU/L Alkaline Phosphatase 58 (46-116) U/L Total Protein 6.1 L (6.4-8.2) g/dL Albumin 2.4 L (3.4-5.0) g/dL Globulin 3.7 (2.6-4.0) g/dL Albumin/Globulin Ratio 0.7 L (0.9-1.6) Result Diagrams: 12/18/20 04:57 12/18/20 04:57 Sepsis Event Note - Evaluation Sepsis Screening Result: Sepsis Risk - Focused Exam Vital Signs: Vital Signs Temp Resp BP Pulse Ox 12/18/20 10:00 17 91 L 12/18/20 09:00 16 89 L 12/18/20 08:00 97.3 F 17 98 12/18/20 07:00 17 96 12/18/20 06:00 16 97 12/18/20 05:00 31 H 89 L 12/18/20 04:00 96.0 F L 22 H 110/68 90 L 12/18/20 03:00 16 95 12/18/20 02:00 17 94 L 12/18/20 01:00 16 97 12/18/20 00:00 95.5 F L 16 110/66 95 - Problem List & Annotations (1) Acute hypoxemic respiratory failure due to COVID-19 SNOMED Code(s): 022516701 Code(s): U07.1 - COVID-19; J96.01 - ACUTE RESPIRATORY FAILURE WITH HYPOXIA Status: Acute Current Visit: Yes - Problem List Review Problem List Initiated/Reviewed/Updated: Yes - Plan Plan:: Acute hypoxic respiratory failure secondary to COVID-19 pneumonia heated high flow, flow 45, FiO2 75, Wean oxygen as tolerated, encourage physical therapy, I/S. (Patient has guarding with deep inspiration as he believes he will cough) COVID: solumedrol, remdesivir course completed Combivent as needed, incentive spirometry, prone positioning, Lovenox 40 mg subcu q24hr, Robitussin for cough, ocean spray for nasal stuffiness. Melatonin 6mg prn bedtime Physical therapy-Will resume PT today.
--- NOTE | 2020-12-18 14:52 | CR ---
INDICATION: COVID pneumonia. Hypoxia. TECHNIQUE: Upright portable AP image of the chest. COMPARISON: 12/05/2020. FINDINGS: Diffuse infiltrates, as before. New left-sided pneumothorax of small to moderate size, new small right pneumothorax and new pneumomediastinum with considerable air in the neck base and supraclavicular regions. Normal heart size. IMPRESSION: 1. New left-sided pneumothorax of small to moderate size, new small right pneumothorax and new pneumomediastinum with considerable subcutaneous air in the neck and supraclavicular regions. 2. Grossly unchanged diffuse pneumonias. Dictated by Tom Petty MD @ 12/18/2020 2:52:13 PM (Electronically Signed)
--- NOTE | 2020-12-18 16:04 | PN ---
[facility] Physician - Brief Progress [id number]/15/2021 16:03[facility] Patsy Mckeon, [place] - MYRNA (ARMANDO) - REKHA ANDREWS, COVID+Date of Service 12/18/2020 16:03HPI /Events of Note eICU Brief Progress NotePatient admitted for COVID pneumonia. On last few days patien t had been stable on HFNC, imaging demonstrates subcutaneous emphysema. Case discussed with bedside adam hernandez over telephone.Camera exam: Sitting on chair. Vitals monitor reviewed. eICU Recommendations: Try titrate flow down to 40Lpm and assess patient toleranceIncrease FiO2 to 100% at least overnightCX R Daily and PRNHold on physical therapy for nowPer discussion with bedside patient has had ~21 days o f corticosteroids - rather than discontinue abruptly would wean off given potential risk for adrenal insufficiency. Recommended switching to prednisone taper starting with 40mg daily (first dose can be tomorrow) x5 days, 20mg daily x5 days, 10mg daily x5 days, 5mg daily x5 days, then stopping.Intervent ions Major-Respiratory failure - evaluation and management
[2020-12-18] MEDS: Enoxaparin 40 MG/0.4 ML Syringe SUBCUT SCH (19:16)
[2020-12-18] MEDS: Melatonin 3 MG Tab PO PRN (20:32)
[2020-12-19] MEDS: Codeine/guaiFENesin 10-100 MG/5 ML Syrup 5 ML Cup PO SCH ×4 (00:31→12:47)
[2020-12-19] MEDS: ALPRAZolam 0.25 MG Tab PO PRN ×4 (02:11→20:57)
--- NOTE | 2020-12-19 05:50 | CR ---
HISTORY: Pneumothorax follow-up. TECHNIQUE: Portable frontal view the chest. COMPARISON: Chest x-ray 12/18/2020. FINDINGS: Unchanged multifocal bilateral airspace consolidation and diffuse interstitial thickening. Small right apical pneumothorax has decreased. Small left pneumothorax has decreased. Pneumomediastinum appears improved. Gas in the soft tissues of the chest wall and lower neck similar to prior. No pleural effusions. Cardiomediastinal silhouette is unchanged. IMPRESSION: 1. Small bilateral pneumothoraces have decreased in size. 2. Unchanged multifocal pneumonia. Dictated by Moiz Hendrickson MD @ 12/19/2020 5:50:01 AM (Electronically Signed)
[2020-12-19 06:47] LABS: BLOOD UREA NITROGEN,BUN 27 mg/dL (7.0-18.0); CARBON DIOXIDE,CO2 28.2 mmol/L (21.0-32.0); CHLORIDE,CL 104 mmol/L (98-107); GLUCOSE RANDOM 85 mg/dL (74-106); POTASSIUM,K 4.5 mmol/L (3.5-5.1); SODIUM,NA 139 mmol/L (136-148)
[2020-12-19] MEDS: predniSONE 20 MG Tab PO SCH (08:04)
[2020-12-19] MEDS: Pantoprazole 40 MG Tab.CR PO SCH (08:04)
[2020-12-19] MEDS: Polyethylene Glycol 3350 Powder 17 GM Packet PO SCH (08:05)
[2020-12-19] MEDS: Docusate Sodium 100 MG Cap PO SCH ×2 (08:05→20:57)
[2020-12-19] MEDS: Benzonatate 100 MG Cap PO SCH ×2 (14:36→21:10)
--- NOTE | 2020-12-19 14:56 | PCM.PN ---
<Abelardo Garza - Last Filed: 12/19/20 14:51> - General Info Date of Service: 12/19/20 Subjective Update: Patient denies chest pain, shortness of breath, fever, chills. Patient states that he feels well. Patient states he worked with physical therapy yesterday, but would like to take a break today. Patient states he would resume physical therapy on Monday. - Review of Systems General: Reports: Fatigue. Denies: Fever, Chills Pulmonary: Reports: Cough Cardiovascular: Reports: Dyspnea on Exertion. Denies: Chest Pain, Edema Gastrointestinal: Denies: Abdominal Pain, Diarrhea, Nausea, Vomiting Neurological: Denies: Confusion, Dizziness, Headache Psychiatric: Denies: Confusion - Patient Data Vitals - Most Recent: Last Vital Signs Temp 96.5 F L 12/19/20 12:00 Pulse 65 12/01/20 07:00 Resp 28 H 12/19/20 14:00 BP 125/68 12/19/20 14:00 Pulse Ox 93 L 12/19/20 14:00 Weight - Most Recent: 102.058 kg I&O - Last 24 Hours: Intake & Output 12/18/20 12/19/20 12/19/20 22:59 06:59 14:59 Intake Total 1120 450 Output Total 900 750 Balance 220 -300 Lab Results Last 24 Hours: Laboratory Results - last 24 hr 12/19/20 12/19/20 Range/Units 05:45 05:45 WBC 13.69 H (4.0-11.0) K/uL RBC 4.23 L (4.50-5.90) M/uL Hgb 13.1 (13.0-17.0) g/dL Hct 38.6 (38.0-50.0) % MCV 91.3 (80.0-98.0) fL MCH 31.0 (27.0-32.0) pg MCHC 33.9 (31.0-37.0) g/dL RDW Std Deviation 46.0 (28.0-62.0) fl RDW Coeff of Carly 14 (11.0-15.0) % Plt Count 245 (150-400) K/uL MPV 10.00 (7.40-12.00) fL Add Manual Diff YES Neutrophils % (Manual) 60 (48.0-80.0) % Band Neutrophils % 3 % Lymphocytes % (Manual) 21 (16.0-40.0) % Monocytes % (Manual) 12 (0.0-15.0) % Eosinophils % (Manual) 4 (0.0-7.0) % Nucleated RBC % 0.0 /100WBC Absolute Seg Neuts 8.2 H (1.4-5.7) Band Neutrophils # 0.4 Lymphocytes # (Manual) 2.9 H (0.6-2.4) Monocytes # (Manual) 1.6 H (0.0-0.8) Eosinophils # (Manual) 0.5 (0.0-0.7) Nucleated RBCs # 0 K/uL Sodium 139 (136-148) mmol/L Potassium 4.5 (3.5-5.1) mmol/L Chloride 104 (98-107) mmol/L Carbon Dioxide 28.2 (21.0-32.0) mmol/L BUN 27 H (7.0-18.0) mg/dL Creatinine 0.8 (0.8-1.3) mg/dL Est Cr Clr Drug Dosing 97.14 mL/min Estimated GFR (MDRD) > 60.0 ml/min Glucose 85 (74-106) mg/dL Calcium 8.0 L (8.5-10.1) mg/dL Total Bilirubin 0.6 (0.2-1.0) mg/dL AST 23 (15-37) IU/L ALT 47 (14-63) IU/L Alkaline Phosphatase 56 (46-116) U/L Total Protein 5.8 L (6.4-8.2) g/dL Albumin 2.3 L (3.4-5.0) g/dL Globulin 3.5 (2.6-4.0) g/dL Albumin/Globulin Ratio 0.7 L (0.9-1.6) Med Orders - Current: Current Medications Albuterol/Ipratropium (Albuterol/Ipratropium 4 Gm Inhalation [place]) 0 gm INH Q4H PRN PRN Reason: Dyspnea Last Admin: 12/15/20 14:20 Dose: 1 puff Documented by: Albuterol/Ipratropium (Albuterol/Ipratropium 3.0-0.5 Mg/3 Ml Neb Soln) 3 ml NEB Q4HRRT PRN PRN Reason: Wheezing Last Admin: 12/18/20 18:07 Dose: 3 ml Documented by: Alprazolam (Alprazolam 0.25 Mg Tab) 0.25 mg PO Q6H PRN PRN Reason: Anxiety Last Admin: 12/19/20 14:37 Dose: 0.25 mg Documented by: Benzonatate (Benzonatate 100 Mg Cap) 200 mg PO TID [facility] Last Admin: 12/19/20 14:36 Dose: 200 mg Documented by: Docusate Sodium (Docusate Sodium 100 Mg Cap) 100 mg PO BID [facility] Last Admin: 12/19/20 08:05 Dose: 100 mg Documented by: Enoxaparin Sodium (Enoxaparin 40 Mg/0.4 Ml Syringe) 40 mg SUBCUT Q24H [facility] Last Admin: 12/18/20 19:16 Dose: 40 mg Documented by: Guaifenesin/Codeine Phosphate (Codeine/Guaifenesin 10-100 Mg/5 Ml Syrup 5 Ml Cup) 5 ml PO Q4H PRN PRN Reason: Cough Melatonin (Melatonin 3 Mg Tab) 6 mg PO BEDTIME PRN PRN Reason: Insomnia Last Admin: 12/18/20 20:32 Dose: 6 mg Documented by: Pantoprazole Sodium (Pantoprazole 40 Mg Tab.Cr) 40 mg PO DAILY [facility] Last Admin: 12/19/20 08:04 Dose: 40 mg Documented by: Polyethylene Glycol (Polyethylene Glycol 3350 Powder 17 Gm Packet) 17 gm PO DAILY [facility] Last Admin: 12/19/20 08:05 Dose: 17 gm Documented by: Prednisone (Prednisone 20 Mg Tab) 40 mg PO WITHBREAKFAST [facility] Last Admin: 12/19/20 08:04 Dose: 40 mg Documented by: Sodium Chloride (Sodium Chloride 0.9% 10 Ml Syringe) 10 ml FLUSH ASDIRECTED PRN PRN Reason: Keep Vein Open Last Admin: 11/30/20 14:17 Dose: 10 ml Documented by: Sodium Chloride (Sodium Chloride 0.9% 2.5 Ml Syringe) 2.5 ml FLUSH ASDIRECTED PRN PRN Reason: Keep Vein Open Last Admin: 11/30/20 14:17 Dose: 2.5 ml Documented by: Sodium Chloride (Sodium Chloride 0.65% Nasal [place] 45 Ml Bottle) 1 ml LATHA Q6H PRN PRN Reason: Congestion Last Admin: 12/09/20 12:20 Dose: 1 spray Documented by: Discontinued Medications Dexamethasone (Dexamethasone 10 Mg/Ml Sdv) 6 mg IVPUSH ONETIME ONE Stop: 11/30/20 14:46 Last Admin: 11/30/20 15:00 Dose: 6 mg Documented by: Dexamethasone (Dexamethasone 4 Mg Tab) 6 mg PO DAILY [facility] Last Admin: 12/12/20 09:12 Dose: 6 mg Documented by: Famotidine (Famotidine 20 Mg/2 Ml Sdv) 20 mg IVPUSH BID [facility] Last Admin: 12/05/20 08:55 Dose: 20 mg Documented by: Guaifenesin (Guaifenesin 100 Mg/5 Ml Soln 5 Ml Ud Cup) 100 mg PO Q4H [facility] Last Admin: 12/06/20 04:02 Dose: 100 mg Documented by: Guaifenesin/Codeine Phosphate (Codeine/Guaifenesin 10-100 Mg/5 Ml Syrup 5 Ml Cup) 5 ml PO Q4H [facility] Last Admin: 12/11/20 17:21 Dose: 5 ml Documented by: Guaifenesin/Codeine Phosphate (Codeine/Guaifenesin 10-100 Mg/5 Ml Syrup 5 Ml Cup) 5 ml PO Q4H [facility] Last Admin: 12/19/20 12:47 Dose: 5 ml Documented by: Guaifenesin/Dextromethorphan (Guaifenesin/Dextromethorphan 100-10 Mg/5 Ml Soln 10 Ml Cup) 10 ml PO Q4H PRN PRN Reason: Cough Last Admin: 12/03/20 12:45 Dose: 10 ml Documented by: Guaifenesin/Dextromethorphan (Guaifenesin/Dextromethorphan 100-10 Mg/5 Ml Soln 1 0 Ml Cup) 10 ml PO Q4H [facility] Last Admin: 12/05/20 10:24 Dose: Not Given Documented by: Remdesivir 200 mg/ Sodium (Chloride) 250 mls @ 250 mls/hr IV ONETIME ONE Stop: 11/30/20 14:46 Last Admin: 11/30/20 20:04 Dose: 250 mls/hr Documented by: Remdesivir 100 mg/ Sodium (Chloride) 100 mls @ 100 mls/hr IV Q24H [facility] Stop: 12/04/20 18:59 Last Admin: 12/04/20 18:12 Dose: 100 mls/hr Documented by: Pantoprazole Sodium 40 mg/ (Sodium Chloride) 10 mls @ 300 mls/hr IV Q24H [facility] Last Admin: 12/09/20 08:56 Dose: 300 mls/hr Documented by: Levofloxacin/Dextrose 750 mg/ (Premix) 150 mls @ 100 mls/hr IV Q24H [facility] Last Admin: 12/11/20 15:24 Dose: 100 mls/hr Documented by: Lactated Ringer's (Ringers, Lactated) 250 mls @ 250 mls/hr IV ASDIRECTED [facility] Iopamidol (Iopamidol 755 Mg/Ml 500 Ml Multipack Bottle) 100 ml IVPUSH ONETIME [facility] Stop: 12/01/20 16:41 Last Admin: 12/01/20 16:41 Dose: 100 ml Documented by: Lorazepam (Lorazepam 2 Mg/Ml Sdv) 1 mg IVPUSH Q12H PRN PRN Reason: Anxiety Last Admin: 12/12/20 15:53 Dose: 1 mg Documented by: Lorazepam (Lorazepam 2 Mg/Ml Sdv) 0.5 mg IVPUSH Q8H PRN PRN Reason: Anxiety Melatonin (Melatonin 3 Mg Tab) 6 mg PO BEDTIME [facility] Melatonin (Melatonin 3 Mg Tab) 6 mg PO BEDTIME PRN PRN Reason: Insomnia Last Admin: 12/06/20 21:39 Dose: 6 mg Documented by: Methylprednisolone Sodium Succinate (Methylprednisolone Sodium Succinate 40 Mg/1 Ml Sdv) 40 mg IVPUSH Q8H [facility] Last Admin: 12/16/20 03:51 Dose: 40 mg Documented by: Methylprednisolone Sodium Succinate (Methylprednisolone Sodium Succinate 40 Mg/1 Ml Sdv) 40 mg IVPUSH Q12H [facility] Last Admin: 12/18/20 09:06 Dose: 40 mg Documented by: Polyethylene Glycol (Polyethylene Glycol 3350 Powder 17 Gm Packet) 17 gm PO BEDTIME [facility] Last Admin: 12/12/20 22:28 Dose: Not Given Documented by: - Exam General: Alert, Oriented Lungs: Crackles. No: Normal Respiratory Effort (on hhf) Cardiovascular: Regular Rate, Regular Rhythm GI/Abdominal Exam: Soft, Non-Tender, No Distention Extremities: No Pedal Edema Psy/Mental Status: Alert - Patient Data Lab Results Last 24 hrs: Laboratory Results - last 24 hr 12/19/20 12/19/20 Range/Units 05:45 05:45 WBC 13.69 H (4.0-11.0) K/uL RBC 4.23 L (4.50-5.90) M/uL Hgb 13.1 (13.0-17.0) g/dL Hct 38.6 (38.0-50.0) % MCV 91.3 (80.0-98.0) fL MCH 31.0 (27.0-32.0) pg MCHC 33.9 (31.0-37.0) g/dL RDW Std Deviation 46.0 (28.0-62.0) fl RDW Coeff of Carly 14 (11.0-15.0) % Plt Count 245 (150-400) K/uL MPV 10.00 (7.40-12.00) fL Add Manual Diff YES Neutrophils % (Manual) 60 (48.0-80.0) % Band Neutrophils % 3 % Lymphocytes % (Manual) 21 (16.0-40.0) % Monocytes % (Manual) 12 (0.0-15.0) % Eosinophils % (Manual) 4 (0.0-7.0) % Nucleated RBC % 0.0 /100WBC Absolute Seg Neuts 8.2 H (1.4-5.7) Band Neutrophils # 0.4 Lymphocytes # (Manual) 2.9 H (0.6-2.4) Monocytes # (Manual) 1.6 H (0.0-0.8) Eosinophils # (Manual) 0.5 (0.0-0.7) Nucleated RBCs # 0 K/uL Sodium 139 (136-148) mmol/L Potassium 4.5 (3.5-5.1) mmol/L Chloride 104 (98-107) mmol/L Carbon Dioxide 28.2 (21.0-32.0) mmol/L BUN 27 H (7.0-18.0) mg/dL Creatinine 0.8 (0.8-1.3) mg/dL Est Cr Clr Drug Dosing 97.14 mL/min Estimated GFR (MDRD) > 60.0 ml/min Glucose 85 (74-106) mg/dL Calcium 8.0 L (8.5-10.1) mg/dL Total Bilirubin 0.6 (0.2-1.0) mg/dL AST 23 (15-37) IU/L ALT 47 (14-63) IU/L Alkaline Phosphatase 56 (46-116) U/L Total Protein 5.8 L (6.4-8.2) g/dL Albumin 2.3 L (3.4-5.0) g/dL Globulin 3.5 (2.6-4.0) g/dL Albumin/Globulin Ratio 0.7 L (0.9-1.6) Result Diagrams: 12/19/20 05:45 12/19/20 05:45 Sepsis Event Note - Evaluation Sepsis Screening Result: Sepsis Risk - Focused Exam Vital Signs: Vital Signs Temp Resp BP Pulse Ox 12/19/20 14:00 28 H 125/68 93 L 12/19/20 13:00 25 H 118/65 95 12/19/20 12:00 96.5 F L 23 H 113/64 91 L 12/19/20 11:00 19 117/61 93 L 12/19/20 10:00 23 H 122/86 88 L 12/19/20 09:00 17 112/58 L 91 L 12/19/20 08:00 97.5 F 15 110/58 L 96 12/19/20 07:00 13 109/59 L 92 L 12/19/20 06:00 17 107/60 97 12/19/20 05:00 97.4 F 19 106/58 L 99 12/19/20 04:00 17 106/56 L 99 12/19/20 03:00 16 109/59 L 100 - Problem List & Annotations (1) Acute hypoxemic respiratory failure due to COVID-19 SNOMED Code(s): 389277365 Code(s): U07.1 - COVID-19; J96.01 - ACUTE RESPIRATORY FAILURE WITH HYPOXIA Status: Acute Current Visit: Yes (2) Anxiety about health SNOMED Code(s): 895608137 Code(s): F41.8 - OTHER SPECIFIED ANXIETY DISORDERS Status: Acute Current Visit: Yes - Problem List Review Problem List Initiated/Reviewed/Updated: Yes - My Orders Last 24 Hours: My Active Orders 12/19/20 14:50 Codeine/guaiFENesin [Robitussin AC] 5 ml PO Q4H PRN 12/19/20 15:00 Benzonatate [Tessalon Perles] 200 mg PO TID 12/20/20 05:11 Chest 1V Frontal [CR] AM - Plan Plan:: Acute hypoxic respiratory failure secondary to COVID-19 pneumonia Chest x-ray taken yesterday 12-18-20 noted left-sided pneumothorax small to moderate size, small right pneumothorax and new pneumomediastinum with air in the neck base and supraclavicular regions. Repeat chest x-ray taken today 12-19-20 notes right apical pneumothorax has decreased, left pneumothorax has decreased. Pneumomediastinum appears improved. eICU recommendation was to titrate flow to 40 L/min, increase FiO2 to maintain oxygen saturations, daily chest x-ray, wean steroids. Patient currently on high flow 40, FiO2 75, Will attempt to reduce flow and titrate fio2 COVID: predinisone 40mg daily, remdesivir course completed Combivent as needed, incentive spirometry, prone positioning, Lovenox 40 mg subcu q24hr, Will start tessalon pearles 200mg TID, Robitussin AC for cough prn, ocean spray for nasal stuffiness. Melatonin 6mg prn bedtime Physical therapy-Will resume on Monday Daily Chest X-Ray to assess pneumothoraces and pneumomediastinum <Nimisha Julian - Last Filed: 12/22/20 23:10> - Patient Data Vitals - Most Recent: Last Vital Signs Temp 36.4 C 12/22/20 20:00 Pulse 76 12/22/20 18:00 Resp 18 12/22/20 22:00 BP 114/63 12/22/20 22:00 Pulse Ox 91 L 12/22/20 22:00 I&O - Last 24 Hours: Intake & Output 12/22/20 12/22/20 12/23/20 14:59 22:59 06:59 Intake Total 120 420 Output Total 175 200 Balance -55 220 Lab Results Last 24 Hours: Laboratory Results - last 24 hr 12/22/20 12/22/20 Range/Units 05:45 05:45 WBC 12.36 H (4.0-11.0) K/uL RBC 4.23 L (4.50-5.90) M/uL Hgb 13.0 (13.0-17.0) g/dL Hct 38.2 (38.0-50.0) % MCV 90.3 (80.0-98.0) fL MCH 30.7 (27.0-32.0) pg MCHC 34.0 (31.0-37.0) g/dL RDW Std Deviation 45.2 (28.0-62.0) fl RDW Coeff of Carly 14 (11.0-15.0) % Plt Count 253 (150-400) K/uL MPV 10.40 (7.40-12.00) fL Add Manual Diff YES Neutrophils % (Manual) 74 (48.0-80.0) % Band Neutrophils % 1 % Lymphocytes % (Manual) 13 L (16.0-40.0) % Monocytes % (Manual) 10 (0.0-15.0) % Eosinophils % (Manual) 2 (0.0-7.0) % Nucleated RBC % 0.0 /100WBC Absolute Seg Neuts 9.1 H (1.4-5.7) Band Neutrophils # 0.1 Lymphocytes # (Manual) 1.6 (0.6-2.4) Monocytes # (Manual) 1.2 H (0.0-0.8) Eosinophils # (Manual) 0.2 (0.0-0.7) Nucleated RBCs # 0 K/uL Sodium 141 (136-148) mmol/L Potassium 4.0 (3.5-5.1) mmol/L Chloride 103 (98-107) mmol/L Carbon Dioxide 31.2 (21.0-32.0) mmol/L BUN 17 (7.0-18.0) mg/dL Creatinine 0.9 (0.8-1.3) mg/dL Est Cr Clr Drug Dosing 86.22 mL/min Estimated GFR (MDRD) > 60.0 ml/min Glucose 97 (74-106) mg/dL Calcium 8.2 L (8.5-10.1) mg/dL Phosphorus 3.6 (2.6-4.7) mg/dL Magnesium 2.1 (1.8-2.4) mg/dL Med Orders - Current: Current Medications Albuterol/Ipratropium (Albuterol/Ipratropium 4 Gm Inhalation [place]) 0 gm INH Q4H PRN PRN Reason: Dyspnea Last Admin: 12/15/20 14:20 Dose: 1 puff Documented by: Albuterol/Ipratropium (Albuterol/Ipratropium 3.0-0.5 Mg/3 Ml Neb Soln) 3 ml NEB Q4HRRT PRN PRN Reason: Wheezing Last Admin: 12/22/20 22:59 Dose: 3 ml Documented by: Alprazolam (Alprazolam 0.25 Mg Tab) 0.25 mg PO Q6H PRN PRN Reason: Anxiety Last Admin: 12/22/20 23:00 Dose: 0.25 mg Documented by: Benzonatate (Benzonatate 100 Mg Cap) 200 mg PO TID [facility] Last Admin: 12/22/20 21:13 Dose: 200 mg Documented by: Docusate Sodium (Docusate Sodium 100 Mg Cap) 100 mg PO BID [facility] Last Admin: 12/22/20 20:46 Dose: 100 mg Documented by: Enoxaparin Sodium (Enoxaparin 40 Mg/0.4 Ml Syringe) 40 mg SUBCUT Q24H [facility] Last Admin: 12/22/20 17:00 Dose: 40 mg Documented by: Guaifenesin/Codeine Phosphate (Codeine/Guaifenesin 10-100 Mg/5 Ml Syrup 5 Ml Cup) 5 ml PO Q4H PRN PRN Reason: Cough Last Admin: 12/22/20 22:59 Dose: 5 ml Documented by: Melatonin (Melatonin 3 Mg Tab) 6 mg PO BEDTIME PRN PRN Reason: Insomnia Last Admin: 12/22/20 20:46 Dose: 6 mg Documented by: Pantoprazole Sodium (Pantoprazole 40 Mg Tab.Cr) 40 mg PO DAILY [facility] Last Admin: 12/22/20 08:38 Dose: 40 mg Documented by: Polyethylene Glycol (Polyethylene Glycol 3350 Powder 17 Gm Packet) 17 gm PO DAILY [facility] Last Admin: 12/22/20 08:39 Dose: Not Given Documented by: Prednisone (Prednisone 20 Mg Tab) 40 mg PO WITHBREAKFAST [facility] Last Admin: 12/22/20 08:38 Dose: 40 mg Documented by: Sodium Chloride (Sodium Chloride 0.9% 10 Ml Syringe) 10 ml FLUSH ASDIRECTED PRN PRN Reason: Keep Vein Open Last Admin: 11/30/20 14:17 Dose: 10 ml Documented by: Sodium Chloride (Sodium Chloride 0.9% 2.5 Ml Syringe) 2.5 ml FLUSH ASDIRECTED PRN PRN Reason: Keep Vein Open Last Admin: 11/30/20 14:17 Dose: 2.5 ml Documented by: Sodium Chloride (Sodium Chloride 0.65% Nasal [place] 45 Ml Bottle) 1 ml LATHA Q6H PRN PRN Reason: Congestion Last Admin: 12/09/20 12:20 Dose: 1 spray Documented by: Discontinued Medications Dexamethasone (Dexamethasone 10 Mg/Ml Sdv) 6 mg IVPUSH ONETIME ONE Stop: 11/30/20 14:46 Last Admin: 11/30/20 15:00 Dose: 6 mg Documented by: Dexamethasone (Dexamethasone 4 Mg Tab) 6 mg PO DAILY [facility] Last Admin: 12/12/20 09:12 Dose: 6 mg Documented by: Famotidine (Famotidine 20 Mg/2 Ml Sdv) 20 mg IVPUSH BID [facility] Last Admin: 12/05/20 08:55 Dose: 20 mg Documented by: Guaifenesin (Guaifenesin 100 Mg/5 Ml Soln 5 Ml Ud Cup) 100 mg PO Q4H [facility] Last Admin: 12/06/20 04:02 Dose: 100 mg Documented by: Guaifenesin/Codeine Phosphate (Codeine/Guaifenesin 10-100 Mg/5 Ml Syrup 5 Ml Cup) 5 ml PO Q4H [facility] Last Admin: 12/11/20 17:21 Dose: 5 ml Documented by: Guaifenesin/Codeine Phosphate (Codeine/Guaifenesin 10-100 Mg/5 Ml Syrup 5 Ml Cup) 5 ml PO Q4H [facility] Last Admin: 12/19/20 12:47 Dose: 5 ml Documented by: Guaifenesin/Dextromethorphan (Guaifenesin/Dextromethorphan 100-10 Mg/5 Ml Soln 10 Ml Cup) 10 ml PO Q4H PRN PRN Reason: Cough Last Admin: 12/03/20 12:45 Dose: 10 ml Documented by: Guaifenesin/Dextromethorphan (Guaifenesin/Dextromethorphan 100-10 Mg/5 Ml Soln 10 Ml Cup) 10 ml PO Q4H [facility] Last Admin: 12/05/20 10:24 Dose: Not Given Documented by: Remdesivir 200 mg/ Sodium (Chloride) 250 mls @ 250 mls/hr IV ONETIME ONE Stop: 11/30/20 14:46 Last Admin: 11/30/20 20:04 Dose: 250 mls/hr Documented by: Remdesivir 100 mg/ Sodium (Chloride) 100 mls @ 100 mls/hr IV Q24H [facility] Stop: 12/04/20 18:59 Last Admin: 12/04/20 18:12 Dose: 100 mls/hr Documented by: Pantoprazole Sodium 40 mg/ (Sodium Chloride) 10 mls @ 300 mls/hr IV Q24H [facility] Last Admin: 12/09/20 08:56 Dose: 300 mls/hr Documented by: Levofloxacin/Dextrose 750 mg/ (Premix) 150 mls @ 100 mls/hr IV Q24H [facility] Last Admin: 12/11/20 15:24 Dose: 100 mls/hr Documented by: Lactated Ringer's (Ringers, Lactated) 250 mls @ 250 mls/hr IV ASDIRECTED [facility] Iopamidol (Iopamidol 755 Mg/Ml 500 Ml Multipack Bottle) 100 ml IVPUSH ONETIME [facility] Stop: 12/01/20 16:41 Last Admin: 12/01/20 16:41 Dose: 100 ml Documented by: Lorazepam (Lorazepam 2 Mg/Ml Sdv) 1 mg IVPUSH Q12H PRN PRN Reason: Anxiety Last Admin: 12/12/20 15:53 Dose: 1 mg Documented by: Lorazepam (Lorazepam 2 Mg/Ml Sdv) 0.5 mg IVPUSH Q8H PRN PRN Reason: Anxiety Lorazepam (Lorazepam 2 Mg/Ml Sdv) 1 mg IVPUSH ONETIME ONE Stop: 12/20/20 20:48 Last Admin: 12/20/20 22:23 Dose: 1 mg Documented by: Melatonin (Melatonin 3 Mg Tab) 6 mg PO BEDTIME [facility] Melatonin (Melatonin 3 Mg Tab) 6 mg PO BEDTIME PRN PRN Reason: Insomnia Last Admin: 12/06/20 21:39 Dose: 6 mg Documented by: Methylprednisolone Sodium Succinate (Methylprednisolone Sodium Succinate 40 Mg/1 Ml Sdv) 40 mg IVPUSH Q8H [facility] Last Admin: 12/16/20 03:51 Dose: 40 mg Documented by: Methylprednisolone Sodium Succinate (Methylprednisolone Sodium Succinate 40 Mg/1 Ml Sdv) 40 mg IVPUSH Q12H [facility] Last Admin: 12/18/20 09:06 Dose: 40 mg Documented by: Polyethylene Glycol (Polyethylene Glycol 3350 Powder 17 Gm Packet) 17 gm PO BEDTIME [facility] Last Admin: 12/12/20 22:28 Dose: Not Given Documented by: - Patient Data Lab Results Last 24 hrs: Laboratory Results - last 24 hr 12/22/20 12/22/20 Range/Units 05:45 05:45 WBC 12.36 H (4.0-11.0) K/uL RBC 4.23 L (4.50-5.90) M/uL Hgb 13.0 (13.0-17.0) g/dL Hct 38.2 (38.0-50.0) % MCV 90.3 (80.0-98.0) fL MCH 30.7 (27.0-32.0) pg MCHC 34.0 (31.0-37.0) g/dL RDW Std Deviation 45.2 (28.0-62.0) fl RDW Coeff of Carly 14 (11.0-15.0) % Plt Count 253 (150-400) K/uL MPV 10.40 (7.40-12.00) fL Add Manual Diff YES Neutrophils % (Manual) 74 (48.0-80.0) % Band Neutrophils % 1 % Lymphocytes % (Manual) 13 L (16.0-40.0) % Monocytes % (Manual) 10 (0.0-15.0) % Eosinophils % (Manual) 2 (0.0-7.0) % Nucleated RBC % 0.0 /100WBC Absolute Seg Neuts 9.1 H (1.4-5.7) Band Neutrophils # 0.1 Lymphocytes # (Manual) 1.6 (0.6-2.4) Monocytes # (Manual) 1.2 H (0.0-0.8) Eosinophils # (Manual) 0.2 (0.0-0.7) Nucleated RBCs # 0 K/uL Sodium 141 (136-148) mmol/L Potassium 4.0 (3.5-5.1) mmol/L Chloride 103 (98-107) mmol/L Carbon Dioxide 31.2 (21.0-32.0) mmol/L BUN 17 (7.0-18.0) mg/dL Creatinine 0.9 (0.8-1.3) mg/dL Est Cr Clr Drug Dosing 86.22 mL/min Estimated GFR (MDRD) > 60.0 ml/min Glucose 97 (74-106) mg/dL Calcium 8.2 L (8.5-10.1) mg/dL Phosphorus 3.6 (2.6-4.7) mg/dL Magnesium 2.1 (1.8-2.4) mg/dL Result Diagrams: 12/22/20 05:45 12/22/20 05:45 Sepsis Event Note - Focused Exam Vital Signs: Vital Signs Temp Pulse Resp BP Pulse Ox 12/22/20 22:00 18 114/63 91 L 12/22/20 21:00 30 H 112/67 95 12/22/20 20:00 36.4 C 31 H 119/71 92 L 12/22/20 19:00 32 H 118/60 91 L 12/22/20 18:00 76 24 H 111/66 92 L 12/22/20 17:00 89 26 H 112/65 91 L 12/22/20 16:00 36.3 C 93 24 H 117/66 90 L 12/22/20 15:00 94 22 H 124/65 92 L 12/22/20 14:00 79 20 121/74 91 L 12/22/20 13:00 73 18 115/70 88 L 12/22/20 12:00 36.3 C 78 28 H 112/67 90 L - Problem List & Annotations (1) Acute hypoxemic respiratory failure due to COVID-19 SNOMED Code(s): 076395708 Code(s): U07.1 - COVID-19; J96.01 - ACUTE RESPIRATORY FAILURE WITH HYPOXIA Status: Acute Current Visit: Yes (2) Anxiety about health SNOMED Code(s): 851279176 Code(s): F41.8 - OTHER SPECIFIED ANXIETY DISORDERS Status: Acute Current Visit: Yes - Plan Plan:: I have seen and evaluated the patient and agree with the residents note unless specified in my note
[2020-12-19] MEDS: Enoxaparin 40 MG/0.4 ML Syringe SUBCUT SCH (17:08)
[2020-12-19] MEDS: Codeine/guaiFENesin 10-100 MG/5 ML Syrup 5 ML Cup PO PRN ×2 (17:08→22:00)
[2020-12-19] MEDS: Albuterol/Ipratropium 3.0-0.5 MG/3 ML Neb Soln NEB PRN ×2 (18:16→22:45)
[2020-12-19] MEDS: Melatonin 3 MG Tab PO PRN (20:57)
[2020-12-20] MEDS: Codeine/guaiFENesin 10-100 MG/5 ML Syrup 5 ML Cup PO PRN ×4 (04:11→21:56)
[2020-12-20] MEDS: ALPRAZolam 0.25 MG Tab PO PRN ×3 (04:11→16:40)
[2020-12-20] MEDS: Benzonatate 100 MG Cap PO SCH ×3 (05:23→21:56)
--- NOTE | 2020-12-20 05:33 | CR ---
Indication: Pulmonary infiltrates Technique: Chest 1 view Comparison: December 19, 2020 Findings/Impression: Stable cardiomediastinal silhouette. Diffuse pulmonary infiltrates are unchanged compared to the prior study. No pneumothorax or significant effusion. Interval decreased without complete resolution of subcutaneous air. Dictated by Aishwarya Wills MD @ 12/20/2020 5:31:11 AM (Electronically Signed)
[2020-12-20 06:58] LABS: BLOOD UREA NITROGEN,BUN 20 mg/dL (7.0-18.0); CARBON DIOXIDE,CO2 28.1 mmol/L (21.0-32.0); CHLORIDE,CL 103 mmol/L (98-107); GLUCOSE RANDOM 82 mg/dL (74-106); POTASSIUM,K 4.1 mmol/L (3.5-5.1); SODIUM,NA 138 mmol/L (136-148)
[2020-12-20] MEDS: predniSONE 20 MG Tab PO SCH (08:12)
[2020-12-20] MEDS: Albuterol/Ipratropium 3.0-0.5 MG/3 ML Neb Soln NEB PRN ×2 (08:12→22:23)
[2020-12-20] MEDS: Polyethylene Glycol 3350 Powder 17 GM Packet PO SCH (08:12)
[2020-12-20] MEDS: Docusate Sodium 100 MG Cap PO SCH ×2 (08:12→21:56)
[2020-12-20] MEDS: Pantoprazole 40 MG Tab.CR PO SCH (08:13)
--- NOTE | 2020-12-20 13:38 | PCM.PN ---
- General Info Date of Service: 12/20/20 Admission Dx/Problem (Free Text): Admission Diagnosis/Problem Admission Diagnosis/Problem Respiratory failure with hypoxia Subjective Update: seen at bedside, no acute distress, continues to have some coughing spells off and on, Tessalon Perles in addition to the cough syrup have been started. Functional Status: Reports: Tolerating Diet, Ambulating, Urinating - Review of Systems General: Reports: Weakness, Fatigue. Denies: Fever, Malaise, Chills Pulmonary: Reports: Shortness of Breath, Cough, Sputum. Denies: Pleuritic Chest Pain Cardiovascular: Reports: Dyspnea on Exertion. Denies: Chest Pain, Palpitations, Orthopnea Gastrointestinal: Denies: Abdominal Pain, Constipation, Decreased Appetite, Diarrhea Genitourinary: Denies: Dysuria, Frequency, Burning, Pain Musculoskeletal: Denies: Neck Pain, Shoulder Pain, Arm Pain, Hand Pain Skin: Denies: Cyanosis, Jaundice, Mottled, Pallor - Patient Data Vitals - Most Recent: Last Vital Signs Temp 35.6 C L 12/20/20 12:00 Pulse 65 12/01/20 07:00 Resp 27 H 12/20/20 13:00 BP 121/67 12/20/20 13:00 Pulse Ox 96 12/20/20 13:00 Weight - Most Recent: 102.058 kg I&O - Last 24 Hours: Intake & Output 12/19/20 12/20/20 12/20/20 22:59 06:59 14:59 Intake Total 1190 400 Output Total 750 1300 Balance 440 -900 Lab Results Last 24 Hours: Laboratory Results - last 24 hr 12/20/20 12/20/20 Range/Units 06:09 06:09 WBC 12.13 H (4.0-11.0) K/uL RBC 4.20 L (4.50-5.90) M/uL Hgb 12.9 L (13.0-17.0) g/dL Hct 38.1 (38.0-50.0) % MCV 90.7 (80.0-98.0) fL MCH 30.7 (27.0-32.0) pg MCHC 33.9 (31.0-37.0) g/dL RDW Std Deviation 44.4 (28.0-62.0) fl RDW Coeff of Carly 14 (11.0-15.0) % Plt Count 222 (150-400) K/uL MPV 10.00 (7.40-12.00) fL Add Manual Diff YES Neutrophils % (Manual) 61 (48.0-80.0) % Band Neutrophils % 2 % Lymphocytes % (Manual) 22 (16.0-40.0) % Monocytes % (Manual) 11 (0.0-15.0) % Eosinophils % (Manual) 4 (0.0-7.0) % Nucleated RBC % 0.0 /100WBC Absolute Seg Neuts 7.4 H (1.4-5.7) Band Neutrophils # 0.2 Lymphocytes # (Manual) 2.7 H (0.6-2.4) Monocytes # (Manual) 1.3 H (0.0-0.8) Eosinophils # (Manual) 0.5 (0.0-0.7) Nucleated RBCs # 0 K/uL Sodium 138 (136-148) mmol/L Potassium 4.1 (3.5-5.1) mmol/L Chloride 103 (98-107) mmol/L Carbon Dioxide 28.1 (21.0-32.0) mmol/L BUN 20 H (7.0-18.0) mg/dL Creatinine 0.8 (0.8-1.3) mg/dL Est Cr Clr Drug Dosing 97.00 mL/min Estimated GFR (MDRD) > 60.0 ml/min Glucose 82 (74-106) mg/dL Calcium 7.9 L (8.5-10.1) mg/dL Total Bilirubin 0.7 (0.2-1.0) mg/dL AST 20 (15-37) IU/L ALT 46 (14-63) IU/L Alkaline Phosphatase 57 (46-116) U/L Total Protein 5.9 L (6.4-8.2) g/dL Albumin 2.3 L (3.4-5.0) g/dL Globulin 3.6 (2.6-4.0) g/dL Albumin/Globulin Ratio 0.6 L (0.9-1.6) Med Orders - Current: Current Medications Albuterol/Ipratropium (Albuterol/Ipratropium 4 Gm Inhalation [place]) 0 gm INH Q4H PRN PRN Reason: Dyspnea Last Admin: 12/15/20 14:20 Dose: 1 puff Documented by: Albuterol/Ipratropium (Albuterol/Ipratropium 3.0-0.5 Mg/3 Ml Neb Soln) 3 ml NEB Q4HRRT PRN PRN Reason: Wheezing Last Admin: 12/20/20 08:12 Dose: 3 ml Documented by: Alprazolam (Alprazolam 0.25 Mg Tab) 0.25 mg PO Q6H PRN PRN Reason: Anxiety Last Admin: 12/20/20 10:20 Dose: 0.25 mg Documented by: Benzonatate (Benzonatate 100 Mg Cap) 200 mg PO TID [facility] Last Admin: 12/20/20 13:20 Dose: 200 mg Documented by: Docusate Sodium (Docusate Sodium 100 Mg Cap) 100 mg PO BID [facility] Last Admin: 12/20/20 08:12 Dose: 100 mg Documented by: Enoxaparin Sodium (Enoxaparin 40 Mg/0.4 Ml Syringe) 40 mg SUBCUT Q24H [facility] Last Admin: 12/19/20 17:08 Dose: 40 mg Documented by: Guaifenesin/Codeine Phosphate (Codeine/Guaifenesin 10-100 Mg/5 Ml Syrup 5 Ml Cup) 5 ml PO Q4H PRN PRN Reason: Cough Last Admin: 12/20/20 13:20 Dose: 5 ml Documented by: Melatonin (Melatonin 3 Mg Tab) 6 mg PO BEDTIME PRN PRN Reason: Insomnia Last Admin: 12/19/20 20:57 Dose: 6 mg Documented by: Pantoprazole Sodium (Pantoprazole 40 Mg Tab.Cr) 40 mg PO DAILY [facility] Last Admin: 12/20/20 08:13 Dose: 40 mg Documented by: Polyethylene Glycol (Polyethylene Glycol 3350 Powder 17 Gm Packet) 17 gm PO DAILY [facility] Last Admin: 12/20/20 08:12 Dose: 17 gm Documented by: Prednisone (Prednisone 20 Mg Tab) 40 mg PO WITHBREAKFAST [facility] Last Admin: 12/20/20 08:12 Dose: 40 mg Documented by: Sodium Chloride (Sodium Chloride 0.9% 10 Ml Syringe) 10 ml FLUSH ASDIRECTED PRN PRN Reason: Keep Vein Open Last Admin: 11/30/20 14:17 Dose: 10 ml Documented by: Sodium Chloride (Sodium Chloride 0.9% 2.5 Ml Syringe) 2.5 ml FLUSH ASDIRECTED PRN PRN Reason: Keep Vein Open Last Admin: 11/30/20 14:17 Dose: 2.5 ml Documented by: Sodium Chloride (Sodium Chloride 0.65% Nasal [place] 45 Ml Bottle) 1 ml LATHA Q6H PRN PRN Reason: Congestion Last Admin: 12/09/20 12:20 Dose: 1 spray Documented by: Discontinued Medications Dexamethasone (Dexamethasone 10 Mg/Ml Sdv) 6 mg IVPUSH ONETIME ONE Stop: 11/30/20 14:46 Last Admin: 11/30/20 15:00 Dose: 6 mg Documented by: Dexamethasone (Dexamethasone 4 Mg Tab) 6 mg PO DAILY [facility] Last Admin: 12/12/20 09:12 Dose: 6 mg Documented by: Famotidine (Famotidine 20 Mg/2 Ml Sdv) 20 mg IVPUSH BID [facility] Last Admin: 12/05/20 08:55 Dose: 20 mg Documented by: Guaifenesin (Guaifenesin 100 Mg/5 Ml Soln 5 Ml Ud Cup) 100 mg PO Q4H [facility] Last Admin: 12/06/20 04:02 Dose: 100 mg Documented by: Guaifenesin/Codeine Phosphate (Codeine/Guaifenesin 10-100 Mg/5 Ml Syrup 5 Ml Cup) 5 ml PO Q4H [facility] Last Admin: 12/11/20 17:21 Dose: 5 ml Documented by: Guaifenesin/Codeine Phosphate (Codeine/Guaifenesin 10-100 Mg/5 Ml Syrup 5 Ml Cup) 5 ml PO Q4H [facility] Last Admin: 12/19/20 12:47 Dose: 5 ml Documented by: Guaifenesin/Dextromethorphan (Guaifenesin/Dextromethorphan 100-10 Mg/5 Ml Soln 10 Ml Cup) 10 ml PO Q4H PRN PRN Reason: Cough Last Admin: 12/03/20 12:45 Dose: 10 ml Documented by: Guaifenesin/Dextromethorphan (Guaifenesin/Dextromethorphan 100-10 Mg/5 Ml Soln 10 Ml Cup) 10 ml PO Q4H [facility] Last Admin: 12/05/20 10:24 Dose: Not Given Documented by: Remdesivir 200 mg/ Sodium (Chloride) 250 mls @ 250 mls/hr IV ONETIME ONE Stop: 11/30/20 14:46 Last Admin: 11/30/20 20:04 Dose: 250 mls/hr Documented by: Remdesivir 100 mg/ Sodium (Chloride) 100 mls @ 100 mls/hr IV Q24H [facility] Stop: 12/04/20 18:59 Last Admin: 12/04/20 18:12 Dose: 100 mls/hr Documented by: Pantoprazole Sodium 40 mg/ (Sodium Chloride) 10 mls @ 300 mls/hr IV Q24H [facility] Last Admin: 12/09/20 08:56 Dose: 300 mls/hr Documented by: Levofloxacin/Dextrose 750 mg/ (Premix) 150 mls @ 100 mls/hr IV Q24H [facility] Last Admin: 12/11/20 15:24 Dose: 100 mls/hr Documented by: Lactated Ringer's (Ringers, Lactated) 250 mls @ 250 mls/hr IV ASDIRECTED [facility] Iopamidol (Iopamidol 755 Mg/Ml 500 Ml Multipack Bottle) 100 ml IVPUSH ONETIME STA Stop: 12/01/20 16:41 Last Admin: 12/01/20 16:41 Dose: 100 ml Documented by: Lorazepam (Lorazepam 2 Mg/Ml Sdv) 1 mg IVPUSH Q12H PRN PRN Reason: Anxiety Last Admin: 12/12/20 15:53 Dose: 1 mg Documented by: Lorazepam (Lorazepam 2 Mg/Ml Sdv) 0.5 mg IVPUSH Q8H PRN PRN Reason: Anxiety Melatonin (Melatonin 3 Mg Tab) 6 mg PO BEDTIME [facility] Melatonin (Melatonin 3 Mg Tab) 6 mg PO BEDTIME PRN PRN Reason: Insomnia Last Admin: 12/06/20 21:39 Dose: 6 mg Documented by: Methylprednisolone Sodium Succinate (Methylprednisolone Sodium Succinate 40 Mg/1 Ml Sdv) 40 mg IVPUSH Q8H [facility] Last Admin: 12/16/20 03:51 Dose: 40 mg Documented by: Methylprednisolone Sodium Succinate (Methylprednisolone Sodium Succinate 40 Mg/1 Ml Sdv) 40 mg IVPUSH Q12H [facility] Last Admin: 12/18/20 09:06 Dose: 40 mg Documented by: Polyethylene Glycol (Polyethylene Glycol 3350 Powder 17 Gm Packet) 17 gm PO BEDTIME [facility] Last Admin: 12/12/20 22:28 Dose: Not Given Documented by: - Exam Quality Assessment: Supplemental Oxygen General: Alert, Oriented, Cooperative, No Acute Distress Lungs: Normal Respiratory Effort, Decreased Breath Sounds, Rales Cardiovascular: Regular Rate, Regular Rhythm GI/Abdominal Exam: Normal Bowel Sounds, Soft, Non-Tender Extremities: Normal Inspection, Normal Range of Motion - Patient Data Lab Results Last 24 hrs: Laboratory Results - last 24 hr 12/20/20 12/20/20 Range/Units 06:09 06:09 WBC 12.13 H (4.0-11.0) K/uL RBC 4.20 L (4.50-5.90) M/uL Hgb 12.9 L (13.0-17.0) g/dL Hct 38.1 (38.0-50.0) % MCV 90.7 (80.0-98.0) fL MCH 30.7 (27.0-32.0) pg MCHC 33.9 (31.0-37.0) g/dL RDW Std Deviation 44.4 (28.0-62.0) fl RDW Coeff of Carly 14 (11.0-15.0) % Plt Count 222 (150-400) K/uL MPV 10.00 (7.40-12.00) fL Add Manual Diff YES Neutrophils % (Manual) 61 (48.0-80.0) % Band Neutrophils % 2 % Lymphocytes % (Manual) 22 (16.0-40.0) % Monocytes % (Manual) 11 (0.0-15.0) % Eosinophils % (Manual) 4 (0.0-7.0) % Nucleated RBC % 0.0 /100WBC Absolute Seg Neuts 7.4 H (1.4-5.7) Band Neutrophils # 0.2 Lymphocytes # (Manual) 2.7 H (0.6-2.4) Monocytes # (Manual) 1.3 H (0.0-0.8) Eosinophils # (Manual) 0.5 (0.0-0.7) Nucleated RBCs # 0 K/uL Sodium 138 (136-148) mmol/L Potassium 4.1 (3.5-5.1) mmol/L Chloride 103 (98-107) mmol/L Carbon Dioxide 28.1 (21.0-32.0) mmol/L BUN 20 H (7.0-18.0) mg/dL Creatinine 0.8 (0.8-1.3) mg/dL Est Cr Clr Drug Dosing 97.00 mL/min Estimated GFR (MDRD) > 60.0 ml/min Glucose 82 (74-106) mg/dL Calcium 7.9 L (8.5-10.1) mg/dL Total Bilirubin 0.7 (0.2-1.0) mg/dL AST 20 (15-37) IU/L ALT 46 (14-63) IU/L Alkaline Phosphatase 57 (46-116) U/L Total Protein 5.9 L (6.4-8.2) g/dL Albumin 2.3 L (3.4-5.0) g/dL Globulin 3.6 (2.6-4.0) g/dL Albumin/Globulin Ratio 0.6 L (0.9-1.6) Result Diagrams: 12/20/20 06:09 12/20/20 06:09 Sepsis Event Note - Evaluation Sepsis Screening Result: Sepsis Risk - Focused Exam Vital Signs: Vital Signs Temp Resp BP Pulse Ox 12/20/20 13:00 27 H 121/67 96 12/20/20 12:00 35.6 C L 23 H 123/64 95 12/20/20 11:00 18 126/80 89 L 12/20/20 10:00 15 116/59 L 95 12/20/20 09:00 19 113/94 H 84 L 12/20/20 08:00 35.8 C L 14 145/79 H 88 L 12/20/20 07:00 17 138/70 96 12/20/20 06:00 18 135/78 96 12/20/20 05:00 15 118/76 95 12/20/20 04:00 35.7 C L 18 133/84 92 L 12/20/20 03:00 34 H 138/77 98 12/20/20 02:00 21 H 134/85 98 - Problem List & Annotations (1) Acute hypoxemic respiratory failure due to COVID-19 SNOMED Code(s): 327266406 Code(s): U07.1 - COVID-19; J96.01 - ACUTE RESPIRATORY FAILURE WITH HYPOXIA Status: Acute Current Visit: Yes (2) Anxiety about health SNOMED Code(s): 069550749 Code(s): F41.8 - OTHER SPECIFIED ANXIETY DISORDERS Status: Acute Current Visit: Yes - Problem List Review Problem List Initiated/Reviewed/Updated: Yes - Plan Plan:: Acute hypoxic respiratory failure secondary to COVID-19 pneumonia Continue low flow at 40 L/min, needing 70% FiO2 Repeat chest x-ray noted appears to show resolution of pneumothorax Continue supportive care Will attempt to reduce flow and titrate fio2 COVID: predinisone 40mg daily, remdesivir course completed Combivent as needed, incentive spirometry, prone positioning, Lovenox 40 mg subcu q24hr, cont tessalon pearles 200mg TID, Robitussin AC for cough prn, ocean spray for nasal stuffiness. Melatonin 6mg prn bedtime Physical therapy-Will resume on Monday Daily Chest X-Ray to assess pneumothoraces and pneumomediastinum
[2020-12-20] MEDS: Enoxaparin 40 MG/0.4 ML Syringe SUBCUT SCH (17:25)
[2020-12-20] MEDS ORDERED: LORazepam 2 MG/ML SDV IVPUSH ONE (20:47)
[2020-12-20] MEDS: Melatonin 3 MG Tab PO PRN (21:56)
[2020-12-21] MEDS: Codeine/guaiFENesin 10-100 MG/5 ML Syrup 5 ML Cup PO PRN ×4 (02:34→18:25)
[2020-12-21] MEDS: ALPRAZolam 0.25 MG Tab PO PRN ×4 (02:38→20:48)
[2020-12-21] MEDS: Benzonatate 100 MG Cap PO SCH ×3 (05:42→22:02)
[2020-12-21 06:48] LABS: BLOOD UREA NITROGEN,BUN 17 mg/dL (7.0-18.0); CARBON DIOXIDE,CO2 27.4 mmol/L (21.0-32.0); CHLORIDE,CL 104 mmol/L (98-107); GLUCOSE RANDOM 86 mg/dL (74-106); POTASSIUM,K 4.1 mmol/L (3.5-5.1); SODIUM,NA 139 mmol/L (136-148)
[2020-12-21] MEDS: Polyethylene Glycol 3350 Powder 17 GM Packet PO SCH (08:30)
[2020-12-21] MEDS: predniSONE 20 MG Tab PO SCH (08:31)
[2020-12-21] MEDS: Pantoprazole 40 MG Tab.CR PO SCH (08:31)
[2020-12-21] MEDS: Docusate Sodium 100 MG Cap PO SCH ×2 (08:31→20:47)
[2020-12-21] MEDS: Albuterol/Ipratropium 3.0-0.5 MG/3 ML Neb Soln NEB PRN ×3 (08:32→22:32)
--- NOTE | 2020-12-21 12:57 | PCM.PN ---
- General Info Date of Service: 12/21/20 Admission Dx/Problem (Free Text): Admission Diagnosis/Problem Admission Diagnosis/Problem Respiratory failure with hypoxia Subjective Update: seen at bedside, no acute distress, had a bowel movement yesterday states he feels much better after that, patient had an anxiety episode last night when his sats dropped to 70s while he was using the commode, after that his saturations went back up after the oxygen requirement was increased and eventually was tapered down again. Functional Status: Reports: Tolerating Diet, Ambulating, Urinating - Review of Systems General: Reports: Fatigue, Malaise. Denies: Fever, Weakness Pulmonary: Reports: Shortness of Breath, Cough, Sputum. Denies: Pleuritic Chest Pain Cardiovascular: Reports: Dyspnea on Exertion. Denies: Chest Pain, Palpitations Gastrointestinal: Denies: Abdominal Pain, Constipation, Decreased Appetite, Diarrhea Genitourinary: Denies: Dysuria, Frequency, Burning, Pain Musculoskeletal: Denies: Neck Pain, Shoulder Pain, Arm Pain Skin: Denies: Cyanosis, Jaundice, Mottled, Pallor Neurological: Denies: Confusion, Dizziness, Headache - Patient Data Vitals - Most Recent: Last Vital Signs Temp 36.2 C 12/21/20 08:00 Pulse 65 12/01/20 07:00 Resp 24 H 12/21/20 11:00 BP 106/58 L 12/21/20 11:00 Pulse Ox 93 L 12/21/20 11:00 Weight - Most Recent: 102.058 kg I&O - Last 24 Hours: Intake & Output 12/20/20 12/21/20 12/21/20 22:59 06:59 14:59 Intake Total 760 700 Output Total 600 900 Balance 160 -200 Lab Results Last 24 Hours: Laboratory Results - last 24 hr 12/21/20 12/21/20 Range/Units 05:41 05:41 WBC 13.10 H (4.0-11.0) K/uL RBC 4.22 L (4.50-5.90) M/uL Hgb 13.0 (13.0-17.0) g/dL Hct 37.9 L (38.0-50.0) % MCV 89.8 (80.0-98.0) fL MCH 30.8 (27.0-32.0) pg MCHC 34.3 (31.0-37.0) g/dL RDW Std Deviation 44.5 (28.0-62.0) fl RDW Coeff of Carly 14 (11.0-15.0) % Plt Count 232 (150-400) K/uL MPV 10.30 (7.40-12.00) fL Add Manual Diff YES Neutrophils % (Manual) 72 (48.0-80.0) % Band Neutrophils % 1 % Lymphocytes % (Manual) 15 L (16.0-40.0) % Monocytes % (Manual) 8 (0.0-15.0) % Eosinophils % (Manual) 2 (0.0-7.0) % Metamyelocytes % 2 % Nucleated RBC % 0.0 /100WBC Absolute Seg Neuts 9.4 H (1.4-5.7) Band Neutrophils # 0.1 Lymphocytes # (Manual) 2.0 (0.6-2.4) Monocytes # (Manual) 1.0 H (0.0-0.8) Eosinophils # (Manual) 0.3 (0.0-0.7) Absolute Metamyelocyte 0.3 Nucleated RBCs # 0 K/uL Sodium 139 (136-148) mmol/L Potassium 4.1 (3.5-5.1) mmol/L Chloride 104 (98-107) mmol/L Carbon Dioxide 27.4 (21.0-32.0) mmol/L BUN 17 (7.0-18.0) mg/dL Creatinine 0.7 L (0.8-1.3) mg/dL Est Cr Clr Drug Dosing 110.86 mL/min Estimated GFR (MDRD) > 60.0 ml/min Glucose 86 (74-106) mg/dL Calcium 7.9 L (8.5-10.1) mg/dL Med Orders - Current: Current Medications Albuterol/Ipratropium (Albuterol/Ipratropium 4 Gm Inhalation [place]) 0 gm INH Q4H PRN PRN Reason: Dyspnea Last Admin: 12/15/20 14:20 Dose: 1 puff Documented by: Albuterol/Ipratropium (Albuterol/Ipratropium 3.0-0.5 Mg/3 Ml Neb Soln) 3 ml NEB Q4HRRT PRN PRN Reason: Wheezing Last Admin: 12/21/20 08:32 Dose: 3 ml Documented by: Alprazolam (Alprazolam 0.25 Mg Tab) 0.25 mg PO Q6H PRN PRN Reason: Anxiety Last Admin: 12/21/20 08:45 Dose: 0.25 mg Documented by: Benzonatate (Benzonatate 100 Mg Cap) 200 mg PO TID [facility] Last Admin: 12/21/20 05:42 Dose: 200 mg Documented by: Docusate Sodium (Docusate Sodium 100 Mg Cap) 100 mg PO BID [facility] Last Admin: 12/21/20 08:31 Dose: 100 mg Documented by: Enoxaparin Sodium (Enoxaparin 40 Mg/0.4 Ml Syringe) 40 mg SUBCUT Q24H [facility] Last Admin: 12/20/20 17:25 Dose: 40 mg Documented by: Guaifenesin/Codeine Phosphate (Codeine/Guaifenesin 10-100 Mg/5 Ml Syrup 5 Ml Cup) 5 ml PO Q4H PRN PRN Reason: Cough Last Admin: 12/21/20 08:32 Dose: 5 ml Documented by: Melatonin (Melatonin 3 Mg Tab) 6 mg PO BEDTIME PRN PRN Reason: Insomnia Last Admin: 12/20/20 21:56 Dose: 6 mg Documented by: Pantoprazole Sodium (Pantoprazole 40 Mg Tab.Cr) 40 mg PO DAILY [facility] Last Admin: 12/21/20 08:31 Dose: 40 mg Documented by: Polyethylene Glycol (Polyethylene Glycol 3350 Powder 17 Gm Packet) 17 gm PO DAILY [facility] Last Admin: 12/21/20 08:30 Dose: Not Given Documented by: Prednisone (Prednisone 20 Mg Tab) 40 mg PO WITHBREAKFAST [facility] Last Admin: 12/21/20 08:31 Dose: 40 mg Documented by: Sodium Chloride (Sodium Chloride 0.9% 10 Ml Syringe) 10 ml FLUSH ASDIRECTED PRN PRN Reason: Keep Vein Open Last Admin: 11/30/20 14:17 Dose: 10 ml Documented by: Sodium Chloride (Sodium Chloride 0.9% 2.5 Ml Syringe) 2.5 ml FLUSH ASDIRECTED PRN PRN Reason: Keep Vein Open Last Admin: 11/30/20 14:17 Dose: 2.5 ml Documented by: Sodium Chloride (Sodium Chloride 0.65% Nasal [place] 45 Ml Bottle) 1 ml LATHA Q6H PRN PRN Reason: Congestion Last Admin: 12/09/20 12:20 Dose: 1 spray Documented by: Discontinued Medications Dexamethasone (Dexamethasone 10 Mg/Ml Sdv) 6 mg IVPUSH ONETIME ONE Stop: 11/30/20 14:46 Last Admin: 11/30/20 15:00 Dose: 6 mg Documented by: Dexamethasone (Dexamethasone 4 Mg Tab) 6 mg PO DAILY [facility] Last Admin: 12/12/20 09:12 Dose: 6 mg Documented by: Famotidine (Famotidine 20 Mg/2 Ml Sdv) 20 mg IVPUSH BID [facility] Last Admin: 12/05/20 08:55 Dose: 20 mg Documented by: Guaifenesin (Guaifenesin 100 Mg/5 Ml Soln 5 Ml Ud Cup) 100 mg PO Q4H [facility] Last Admin: 12/06/20 04:02 Dose: 100 mg Documented by: Guaifenesin/Codeine Phosphate (Codeine/Guaifenesin 10-100 Mg/5 Ml Syrup 5 Ml Cup) 5 ml PO Q4H [facility] Last Admin: 12/11/20 17:21 Dose: 5 ml Documented by: Guaifenesin/Codeine Phosphate (Codeine/Guaifenesin 10-100 Mg/5 Ml Syrup 5 Ml Cup) 5 ml PO Q4H [facility] Last Admin: 12/19/20 12:47 Dose: 5 ml Documented by: Guaifenesin/Dextromethorphan (Guaifenesin/Dextromethorphan 100-10 Mg/5 Ml Soln 10 Ml Cup) 10 ml PO Q4H PRN PRN Reason: Cough Last Admin: 12/03/20 12:45 Dose: 10 ml Documented by: Guaifenesin/Dextromethorphan (Guaifenesin/Dextromethorphan 100-10 Mg/5 Ml Soln 10 Ml Cup) 10 ml PO Q4H [facility] Last Admin: 12/05/20 10:24 Dose: Not Given Documented by: Remdesivir 200 mg/ Sodium (Chloride) 250 mls @ 250 mls/hr IV ONETIME ONE Stop: 11/30/20 14:46 Last Admin: 11/30/20 20:04 Dose: 250 mls/hr Documented by: Remdesivir 100 mg/ Sodium (Chloride) 100 mls @ 100 mls/hr IV Q24H [facility] Stop: 12/04/20 18:59 Last Admin: 12/04/20 18:12 Dose: 100 mls/hr Documented by: Pantoprazole Sodium 40 mg/ (Sodium Chloride) 10 mls @ 300 mls/hr IV Q24H [facility] Last Admin: 12/09/20 08:56 Dose: 300 mls/hr Documented by: Levofloxacin/Dextrose 750 mg/ (Premix) 150 mls @ 100 mls/hr IV Q24H [facility] Last Admin: 12/11/20 15:24 Dose: 100 mls/hr Documented by: Lactated Ringer's (Ringers, Lactated) 250 mls @ 250 mls/hr IV ASDIRECTED [facility] Iopamidol (Iopamidol 755 Mg/Ml 500 Ml Multipack Bottle) 100 ml IVPUSH ONETIME STA Stop: 12/01/20 16:41 Last Admin: 12/01/20 16:41 Dose: 100 ml Documented by: Lorazepam (Lorazepam 2 Mg/Ml Sdv) 1 mg IVPUSH Q12H PRN PRN Reason: Anxiety Last Admin: 12/12/20 15:53 Dose: 1 mg Documented by: Lorazepam (Lorazepam 2 Mg/Ml Sdv) 0.5 mg IVPUSH Q8H PRN PRN Reason: Anxiety Lorazepam (Lorazepam 2 Mg/Ml Sdv) 1 mg IVPUSH ONETIME ONE Stop: 12/20/20 20:48 Last Admin: 12/20/20 22:23 Dose: 1 mg Documented by: Melatonin (Melatonin 3 Mg Tab) 6 mg PO BEDTIME [facility] Melatonin (Melatonin 3 Mg Tab) 6 mg PO BEDTIME PRN PRN Reason: Insomnia Last Admin: 12/06/20 21:39 Dose: 6 mg Documented by: Methylprednisolone Sodium Succinate (Methylprednisolone Sodium Succinate 40 Mg/1 Ml Sdv) 40 mg IVPUSH Q8H [facility] Last Admin: 12/16/20 03:51 Dose: 40 mg Documented by: Methylprednisolone Sodium Succinate (Methylprednisolone Sodium Succinate 40 Mg/1 Ml Sdv) 40 mg IVPUSH Q12H [facility] Last Admin: 12/18/20 09:06 Dose: 40 mg Documented by: Polyethylene Glycol (Polyethylene Glycol 3350 Powder 17 Gm Packet) 17 gm PO BEDTIME [facility] Last Admin: 12/12/20 22:28 Dose: Not Given Documented by: - Exam Quality Assessment: Supplemental Oxygen General: Alert, Oriented, Cooperative, No Acute Distress Lungs: Normal Respiratory Effort, Decreased Breath Sounds, Crackles Cardiovascular: Regular Rate, Regular Rhythm GI/Abdominal Exam: Normal Bowel Sounds, Soft, Non-Tender Back Exam: Normal Inspection Extremities: Normal Inspection, Normal Range of Motion - Patient Data Lab Results Last 24 hrs: Laboratory Results - last 24 hr 12/21/20 12/21/20 Range/Units 05:41 05:41 WBC 13.10 H (4.0-11.0) K/uL RBC 4.22 L (4.50-5.90) M/uL Hgb 13.0 (13.0-17.0) g/dL Hct 37.9 L (38.0-50.0) % MCV 89.8 (80.0-98.0) fL MCH 30.8 (27.0-32.0) pg MCHC 34.3 (31.0-37.0) g/dL RDW Std Deviation 44.5 (28.0-62.0) fl RDW Coeff of Carly 14 (11.0-15.0) % Plt Count 232 (150-400) K/uL MPV 10.30 (7.40-12.00) fL Add Manual Diff YES Neutrophils % (Manual) 72 (48.0-80.0) % Band Neutrophils % 1 % Lymphocytes % (Manual) 15 L (16.0-40.0) % Monocytes % (Manual) 8 (0.0-15.0) % Eosinophils % (Manual) 2 (0.0-7.0) % Metamyelocytes % 2 % Nucleated RBC % 0.0 /100WBC Absolute Seg Neuts 9.4 H (1.4-5.7) Band Neutrophils # 0.1 Lymphocytes # (Manual) 2.0 (0.6-2.4) Monocytes # (Manual) 1.0 H (0.0-0.8) Eosinophils # (Manual) 0.3 (0.0-0.7) Absolute Metamyelocyte 0.3 Nucleated RBCs # 0 K/uL Sodium 139 (136-148) mmol/L Potassium 4.1 (3.5-5.1) mmol/L Chloride 104 (98-107) mmol/L Carbon Dioxide 27.4 (21.0-32.0) mmol/L BUN 17 (7.0-18.0) mg/dL Creatinine 0.7 L (0.8-1.3) mg/dL Est Cr Clr Drug Dosing 110.86 mL/min Estimated GFR (MDRD) > 60.0 ml/min Glucose 86 (74-106) mg/dL Calcium 7.9 L (8.5-10.1) mg/dL Result Diagrams: 12/21/20 05:41 12/21/20 05:41 Sepsis Event Note - Evaluation Sepsis Screening Result: Sepsis Risk - Focused Exam Vital Signs: Vital Signs Temp Resp BP Pulse Ox 12/21/20 11:00 24 H 106/58 L 93 L 12/21/20 10:00 15 111/59 L 88 L 12/21/20 09:00 12 96/46 L 91 L 12/21/20 08:00 36.2 C 19 112/60 91 L 12/21/20 07:00 21 H 111/64 93 L 12/21/20 06:00 21 H 112/60 92 L 12/21/20 05:00 20 120/64 94 L 12/21/20 04:00 35.8 C L 18 115/60 95 12/21/20 03:00 21 H 109/67 93 L 12/21/20 02:00 22 H 112/73 97 12/21/20 01:00 20 117/72 96 - Problem List & Annotations (1) Acute hypoxemic respiratory failure due to COVID-19 SNOMED Code(s): 459736815 Code(s): U07.1 - COVID-19; J96.01 - ACUTE RESPIRATORY FAILURE WITH HYPOXIA Status: Acute Current Visit: Yes (2) Anxiety about health SNOMED Code(s): 171908569 Code(s): F41.8 - OTHER SPECIFIED ANXIETY DISORDERS Status: Acute Current Visit: Yes - Problem List Review Problem List Initiated/Reviewed/Updated: Yes - My Orders Last 24 Hours: My Active Orders 12/22/20 08:00 CXR [Chest 1V Frontal] [CR] Routine - Plan Plan:: Acute hypoxic respiratory failure secondary to COVID-19 pneumonia Continue low flow at 40 L/min, needing 60% FiO2 Repeat chest x-ray yesterday noted appears to show resolution of pneumothorax Continue supportive care Will attempt to reduce flow and titrate fio2 COVID: predinisone 40mg daily, remdesivir course completed Combivent as needed, incentive spirometry, prone positioning, Lovenox 40 mg subcu q24hr, cont tessalon pearles 200mg TID, Robitussin AC for cough prn, ocean spray for nasal stuffiness. Melatonin 6mg prn bedtime Physical therapy-on board We will obtain a repeat x-ray in a.m. for follow-up on pneumothoraces and pneumomediastinum
[2020-12-21] MEDS: Enoxaparin 40 MG/0.4 ML Syringe SUBCUT SCH (17:50)
[2020-12-21] MEDS: Melatonin 3 MG Tab PO PRN (22:02)
[2020-12-21] MEDS: Albuterol/Ipratropium 4 GM Inhalation Spray INH PRN (22:03)
[2020-12-22] MEDS: Albuterol/Ipratropium 3.0-0.5 MG/3 ML Neb Soln NEB PRN ×5 (03:16→22:59)
[2020-12-22] MEDS: Benzonatate 100 MG Cap PO SCH ×3 (05:14→21:13)
[2020-12-22] MEDS: Codeine/guaiFENesin 10-100 MG/5 ML Syrup 5 ML Cup PO PRN ×4 (06:14→22:59)
[2020-12-22 06:38] LABS: BLOOD UREA NITROGEN,BUN 17 mg/dL (7.0-18.0); CARBON DIOXIDE,CO2 31.2 mmol/L (21.0-32.0); CHLORIDE,CL 103 mmol/L (98-107); GLUCOSE RANDOM 97 mg/dL (74-106); SODIUM,NA 141 mmol/L (136-148)
[2020-12-22] MEDS: Docusate Sodium 100 MG Cap PO SCH ×2 (08:38→20:46)
[2020-12-22] MEDS: Pantoprazole 40 MG Tab.CR PO SCH (08:38)
[2020-12-22] MEDS: ALPRAZolam 0.25 MG Tab PO PRN ×3 (08:38→23:00)
[2020-12-22] MEDS: predniSONE 20 MG Tab PO SCH (08:38)
[2020-12-22] MEDS: Polyethylene Glycol 3350 Powder 17 GM Packet PO SCH (08:39)
--- NOTE | 2020-12-22 08:42 | CR ---
HISTORY: Pneumothorax followup. COMPARISON: 12/19/2020. 12/20/2020. TECHNIQUE: Chest one-view portable upright. FINDINGS: Pneumothoraces were present on the chest x-ray from 12/19/2020. These are not perceptible on the current exam. There is no shift of mediastinal structures. Coarse, bilateral pulmonary opacities, presumably related to COVID-19 pneumonia, increased at the left lung base from 12/19/2020. These have also increased from 12/20/2020. Lateral costophrenic sulci are sharp. Heart size is stable. IMPRESSION: 1. Pneumothoraces described on the chest x-ray from 12/19/2020 are poorly visualized. 2. There is no deep sulcus sign or shift of mediastinal structures. 3. Pulmonary opacities are presumably secondary to COVID-19 pneumonia. Interval progression at the left lung base. Dictated by Jase Shaw MD @ 12/22/2020 8:39:51 AM (Electronically Signed)
--- NOTE | 2020-12-22 11:47 | PCM.PN ---
<Joe Lopez - Last Filed: 12/22/20 11:43> - General Info Date of Service: 12/22/20 Admission Dx/Problem (Free Text): Admission Diagnosis/Problem Admission Diagnosis/Problem Respiratory failure with hypoxia Subjective Update: Patient seen at bedside this morning states he is feeling better than yesterday. Patient had a bowel movement. Patient is currently on Vapotherm at 35 L/min 50% FiO2. He is having a repeat chest x-ray this morning. Patient complains of mild postnasal drip but denies coughing up sputum. Denies chest pain, fevers, h eadaches, abdominal pain. - Review of Systems General: Denies: Fever Pulmonary: Reports: Shortness of Breath. Denies: Pleuritic Chest Pain Cardiovascular: Denies: Chest Pain, Palpitations Gastrointestinal: Denies: Abdominal Pain, Constipation, Nausea, Vomiting Genitourinary: Denies: Dysuria Musculoskeletal: Denies: Leg Pain Skin: Denies: Rash Neurological: Denies: Confusion, Dizziness, Headache, Numbness, Paresthesia - Patient Data Vitals - Most Recent: Last Vital Signs Temp 97 F 12/22/20 01:00 Pulse 65 12/01/20 07:00 Resp 23 H 12/22/20 07:00 BP 110/65 12/22/20 07:00 Pulse Ox 96 12/22/20 07:00 Weight - Most Recent: 102.058 kg I&O - Last 24 Hours: Intake & Output 12/21/20 12/22/20 12/22/20 22:59 06:59 14:59 Intake Total 120 200 Output Total 150 675 Balance -30 -475 Lab Results Last 24 Hours: Laboratory Results - last 24 hr 12/22/20 12/22/20 Range/Units 05:45 05:45 WBC 12.36 H (4.0-11.0) K/uL RBC 4.23 L (4.50-5.90) M/uL Hgb 13.0 (13.0-17.0) g/dL Hct 38.2 (38.0-50.0) % MCV 90.3 (80.0-98.0) fL MCH 30.7 (27.0-32.0) pg MCHC 34.0 (31.0-37.0) g/dL RDW Std Deviation 45.2 (28.0-62.0) fl RDW Coeff of Carly 14 (11.0-15.0) % Plt Count 253 (150-400) K/uL MPV 10.40 (7.40-12.00) fL Add Manual Diff YES Neutrophils % (Manual) 74 (48.0-80.0) % Band Neutrophils % 1 % Lymphocytes % (Manual) 13 L (16.0-40.0) % Monocytes % (Manual) 10 (0.0-15.0) % Eosinophils % (Manual) 2 (0.0-7.0) % Nucleated RBC % 0.0 /100WBC Absolute Seg Neuts 9.1 H (1.4-5.7) Band Neutrophils # 0.1 Lymphocytes # (Manual) 1.6 (0.6-2.4) Monocytes # (Manual) 1.2 H (0.0-0.8) Eosinophils # (Manual) 0.2 (0.0-0.7) Nucleated RBCs # 0 K/uL Sodium 141 (136-148) mmol/L Potassium 4.0 (3.5-5.1) mmol/L Chloride 103 (98-107) mmol/L Carbon Dioxide 31.2 (21.0-32.0) mmol/L BUN 17 (7.0-18.0) mg/dL Creatinine 0.9 (0.8-1.3) mg/dL Est Cr Clr Drug Dosing 86.22 mL/min Estimated GFR (MDRD) > 60.0 ml/min Glucose 97 (74-106) mg/dL Calcium 8.2 L (8.5-10.1) mg/dL Phosphorus 3.6 (2.6-4.7) mg/dL Magnesium 2.1 (1.8-2.4) mg/dL Med Orders - Current: Current Medications Albuterol/Ipratropium (Albuterol/Ipratropium 4 Gm Inhalation [place]) 0 gm INH Q4H PRN PRN Reason: Dyspnea Last Admin: 12/15/20 14:20 Dose: 1 puff Documented by: Albuterol/Ipratropium (Albuterol/Ipratropium 3.0-0.5 Mg/3 Ml Neb Soln) 3 ml NEB Q4HRRT PRN PRN Reason: Wheezing Last Admin: 12/22/20 08:38 Dose: 3 ml Documented by: Alprazolam (Alprazolam 0.25 Mg Tab) 0.25 mg PO Q6H PRN PRN Reason: Anxiety Last Admin: 12/22/20 08:38 Dose: 0.25 mg Documented by: Benzonatate (Benzonatate 100 Mg Cap) 200 mg PO TID [facility] Last Admin: 12/22/20 05:14 Dose: 200 mg Documented by: Docusate Sodium (Docusate Sodium 100 Mg Cap) 100 mg PO BID [facility] Last Admin: 12/22/20 08:38 Dose: 100 mg Documented by: Enoxaparin Sodium (Enoxaparin 40 Mg/0.4 Ml Syringe) 40 mg SUBCUT Q24H [facility] Last Admin: 12/21/20 17:50 Dose: 40 mg Documented by: Guaifenesin/Codeine Phosphate (Codeine/Guaifenesin 10-100 Mg/5 Ml Syrup 5 Ml Cup) 5 ml PO Q4H PRN PRN Reason: Cough Last Admin: 12/22/20 06:14 Dose: 5 ml Documented by: Melatonin (Melatonin 3 Mg Tab) 6 mg PO BEDTIME PRN PRN Reason: Insomnia Last Admin: 12/21/20 22:02 Dose: 6 mg Documented by: Pantoprazole Sodium (Pantoprazole 40 Mg Tab.Cr) 40 mg PO DAILY [facility] Last Admin: 12/22/20 08:38 Dose: 40 mg Documented by: Polyethylene Glycol (Polyethylene Glycol 3350 Powder 17 Gm Packet) 17 gm PO DAILY [facility] Last Admin: 12/22/20 08:39 Dose: Not Given Documented by: Prednisone (Prednisone 20 Mg Tab) 40 mg PO WITHBREAKFAST [facility] Last Admin: 12/22/20 08:38 Dose: 40 mg Documented by: Sodium Chloride (Sodium Chloride 0.9% 10 Ml Syringe) 10 ml FLUSH ASDIRECTED PRN PRN Reason: Keep Vein Open Last Admin: 11/30/20 14:17 Dose: 10 ml Documented by: Sodium Chloride (Sodium Chloride 0.9% 2.5 Ml Syringe) 2.5 ml FLUSH ASDIRECTED PRN PRN Reason: Keep Vein Open Last Admin: 11/30/20 14:17 Dose: 2.5 ml Documented by: Sodium Chloride (Sodium Chloride 0.65% Nasal [place] 45 Ml Bottle) 1 ml LATHA Q6H PRN PRN Reason: Congestion Last Admin: 12/09/20 12:20 Dose: 1 spray Documented by: Discontinued Medications Dexamethasone (Dexamethasone 10 Mg/Ml Sdv) 6 mg IVPUSH ONETIME ONE Stop: 11/30/20 14:46 Last Admin: 11/30/20 15:00 Dose: 6 mg Documented by: Dexamethasone (Dexamethasone 4 Mg Tab) 6 mg PO DAILY [facility] Last Admin: 12/12/20 09:12 Dose: 6 mg Documented by: Famotidine (Famotidine 20 Mg/2 Ml Sdv) 20 mg IVPUSH BID [facility] Last Admin: 12/05/20 08:55 Dose: 20 mg Documented by: Guaifenesin (Guaifenesin 100 Mg/5 Ml Soln 5 Ml Ud Cup) 100 mg PO Q4H [facility] Last Admin: 12/06/20 04:02 Dose: 100 mg Documented by: Guaifenesin/Codeine Phosphate (Codeine/Guaifenesin 10-100 Mg/5 Ml Syrup 5 Ml Cup) 5 ml PO Q4H [facility] Last Admin: 12/11/20 17:21 Dose: 5 ml Documented by: Guaifenesin/Codeine Phosphate (Codeine/Guaifenesin 10-100 Mg/5 Ml Syrup 5 Ml Cup) 5 ml PO Q4H [facility] Last Admin: 12/19/20 12:47 Dose: 5 ml Documented by: Guaifenesin/Dextromethorphan (Guaifenesin/Dextromethorphan 100-10 Mg/5 Ml Soln 10 Ml Cup) 10 ml PO Q4H PRN PRN Reason: Cough Last Admin: 12/03/20 12:45 Dose: 10 ml Documented by: Guaifenesin/Dextromethorphan (Guaifenesin/Dextromethorphan 100-10 Mg/5 Ml Soln 10 Ml Cup) 10 ml PO Q4H [facility] Last Admin: 12/05/20 10:24 Dose: Not Given Documented by: Remdesivir 200 mg/ Sodium (Chloride) 250 mls @ 250 mls/hr IV ONETIME ONE Stop: 11/30/20 14:46 Last Admin: 11/30/20 20:04 Dose: 250 mls/hr Documented by: Remdesivir 100 mg/ Sodium (Chloride) 100 mls @ 100 mls/hr IV Q24H [facility] Stop: 12/04/20 18:59 Last Admin: 12/04/20 18:12 Dose: 100 mls/hr Documented by: Pantoprazole Sodium 40 mg/ (Sodium Chloride) 10 mls @ 300 mls/hr IV Q24H [facility] Last Admin: 12/09/20 08:56 Dose: 300 mls/hr Documented by: Levofloxacin/Dextrose 750 mg/ (Premix) 150 mls @ 100 mls/hr IV Q24H [facility] Last Admin: 12/11/20 15:24 Dose: 100 mls/hr Documented by: Lactated Ringer's (Ringers, Lactated) 250 mls @ 250 mls/hr IV ASDIRECTED [facility] Iopamidol (Iopamidol 755 Mg/Ml 500 Ml Multipack Bottle) 100 ml IVPUSH ONETIME STA Stop: 12/01/20 16:41 Last Admin: 12/01/20 16:41 Dose: 100 ml Documented by: Lorazepam (Lorazepam 2 Mg/Ml Sdv) 1 mg IVPUSH Q12H PRN PRN Reason: Anxiety Last Admin: 12/12/20 15:53 Dose: 1 mg Documented by: Lorazepam (Lorazepam 2 Mg/Ml Sdv) 0.5 mg IVPUSH Q8H PRN PRN Reason: Anxiety Lorazepam (Lorazepam 2 Mg/Ml Sdv) 1 mg IVPUSH ONETIME ONE Stop: 12/20/20 20:48 Last Admin: 12/20/20 22:23 Dose: 1 mg Documented by: Melatonin (Melatonin 3 Mg Tab) 6 mg PO BEDTIME [facility] Melatonin (Melatonin 3 Mg Tab) 6 mg PO BEDTIME PRN PRN Reason: Insomnia Last Admin: 12/06/20 21:39 Dose: 6 mg Documented by: Methylprednisolone Sodium Succinate (Methylprednisolone Sodium Succinate 40 Mg/1 Ml Sdv) 40 mg IVPUSH Q8H [facility] Last Admin: 12/16/20 03:51 Dose: 40 mg Documented by: Methylprednisolone Sodium Succinate (Methylprednisolone Sodium Succinate 40 Mg/1 Ml Sdv) 40 mg IVPUSH Q12H [facility] Last Admin: 12/18/20 09:06 Dose: 40 mg Documented by: Polyethylene Glycol (Polyethylene Glycol 3350 Powder 17 Gm Packet) 17 gm PO BEDTIME [facility] Last Admin: 12/12/20 22:28 Dose: Not Given Documented by: - Exam Quality Assessment: Supplemental Oxygen General: Alert, Oriented, Cooperative HEENT: Pupils Equal, Pupils Reactive Neck: Supple, Trachea Midline Lungs: Decreased Breath Sounds, Crackles Cardiovascular: Regular Rate, Regular Rhythm GI/Abdominal Exam: Normal Bowel Sounds, Soft, Non-Tender Extremities: Normal Inspection, No Pedal Edema. No: Jessica's Sign, Leg Pain Peripheral Pulses: 2+: Dorsalis Pedis (L), Dorsalis Pedis (R) Skin: Warm, Dry, Intact Neurological: No New Focal Deficit - Patient Data Lab Results Last 24 hrs: Laboratory Results - last 24 hr 12/22/20 12/22/20 Range/Units 05:45 05:45 WBC 12.36 H (4.0-11.0) K/uL RBC 4.23 L (4.50-5.90) M/uL Hgb 13.0 (13.0-17.0) g/dL Hct 38.2 (38.0-50.0) % MCV 90.3 (80.0-98.0) fL MCH 30.7 (27.0-32.0) pg MCHC 34.0 (31.0-37.0) g/dL RDW Std Deviation 45.2 (28.0-62.0) fl RDW Coeff of Carly 14 (11.0-15.0) % Plt Count 253 (150-400) K/uL MPV 10.40 (7.40-12.00) fL Add Manual Diff YES Neutrophils % (Manual) 74 (48.0-80.0) % Band Neutrophils % 1 % Lymphocytes % (Manual) 13 L (16.0-40.0) % Monocytes % (Manual) 10 (0.0-15.0) % Eosinophils % (Manual) 2 (0.0-7.0) % Nucleated RBC % 0.0 /100WBC Absolute Seg Neuts 9.1 H (1.4-5.7) Band Neutrophils # 0.1 Lymphocytes # (Manual) 1.6 (0.6-2.4) Monocytes # (Manual) 1.2 H (0.0-0.8) Eosinophils # (Manual) 0.2 (0.0-0.7) Nucleated RBCs # 0 K/uL Sodium 141 (136-148) mmol/L Potassium 4.0 (3.5-5.1) mmol/L Chloride 103 (98-107) mmol/L Carbon Dioxide 31.2 (21.0-32.0) mmol/L BUN 17 (7.0-18.0) mg/dL Creatinine 0.9 (0.8-1.3) mg/dL Est Cr Clr Drug Dosing 86.22 mL/min Estimated GFR (MDRD) > 60.0 ml/min Glucose 97 (74-106) mg/dL Calcium 8.2 L (8.5-10.1) mg/dL Phosphorus 3.6 (2.6-4.7) mg/dL Magnesium 2.1 (1.8-2.4) mg/dL Result Diagrams: 12/22/20 05:45 12/22/20 05:45 Sepsis Event Note - Evaluation Sepsis Screening Result: No Definite Risk - Focused Exam Vital Signs: Vital Signs Temp Resp BP Pulse Ox 12/22/20 07:00 23 H 110/65 96 12/22/20 06:00 21 H 111/58 L 92 L 12/22/20 05:31 26 H 110/57 L 94 L 12/22/20 05:00 20 86/42 L 94 L 12/22/20 04:00 14 110/60 94 L 12/22/20 03:00 17 110/65 97 12/22/20 02:00 18 100/65 97 12/22/20 01:00 97 F 20 115/68 97 12/22/20 00:00 25 H 111/70 97 - Problem List Review Problem List Initiated/Reviewed/Updated: Yes - My Orders Last 24 Hours: My Active Orders 12/23/20 05:11 CBC WITH AUTO DIFF [HEME] DAILY COMPREHENSIVE METABOLIC PN,CMP [CHEM] DAILY 12/24/20 05:11 CBC WITH AUTO DIFF [HEME] DAILY COMPREHENSIVE METABOLIC PN,CMP [CHEM] DAILY 12/25/20 05:11 CBC WITH AUTO DIFF [HEME] DAILY COMPREHENSIVE METABOLIC PN,CMP [CHEM] DAILY 12/26/20 05:11 CBC WITH AUTO DIFF [HEME] DAILY COMPREHENSIVE METABOLIC PN,CMP [CHEM] DAILY 12/27/20 05:11 CBC WITH AUTO DIFF [HEME] DAILY COMPREHENSIVE METABOLIC PN,CMP [CHEM] DAILY - Plan Plan:: Acute hypoxic respiratory failure secondary to COVID-19 pneumonia Continue to wean oxygen as tolerated. Chest x-ray performed this morning, will follow up with results. COVID: predinisone 40mg daily, remdesivir course completed Combivent as needed, incentive spirometry, Lovenox 40 mg subcu q24hr, cont tessalon pearles 200mg TID, Robitussin AC for cough prn, ocean spray for nasal stuffiness. Melatonin 6mg prn bedtime Physical therapy-on board <Nimisha Julian - Last Filed: 12/22/20 23:21> - Patient Data Vitals - Most Recent: Last Vital Signs Temp 36.4 C 12/22/20 20:00 Pulse 76 12/22/20 18:00 Resp 18 12/22/20 22:00 BP 114/63 12/22/20 22:00 Pulse Ox 91 L 12/22/20 22:00 I&O - Last 24 Hours: Intake & Output 12/22/20 12/22/20 12/23/20 14:59 22:59 06:59 Intake Total 120 420 Output Total 175 200 Balance -55 220 Lab Results Last 24 Hours: Laboratory Results - last 24 hr 12/22/20 12/22/20 Range/Units 05:45 05:45 WBC 12.36 H (4.0-11.0) K/uL RBC 4.23 L (4.50-5.90) M/uL Hgb 13.0 (13.0-17.0) g/dL Hct 38.2 (38.0-50.0) % MCV 90.3 (80.0-98.0) fL MCH 30.7 (27.0-32.0) pg MCHC 34.0 (31.0-37.0) g/dL RDW Std Deviation 45.2 (28.0-62.0) fl RDW Coeff of Carly 14 (11.0-15.0) % Plt Count 253 (150-400) K/uL MPV 10.40 (7.40-12.00) fL Add Manual Diff YES Neutrophils % (Manual) 74 (48.0-80.0) % Band Neutrophils % 1 % Lymphocytes % (Manual) 13 L (16.0-40.0) % Monocytes % (Manual) 10 (0.0-15.0) % Eosinophils % (Manual) 2 (0.0-7.0) % Nucleated RBC % 0.0 /100WBC Absolute Seg Neuts 9.1 H (1.4-5.7) Band Neutrophils # 0.1 Lymphocytes # (Manual) 1.6 (0.6-2.4) Monocytes # (Manual) 1.2 H (0.0-0.8) Eosinophils # (Manual) 0.2 (0.0-0.7) Nucleated RBCs # 0 K/uL Sodium 141 (136-148) mmol/L Potassium 4.0 (3.5-5.1) mmol/L Chloride 103 (98-107) mmol/L Carbon Dioxide 31.2 (21.0-32.0) mmol/L BUN 17 (7.0-18.0) mg/dL Creatinine 0.9 (0.8-1.3) mg/dL Est Cr Clr Drug Dosing 86.22 mL/min Estimated GFR (MDRD) > 60.0 ml/min Glucose 97 (74-106) mg/dL Calcium 8.2 L (8.5-10.1) mg/dL Phosphorus 3.6 (2.6-4.7) mg/dL Magnesium 2.1 (1.8-2.4) mg/dL Med Orders - Current: Current Medications Albuterol/Ipratropium (Albuterol/Ipratropium 4 Gm Inhalation [place]) 0 gm INH Q4H PRN PRN Reason: Dyspnea Last Admin: 12/15/20 14:20 Dose: 1 puff Documented by: Albuterol/Ipratropium (Albuterol/Ipratropium 3.0-0.5 Mg/3 Ml Neb Soln) 3 ml NEB Q4HRRT PRN PRN Reason: Wheezing Last Admin: 12/22/20 22:59 Dose: 3 ml Documented by: Alprazolam (Alprazolam 0.25 Mg Tab) 0.25 mg PO Q6H PRN PRN Reason: Anxiety Last Admin: 12/22/20 23:00 Dose: 0.25 mg Documented by: Benzonatate (Benzonatate 100 Mg Cap) 200 mg PO TID [facility] Last Admin: 12/22/20 21:13 Dose: 200 mg Documented by: Docusate Sodium (Docusate Sodium 100 Mg Cap) 100 mg PO BID [facility] Last Admin: 12/22/20 20:46 Dose: 100 mg Documented by: Enoxaparin Sodium (Enoxaparin 40 Mg/0.4 Ml Syringe) 40 mg SUBCUT Q24H [facility] Last Admin: 12/22/20 17:00 Dose: 40 mg Documented by: Guaifenesin/Codeine Phosphate (Codeine/Guaifenesin 10-100 Mg/5 Ml Syrup 5 Ml Cup) 5 ml PO Q4H PRN PRN Reason: Cough Last Admin: 12/22/20 22:59 Dose: 5 ml Documented by: Melatonin (Melatonin 3 Mg Tab) 6 mg PO BEDTIME PRN PRN Reason: Insomnia Last Admin: 12/22/20 20:46 Dose: 6 mg Documented by: Pantoprazole Sodium (Pantoprazole 40 Mg Tab.Cr) 40 mg PO DAILY [facility] Last Admin: 12/22/20 08:38 Dose: 40 mg Documented by: Polyethylene Glycol (Polyethylene Glycol 3350 Powder 17 Gm Packet) 17 gm PO DAILY [facility] Last Admin: 12/22/20 08:39 Dose: Not Given Documented by: Prednisone (Prednisone 20 Mg Tab) 40 mg PO WITHBREAKFAST [facility] Last Admin: 12/22/20 08:38 Dose: 40 mg Documented by: Sodium Chloride (Sodium Chloride 0.9% 10 Ml Syringe) 10 ml FLUSH ASDIRECTED PRN PRN Reason: Keep Vein Open Last Admin: 11/30/20 14:17 Dose: 10 ml Documented by: Sodium Chloride (Sodium Chloride 0.9% 2.5 Ml Syringe) 2.5 ml FLUSH ASDIRECTED P RN PRN Reason: Keep Vein Open Last Admin: 11/30/20 14:17 Dose: 2.5 ml Documented by: Sodium Chloride (Sodium Chloride 0.65% Nasal [place] 45 Ml Bottle) 1 ml LATHA Q6H PRN PRN Reason: Congestion Last Admin: 12/09/20 12:20 Dose: 1 spray Documented by: Discontinued Medications Dexamethasone (Dexamethasone 10 Mg/Ml Sdv) 6 mg IVPUSH ONETIME ONE Stop: 11/30/20 14:46 Last Admin: 11/30/20 15:00 Dose: 6 mg Documented by: Dexamethasone (Dexamethasone 4 Mg Tab) 6 mg PO DAILY [facility] Last Admin: 12/12/20 09:12 Dose: 6 mg Documented by: Famotidine (Famotidine 20 Mg/2 Ml Sdv) 20 mg IVPUSH BID [facility] Last Admin: 12/05/20 08:55 Dose: 20 mg Documented by: Guaifenesin (Guaifenesin 100 Mg/5 Ml Soln 5 Ml Ud Cup) 100 mg PO Q4H [facility] Last Admin: 12/06/20 04:02 Dose: 100 mg Documented by: Guaifenesin/Codeine Phosphate (Codeine/Guaifenesin 10-100 Mg/5 Ml Syrup 5 Ml Cup) 5 ml PO Q4H [facility] Last Admin: 12/11/20 17:21 Dose: 5 ml Documented by: Guaifenesin/Codeine Phosphate (Codeine/Guaifenesin 10-100 Mg/5 Ml Syrup 5 Ml Cup) 5 ml PO Q4H [facility] Last Admin: 12/19/20 12:47 Dose: 5 ml Documented by: Guaifenesin/Dextromethorphan (Guaifenesin/Dextromethorphan 100-10 Mg/5 Ml Soln 10 Ml Cup) 10 ml PO Q4H PRN PRN Reason: Cough Last Admin: 12/03/20 12:45 Dose: 10 ml Documented by: Guaifenesin/Dextromethorphan (Guaifenesin/Dextromethorphan 100-10 Mg/5 Ml Soln 10 Ml Cup) 10 ml PO Q4H [facility] Last Admin: 12/05/20 10:24 Dose: Not Given Documented by: Remdesivir 200 mg/ Sodium (Chloride) 250 mls @ 250 mls/hr IV ONETIME ONE Stop: 11/30/20 14:46 Last Admin: 11/30/20 20:04 Dose: 250 mls/hr Documented by: Remdesivir 100 mg/ Sodium (Chloride) 100 mls @ 100 mls/hr IV Q24H [facility] Stop: 12/04/20 18:59 Last Admin: 12/04/20 18:12 Dose: 100 mls/hr Documented by: Pantoprazole Sodium 40 mg/ (Sodium Chloride) 10 mls @ 300 mls/hr IV Q24H [facility] Last Admin: 12/09/20 08:56 Dose: 300 mls/hr Documented by: Levofloxacin/Dextrose 750 mg/ (Premix) 150 mls @ 100 mls/hr IV Q24H [facility] Last Admin: 12/11/20 15:24 Dose: 100 mls/hr Documented by: Lactated Ringer's (Ringers, Lactated) 250 mls @ 250 mls/hr IV ASDIRECTED [facility] Iopamidol (Iopamidol 755 Mg/Ml 500 Ml Multipack Bottle) 100 ml IVPUSH ONETIME STA Stop: 12/01/20 16:41 Last Admin: 12/01/20 16:41 Dose: 100 ml Documented by: Lorazepam (Lorazepam 2 Mg/Ml Sdv) 1 mg IVPUSH Q12H PRN PRN Reason: Anxiety Last Admin: 12/12/20 15:53 Dose: 1 mg Documented by: Lorazepam (Lorazepam 2 Mg/Ml Sdv) 0.5 mg IVPUSH Q8H PRN PRN Reason: Anxiety Lorazepam (Lorazepam 2 Mg/Ml Sdv) 1 mg IVPUSH ONETIME ONE Stop: 12/20/20 20:48 Last Admin: 12/20/20 22:23 Dose: 1 mg Documented by: Melatonin (Melatonin 3 Mg Tab) 6 mg PO BEDTIME [facility] Melatonin (Melatonin 3 Mg Tab) 6 mg PO BEDTIME PRN PRN Reason: Insomnia Last Admin: 12/06/20 21:39 Dose: 6 mg Documented by: Methylprednisolone Sodium Succinate (Methylprednisolone Sodium Succinate 40 Mg/1 Ml Sdv) 40 mg IVPUSH Q8H [facility] Last Admin: 12/16/20 03:51 Dose: 40 mg Documented by: Methylprednisolone Sodium Succinate (Methylprednisolone Sodium Succinate 40 Mg/1 Ml Sdv) 40 mg IVPUSH Q12H [facility] Last Admin: 12/18/20 09:06 Dose: 40 mg Documented by: Polyethylene Glycol (Polyethylene Glycol 3350 Powder 17 Gm Packet) 17 gm PO BEDTIME [facility] Last Admin: 12/12/20 22:28 Dose: Not Given Documented by: - Patient Data Lab Results Last 24 hrs: Laboratory Results - last 24 hr 12/22/20 12/22/20 Range/Units 05:45 05:45 WBC 12.36 H (4.0-11.0) K/uL RBC 4.23 L (4.50-5.90) M/uL Hgb 13.0 (13.0-17.0) g/dL Hct 38.2 (38.0-50.0) % MCV 90.3 (80.0-98.0) fL MCH 30.7 (27.0-32.0) pg MCHC 34.0 (31.0-37.0) g/dL RDW Std Deviation 45.2 (28.0-62.0) fl RDW Coeff of Carly 14 (11.0-15.0) % Plt Count 253 (150-400) K/uL MPV 10.40 (7.40-12.00) fL Add Manual Diff YES Neutrophils % (Manual) 74 (48.0-80.0) % Band Neutrophils % 1 % Lymphocytes % (Manual) 13 L (16.0-40.0) % Monocytes % (Manual) 10 (0.0-15.0) % Eosinophils % (Manual) 2 (0.0-7.0) % Nucleated RBC % 0.0 /100WBC Absolute Seg Neuts 9.1 H (1.4-5.7) Band Neutrophils # 0.1 Lymphocytes # (Manual) 1.6 (0.6-2.4) Monocytes # (Manual) 1.2 H (0.0-0.8) Eosinophils # (Manual) 0.2 (0.0-0.7) Nucleated RBCs # 0 K/uL Sodium 141 (136-148) mmol/L Potassium 4.0 (3.5-5.1) mmol/L Chloride 103 (98-107) mmol/L Carbon Dioxide 31.2 (21.0-32.0) mmol/L BUN 17 (7.0-18.0) mg/dL Creatinine 0.9 (0.8-1.3) mg/dL Est Cr Clr Drug Dosing 86.22 mL/min Estimated GFR (MDRD) > 60.0 ml/min Glucose 97 (74-106) mg/dL Calcium 8.2 L (8.5-10.1) mg/dL Phosphorus 3.6 (2.6-4.7) mg/dL Magnesium 2.1 (1.8-2.4) mg/dL Result Diagrams: 12/22/20 05:45 12/22/20 05:45 Sepsis Event Note - Focused Exam Vital Signs: Vital Signs Temp Pulse Resp BP Pulse Ox 12/22/20 22:00 18 114/63 91 L 12/22/20 21:00 30 H 112/67 95 12/22/20 20:00 36.4 C 31 H 119/71 92 L 12/22/20 19:00 32 H 118/60 91 L 12/22/20 18:00 76 24 H 111/66 92 L 12/22/20 17:00 89 26 H 112/65 91 L 12/22/20 16:00 36.3 C 93 24 H 117/66 90 L 12/22/20 15:00 94 22 H 124/65 92 L 12/22/20 14:00 79 20 121/74 91 L 12/22/20 13:00 73 18 115/70 88 L 12/22/20 12:00 36.3 C 78 28 H 112/67 90 L - Problem List & Annotations (1) Acute hypoxemic respiratory failure due to COVID-19 SNOMED Code(s): 220899618 Code(s): U07.1 - COVID-19; J96.01 - ACUTE RESPIRATORY FAILURE WITH HYPOXIA Status: Acute Current Visit: Yes (2) Anxiety about health SNOMED Code(s): 963405053 Code(s): F41.8 - OTHER SPECIFIED ANXIETY DISORDERS Status: Acute Current Visit: Yes - Plan Plan:: I have seen and evaluated the patient and agree with the residents note unless specified in my note
[2020-12-22] MEDS: Enoxaparin 40 MG/0.4 ML Syringe SUBCUT SCH (17:00)
[2020-12-22] MEDS: Melatonin 3 MG Tab PO PRN (20:46)
[2020-12-23] MEDS: ALPRAZolam 0.25 MG Tab PO PRN ×3 (05:01→22:12)
[2020-12-23] MEDS: Benzonatate 100 MG Cap PO SCH ×3 (05:01→21:12)
[2020-12-23] MEDS: Albuterol/Ipratropium 3.0-0.5 MG/3 ML Neb Soln NEB PRN ×4 (05:02→18:18)
[2020-12-23 07:21] LABS: BLOOD UREA NITROGEN,BUN 18 mg/dL (7.0-18.0); CARBON DIOXIDE,CO2 28.8 mmol/L (21.0-32.0); CHLORIDE,CL 103 mmol/L (98-107); GLUCOSE RANDOM 93 mg/dL (74-106); POTASSIUM,K 3.9 mmol/L (3.5-5.1); SODIUM,NA 140 mmol/L (136-148)
[2020-12-23] MEDS: predniSONE 20 MG Tab PO SCH (08:30)
[2020-12-23] MEDS: Pantoprazole 40 MG Tab.CR PO SCH (08:30)
[2020-12-23] MEDS: Docusate Sodium 100 MG Cap PO SCH ×2 (08:30→21:13)
[2020-12-23] MEDS: Codeine/guaiFENesin 10-100 MG/5 ML Syrup 5 ML Cup PO PRN ×4 (08:31→22:11)
[2020-12-23] MEDS: Polyethylene Glycol 3350 Powder 17 GM Packet PO SCH (08:36)
--- NOTE | 2020-12-23 08:46 | PCM.PN ---
<Joe Lopez - Last Filed: 12/23/20 11:08> - General Info Date of Service: 12/23/20 Admission Dx/Problem (Free Text): Admission Diagnosis/Problem Admission Diagnosis/Problem Respiratory failure with hypoxia Subjective Update: Patient resting comfortably in recliner this morning. Patient states he is slowly feeling better. He had a bowel movement. Patient is now on 12 L saturating at 99%. Patient denies cough, fever, chest pain, abdominal pain, palpitations, headache, dizziness. Patient is comfortable with his oxygen weaning and denies anxiety. - Review of Systems General: Denies: Fever, Chills HEENT: Reports: Post Nasal Drip Pulmonary: Reports: Shortness of Breath. Denies: Cough, Sputum Cardiovascular: Denies: Chest Pain, Palpitations Gastrointestinal: Denies: Abdominal Pain, Constipation, Decreased Appetite, Diarrhea Genitourinary: Denies: Dysuria Musculoskeletal: Denies: Leg Pain Skin: Denies: Rash Neurological: Denies: Confusion, Dizziness, Numbness, Paresthesia - Patient Data Vitals - Most Recent: Last Vital Signs Temp 97.5 F 12/23/20 04:00 Pulse 76 12/22/20 18:00 Resp 16 12/23/20 07:00 BP 129/70 12/23/20 07:00 Pulse Ox 99 12/23/20 07:46 Weight - Most Recent: 102.058 kg I&O - Last 24 Hours: Intake & Output 12/22/20 12/23/20 12/23/20 22:59 06:59 14:59 Intake Total 420 440 Output Total 200 900 Balance 220 -460 Lab Results Last 24 Hours: Laboratory Results - last 24 hr 12/23/20 12/23/20 Range/Units 06:12 06:12 WBC 12.54 H (4.0-11.0) K/uL RBC 4.14 L (4.50-5.90) M/uL Hgb 12.7 L (13.0-17.0) g/dL Hct 37.7 L (38.0-50.0) % MCV 91.1 (80.0-98.0) fL MCH 30.7 (27.0-32.0) pg MCHC 33.7 (31.0-37.0) g/dL RDW Std Deviation 46.3 (28.0-62.0) fl RDW Coeff of Carly 14 (11.0-15.0) % Plt Count 248 (150-400) K/uL MPV 10.40 (7.40-12.00) fL Add Manual Diff YES Neutrophils % (Manual) 76 (48.0-80.0) % Band Neutrophils % 2 % Lymphocytes % (Manual) 13 L (16.0-40.0) % Monocytes % (Manual) 8 (0.0-15.0) % Myelocytes % 1 % Nucleated RBC % 0.0 /100WBC Absolute Seg Neuts 9.5 H (1.4-5.7) Band Neutrophils # 0.3 Lymphocytes # (Manual) 1.6 (0.6-2.4) Monocytes # (Manual) 1.0 H (0.0-0.8) Absolute Myelocytes 0.1 Nucleated RBCs # 0 K/uL Sodium 140 (136-148) mmol/L Potassium 3.9 (3.5-5.1) mmol/L Chloride 103 (98-107) mmol/L Carbon Dioxide 28.8 (21.0-32.0) mmol/L BUN 18 (7.0-18.0) mg/dL Creatinine 0.9 (0.8-1.3) mg/dL Est Cr Clr Drug Dosing 86.22 mL/min Estimated GFR (MDRD) > 60.0 ml/min Glucose 93 (74-106) mg/dL Calcium 8.4 L (8.5-10.1) mg/dL Total Bilirubin 0.5 (0.2-1.0) mg/dL AST 21 (15-37) IU/L ALT 46 (14-63) IU/L Alkaline Phosphatase 58 (46-116) U/L Total Protein 6.1 L (6.4-8.2) g/dL Albumin 2.5 L (3.4-5.0) g/dL Globulin 3.6 (2.6-4.0) g/dL Albumin/Globulin Ratio 0.7 L (0.9-1.6) Med Orders - Current: Current Medications Albuterol/Ipratropium (Albuterol/Ipratropium 4 Gm Inhalation [place]) 0 gm INH Q4H PRN PRN Reason: Dyspnea Last Admin: 12/15/20 14:20 Dose: 1 puff Documented by: Albuterol/Ipratropium (Albuterol/Ipratropium 3.0-0.5 Mg/3 Ml Neb Soln) 3 ml NEB Q4HRRT PRN PRN Reason: Wheezing Last Admin: 12/23/20 05:02 Dose: 3 ml Documented by: Alprazolam (Alprazolam 0.25 Mg Tab) 0.25 mg PO Q6H PRN PRN Reason: Anxiety Last Admin: 12/23/20 05:01 Dose: 0.25 mg Documented by: Benzonatate (Benzonatate 100 Mg Cap) 200 mg PO TID [facility] Last Admin: 12/23/20 05:01 Dose: 200 mg Documented by: Docusate Sodium (Docusate Sodium 100 Mg Cap) 100 mg PO BID [facility] Last Admin: 12/23/20 08:30 Dose: 100 mg Documented by: Enoxaparin Sodium (Enoxaparin 40 Mg/0.4 Ml Syringe) 40 mg SUBCUT Q24H [facility] Last Admin: 12/22/20 17:00 Dose: 40 mg Documented by: Guaifenesin/Codeine Phosphate (Codeine/Guaifenesin 10-100 Mg/5 Ml Syrup 5 Ml Cup) 5 ml PO Q4H PRN PRN Reason: Cough Last Admin: 12/23/20 08:31 Dose: 5 ml Documented by: Melatonin (Melatonin 3 Mg Tab) 6 mg PO BEDTIME PRN PRN Reason: Insomnia Last Admin: 12/22/20 20:46 Dose: 6 mg Documented by: Pantoprazole Sodium (Pantoprazole 40 Mg Tab.Cr) 40 mg PO DAILY [facility] Last Admin: 12/23/20 08:30 Dose: 40 mg Documented by: Polyethylene Glycol (Polyethylene Glycol 3350 Powder 17 Gm Packet) 17 gm PO DAILY [facility] Last Admin: 12/22/20 08:39 Dose: Not Given Documented by: Prednisone (Prednisone 20 Mg Tab) 40 mg PO WITHBREAKFAST [facility] Last Admin: 12/23/20 08:30 Dose: 40 mg Documented by: Sodium Chloride (Sodium Chloride 0.9% 10 Ml Syringe) 10 ml FLUSH ASDIRECTED PRN PRN Reason: Keep Vein Open Last Admin: 11/30/20 14:17 Dose: 10 ml Documented by: Sodium Chloride (Sodium Chloride 0.9% 2.5 Ml Syringe) 2.5 ml FLUSH ASDIRECTED PRN PRN Reason: Keep Vein Open Last Admin: 11/30/20 14:17 Dose: 2.5 ml Documented by: Sodium Chloride (Sodium Chloride 0.65% Nasal [place] 45 Ml Bottle) 1 ml LATHA Q6H PRN PRN Reason: Congestion Last Admin: 12/09/20 12:20 Dose: 1 spray Documented by: Discontinued Medications Dexamethasone (Dexamethasone 10 Mg/Ml Sdv) 6 mg IVPUSH ONETIME ONE Stop: 11/30/20 14:46 Last Admin: 11/30/20 15:00 Dose: 6 mg Documented by: Dexamethasone (Dexamethasone 4 Mg Tab) 6 mg PO DAILY [facility] Last Admin: 12/12/20 09:12 Dose: 6 mg Documented by: Famotidine (Famotidine 20 Mg/2 Ml Sdv) 20 mg IVPUSH BID [facility] Last Admin: 12/05/20 08:55 Dose: 20 mg Documented by: Guaifenesin (Guaifenesin 100 Mg/5 Ml Soln 5 Ml Ud Cup) 100 mg PO Q4H [facility] Last Admin: 12/06/20 04:02 Dose: 100 mg Documented by: Guaifenesin/Codeine Phosphate (Codeine/Guaifenesin 10-100 Mg/5 Ml Syrup 5 Ml Cup) 5 ml PO Q4H [facility] Last Admin: 12/11/20 17:21 Dose: 5 ml Documented by: Guaifenesin/Codeine Phosphate (Codeine/Guaifenesin 10-100 Mg/5 Ml Syrup 5 Ml Cup) 5 ml PO Q4H [facility] Last Admin: 12/19/20 12:47 Dose: 5 ml Documented by: Guaifenesin/Dextromethorphan (Guaifenesin/Dextromethorphan 100-10 Mg/5 Ml Soln 10 Ml Cup) 10 ml PO Q4H PRN PRN Reason: Cough Last Admin: 12/03/20 12:45 Dose: 10 ml Documented by: Guaifenesin/Dextromethorphan (Guaifenesin/Dextromethorphan 100-10 Mg/5 Ml Soln 10 Ml Cup) 10 ml PO Q4H [facility] Last Admin: 12/05/20 10:24 Dose: Not Given Documented by: Remdesivir 200 mg/ Sodium (Chloride) 250 mls @ 250 mls/hr IV ONETIME ONE Stop: 11/30/20 14:46 Last Admin: 11/30/20 20:04 Dose: 250 mls/hr Documented by: Remdesivir 100 mg/ Sodium (Chloride) 100 mls @ 100 mls/hr IV Q24H [facility] Stop: 12/04/20 18:59 Last Admin: 12/04/20 18:12 Dose: 100 mls/hr Documented by: Pantoprazole Sodium 40 mg/ (Sodium Chloride) 10 mls @ 300 mls/hr IV Q24H [facility] Last Admin: 12/09/20 08:56 Dose: 300 mls/hr Documented by: Levofloxacin/Dextrose 750 mg/ (Premix) 150 mls @ 100 mls/hr IV Q24H [facility] Last Admin: 12/11/20 15:24 Dose: 100 mls/hr Documented by: Lactated Ringer's (Ringers, Lactated) 250 mls @ 250 mls/hr IV ASDIRECTED [facility] Iopamidol (Iopamidol 755 Mg/Ml 500 Ml Multipack Bottle) 100 ml IVPUSH ONETIME STA Stop: 12/01/20 16:41 Last Admin: 12/01/20 16:41 Dose: 100 ml Documented by: Lorazepam (Lorazepam 2 Mg/Ml Sdv) 1 mg IVPUSH Q12H PRN PRN Reason: Anxiety Last Admin: 12/12/20 15:53 Dose: 1 mg Documented by: Lorazepam (Lorazepam 2 Mg/Ml Sdv) 0.5 mg IVPUSH Q8H PRN PRN Reason: Anxiety Lorazepam (Lorazepam 2 Mg/Ml Sdv) 1 mg IVPUSH ONETIME ONE Stop: 12/20/20 20:48 Last Admin: 12/20/20 22:23 Dose: 1 mg Documented by: Melatonin (Melatonin 3 Mg Tab) 6 mg PO BEDTIME [facility] Melatonin (Melatonin 3 Mg Tab) 6 mg PO BEDTIME PRN PRN Reason: Insomnia Last Admin: 12/06/20 21:39 Dose: 6 mg Documented by: Methylprednisolone Sodium Succinate (Methylprednisolone Sodium Succinate 40 Mg/1 Ml Sdv) 40 mg IVPUSH Q8H [facility] Last Admin: 12/16/20 03:51 Dose: 40 mg Documented by: Methylprednisolone Sodium Succinate (Methylprednisolone Sodium Succinate 40 Mg/1 Ml Sdv) 40 mg IVPUSH Q12H [facility] Last Admin: 12/18/20 09:06 Dose: 40 mg Documented by: Polyethylene Glycol (Polyethylene Glycol 3350 Powder 17 Gm Packet) 17 gm PO BEDTIME [facility] Last Admin: 12/12/20 22:28 Dose: Not Given Documented by: - Exam Quality Assessment: Supplemental Oxygen General: Alert, Oriented, Cooperative, No Acute Distress HEENT: Pupils Equal, Pupils Reactive Neck: Supple, Trachea Midline Lungs: Normal Respiratory Effort, Decreased Breath Sounds. No: Wheezing Cardiovascular: Regular Rate, Regular Rhythm, No Murmurs GI/Abdominal Exam: Normal Bowel Sounds, Soft, Non-Tender Back Exam: Normal Inspection Extremities: Normal Inspection, Normal Range of Motion, Non-Tender, No Pedal Edema. No: Jessica's Sign, Leg Pain Peripheral Pulses: 2+: Dorsalis Pedis (L), Dorsalis Pedis (R) Skin: Warm, Dry, Intact Neurological: No New Focal Deficit - Patient Data Lab Results Last 24 hrs: Laboratory Results - last 24 hr 12/23/20 12/23/20 Range/Units 06:12 06:12 WBC 12.54 H (4.0-11.0) K/uL RBC 4.14 L (4.50-5.90) M/uL Hgb 12.7 L (13.0-17.0) g/dL Hct 37.7 L (38.0-50.0) % MCV 91.1 (80.0-98.0) fL MCH 30.7 (27.0-32.0) pg MCHC 33.7 (31.0-37.0) g/dL RDW Std Deviation 46.3 (28.0-62.0) fl RDW Coeff of Carly 14 (11.0-15.0) % Plt Count 248 (150-400) K/uL MPV 10.40 (7.40-12.00) fL Add Manual Diff YES Neutrophils % (Manual) 76 (48.0-80.0) % Band Neutrophils % 2 % Lymphocytes % (Manual) 13 L (16.0-40.0) % Monocytes % (Manual) 8 (0.0-15.0) % Myelocytes % 1 % Nucleated RBC % 0.0 /100WBC Absolute Seg Neuts 9.5 H (1.4-5.7) Band Neutrophils # 0.3 Lymphocytes # (Manual) 1.6 (0.6-2.4) Monocytes # (Manual) 1.0 H (0.0-0.8) Absolute Myelocytes 0.1 Nucleated RBCs # 0 K/uL Sodium 140 (136-148) mmol/L Potassium 3.9 (3.5-5.1) mmol/L Chloride 103 (98-107) mmol/L Carbon Dioxide 28.8 (21.0-32.0) mmol/L BUN 18 (7.0-18.0) mg/dL Creatinine 0.9 (0.8-1.3) mg/dL Est Cr Clr Drug Dosing 86.22 mL/min Estimated GFR (MDRD) > 60.0 ml/min Glucose 93 (74-106) mg/dL Calcium 8.4 L (8.5-10.1) mg/dL Total Bilirubin 0.5 (0.2-1.0) mg/dL AST 21 (15-37) IU/L ALT 46 (14-63) IU/L Alkaline Phosphatase 58 (46-116) U/L Total Protein 6.1 L (6.4-8.2) g/dL Albumin 2.5 L (3.4-5.0) g/dL Globulin 3.6 (2.6-4.0) g/dL Albumin/Globulin Ratio 0.7 L (0.9-1.6) Result Diagrams: 12/23/20 06:12 12/23/20 06:12 Sepsis Event Note - Evaluation Sepsis Screening Result: No Definite Risk - Focused Exam Vital Signs: Vital Signs Temp Resp BP Pulse Ox 12/23/20 07:46 99 12/23/20 07:00 16 129/70 97 12/23/20 06:00 21 H 121/72 97 12/23/20 05:00 14 114/69 93 L 12/23/20 04:00 97.5 F 20 109/56 L 97 12/23/20 03:00 17 99/60 96 12/23/20 02:00 19 99/64 95 12/23/20 01:00 14 106/68 93 L 12/23/20 00:00 19 110/59 L 94 L 12/22/20 23:00 97.4 F 19 98/56 L 92 L 12/22/20 22:00 18 114/63 91 L 12/22/20 21:00 30 H 112/67 95 - Problem List Review Problem List Initiated/Reviewed/Updated: Yes - My Orders Last 24 Hours: My Active Orders 12/24/20 05:11 CBC WITH AUTO DIFF [HEME] DAILY COMPREHENSIVE METABOLIC PN,CMP [CHEM] DAILY 12/25/20 05:11 CBC WITH AUTO DIFF [HEME] DAILY COMPREHENSIVE METABOLIC PN,CMP [CHEM] DAILY 12/26/20 05:11 CBC WITH AUTO DIFF [HEME] DAILY COMPREHENSIVE METABOLIC PN,CMP [CHEM] DAILY 12/27/20 05:11 CBC WITH AUTO DIFF [HEME] DAILY COMPREHENSIVE METABOLIC PN,CMP [CHEM] DAILY - Plan Plan:: COVID-19 pneumonia Continue to wean oxygen as tolerated. Prednisone. Remdesivir completed. Combivent. Incentive spirometry. Lovenox 40 mg. Robitussin. Melatonin 6mg prn bedtime Physical therapy-on board <Nimisha Julian - Last Filed: 12/23/20 14:26> - Patient Data Vitals - Most Recent: Last Vital Signs Temp 36.4 C 12/23/20 04:00 Pulse 93 12/23/20 13:00 Resp 16 12/23/20 07:00 BP 123/62 12/23/20 13:00 Pulse Ox 92 L 12/23/20 13:00 I&O - Last 24 Hours: Intake & Output 12/22/20 12/23/20 12/23/20 22:59 06:59 14:59 Intake Total 420 440 Output Total 200 900 150 Balance 220 -460 -150 Lab Results Last 24 Hours: Laboratory Results - last 24 hr 12/23/20 12/23/20 Range/Units 06:12 06:12 WBC 12.54 H (4.0-11.0) K/uL RBC 4.14 L (4.50-5.90) M/uL Hgb 12.7 L (13.0-17.0) g/dL Hct 37.7 L (38.0-50.0) % MCV 91.1 (80.0-98.0) fL MCH 30.7 (27.0-32.0) pg MCHC 33.7 (31.0-37.0) g/dL RDW Std Deviation 46.3 (28.0-62.0) fl RDW Coeff of Carly 14 (11.0-15.0) % Plt Count 248 (150-400) K/uL MPV 10.40 (7.40-12.00) fL Add Manual Diff YES Neutrophils % (Manual) 76 (48.0-80.0) % Band Neutrophils % 2 % Lymphocytes % (Manual) 13 L (16.0-40.0) % Monocytes % (Manual) 8 (0.0-15.0) % Myelocytes % 1 % Nucleated RBC % 0.0 /100WBC Absolute Seg Neuts 9.5 H (1.4-5.7) Band Neutrophils # 0.3 Lymphocytes # (Manual) 1.6 (0.6-2.4) Monocytes # (Manual) 1.0 H (0.0-0.8) Absolute Myelocytes 0.1 Nucleated RBCs # 0 K/uL Sodium 140 (136-148) mmol/L Potassium 3.9 (3.5-5.1) mmol/L Chloride 103 (98-107) mmol/L Carbon Dioxide 28.8 (21.0-32.0) mmol/L BUN 18 (7.0-18.0) mg/dL Creatinine 0.9 (0.8-1.3) mg/dL Est Cr Clr Drug Dosing 86.22 mL/min Estimated GFR (MDRD) > 60.0 ml/min Glucose 93 (74-106) mg/dL Calcium 8.4 L (8.5-10.1) mg/dL Total Bilirubin 0.5 (0.2-1.0) mg/dL AST 21 (15-37) IU/L ALT 46 (14-63) IU/L Alkaline Phosphatase 58 (46-116) U/L Total Protein 6.1 L (6.4-8.2) g/dL Albumin 2.5 L (3.4-5.0) g/dL Globulin 3.6 (2.6-4.0) g/dL Albumin/Globulin Ratio 0.7 L (0.9-1.6) Med Orders - Current: Current Medications Albuterol/Ipratropium (Albuterol/Ipratropium 4 Gm Inhalation [place]) 0 gm INH Q4H PRN PRN Reason: Dyspnea Last Admin: 12/15/20 14:20 Dose: 1 puff Documented by: Albuterol/Ipratropium (Albuterol/Ipratropium 3.0-0.5 Mg/3 Ml Neb Soln) 3 ml NEB Q4HRRT PRN PRN Reason: Wheezing Last Admin: 12/23/20 09:20 Dose: 3 ml Documented by: Alprazolam (Alprazolam 0.25 Mg Tab) 0.25 mg PO Q6H PRN PRN Reason: Anxiety Last Admin: 12/23/20 12:13 Dose: 0.25 mg Documented by: Benzonatate (Benzonatate 100 Mg Cap) 200 mg PO TID [facility] Last Admin: 12/23/20 05:01 Dose: 200 mg Documented by: Docusate Sodium (Docusate Sodium 100 Mg Cap) 100 mg PO BID [facility] Last Admin: 12/23/20 08:30 Dose: 100 mg Documented by: Enoxaparin Sodium (Enoxaparin 40 Mg/0.4 Ml Syringe) 40 mg SUBCUT Q24H [facility] Last Admin: 12/22/20 17:00 Dose: 40 mg Documented by: Guaifenesin/Codeine Phosphate (Codeine/Guaifenesin 10-100 Mg/5 Ml Syrup 5 Ml Cup) 5 ml PO Q4H PRN PRN Reason: Cough Last Admin: 12/23/20 08:31 Dose: 5 ml Documented by: Melatonin (Melatonin 3 Mg Tab) 6 mg PO BEDTIME PRN PRN Reason: Insomnia Last Admin: 12/22/20 20:46 Dose: 6 mg Documented by: Pantoprazole Sodium (Pantoprazole 40 Mg Tab.Cr) 40 mg PO DAILY [facility] Last Admin: 12/23/20 08:30 Dose: 40 mg Documented by: Polyethylene Glycol (Polyethylene Glycol 3350 Powder 17 Gm Packet) 17 gm PO DAILY [facility] Last Admin: 12/23/20 08:36 Dose: Not Given Documented by: Prednisone (Prednisone 20 Mg Tab) 40 mg PO WITHBREAKFAST [facility] Last Admin: 12/23/20 08:30 Dose: 40 mg Documented by: Sodium Chloride (Sodium Chloride 0.9% 10 Ml Syringe) 10 ml FLUSH ASDIRECTED PRN PRN Reason: Keep Vein Open Last Admin: 11/30/20 14:17 Dose: 10 ml Documented by: Sodium Chloride (Sodium Chloride 0.9% 2.5 Ml Syringe) 2.5 ml FLUSH ASDIRECTED PRN PRN Reason: Keep Vein Open Last Admin: 11/30/20 14:17 Dose: 2.5 ml Documented by: Sodium Chloride (Sodium Chloride 0.65% Nasal [place] 45 Ml Bottle) 1 ml LATHA Q6H PRN PRN Reason: Congestion Last Admin: 12/09/20 12:20 Dose: 1 spray Documented by: Discontinued Medications Dexamethasone (Dexamethasone 10 Mg/Ml Sdv) 6 mg IVPUSH ONETIME ONE Stop: 11/30/20 14:46 Last Admin: 11/30/20 15:00 Dose: 6 mg Documented by: Dexamethasone (Dexamethasone 4 Mg Tab) 6 mg PO DAILY [facility] Last Admin: 12/12/20 09:12 Dose: 6 mg Documented by: Famotidine (Famotidine 20 Mg/2 Ml Sdv) 20 mg IVPUSH BID [facility] Last Admin: 12/05/20 08:55 Dose: 20 mg Documented by: Guaifenesin (Guaifenesin 100 Mg/5 Ml Soln 5 Ml Ud Cup) 100 mg PO Q4H [facility] Last Admin: 12/06/20 04:02 Dose: 100 mg Documented by: Guaifenesin/Codeine Phosphate (Codeine/Guaifenesin 10-100 Mg/5 Ml Syrup 5 Ml Cup) 5 ml PO Q4H [facility] Last Admin: 12/11/20 17:21 Dose: 5 ml Documented by: Guaifenesin/Codeine Phosphate (Codeine/Guaifenesin 10-100 Mg/5 Ml Syrup 5 Ml Cup) 5 ml PO Q4H [facility] Last Admin: 12/19/20 12:47 Dose: 5 ml Documented by: Guaifenesin/Dextromethorphan (Guaifenesin/Dextromethorphan 100-10 Mg/5 Ml Soln 10 Ml Cup) 10 ml PO Q4H PRN PRN Reason: Cough Last Admin: 12/03/20 12:45 Dose: 10 ml Documented by: Guaifenesin/Dextromethorphan (Guaifenesin/Dextromethorphan 100-10 Mg/5 Ml Soln 10 Ml Cup) 10 ml PO Q4H [facility] Last Admin: 12/05/20 10:24 Dose: Not Given Documented by: Remdesivir 200 mg/ Sodium (Chloride) 250 mls @ 250 mls/hr IV ONETIME ONE Stop: 11/30/20 14:46 Last Admin: 11/30/20 20:04 Dose: 250 mls/hr Documented by: Remdesivir 100 mg/ Sodium (Chloride) 100 mls @ 100 mls/hr IV Q24H [facility] Stop: 12/04/20 18:59 Last Admin: 12/04/20 18:12 Dose: 100 mls/hr Documented by: Pantoprazole Sodium 40 mg/ (Sodium Chloride) 10 mls @ 300 mls/hr IV Q24H [facility] Last Admin: 12/09/20 08:56 Dose: 300 mls/hr Documented by: Levofloxacin/Dextrose 750 mg/ (Premix) 150 mls @ 100 mls/hr IV Q24H [facility] Last Admin: 12/11/20 15:24 Dose: 100 mls/hr Documented by: Lactated Ringer's (Ringers, Lactated) 250 mls @ 250 mls/hr IV ASDIRECTED [facility] Iopamidol (Iopamidol 755 Mg/Ml 500 Ml Multipack Bottle) 100 ml IVPUSH ONETIME STA Stop: 12/01/20 16:41 Last Admin: 12/01/20 16:41 Dose: 100 ml Documented by: Lorazepam (Lorazepam 2 Mg/Ml Sdv) 1 mg IVPUSH Q12H PRN PRN Reason: Anxiety Last Admin: 12/12/20 15:53 Dose: 1 mg Documented by: Lorazepam (Lorazepam 2 Mg/Ml Sdv) 0.5 mg IVPUSH Q8H PRN PRN Reason: Anxiety Lorazepam (Lorazepam 2 Mg/Ml Sdv) 1 mg IVPUSH ONETIME ONE Stop: 12/20/20 20:48 Last Admin: 12/20/20 22:23 Dose: 1 mg Documented by: Melatonin (Melatonin 3 Mg Tab) 6 mg PO BEDTIME [facility] Melatonin (Melatonin 3 Mg Tab) 6 mg PO BEDTIME PRN PRN Reason: Insomnia Last Admin: 12/06/20 21:39 Dose: 6 mg Documented by: Methylprednisolone Sodium Succinate (Methylprednisolone Sodium Succinate 40 Mg/1 Ml Sdv) 40 mg IVPUSH Q8H [facility] Last Admin: 12/16/20 03:51 Dose: 40 mg Documented by: Methylprednisolone Sodium Succinate (Methylprednisolone Sodium Succinate 40 Mg/1 Ml Sdv) 40 mg IVPUSH Q12H [facility] Last Admin: 12/18/20 09:06 Dose: 40 mg Documented by: Polyethylene Glycol (Polyethylene Glycol 3350 Powder 17 Gm Packet) 17 gm PO BEDTIME [facility] Last Admin: 12/12/20 22:28 Dose: Not Given Documented by: - Patient Data Lab Results Last 24 hrs: Laboratory Results - last 24 hr 12/23/20 12/23/20 Range/Units 06:12 06:12 WBC 12.54 H (4.0-11.0) K/uL RBC 4.14 L (4.50-5.90) M/uL Hgb 12.7 L (13.0-17.0) g/dL Hct 37.7 L (38.0-50.0) % MCV 91.1 (80.0-98.0) fL MCH 30.7 (27.0-32.0) pg MCHC 33.7 (31.0-37.0) g/dL RDW Std Deviation 46.3 (28.0-62.0) fl RDW Coeff of Carly 14 (11.0-15.0) % Plt Count 248 (150-400) K/uL MPV 10.40 (7.40-12.00) fL Add Manual Diff YES Neutrophils % (Manual) 76 (48.0-80.0) % Band Neutrophils % 2 % Lymphocytes % (Manual) 13 L (16.0-40.0) % Monocytes % (Manual) 8 (0.0-15.0) % Myelocytes % 1 % Nucleated RBC % 0.0 /100WBC Absolute Seg Neuts 9.5 H (1.4-5.7) Band Neutrophils # 0.3 Lymphocytes # (Manual) 1.6 (0.6-2.4) Monocytes # (Manual) 1.0 H (0.0-0.8) Absolute Myelocytes 0.1 Nucleated RBCs # 0 K/uL Sodium 140 (136-148) mmol/L Potassium 3.9 (3.5-5.1) mmol/L Chloride 103 (98-107) mmol/L Carbon Dioxide 28.8 (21.0-32.0) mmol/L BUN 18 (7.0-18.0) mg/dL Creatinine 0.9 (0.8-1.3) mg/dL Est Cr Clr Drug Dosing 86.22 mL/min Estimated GFR (MDRD) > 60.0 ml/min Glucose 93 (74-106) mg/dL Calcium 8.4 L (8.5-10.1) mg/dL Total Bilirubin 0.5 (0.2-1.0) mg/dL AST 21 (15-37) IU/L ALT 46 (14-63) IU/L Alkaline Phosphatase 58 (46-116) U/L Total Protein 6.1 L (6.4-8.2) g/dL Albumin 2.5 L (3.4-5.0) g/dL Globulin 3.6 (2.6-4.0) g/dL Albumin/Globulin Ratio 0.7 L (0.9-1.6) Result Diagrams: 12/23/20 06:12 12/23/20 06:12 Sepsis Event Note - Focused Exam Vital Signs: Vital Signs Temp Pulse Resp BP Pulse Ox 12/23/20 13:00 93 123/62 92 L 12/23/20 12:00 86 123/75 91 L 12/23/20 11:00 70 128/70 87 L 12/23/20 10:56 86 L 12/23/20 10:00 74 125/62 94 L 12/23/20 09:30 98 12/23/20 09:00 69 128/74 93 L 12/23/20 08:50 94 L 12/23/20 08:00 93 129/80 93 L 12/23/20 07:46 99 12/23/20 07:00 16 129/70 97 12/23/20 06:00 21 H 121/72 97 12/23/20 05:00 14 114/69 93 L 12/23/20 04:00 36.4 C 20 109/56 L 97 12/23/20 03:00 17 99/60 96 - Problem List & Annotations (1) Acute hypoxemic respiratory failure due to COVID-19 SNOMED Code(s): 762976677 Code(s): U07.1 - COVID-19; J96.01 - ACUTE RESPIRATORY FAILURE WITH HYPOXIA Status: Acute Current Visit: Yes (2) Anxiety about health SNOMED Code(s): 929812936 Code(s): F41.8 - OTHER SPECIFIED ANXIETY DISORDERS Status: Acute Current Visit: Yes - My Orders Last 24 Hours: My Active Orders 12/23/20 11:07 Communication Order [RC] ROUTINE 12/24/20 13:08 Consult to Home Health [CONS] Routine - Plan Plan:: I have seen and evaluated the patient and agree with the residents note unless specified in my note
[2020-12-23] MEDS: Enoxaparin 40 MG/0.4 ML Syringe SUBCUT SCH (18:18)
[2020-12-23] MEDS: Melatonin 3 MG Tab PO PRN (21:13)
[2020-12-24] MEDS: Albuterol/Ipratropium 3.0-0.5 MG/3 ML Neb Soln NEB PRN ×2 (02:22→09:52)
[2020-12-24] MEDS: Codeine/guaiFENesin 10-100 MG/5 ML Syrup 5 ML Cup PO PRN ×4 (02:24→22:43)
[2020-12-24] MEDS: Benzonatate 100 MG Cap PO SCH ×3 (05:03→22:43)
[2020-12-24 07:02] LABS: BLOOD UREA NITROGEN,BUN 18 mg/dL (7.0-18.0); CARBON DIOXIDE,CO2 30.2 mmol/L (21.0-32.0); CHLORIDE,CL 102 mmol/L (98-107); GLUCOSE RANDOM 87 mg/dL (74-106); SODIUM,NA 141 mmol/L (136-148)
[2020-12-24] MEDS: Docusate Sodium 100 MG Cap PO SCH ×2 (08:24→20:14)
[2020-12-24] MEDS: Pantoprazole 40 MG Tab.CR PO SCH (08:24)
[2020-12-24] MEDS: predniSONE 20 MG Tab PO SCH (08:24)
[2020-12-24] MEDS: Polyethylene Glycol 3350 Powder 17 GM Packet PO SCH (08:34)
[2020-12-24] MEDS: Albuterol/Ipratropium 4 GM Inhalation Spray INH PRN (09:35)
[2020-12-24] MEDS: ALPRAZolam 0.25 MG Tab PO PRN ×2 (09:52→22:43)
--- NOTE | 2020-12-24 12:18 | PCM.PN ---
- General Info Date of Service: 12/24/20 Admission Dx/Problem (Free Text): Admission Diagnosis/Problem Admission Diagnosis/Problem Respiratory failure with hypoxia Subjective Update: Patient resting comfortably in recliner this morning. Patient states he is better mentally and has less anxiety. Patient believes he is ready to be transferred to the medical floor if medically advised. Patient is tolerating diet. He is now down to 6 L high flow nasal cannula. We will begin tapering his prednisone. Continues to work with physical therapy. Patient denies cough, fever, chest pain, abdominal pain, palpitations, headache, dizziness. - Review of Systems General: Denies: Fever HEENT: Denies: Headaches Pulmonary: Reports: Shortness of Breath. Denies: Pleuritic Chest Pain, Cough, Sputum Cardiovascular: Denies: Chest Pain, Palpitations Gastrointestinal: Denies: Abdominal Pain, Diarrhea, Nausea, Vomiting Genitourinary: Denies: Dysuria Musculoskeletal: Denies: Leg Pain Skin: Denies: Rash Neurological: Denies: Confusion, Dizziness, Numbness, Paresthesia - Patient Data Vitals - Most Recent: Last Vital Signs Temp 98.1 F 12/24/20 12:00 Pulse 70 12/23/20 18:00 Resp 19 12/24/20 12:00 BP 106/60 12/24/20 12:00 Pulse Ox 95 12/24/20 12:00 Weight - Most Recent: 224 lb 15.99 oz I&O - Last 24 Hours: Intake & Output 12/23/20 12/24/20 12/24/20 22:59 06:59 14:59 Intake Total 1380 Output Total 600 1400 Balance -600 -20 Lab Results Last 24 Hours: Laboratory Results - last 24 hr 12/24/20 12/24/20 Range/Units 06:10 06:10 WBC 12.90 H (4.0-11.0) K/uL RBC 4.33 L (4.50-5.90) M/uL Hgb 13.4 (13.0-17.0) g/dL Hct 39.5 (38.0-50.0) % MCV 91.2 (80.0-98.0) fL MCH 30.9 (27.0-32.0) pg MCHC 33.9 (31.0-37.0) g/dL RDW Std Deviation 47.4 (28.0-62.0) fl RDW Coeff of Carly 14 (11.0-15.0) % Plt Count 245 (150-400) K/uL MPV 10.40 (7.40-12.00) fL Add Manual Diff YES Neutrophils % (Manual) 69 (48.0-80.0) % Band Neutrophils % 2 % Lymphocytes % (Manual) 20 (16.0-40.0) % Monocytes % (Manual) 6 (0.0-15.0) % Eosinophils % (Manual) 3 (0.0-7.0) % Nucleated RBC % 0.0 /100WBC Absolute Seg Neuts 8.9 H (1.4-5.7) Band Neutrophils # 0.3 Lymphocytes # (Manual) 2.6 H (0.6-2.4) Monocytes # (Manual) 0.8 (0.0-0.8) Eosinophils # (Manual) 0.4 (0.0-0.7) Nucleated RBCs # 0 K/uL Sodium 141 (136-148) mmol/L Potassium 4.0 (3.5-5.1) mmol/L Chloride 102 (98-107) mmol/L Carbon Dioxide 30.2 (21.0-32.0) mmol/L BUN 18 (7.0-18.0) mg/dL Creatinine 0.9 (0.8-1.3) mg/dL Est Cr Clr Drug Dosing 86.22 mL/min Estimated GFR (MDRD) > 60.0 ml/min Glucose 87 (74-106) mg/dL Calcium 8.2 L (8.5-10.1) mg/dL Total Bilirubin 0.4 (0.2-1.0) mg/dL AST 22 (15-37) IU/L ALT 53 (14-63) IU/L Alkaline Phosphatase 59 (46-116) U/L Total Protein 6.2 L (6.4-8.2) g/dL Albumin 2.6 L (3.4-5.0) g/dL Globulin 3.6 (2.6-4.0) g/dL Albumin/Globulin Ratio 0.7 L (0.9-1.6) Med Orders - Current: Current Medications Albuterol/Ipratropium (Albuterol/Ipratropium 4 Gm Inhalation [place]) 0 gm INH Q4H PRN PRN Reason: Dyspnea Last Admin: 12/24/20 09:35 Dose: 1 puff Documented by: Albuterol/Ipratropium (Albuterol/Ipratropium 3.0-0.5 Mg/3 Ml Neb Soln) 3 ml NEB Q4HRRT PRN PRN Reason: Wheezing Last Admin: 12/24/20 09:52 Dose: 3 ml Documented by: Alprazolam (Alprazolam 0.25 Mg Tab) 0.25 mg PO Q6H PRN PRN Reason: Anxiety Last Admin: 12/24/20 09:52 Dose: 0.25 mg Documented by: Benzonatate (Benzonatate 100 Mg Cap) 200 mg PO TID [facility] Last Admin: 12/24/20 05:03 Dose: 200 mg Documented by: Docusate Sodium (Docusate Sodium 100 Mg Cap) 100 mg PO BID [facility] Last Admin: 12/24/20 08:24 Dose: 100 mg Documented by: Enoxaparin Sodium (Enoxaparin 40 Mg/0.4 Ml Syringe) 40 mg SUBCUT Q24H [facility] Last Admin: 12/23/20 18:18 Dose: 40 mg Documented by: Guaifenesin/Codeine Phosphate (Codeine/Guaifenesin 10-100 Mg/5 Ml Syrup 5 Ml Cup) 5 ml PO Q4H PRN PRN Reason: Cough Last Admin: 12/24/20 09:52 Dose: 5 ml Documented by: Melatonin (Melatonin 3 Mg Tab) 6 mg PO BEDTIME PRN PRN Reason: Insomnia Last Admin: 12/23/20 21:13 Dose: 6 mg Documented by: Pantoprazole Sodium (Pantoprazole 40 Mg Tab.Cr) 40 mg PO DAILY [facility] Last Admin: 12/24/20 08:24 Dose: 40 mg Documented by: Polyethylene Glycol (Polyethylene Glycol 3350 Powder 17 Gm Packet) 17 gm PO DAILY [facility] Last Admin: 12/24/20 08:34 Dose: Not Given Documented by: Prednisone (Prednisone 20 Mg Tab) 40 mg PO WITHBREAKFAST [facility] Last Admin: 12/24/20 08:24 Dose: 40 mg Documented by: Sodium Chloride (Sodium Chloride 0.9% 10 Ml Syringe) 10 ml FLUSH ASDIRECTED PRN PRN Reason: Keep Vein Open Last Admin: 11/30/20 14:17 Dose: 10 ml Documented by: Sodium Chloride (Sodium Chloride 0.9% 2.5 Ml Syringe) 2.5 ml FLUSH ASDIRECTED PRN PRN Reason: Keep Vein Open Last Admin: 11/30/20 14:17 Dose: 2.5 ml Documented by: Sodium Chloride (Sodium Chloride 0.65% Nasal [place] 45 Ml Bottle) 1 ml LATHA Q6H PRN PRN Reason: Congestion Last Admin: 12/09/20 12:20 Dose: 1 spray Documented by: Discontinued Medications Dexamethasone (Dexamethasone 10 Mg/Ml Sdv) 6 mg IVPUSH ONETIME ONE Stop: 11/30/20 14:46 Last Admin: 11/30/20 15:00 Dose: 6 mg Documented by: Dexamethasone (Dexamethasone 4 Mg Tab) 6 mg PO DAILY [facility] Last Admin: 12/12/20 09:12 Dose: 6 mg Documented by: Famotidine (Famotidine 20 Mg/2 Ml Sdv) 20 mg IVPUSH BID [facility] Last Admin: 12/05/20 08:55 Dose: 20 mg Documented by: Guaifenesin (Guaifenesin 100 Mg/5 Ml Soln 5 Ml Ud Cup) 100 mg PO Q4H [facility] Last Admin: 12/06/20 04:02 Dose: 100 mg Documented by: Guaifenesin/Codeine Phosphate (Codeine/Guaifenesin 10-100 Mg/5 Ml Syrup 5 Ml Cup) 5 ml PO Q4H [facility] Last Admin: 12/11/20 17:21 Dose: 5 ml Documented by: Guaifenesin/Codeine Phosphate (Codeine/Guaifenesin 10-100 Mg/5 Ml Syrup 5 Ml Cup) 5 ml PO Q4H [facility] Last Admin: 12/19/20 12:47 Dose: 5 ml Documented by: Guaifenesin/Dextromethorphan (Guaifenesin/Dextromethorphan 100-10 Mg/5 Ml Soln 10 Ml Cup) 10 ml PO Q4H PRN PRN Reason: Cough Last Admin: 12/03/20 12:45 Dose: 10 ml Documented by: Guaifenesin/Dextromethorphan (Guaifenesin/Dextromethorphan 100-10 Mg/5 Ml Soln 10 Ml Cup) 10 ml PO Q4H [facility] Last Admin: 12/05/20 10:24 Dose: Not Given Documented by: Remdesivir 200 mg/ Sodium (Chloride) 250 mls @ 250 mls/hr IV ONETIME ONE Stop: 11/30/20 14:46 Last Admin: 11/30/20 20:04 Dose: 250 mls/hr Documented by: Remdesivir 100 mg/ Sodium (Chloride) 100 mls @ 100 mls/hr IV Q24H [facility] Stop: 12/04/20 18:59 Last Admin: 12/04/20 18:12 Dose: 100 mls/hr Documented by: Pantoprazole Sodium 40 mg/ (Sodium Chloride) 10 mls @ 300 mls/hr IV Q24H [facility] Last Admin: 12/09/20 08:56 Dose: 300 mls/hr Documented by: Levofloxacin/Dextrose 750 mg/ (Premix) 150 mls @ 100 mls/hr IV Q24H [facility] Last Admin: 12/11/20 15:24 Dose: 100 mls/hr Documented by: Lactated Ringer's (Ringers, Lactated) 250 mls @ 250 mls/hr IV ASDIRECTED [facility] Iopamidol (Iopamidol 755 Mg/Ml 500 Ml Multipack Bottle) 100 ml IVPUSH ONETIME STA Stop: 12/01/20 16:41 Last Admin: 12/01/20 16:41 Dose: 100 ml Documented by: Lorazepam (Lorazepam 2 Mg/Ml Sdv) 1 mg IVPUSH Q12H PRN PRN Reason: Anxiety Last Admin: 12/12/20 15:53 Dose: 1 mg Documented by: Lorazepam (Lorazepam 2 Mg/Ml Sdv) 0.5 mg IVPUSH Q8H PRN PRN Reason: Anxiety Lorazepam (Lorazepam 2 Mg/Ml Sdv) 1 mg IVPUSH ONETIME ONE Stop: 12/20/20 20:48 Last Admin: 12/20/20 22:23 Dose: 1 mg Documented by: Melatonin (Melatonin 3 Mg Tab) 6 mg PO BEDTIME [facility] Melatonin (Melatonin 3 Mg Tab) 6 mg PO BEDTIME PRN PRN Reason: Insomnia Last Admin: 12/06/20 21:39 Dose: 6 mg Documented by: Methylprednisolone Sodium Succinate (Methylprednisolone Sodium Succinate 40 Mg/1 Ml Sdv) 40 mg IVPUSH Q8H [facility] Last Admin: 12/16/20 03:51 Dose: 40 mg Documented by: Methylprednisolone Sodium Succinate (Methylprednisolone Sodium Succinate 40 Mg/1 Ml Sdv) 40 mg IVPUSH Q12H [facility] Last Admin: 12/18/20 09:06 Dose: 40 mg Documented by: Polyethylene Glycol (Polyethylene Glycol 3350 Powder 17 Gm Packet) 17 gm PO BEDTIME [facility] Last Admin: 12/12/20 22:28 Dose: Not Given Documented by: - Exam Quality Assessment: Supplemental Oxygen General: Alert, Oriented HEENT: Pupils Equal, Pupils Reactive Neck: Supple, Trachea Midline Lungs: Clear to Auscultation, Decreased Breath Sounds Cardiovascular: Regular Rate, Regular Rhythm GI/Abdominal Exam: Normal Bowel Sounds, Soft, Non-Tender Extremities: Normal Inspection, Normal Range of Motion, Non-Tender, No Pedal Edema. No: Jessica's Sign Peripheral Pulses: 2+: Dorsalis Pedis (L), Dorsalis Pedis (R) Skin: Warm, Dry, Intact Neurological: No New Focal Deficit - Patient Data Lab Results Last 24 hrs: Laboratory Results - last 24 hr 12/24/20 12/24/20 Range/Units 06:10 06:10 WBC 12.90 H (4.0-11.0) K/uL RBC 4.33 L (4.50-5.90) M/uL Hgb 13.4 (13.0-17.0) g/dL Hct 39.5 (38.0-50.0) % MCV 91.2 (80.0-98.0) fL MCH 30.9 (27.0-32.0) pg MCHC 33.9 (31.0-37.0) g/dL RDW Std Deviation 47.4 (28.0-62.0) fl RDW Coeff of Carly 14 (11.0-15.0) % Plt Count 245 (150-400) K/uL MPV 10.40 (7.40-12.00) fL Add Manual Diff YES Neutrophils % (Manual) 69 (48.0-80.0) % Band Neutrophils % 2 % Lymphocytes % (Manual) 20 (16.0-40.0) % Monocytes % (Manual) 6 (0.0-15.0) % Eosinophils % (Manual) 3 (0.0-7.0) % Nucleated RBC % 0.0 /100WBC Absolute Seg Neuts 8.9 H (1.4-5.7) Band Neutrophils # 0.3 Lymphocytes # (Manual) 2.6 H (0.6-2.4) Monocytes # (Manual) 0.8 (0.0-0.8) Eosinophils # (Manual) 0.4 (0.0-0.7) Nucleated RBCs # 0 K/uL Sodium 141 (136-148) mmol/L Potassium 4.0 (3.5-5.1) mmol/L Chloride 102 (98-107) mmol/L Carbon Dioxide 30.2 (21.0-32.0) mmol/L BUN 18 (7.0-18.0) mg/dL Creatinine 0.9 (0.8-1.3) mg/dL Est Cr Clr Drug Dosing 86.22 mL/min Estimated GFR (MDRD) > 60.0 ml/min Glucose 87 (74-106) mg/dL Calcium 8.2 L (8.5-10.1) mg/dL Total Bilirubin 0.4 (0.2-1.0) mg/dL AST 22 (15-37) IU/L ALT 53 (14-63) IU/L Alkaline Phosphatase 59 (46-116) U/L Total Protein 6.2 L (6.4-8.2) g/dL Albumin 2.6 L (3.4-5.0) g/dL Globulin 3.6 (2.6-4.0) g/dL Albumin/Globulin Ratio 0.7 L (0.9-1.6) Result Diagrams: 12/24/20 06:10 12/24/20 06:10 Sepsis Event Note - Evaluation Sepsis Screening Result: No Definite Risk - Focused Exam Vital Signs: Vital Signs Temp Resp BP Pulse Ox 12/24/20 12:00 98.1 F 19 106/60 95 12/24/20 11:00 18 144/78 H 87 L 12/24/20 10:00 14 150/78 H 85 L 12/24/20 09:00 16 140/74 90 L 12/24/20 08:00 97.7 F 20 135/74 93 L 12/24/20 07:00 12 134/69 94 L 12/24/20 06:00 21 H 113/75 94 L 12/24/20 05:00 18 113/72 98 12/24/20 04:00 96.5 F L 16 120/68 97 12/24/20 03:00 17 121/68 93 L 12/24/20 02:00 19 119/77 98 12/24/20 01:00 26 H 123/73 97 - Problem List Review Problem List Initiated/Reviewed/Updated: Yes - My Orders Last 24 Hours: My Active Orders 12/25/20 05:11 CBC WITH AUTO DIFF [HEME] DAILY COMPREHENSIVE METABOLIC PN,CMP [CHEM] DAILY 12/26/20 05:11 CBC WITH AUTO DIFF [HEME] DAILY COMPREHENSIVE METABOLIC PN,CMP [CHEM] DAILY 12/27/20 05:11 CBC WITH AUTO DIFF [HEME] DAILY COMPREHENSIVE METABOLIC PN,CMP [CHEM] DAILY - Plan Plan:: COVID-19 pneumonia Continue to wean oxygen as tolerated. Remdesivir completed. Combivent. Incentive spirometry. Lovenox 40 mg. Robitussin. Melatonin 6mg prn bedtime. Physical therapy-on board. As per eICU recommendations: Prednisone taper: 40 mg x5 days completed. 20 mg x 5 days. 10 mg x5 days. 5 mg x5 days. Then stopping.
[2020-12-24] MEDS: Enoxaparin 40 MG/0.4 ML Syringe SUBCUT SCH (18:27)
[2020-12-24] MEDS: Melatonin 3 MG Tab PO PRN (22:43)
[2020-12-25] MEDS: ALPRAZolam 0.25 MG Tab PO PRN ×3 (04:44→22:53)
[2020-12-25] MEDS: Codeine/guaiFENesin 10-100 MG/5 ML Syrup 5 ML Cup PO PRN ×3 (04:44→22:53)
[2020-12-25 05:08] LABS: BLOOD UREA NITROGEN,BUN 18 mg/dL (7.0-18.0); CARBON DIOXIDE,CO2 28.4 mmol/L (21.0-32.0); CHLORIDE,CL 104 mmol/L (98-107); GLUCOSE RANDOM 92 mg/dL (74-106); POTASSIUM,K 4.3 mmol/L (3.5-5.1); SODIUM,NA 141 mmol/L (136-148)
[2020-12-25] MEDS: Benzonatate 100 MG Cap PO SCH ×3 (06:36→22:53)
[2020-12-25] MEDS: predniSONE 20 MG Tab PO SCH (08:21)
[2020-12-25] MEDS: Polyethylene Glycol 3350 Powder 17 GM Packet PO SCH (08:22)
[2020-12-25] MEDS: Docusate Sodium 100 MG Cap PO SCH ×2 (08:22→22:53)
[2020-12-25] MEDS: Pantoprazole 40 MG Tab.CR PO SCH (08:22)
--- NOTE | 2020-12-25 09:13 | PCM.PN ---
- General Info Date of Service: 12/25/20 Admission Dx/Problem (Free Text): Admission Diagnosis/Problem Admission Diagnosis/Problem Respiratory failure with hypoxia Subjective Update: Patient seen at bedside. He was transferred out of ICU yesterday and states he is comfortable. Patient spends most of his day in the recliner which she enjoys. Patient is currently on 6 L high flow but desaturates while ambulating to the bathroom requiring higher oxygen levels briefly. Prednisone dose decreased to 20 mg today. Discussed prednisone taper with patient. Patient is tolerating diet. Continues to work with physical therapy. Patient denies cough, fever, chest pain, abdominal pain, palpitations, headache, dizziness. - Review of Systems General: Denies: Fever, Chills HEENT: Denies: Headaches Pulmonary: Reports: Shortness of Breath. Denies: Pleuritic Chest Pain, Cough Cardiovascular: Reports: Dyspnea on Exertion. Denies: Chest Pain, Palpitations Gastrointestinal: Denies: Abdominal Pain, Constipation, Decreased Appetite, Diarrhea, Nausea, Vomiting Genitourinary: Denies: Dysuria Musculoskeletal: Denies: Leg Pain Skin: Denies: Rash Neurological: Denies: Headache, Numbness, Paresthesia - Patient Data Vitals - Most Recent: Last Vital Signs Temp 97.1 F 12/25/20 07:50 Pulse 88 12/25/20 07:50 Resp 14 12/25/20 07:50 BP 110/68 12/25/20 07:50 Pulse Ox 90 L 12/25/20 07:50 Weight - Most Recent: 224 lb 15.99 oz I&O - Last 24 Hours: Intake & Output 12/24/20 12/25/20 12/25/20 22:59 06:59 14:59 Intake Total 700 600 Output Total 450 Balance 700 150 Lab Results Last 24 Hours: Laboratory Results - last 24 hr 12/25/20 12/25/20 Range/Units 04:15 04:15 WBC 13.42 H (4.0-11.0) K/uL RBC 4.33 L (4.50-5.90) M/uL Hgb 13.5 (13.0-17.0) g/dL Hct 39.3 (38.0-50.0) % MCV 90.8 (80.0-98.0) fL MCH 31.2 (27.0-32.0) pg MCHC 34.4 (31.0-37.0) g/dL RDW Std Deviation 46.6 (28.0-62.0) fl RDW Coeff of Carly 14 (11.0-15.0) % Plt Count 250 (150-400) K/uL MPV 10.20 (7.40-12.00) fL Add Manual Diff YES Neutrophils % (Manual) 69 (48.0-80.0) % Lymphocytes % (Manual) 18 (16.0-40.0) % Monocytes % (Manual) 7 (0.0-15.0) % Eosinophils % (Manual) 4 (0.0-7.0) % Metamyelocytes % 1 % Myelocytes % 1 % Nucleated RBC % 0.0 /100WBC Absolute Seg Neuts 9.3 H (1.4-5.7) Lymphocytes # (Manual) 2.4 (0.6-2.4) Monocytes # (Manual) 0.9 H (0.0-0.8) Eosinophils # (Manual) 0.5 (0.0-0.7) Absolute Metamyelocyte 0.1 Absolute Myelocytes 0.1 Nucleated RBCs # 0 K/uL Sodium 141 (136-148) mmol/L Potassium 4.3 (3.5-5.1) mmol/L Chloride 104 (98-107) mmol/L Carbon Dioxide 28.4 (21.0-32.0) mmol/L BUN 18 (7.0-18.0) mg/dL Creatinine 0.8 (0.8-1.3) mg/dL Est Cr Clr Drug Dosing 97.00 mL/min Estimated GFR (MDRD) > 60.0 ml/min Glucose 92 (74-106) mg/dL Calcium 8.2 L (8.5-10.1) mg/dL Total Bilirubin 0.6 (0.2-1.0) mg/dL AST 33 (15-37) IU/L ALT 72 H (14-63) IU/L Alkaline Phosphatase 64 (46-116) U/L Total Protein 6.2 L (6.4-8.2) g/dL Albumin 2.5 L (3.4-5.0) g/dL Globulin 3.7 (2.6-4.0) g/dL Albumin/Globulin Ratio 0.7 L (0.9-1.6) Med Orders - Current: Current Medications Albuterol/Ipratropium (Albuterol/Ipratropium 4 Gm Inhalation [place]) 0 gm INH Q4H PRN PRN Reason: Dyspnea Last Admin: 12/24/20 09:35 Dose: 1 puff Documented by: Albuterol/Ipratropium (Albuterol/Ipratropium 3.0-0.5 Mg/3 Ml Neb Soln) 3 ml NEB Q4HRRT PRN PRN Reason: Wheezing Last Admin: 12/24/20 09:52 Dose: 3 ml Documented by: Alprazolam (Alprazolam 0.25 Mg Tab) 0.25 mg PO Q6H PRN PRN Reason: Anxiety Last Admin: 12/25/20 04:44 Dose: 0.25 mg Documented by: Benzonatate (Benzonatate 100 Mg Cap) 200 mg PO TID [facility] Last Admin: 12/25/20 06:36 Dose: 200 mg Documented by: Docusate Sodium (Docusate Sodium 100 Mg Cap) 100 mg PO BID [facility] Last Admin: 12/25/20 08:22 Dose: 100 mg Documented by: Enoxaparin Sodium (Enoxaparin 40 Mg/0.4 Ml Syringe) 40 mg SUBCUT Q24H [facility] Last Admin: 12/24/20 18:27 Dose: 40 mg Documented by: Guaifenesin/Codeine Phosphate (Codeine/Guaifenesin 10-100 Mg/5 Ml Syrup 5 Ml Cup) 5 ml PO Q4H PRN PRN Reason: Cough Last Admin: 12/25/20 04:44 Dose: 5 ml Documented by: Melatonin (Melatonin 3 Mg Tab) 6 mg PO BEDTIME PRN PRN Reason: Insomnia Last Admin: 12/24/20 22:43 Dose: 6 mg Documented by: Pantoprazole Sodium (Pantoprazole 40 Mg Tab.Cr) 40 mg PO DAILY [facility] Last Admin: 12/25/20 08:22 Dose: 40 mg Documented by: Polyethylene Glycol (Polyethylene Glycol 3350 Powder 17 Gm Packet) 17 gm PO DAILY [facility] Last Admin: 12/25/20 08:22 Dose: 17 gm Documented by: Prednisone (Prednisone 20 Mg Tab) 20 mg PO WITHBREAKFAST [facility] Stop: 12/30/20 08:01 Last Admin: 12/25/20 08:21 Dose: 20 mg Documented by: Sodium Chloride (Sodium Chloride 0.9% 10 Ml Syringe) 10 ml FLUSH ASDIRECTED PRN PRN Reason: Keep Vein Open Last Admin: 11/30/20 14:17 Dose: 10 ml Documented by: Sodium Chloride (Sodium Chloride 0.9% 2.5 Ml Syringe) 2.5 ml FLUSH ASDIRECTED PRN PRN Reason: Keep Vein Open Last Admin: 11/30/20 14:17 Dose: 2.5 ml Documented by: Sodium Chloride (Sodium Chloride 0.65% Nasal [place] 45 Ml Bottle) 1 ml LATHA Q6H PRN PRN Reason: Congestion Last Admin: 12/09/20 12:20 Dose: 1 spray Documented by: Discontinued Medications Dexamethasone (Dexamethasone 10 Mg/Ml Sdv) 6 mg IVPUSH ONETIME ONE Stop: 11/30/20 14:46 Last Admin: 11/30/20 15:00 Dose: 6 mg Documented by: Dexamethasone (Dexamethasone 4 Mg Tab) 6 mg PO DAILY [facility] Last Admin: 12/12/20 09:12 Dose: 6 mg Documented by: Famotidine (Famotidine 20 Mg/2 Ml Sdv) 20 mg IVPUSH BID [facility] Last Admin: 12/05/20 08:55 Dose: 20 mg Documented by: Guaifenesin (Guaifenesin 100 Mg/5 Ml Soln 5 Ml Ud Cup) 100 mg PO Q4H [facility] Last Admin: 12/06/20 04:02 Dose: 100 mg Documented by: Guaifenesin/Codeine Phosphate (Codeine/Guaifenesin 10-100 Mg/5 Ml Syrup 5 Ml Cup) 5 ml PO Q4H [facility] Last Admin: 12/11/20 17:21 Dose: 5 ml Documented by: Guaifenesin/Codeine Phosphate (Codeine/Guaifenesin 10-100 Mg/5 Ml Syrup 5 Ml Cup) 5 ml PO Q4H [facility] Last Admin: 12/19/20 12:47 Dose: 5 ml Documented by: Guaifenesin/Dextromethorphan (Guaifenesin/Dextromethorphan 100-10 Mg/5 Ml Soln 10 Ml Cup) 10 ml PO Q4H PRN PRN Reason: Cough Last Admin: 12/03/20 12:45 Dose: 10 ml Documented by: Guaifenesin/Dextromethorphan (Guaifenesin/Dextromethorphan 100-10 Mg/5 Ml Soln 10 Ml Cup) 10 ml PO Q4H [facility] Last Admin: 12/05/20 10:24 Dose: Not Given Documented by: Remdesivir 200 mg/ Sodium (Chloride) 250 mls @ 250 mls/hr IV ONETIME ONE Stop: 11/30/20 14:46 Last Admin: 11/30/20 20:04 Dose: 250 mls/hr Documented by: Remdesivir 100 mg/ Sodium (Chloride) 100 mls @ 100 mls/hr IV Q24H [facility] Stop: 12/04/20 18:59 Last Admin: 12/04/20 18:12 Dose: 100 mls/hr Documented by: Pantoprazole Sodium 40 mg/ (Sodium Chloride) 10 mls @ 300 mls/hr IV Q24H [facility] Last Admin: 12/09/20 08:56 Dose: 300 mls/hr Documented by: Levofloxacin/Dextrose 750 mg/ (Premix) 150 mls @ 100 mls/hr IV Q24H [facility] Last Admin: 12/11/20 15:24 Dose: 100 mls/hr Documented by: Lactated Ringer's (Ringers, Lactated) 250 mls @ 250 mls/hr IV ASDIRECTED [facility] Iopamidol (Iopamidol 755 Mg/Ml 500 Ml Multipack Bottle) 100 ml IVPUSH ONETIME STA Stop: 12/01/20 16:41 Last Admin: 12/01/20 16:41 Dose: 100 ml Documented by: Lorazepam (Lorazepam 2 Mg/Ml Sdv) 1 mg IVPUSH Q12H PRN PRN Reason: Anxiety Last Admin: 12/12/20 15:53 Dose: 1 mg Documented by: Lorazepam (Lorazepam 2 Mg/Ml Sdv) 0.5 mg IVPUSH Q8H PRN PRN Reason: Anxiety Lorazepam (Lorazepam 2 Mg/Ml Sdv) 1 mg IVPUSH ONETIME ONE Stop: 12/20/20 20:48 Last Admin: 12/20/20 22:23 Dose: 1 mg Documented by: Melatonin (Melatonin 3 Mg Tab) 6 mg PO BEDTIME [facility] Melatonin (Melatonin 3 Mg Tab) 6 mg PO BEDTIME PRN PRN Reason: Insomnia Last Admin: 12/06/20 21:39 Dose: 6 mg Documented by: Methylprednisolone Sodium Succinate (Methylprednisolone Sodium Succinate 40 Mg/1 Ml Sdv) 40 mg IVPUSH Q8H [facility] Last Admin: 12/16/20 03:51 Dose: 40 mg Documented by: Methylprednisolone Sodium Succinate (Methylprednisolone Sodium Succinate 40 Mg/1 Ml Sdv) 40 mg IVPUSH Q12H [facility] Last Admin: 12/18/20 09:06 Dose: 40 mg Documented by: Polyethylene Glycol (Polyethylene Glycol 3350 Powder 17 Gm Packet) 17 gm PO BEDTIME [facility] Last Admin: 12/12/20 22:28 Dose: Not Given Documented by: Prednisone (Prednisone 20 Mg Tab) 40 mg PO WITHBREAKFAST [facility] Last Admin: 12/24/20 08:24 Dose: 40 mg Documented by: - Exam Quality Assessment: Supplemental Oxygen General: Alert, Oriented, Cooperative HEENT: Pupils Equal, Pupils Reactive Lungs: Normal Respiratory Effort, Decreased Breath Sounds, Crackles Cardiovascular: Regular Rate, Regular Rhythm, No Murmurs GI/Abdominal Exam: Normal Bowel Sounds, Soft, Non-Tender Extremities: Normal Inspection, Normal Range of Motion, Non-Tender, No Pedal Edema. No: Jessica's Sign Peripheral Pulses: 2+: Dorsalis Pedis (L), Dorsalis Pedis (R) Skin: Warm, Dry, Intact Neurological: No New Focal Deficit - Patient Data Lab Results Last 24 hrs: Laboratory Results - last 24 hr 12/25/20 12/25/20 Range/Units 04:15 04:15 WBC 13.42 H (4.0-11.0) K/uL RBC 4.33 L (4.50-5.90) M/uL Hgb 13.5 (13.0-17.0) g/dL Hct 39.3 (38.0-50.0) % MCV 90.8 (80.0-98.0) fL MCH 31.2 (27.0-32.0) pg MCHC 34.4 (31.0-37.0) g/dL RDW Std Deviation 46.6 (28.0-62.0) fl RDW Coeff of Carly 14 (11.0-15.0) % Plt Count 250 (150-400) K/uL MPV 10.20 (7.40-12.00) fL Add Manual Diff YES Neutrophils % (Manual) 69 (48.0-80.0) % Lymphocytes % (Manual) 18 (16.0-40.0) % Monocytes % (Manual) 7 (0.0-15.0) % Eosinophils % (Manual) 4 (0.0-7.0) % Metamyelocytes % 1 % Myelocytes % 1 % Nucleated RBC % 0.0 /100WBC Absolute Seg Neuts 9.3 H (1.4-5.7) Lymphocytes # (Manual) 2.4 (0.6-2.4) Monocytes # (Manual) 0.9 H (0.0-0.8) Eosinophils # (Manual) 0.5 (0.0-0.7) Absolute Metamyelocyte 0.1 Absolute Myelocytes 0.1 Nucleated RBCs # 0 K/uL Sodium 141 (136-148) mmol/L Potassium 4.3 (3.5-5.1) mmol/L Chloride 104 (98-107) mmol/L Carbon Dioxide 28.4 (21.0-32.0) mmol/L BUN 18 (7.0-18.0) mg/dL Creatinine 0.8 (0.8-1.3) mg/dL Est Cr Clr Drug Dosing 97.00 mL/min Estimated GFR (MDRD) > 60.0 ml/min Glucose 92 (74-106) mg/dL Calcium 8.2 L (8.5-10.1) mg/dL Total Bilirubin 0.6 (0.2-1.0) mg/dL AST 33 (15-37) IU/L ALT 72 H (14-63) IU/L Alkaline Phosphatase 64 (46-116) U/L Total Protein 6.2 L (6.4-8.2) g/dL Albumin 2.5 L (3.4-5.0) g/dL Globulin 3.7 (2.6-4.0) g/dL Albumin/Globulin Ratio 0.7 L (0.9-1.6) Result Diagrams: 12/25/20 04:15 12/25/20 04:15 Sepsis Event Note - Evaluation Sepsis Screening Result: Sepsis Risk - Focused Exam Vital Signs: Vital Signs Temp Pulse Resp BP Pulse Ox 12/25/20 07:50 97.1 F 88 14 110/68 90 L 12/25/20 04:39 96.1 F L 68 16 117/72 93 L 12/25/20 00:00 75 16 118/75 97 - Problem List Review Problem List Initiated/Reviewed/Updated: Yes - My Orders Last 24 Hours: My Active Orders 12/24/20 13:45 Transfer Patient (Change bed) [ADT] Routine 12/25/20 08:00 predniSONE 20 mg PO WITHBREAKFAST 12/26/20 05:11 CBC WITH AUTO DIFF [HEME] DAILY COMPREHENSIVE METABOLIC PN,CMP [CHEM] DAILY 12/27/20 05:11 CBC WITH AUTO DIFF [HEME] DAILY COMPREHENSIVE METABOLIC PN,CMP [CHEM] DAILY - Plan Plan:: COVID-19 pneumonia: Patient successfully transferred out of ICU. Currently on 6 L high flow. Requires increased oxygen while ambulating. Continue to wean oxygen as tolerated. Remdesivir completed. Combivent. Incentive spirometry. Lovenox 40 mg. Robitussin. Melatonin 6mg prn bedtime. Physical therapy-on board. Prednisone dose decreased to 20 mg today. As per eICU recommendations: Prednisone taper: 40 mg x5 days completed. 20 mg x 5 days. 10 mg x5 days. 5 mg x5 days. Then stopping.
[2020-12-25] MEDS: Albuterol/Ipratropium 3.0-0.5 MG/3 ML Neb Soln NEB PRN (11:26)
[2020-12-25] MEDS: Enoxaparin 40 MG/0.4 ML Syringe SUBCUT SCH (18:07)
[2020-12-25] MEDS: Melatonin 3 MG Tab PO PRN (22:53)
[2020-12-26] MEDS: Benzonatate 100 MG Cap PO SCH ×3 (06:46→21:38)
[2020-12-26] MEDS: Codeine/guaiFENesin 10-100 MG/5 ML Syrup 5 ML Cup PO PRN ×3 (07:48→21:39)
[2020-12-26] MEDS: predniSONE 20 MG Tab PO SCH (07:48)
[2020-12-26] MEDS: ALPRAZolam 0.25 MG Tab PO PRN ×2 (07:48→21:38)
[2020-12-26 08:16] LABS: BLOOD UREA NITROGEN,BUN 19 mg/dL (7.0-18.0); CARBON DIOXIDE,CO2 27.6 mmol/L (21.0-32.0); CHLORIDE,CL 103 mmol/L (98-107); GLUCOSE RANDOM 82 mg/dL (74-106); POTASSIUM,K 4.1 mmol/L (3.5-5.1); SODIUM,NA 140 mmol/L (136-148)
[2020-12-26] MEDS: Polyethylene Glycol 3350 Powder 17 GM Packet PO SCH (09:26)
[2020-12-26] MEDS: Docusate Sodium 100 MG Cap PO SCH ×2 (09:27→21:38)
[2020-12-26] MEDS: Pantoprazole 40 MG Tab.CR PO SCH (09:27)
[2020-12-26] MEDS: Albuterol/Ipratropium 3.0-0.5 MG/3 ML Neb Soln NEB PRN (11:29)
--- NOTE | 2020-12-26 13:11 | PCM.PN ---
- General Info Date of Service: 12/26/20 Admission Dx/Problem (Free Text): Admission Diagnosis/Problem Admission Diagnosis/Problem Respiratory failure with hypoxia Subjective Update: Patient seen at bedside. Most of day spent in the recliner which she enjoys. Patient is currently on 8 L high flow but desaturates while ambulating to the bathroom requiring higher oxygen levels briefly. Patient is tolerating diet. Continues to work with physical therapy. Acapella vibratory therapy given to patient. Patient denies cough, fever, chest pain, abdominal pain, palpitations, headache, dizziness. - Review of Systems General: Denies: Fever HEENT: Denies: Headaches Pulmonary: Reports: Shortness of Breath, Cough. Denies: Pleuritic Chest Pain Cardiovascular: Reports: Dyspnea on Exertion. Denies: Chest Pain, Palpitations Gastrointestinal: Denies: Abdominal Pain, Constipation, Diarrhea, Nausea, Vomiting Genitourinary: Denies: Dysuria Musculoskeletal: Denies: Leg Pain Skin: Denies: Cyanosis Neurological: Denies: Confusion - Patient Data Vitals - Most Recent: Last Vital Signs Temp 96.8 F L 12/26/20 11:00 Pulse 87 12/26/20 11:00 Resp 16 12/26/20 11:00 BP 114/62 12/26/20 11:00 Pulse Ox 95 12/26/20 11:00 Weight - Most Recent: 224 lb 15.99 oz I&O - Last 24 Hours: Intake & Output 12/25/20 12/26/20 12/26/20 22:59 06:59 14:59 Intake Total 1236 520 Output Total 1625 625 Balance -389 -105 Lab Results Last 24 Hours: Laboratory Results - last 24 hr 12/26/20 12/26/20 Range/Units 07:22 07:22 WBC 12.08 H (4.0-11.0) K/uL RBC 4.28 L (4.50-5.90) M/uL Hgb 13.1 (13.0-17.0) g/dL Hct 39.0 (38.0-50.0) % MCV 91.1 (80.0-98.0) fL MCH 30.6 (27.0-32.0) pg MCHC 33.6 (31.0-37.0) g/dL RDW Std Deviation 47.3 (28.0-62.0) fl RDW Coeff of Carly 14 (11.0-15.0) % Plt Count 239 (150-400) K/uL MPV 9.90 (7.40-12.00) fL Add Manual Diff YES Neutrophils % (Manual) 49 (48.0-80.0) % Band Neutrophils % 3 % Lymphocytes % (Manual) 31 (16.0-40.0) % Monocytes % (Manual) 11 (0.0-15.0) % Eosinophils % (Manual) 5 (0.0-7.0) % Metamyelocytes % 1 % Nucleated RBC % 0.0 /100WBC Absolute Seg Neuts 5.9 H (1.4-5.7) Band Neutrophils # 0.4 Lymphocytes # (Manual) 3.7 H (0.6-2.4) Monocytes # (Manual) 1.3 H (0.0-0.8) Eosinophils # (Manual) 0.6 (0.0-0.7) Absolute Metamyelocyte 0.1 Nucleated RBCs # 0 K/uL Sodium 140 (136-148) mmol/L Potassium 4.1 (3.5-5.1) mmol/L Chloride 103 (98-107) mmol/L Carbon Dioxide 27.6 (21.0-32.0) mmol/L BUN 19 H (7.0-18.0) mg/dL Creatinine 0.8 (0.8-1.3) mg/dL Est Cr Clr Drug Dosing 97.00 mL/min Estimated GFR (MDRD) > 60.0 ml/min Glucose 82 (74-106) mg/dL Calcium 8.3 L (8.5-10.1) mg/dL Total Bilirubin 0.5 (0.2-1.0) mg/dL AST 18 (15-37) IU/L ALT 61 (14-63) IU/L Alkaline Phosphatase 59 (46-116) U/L Total Protein 6.0 L (6.4-8.2) g/dL Albumin 2.5 L (3.4-5.0) g/dL Globulin 3.5 (2.6-4.0) g/dL Albumin/Globulin Ratio 0.7 L (0.9-1.6) Med Orders - Current: Current Medications Albuterol/Ipratropium (Albuterol/Ipratropium 4 Gm Inhalation [place]) 0 gm INH Q4H PRN PRN Reason: Dyspnea Last Admin: 12/24/20 09:35 Dose: 1 puff Documented by: Albuterol/Ipratropium (Albuterol/Ipratropium 3.0-0.5 Mg/3 Ml Neb Soln) 3 ml NEB Q4HRRT PRN PRN Reason: Wheezing Last Admin: 12/26/20 11:29 Dose: 3 ml Documented by: Alprazolam (Alprazolam 0.25 Mg Tab) 0.25 mg PO Q6H PRN PRN Reason: Anxiety Last Admin: 12/26/20 07:48 Dose: 0.25 mg Documented by: Benzonatate (Benzonatate 100 Mg Cap) 200 mg PO TID [facility] Last Admin: 12/26/20 06:46 Dose: 200 mg Documented by: Docusate Sodium (Docusate Sodium 100 Mg Cap) 100 mg PO BID [facility] Last Admin: 12/26/20 09:27 Dose: 100 mg Documented by: Enoxaparin Sodium (Enoxaparin 40 Mg/0.4 Ml Syringe) 40 mg SUBCUT Q24H [facility] Last Admin: 12/25/20 18:07 Dose: 40 mg Documented by: Guaifenesin/Codeine Phosphate (Codeine/Guaifenesin 10-100 Mg/5 Ml Syrup 5 Ml Cup) 5 ml PO Q4H PRN PRN Reason: Cough Last Admin: 12/26/20 07:48 Dose: 5 ml Documented by: Melatonin (Melatonin 3 Mg Tab) 6 mg PO BEDTIME PRN PRN Reason: Insomnia Last Admin: 12/25/20 22:53 Dose: 6 mg Documented by: Pantoprazole Sodium (Pantoprazole 40 Mg Tab.Cr) 40 mg PO DAILY [facility] Last Admin: 12/26/20 09:27 Dose: 40 mg Documented by: Polyethylene Glycol (Polyethylene Glycol 3350 Powder 17 Gm Packet) 17 gm PO DAILY [facility] Last Admin: 12/26/20 09:26 Dose: 17 gm Documented by: Prednisone (Prednisone 20 Mg Tab) 20 mg PO WITHBREAKFAST [facility] Stop: 12/30/20 08:01 Last Admin: 12/26/20 07:48 Dose: 20 mg Documented by: Sodium Chloride (Sodium Chloride 0.9% 10 Ml Syringe) 10 ml FLUSH ASDIRECTED PRN PRN Reason: Keep Vein Open Last Admin: 11/30/20 14:17 Dose: 10 ml Documented by: Sodium Chloride (Sodium Chloride 0.9% 2.5 Ml Syringe) 2.5 ml FLUSH ASDIRECTED PRN PRN Reason: Keep Vein Open Last Admin: 11/30/20 14:17 Dose: 2.5 ml Documented by: Sodium Chloride (Sodium Chloride 0.65% Nasal [place] 45 Ml Bottle) 1 ml LATHA Q6H PRN PRN Reason: Congestion Last Admin: 12/09/20 12:20 Dose: 1 spray Documented by: Discontinued Medications Dexamethasone (Dexamethasone 10 Mg/Ml Sdv) 6 mg IVPUSH ONETIME ONE Stop: 11/30/20 14:46 Last Admin: 11/30/20 15:00 Dose: 6 mg Documented by: Dexamethasone (Dexamethasone 4 Mg Tab) 6 mg PO DAILY [facility] Last Admin: 12/12/20 09:12 Dose: 6 mg Documented by: Famotidine (Famotidine 20 Mg/2 Ml Sdv) 20 mg IVPUSH BID [facility] Last Admin: 12/05/20 08:55 Dose: 20 mg Documented by: Guaifenesin (Guaifenesin 100 Mg/5 Ml Soln 5 Ml Ud Cup) 100 mg PO Q4H [facility] Last Admin: 12/06/20 04:02 Dose: 100 mg Documented by: Guaifenesin/Codeine Phosphate (Codeine/Guaifenesin 10-100 Mg/5 Ml Syrup 5 Ml Cup) 5 ml PO Q4H [facility] Last Admin: 12/11/20 17:21 Dose: 5 ml Documented by: Guaifenesin/Codeine Phosphate (Codeine/Guaifenesin 10-100 Mg/5 Ml Syrup 5 Ml Cup) 5 ml PO Q4H [facility] Last Admin: 12/19/20 12:47 Dose: 5 ml Documented by: Guaifenesin/Dextromethorphan (Guaifenesin/Dextromethorphan 100-10 Mg/5 Ml Soln 10 Ml Cup) 10 ml PO Q4H PRN PRN Reason: Cough Last Admin: 12/03/20 12:45 Dose: 10 ml Documented by: Guaifenesin/Dextromethorphan (Guaifenesin/Dextromethorphan 100-10 Mg/5 Ml Soln 10 Ml Cup) 10 ml PO Q4H [facility] Last Admin: 12/05/20 10:24 Dose: Not Given Documented by: Remdesivir 200 mg/ Sodium (Chloride) 250 mls @ 250 mls/hr IV ONETIME ONE Stop: 11/30/20 14:46 Last Admin: 11/30/20 20:04 Dose: 250 mls/hr Documented by: Remdesivir 100 mg/ Sodium (Chloride) 100 mls @ 100 mls/hr IV Q24H [facility] Stop: 12/04/20 18:59 Last Admin: 12/04/20 18:12 Dose: 100 mls/hr Documented by: Pantoprazole Sodium 40 mg/ (Sodium Chloride) 10 mls @ 300 mls/hr IV Q24H [facility] Last Admin: 12/09/20 08:56 Dose: 300 mls/hr Documented by: Levofloxacin/Dextrose 750 mg/ (Premix) 150 mls @ 100 mls/hr IV Q24H [facility] Last Admin: 12/11/20 15:24 Dose: 100 mls/hr Documented by: Lactated Ringer's (Ringers, Lactated) 250 mls @ 250 mls/hr IV ASDIRECTED [facility] Iopamidol (Iopamidol 755 Mg/Ml 500 Ml Multipack Bottle) 100 ml IVPUSH ONETIME STA Stop: 12/01/20 16:41 Last Admin: 12/01/20 16:41 Dose: 100 ml Documented by: Lorazepam (Lorazepam 2 Mg/Ml Sdv) 1 mg IVPUSH Q12H PRN PRN Reason: Anxiety Last Admin: 12/12/20 15:53 Dose: 1 mg Documented by: Lorazepam (Lorazepam 2 Mg/Ml Sdv) 0.5 mg IVPUSH Q8H PRN PRN Reason: Anxiety Lorazepam (Lorazepam 2 Mg/Ml Sdv) 1 mg IVPUSH ONETIME ONE Stop: 12/20/20 20:48 Last Admin: 12/20/20 22:23 Dose: 1 mg Documented by: Melatonin (Melatonin 3 Mg Tab) 6 mg PO BEDTIME [facility] Melatonin (Melatonin 3 Mg Tab) 6 mg PO BEDTIME PRN PRN Reason: Insomnia Last Admin: 12/06/20 21:39 Dose: 6 mg Documented by: Methylprednisolone Sodium Succinate (Methylprednisolone Sodium Succinate 40 Mg/1 Ml Sdv) 40 mg IVPUSH Q8H [facility] Last Admin: 12/16/20 03:51 Dose: 40 mg Documented by: Methylprednisolone Sodium Succinate (Methylprednisolone Sodium Succinate 40 Mg/1 Ml Sdv) 40 mg IVPUSH Q12H [facility] Last Admin: 12/18/20 09:06 Dose: 40 mg Documented by: Polyethylene Glycol (Polyethylene Glycol 3350 Powder 17 Gm Packet) 17 gm PO BEDTIME [facility] Last Admin: 12/12/20 22:28 Dose: Not Given Documented by: Prednisone (Prednisone 20 Mg Tab) 40 mg PO WITHBREAKFAST [facility] Last Admin: 12/24/20 08:24 Dose: 40 mg Documented by: - Exam Quality Assessment: Supplemental Oxygen General: Alert, Oriented HEENT: Pupils Equal, Pupils Reactive Neck: Supple, Trachea Midline Lungs: Decreased Breath Sounds Cardiovascular: Regular Rate, Regular Rhythm GI/Abdominal Exam: Normal Bowel Sounds, Soft, Non-Tender Extremities: Normal Inspection, No Pedal Edema. No: Leg Pain Peripheral Pulses: 2+: Dorsalis Pedis (L), Dorsalis Pedis (R) Skin: Warm, Dry, Intact Neurological: No New Focal Deficit - Patient Data Lab Results Last 24 hrs: Laboratory Results - last 24 hr 12/26/20 12/26/20 Range/Units 07:22 07:22 WBC 12.08 H (4.0-11.0) K/uL RBC 4.28 L (4.50-5.90) M/uL Hgb 13.1 (13.0-17.0) g/dL Hct 39.0 (38.0-50.0) % MCV 91.1 (80.0-98.0) fL MCH 30.6 (27.0-32.0) pg MCHC 33.6 (31.0-37.0) g/dL RDW Std Deviation 47.3 (28.0-62.0) fl RDW Coeff of Carly 14 (11.0-15.0) % Plt Count 239 (150-400) K/uL MPV 9.90 (7.40-12.00) fL Add Manual Diff YES Neutrophils % (Manual) 49 (48.0-80.0) % Band Neutrophils % 3 % Lymphocytes % (Manual) 31 (16.0-40.0) % Monocytes % (Manual) 11 (0.0-15.0) % Eosinophils % (Manual) 5 (0.0-7.0) % Metamyelocytes % 1 % Nucleated RBC % 0.0 /100WBC Absolute Seg Neuts 5.9 H (1.4-5.7) Band Neutrophils # 0.4 Lymphocytes # (Manual) 3.7 H (0.6-2.4) Monocytes # (Manual) 1.3 H (0.0-0.8) Eosinophils # (Manual) 0.6 (0.0-0.7) Absolute Metamyelocyte 0.1 Nucleated RBCs # 0 K/uL Sodium 140 (136-148) mmol/L Potassium 4.1 (3.5-5.1) mmol/L Chloride 103 (98-107) mmol/L Carbon Dioxide 27.6 (21.0-32.0) mmol/L BUN 19 H (7.0-18.0) mg/dL Creatinine 0.8 (0.8-1.3) mg/dL Est Cr Clr Drug Dosing 97.00 mL/min Estimated GFR (MDRD) > 60.0 ml/min Glucose 82 (74-106) mg/dL Calcium 8.3 L (8.5-10.1) mg/dL Total Bilirubin 0.5 (0.2-1.0) mg/dL AST 18 (15-37) IU/L ALT 61 (14-63) IU/L Alkaline Phosphatase 59 (46-116) U/L Total Protein 6.0 L (6.4-8.2) g/dL Albumin 2.5 L (3.4-5.0) g/dL Globulin 3.5 (2.6-4.0) g/dL Albumin/Globulin Ratio 0.7 L (0.9-1.6) Result Diagrams: 12/26/20 07:22 12/26/20 07:22 Sepsis Event Note - Evaluation Sepsis Screening Result: No Definite Risk - Focused Exam Vital Signs: Vital Signs Temp Pulse Resp BP Pulse Ox 12/26/20 11:00 96.8 F L 87 16 114/62 95 12/26/20 07:52 69 18 125/65 88 L 12/26/20 04:08 96.9 F 60 19 115/71 92 L - Problem List Review Problem List Initiated/Reviewed/Updated: Yes - My Orders Last 24 Hours: My Active Orders 12/25/20 13:35 Acapella [RT Chest Physiotherapy] [RC] ASDIRECTED 12/27/20 05:11 CBC WITH AUTO DIFF [HEME] DAILY COMPREHENSIVE METABOLIC PN,CMP [CHEM] DAILY - Plan Plan:: COVID-19 pneumonia: Currently on 8 L high flow. Requires increased oxygen while ambulating. Continue to wean oxygen as tolerated. Remdesivir completed. Combivent. Incentive spirometry. Acapella chest physical therapy. Lovenox 40 mg. Robitussin. Melatonin 6mg prn bedtime. Physical therapy-on board. Prednisone 20 mg. As per eICU recommendations: Prednisone taper: 40 mg x5 days completed. 20 mg x 5 days. 10 mg x5 days. 5 mg x5 days. Then stopping.
[2020-12-26] MEDS: Enoxaparin 40 MG/0.4 ML Syringe SUBCUT SCH (17:39)
[2020-12-26] MEDS: Melatonin 3 MG Tab PO PRN (22:55)
[2020-12-27] MEDS: Codeine/guaiFENesin 10-100 MG/5 ML Syrup 5 ML Cup PO PRN ×4 (02:43→22:42)
[2020-12-27] MEDS: Benzonatate 100 MG Cap PO SCH ×3 (06:32→22:41)
[2020-12-27 07:51] LABS: BLOOD UREA NITROGEN,BUN 19 mg/dL (7.0-18.0); CARBON DIOXIDE,CO2 30.3 mmol/L (21.0-32.0); CHLORIDE,CL 102 mmol/L (98-107); GLUCOSE RANDOM 92 mg/dL (74-106); POTASSIUM,K 3.8 mmol/L (3.5-5.1); SODIUM,NA 138 mmol/L (136-148)
[2020-12-27] MEDS: Polyethylene Glycol 3350 Powder 17 GM Packet PO SCH (08:35)
[2020-12-27] MEDS: Docusate Sodium 100 MG Cap PO SCH ×2 (08:35→21:51)
[2020-12-27] MEDS: predniSONE 20 MG Tab PO SCH (08:35)
[2020-12-27] MEDS: Pantoprazole 40 MG Tab.CR PO SCH (08:35)
--- NOTE | 2020-12-27 08:54 | PCM.PN ---
- General Info Date of Service: 12/27/20 - Review of Systems Systems Review Comment:: feeling better, shortness of breath stable - Patient Data Vitals - Most Recent: Last Vital Signs Temp 36.3 C 12/27/20 08:33 Pulse 87 12/27/20 08:33 Resp 16 12/27/20 08:33 BP 120/64 12/27/20 08:33 Pulse Ox 89 L 12/27/20 08:33 Weight - Most Recent: 102.058 kg I&O - Last 24 Hours: Intake & Output 12/26/20 12/27/20 12/27/20 22:59 06:59 14:59 Intake Total 400 540 Output Total 775 600 Balance -375 -60 Lab Results Last 24 Hours: Laboratory Results - last 24 hr 12/27/20 12/27/20 Range/Units 07:09 07:09 WBC 11.78 H (4.0-11.0) K/uL RBC 4.33 L (4.50-5.90) M/uL Hgb 13.2 (13.0-17.0) g/dL Hct 39.4 (38.0-50.0) % MCV 91.0 (80.0-98.0) fL MCH 30.5 (27.0-32.0) pg MCHC 33.5 (31.0-37.0) g/dL RDW Std Deviation 47.6 (28.0-62.0) fl RDW Coeff of Carly 14 (11.0-15.0) % Plt Count 234 (150-400) K/uL MPV 10.00 (7.40-12.00) fL Neut % (Auto) 67.1 (48.0-80.0) % Lymph % (Auto) 15.2 L (16.0-40.0) % Grady % (Auto) 13.7 (0.0-15.0) % Eos % (Auto) 3.7 (0.0-7.0) % Baso % (Auto) 0.3 (0.0-1.5) % Neut # (Auto) 7.9 H (1.4-5.7) K/uL Lymph # (Auto) 1.8 (0.6-2.4) K/uL [place] # (Auto) 1.6 H (0.0-0.8) K/uL Eos # (Auto) 0.4 (0.0-0.7) K/uL Baso # (Auto) 0.0 (0.0-0.1) K/uL Nucleated RBC % 0.0 /100WBC Nucleated RBCs # 0 K/uL Sodium 138 (136-148) mmol/L Potassium 3.8 (3.5-5.1) mmol/L Chloride 102 (98-107) mmol/L Carbon Dioxide 30.3 (21.0-32.0) mmol/L BUN 19 H (7.0-18.0) mg/dL Creatinine 0.8 (0.8-1.3) mg/dL Est Cr Clr Drug Dosing 97.00 mL/min Estimated GFR (MDRD) > 60.0 ml/min Glucose 92 (74-106) mg/dL Calcium 8.4 L (8.5-10.1) mg/dL Total Bilirubin 0.5 (0.2-1.0) mg/dL AST 19 (15-37) IU/L ALT 58 (14-63) IU/L Alkaline Phosphatase 65 (46-116) U/L Total Protein 6.7 (6.4-8.2) g/dL Albumin 2.5 L (3.4-5.0) g/dL Globulin 4.2 H (2.6-4.0) g/dL Albumin/Globulin Ratio 0.6 L (0.9-1.6) Med Orders - Current: Current Medications Albuterol/Ipratropium (Albuterol/Ipratropium 4 Gm Inhalation [place]) 0 gm INH Q4H PRN PRN Reason: Dyspnea Last Admin: 12/24/20 09:35 Dose: 1 puff Documented by: Albuterol/Ipratropium (Albuterol/Ipratropium 3.0-0.5 Mg/3 Ml Neb Soln) 3 ml NEB Q4HRRT PRN PRN Reason: Wheezing Last Admin: 12/26/20 11:29 Dose: 3 ml Documented by: Alprazolam (Alprazolam 0.25 Mg Tab) 0.25 mg PO Q6H PRN PRN Reason: Anxiety Last Admin: 12/26/20 21:38 Dose: 0.25 mg Documented by: Benzonatate (Benzonatate 100 Mg Cap) 200 mg PO TID [facility] Last Admin: 12/27/20 06:32 Dose: 200 mg Documented by: Docusate Sodium (Docusate Sodium 100 Mg Cap) 100 mg PO BID [facility] Last Admin: 12/27/20 08:35 Dose: 100 mg Documented by: Enoxaparin Sodium (Enoxaparin 40 Mg/0.4 Ml Syringe) 40 mg SUBCUT Q24H [facility] Last Admin: 12/26/20 17:39 Dose: 40 mg Documented by: Guaifenesin/Codeine Phosphate (Codeine/Guaifenesin 10-100 Mg/5 Ml Syrup 5 Ml Cup) 5 ml PO Q4H PRN PRN Reason: Cough Last Admin: 12/27/20 02:43 Dose: 5 ml Documented by: Melatonin (Melatonin 3 Mg Tab) 6 mg PO BEDTIME PRN PRN Reason: Insomnia Last Admin: 12/26/20 22:55 Dose: 6 mg Documented by: Pantoprazole Sodium (Pantoprazole 40 Mg Tab.Cr) 40 mg PO DAILY [facility] Last Admin: 12/27/20 08:35 Dose: 40 mg Documented by: Polyethylene Glycol (Polyethylene Glycol 3350 Powder 17 Gm Packet) 17 gm PO DAILY [facility] Last Admin: 12/27/20 08:35 Dose: 17 gm Documented by: Prednisone (Prednisone 20 Mg Tab) 20 mg PO WITHBREAKFAST [facility] Stop: 12/30/20 08:01 Last Admin: 12/27/20 08:35 Dose: 20 mg Documented by: Sodium Chloride (Sodium Chloride 0.9% 10 Ml Syringe) 10 ml FLUSH ASDIRECTED PRN PRN Reason: Keep Vein Open Last Admin: 11/30/20 14:17 Dose: 10 ml Documented by: Sodium Chloride (Sodium Chloride 0.9% 2.5 Ml Syringe) 2.5 ml FLUSH ASDIRECTED PRN PRN Reason: Keep Vein Open Last Admin: 11/30/20 14:17 Dose: 2.5 ml Documented by: Sodium Chloride (Sodium Chloride 0.65% Nasal [place] 45 Ml Bottle) 1 ml LATHA Q6H PRN PRN Reason: Congestion Last Admin: 12/09/20 12:20 Dose: 1 spray Documented by: Discontinued Medications Dexamethasone (Dexamethasone 10 Mg/Ml Sdv) 6 mg IVPUSH ONETIME ONE Stop: 11/30/20 14:46 Last Admin: 11/30/20 15:00 Dose: 6 mg Documented by: Dexamethasone (Dexamethasone 4 Mg Tab) 6 mg PO DAILY [facility] Last Admin: 12/12/20 09:12 Dose: 6 mg Documented by: Famotidine (Famotidine 20 Mg/2 Ml Sdv) 20 mg IVPUSH BID [facility] Last Admin: 12/05/20 08:55 Dose: 20 mg Documented by: Guaifenesin (Guaifenesin 100 Mg/5 Ml Soln 5 Ml Ud Cup) 100 mg PO Q4H [facility] Last Admin: 12/06/20 04:02 Dose: 100 mg Documented by: Guaifenesin/Codeine Phosphate (Codeine/Guaifenesin 10-100 Mg/5 Ml Syrup 5 Ml Cup) 5 ml PO Q4H [facility] Last Admin: 12/11/20 17:21 Dose: 5 ml Documented by: Guaifenesin/Codeine Phosphate (Codeine/Guaifenesin 10-100 Mg/5 Ml Syrup 5 Ml Cup) 5 ml PO Q4H [facility] Last Admin: 12/19/20 12:47 Dose: 5 ml Documented by: Guaifenesin/Dextromethorphan (Guaifenesin/Dextromethorphan 100-10 Mg/5 Ml Soln 10 Ml Cup) 10 ml PO Q4H PRN PRN Reason: Cough Last Admin: 12/03/20 12:45 Dose: 10 ml Documented by: Guaifenesin/Dextromethorphan (Guaifenesin/Dextromethorphan 100-10 Mg/5 Ml Soln 1 0 Ml Cup) 10 ml PO Q4H [facility] Last Admin: 12/05/20 10:24 Dose: Not Given Documented by: Remdesivir 200 mg/ Sodium (Chloride) 250 mls @ 250 mls/hr IV ONETIME ONE Stop: 11/30/20 14:46 Last Admin: 11/30/20 20:04 Dose: 250 mls/hr Documented by: Remdesivir 100 mg/ Sodium (Chloride) 100 mls @ 100 mls/hr IV Q24H [facility] Stop: 12/04/20 18:59 Last Admin: 12/04/20 18:12 Dose: 100 mls/hr Documented by: Pantoprazole Sodium 40 mg/ (Sodium Chloride) 10 mls @ 300 mls/hr IV Q24H [facility] Last Admin: 12/09/20 08:56 Dose: 300 mls/hr Documented by: Levofloxacin/Dextrose 750 mg/ (Premix) 150 mls @ 100 mls/hr IV Q24H [facility] Last Admin: 12/11/20 15:24 Dose: 100 mls/hr Documented by: Lactated Ringer's (Ringers, Lactated) 250 mls @ 250 mls/hr IV ASDIRECTED [facility] Iopamidol (Iopamidol 755 Mg/Ml 500 Ml Multipack Bottle) 100 ml IVPUSH ONETIME STA Stop: 12/01/20 16:41 Last Admin: 12/01/20 16:41 Dose: 100 ml Documented by: Lorazepam (Lorazepam 2 Mg/Ml Sdv) 1 mg IVPUSH Q12H PRN PRN Reason: Anxiety Last Admin: 12/12/20 15:53 Dose: 1 mg Documented by: Lorazepam (Lorazepam 2 Mg/Ml Sdv) 0.5 mg IVPUSH Q8H PRN PRN Reason: Anxiety Lorazepam (Lorazepam 2 Mg/Ml Sdv) 1 mg IVPUSH ONETIME ONE Stop: 12/20/20 20:48 Last Admin: 12/20/20 22:23 Dose: 1 mg Documented by: Melatonin (Melatonin 3 Mg Tab) 6 mg PO BEDTIME [facility] Melatonin (Melatonin 3 Mg Tab) 6 mg PO BEDTIME PRN PRN Reason: Insomnia Last Admin: 12/06/20 21:39 Dose: 6 mg Documented by: Methylprednisolone Sodium Succinate (Methylprednisolone Sodium Succinate 40 Mg/1 Ml Sdv) 40 mg IVPUSH Q8H [facility] Last Admin: 12/16/20 03:51 Dose: 40 mg Documented by: Methylprednisolone Sodium Succinate (Methylprednisolone Sodium Succinate 40 Mg/1 Ml Sdv) 40 mg IVPUSH Q12H [facility] Last Admin: 12/18/20 09:06 Dose: 40 mg Documented by: Polyethylene Glycol (Polyethylene Glycol 3350 Powder 17 Gm Packet) 17 gm PO BEDTIME [facility] Last Admin: 12/12/20 22:28 Dose: Not Given Documented by: Prednisone (Prednisone 20 Mg Tab) 40 mg PO WITHBREAKFAST [facility] Last Admin: 12/24/20 08:24 Dose: 40 mg Documented by: - Exam General: Alert, Oriented Neck: Supple Lungs: Clear to Auscultation, Normal Respiratory Effort Cardiovascular: Regular Rate, Regular Rhythm GI/Abdominal Exam: Soft, Non-Tender, No Distention Extremities: Non-Tender, No Pedal Edema Skin: Warm, Dry, Intact Neurological: No New Focal Deficit - Patient Data Lab Results Last 24 hrs: Laboratory Results - last 24 hr 12/27/20 12/27/20 Range/Units 07:09 07:09 WBC 11.78 H (4.0-11.0) K/uL RBC 4.33 L (4.50-5.90) M/uL Hgb 13.2 (13.0-17.0) g/dL Hct 39.4 (38.0-50.0) % MCV 91.0 (80.0-98.0) fL MCH 30.5 (27.0-32.0) pg MCHC 33.5 (31.0-37.0) g/dL RDW Std Deviation 47.6 (28.0-62.0) fl RDW Coeff of Carly 14 (11.0-15.0) % Plt Count 234 (150-400) K/uL MPV 10.00 (7.40-12.00) fL Neut % (Auto) 67.1 (48.0-80.0) % Lymph % (Auto) 15.2 L (16.0-40.0) % Grady % (Auto) 13.7 (0.0-15.0) % Eos % (Auto) 3.7 (0.0-7.0) % Baso % (Auto) 0.3 (0.0-1.5) % Neut # (Auto) 7.9 H (1.4-5.7) K/uL Lymph # (Auto) 1.8 (0.6-2.4) K/uL [place] # (Auto) 1.6 H (0.0-0.8) K/uL Eos # (Auto) 0.4 (0.0-0.7) K/uL Baso # (Auto) 0.0 (0.0-0.1) K/uL Nucleated RBC % 0.0 /100WBC Nucleated RBCs # 0 K/uL Sodium 138 (136-148) mmol/L Potassium 3.8 (3.5-5.1) mmol/L Chloride 102 (98-107) mmol/L Carbon Dioxide 30.3 (21.0-32.0) mmol/L BUN 19 H (7.0-18.0) mg/dL Creatinine 0.8 (0.8-1.3) mg/dL Est Cr Clr Drug Dosing 97.00 mL/min Estimated GFR (MDRD) > 60.0 ml/min Glucose 92 (74-106) mg/dL Calcium 8.4 L (8.5-10.1) mg/dL Total Bilirubin 0.5 (0.2-1.0) mg/dL AST 19 (15-37) IU/L ALT 58 (14-63) IU/L Alkaline Phosphatase 65 (46-116) U/L Total Protein 6.7 (6.4-8.2) g/dL Albumin 2.5 L (3.4-5.0) g/dL Globulin 4.2 H (2.6-4.0) g/dL Albumin/Globulin Ratio 0.6 L (0.9-1.6) Result Diagrams: 12/27/20 07:09 12/27/20 07:09 Sepsis Event Note - Evaluation Sepsis Screening Result: No Definite Risk - Focused Exam Vital Signs: Vital Signs Temp Pulse Resp BP Pulse Ox 12/27/20 08:33 36.3 C 87 16 120/64 89 L 12/27/20 04:56 36.4 C 67 16 123/74 94 L 12/27/20 00:10 36.7 C 60 17 118/71 94 L 12/26/20 21:11 36.4 C 66 17 117/73 92 L - Problem List & Annotations (1) Acute hypoxemic respiratory failure due to COVID-19 SNOMED Code(s): 509071388 Code(s): U07.1 - COVID-19; J96.01 - ACUTE RESPIRATORY FAILURE WITH HYPOXIA Status: Acute Current Visit: Yes - Problem List Review Problem List Initiated/Reviewed/Updated: Yes - Plan Plan:: 70 yo male admitted with COVID-19 pneumonia and acute hypoxic respiratrory failure: Hypoxia: currently on 5 L NC. Continue to wean oxygen as tolerated. COVID: completed Remdesivir, on prednisone taper 40 mg x5 days completed. 20 mg x 5 days. 10 mg x5 days. 5 mg x5 days. Then stopping. Combivent. Incentive spirometry. Acapella chest physical therapy. Lovenox 40 mg. Robitussin. Melatonin 6mg prn bedtime. Physical therapy-on board.
[2020-12-27] MEDS: Enoxaparin 40 MG/0.4 ML Syringe SUBCUT SCH (17:05)
[2020-12-27] MEDS: ALPRAZolam 0.25 MG Tab PO PRN (22:41)
[2020-12-27] MEDS: Melatonin 3 MG Tab PO PRN (23:07)
[2020-12-28] MEDS: Codeine/guaiFENesin 10-100 MG/5 ML Syrup 5 ML Cup PO PRN ×3 (03:29→21:48)
[2020-12-28] MEDS: Benzonatate 100 MG Cap PO SCH ×3 (05:57→21:47)
[2020-12-28 06:34] LABS: BLOOD UREA NITROGEN,BUN 21 mg/dL (7.0-18.0); CARBON DIOXIDE,CO2 27.3 mmol/L (21.0-32.0); CHLORIDE,CL 102 mmol/L (98-107); GLUCOSE RANDOM 93 mg/dL (74-106); POTASSIUM,K 3.8 mmol/L (3.5-5.1); SODIUM,NA 137 mmol/L (136-148)
--- NOTE | 2020-12-28 07:41 | PCM.PN ---
<Joe Lopez - Last Filed: 12/28/20 10:45> - General Info Date of Service: 12/28/20 Admission Dx/Problem (Free Text): Admission Diagnosis/Problem Admission Diagnosis/Problem Respiratory failure with hypoxia Subjective Update: Patient seen sitting in recliner. Patient is currently on 5.5 L nasal cannula. Patient only gets up to use the restroom and desaturates. Patient will be working with physical therapy today on ambulation. Patient is compliant with incentive spirometry and Acapella. Patient had a bowel movement this morning. Patient is tolerating diet. Patient denies cough, fever, chest pain, abdominal pain, palpitations, headache, dizziness. - Review of Systems General: Denies: Fever, Chills HEENT: Denies: Headaches Pulmonary: Reports: Shortness of Breath, Cough. Denies: Pleuritic Chest Pain, Hemoptysis Cardiovascular: Reports: Dyspnea on Exertion. Denies: Chest Pain, Palpitations, Orthopnea, PND Gastrointestinal: Denies: Abdominal Pain, Constipation, Diarrhea, Nausea, Vomit ing Genitourinary: Denies: Dysuria Musculoskeletal: Denies: Leg Pain Skin: Denies: Cyanosis Neurological: Denies: Confusion, Dizziness, Headache, Numbness - Patient Data Vitals - Most Recent: Last Vital Signs Temp 96.9 F 12/28/20 04:50 Pulse 65 12/28/20 04:50 Resp 17 12/28/20 04:50 BP 108/72 12/28/20 04:50 Pulse Ox 95 12/28/20 04:50 Weight - Most Recent: 102.058 kg I&O - Last 24 Hours: Intake & Output 12/27/20 12/28/20 12/28/20 22:59 06:59 14:59 Intake Total 750 650 Output Total 1050 450 Balance -300 200 Lab Results Last 24 Hours: Laboratory Results - last 24 hr 12/27/20 12/27/20 12/28/20 Range/Units 07:09 07:09 06:00 WBC 11.78 H 10.34 (4.0-11.0) K/uL RBC 4.33 L 4.27 L (4.50-5.90) M/uL Hgb 13.2 13.1 (13.0-17.0) g/dL Hct 39.4 38.5 (38.0-50.0) % MCV 91.0 90.2 (80.0-98.0) fL MCH 30.5 30.7 (27.0-32.0) pg MCHC 33.5 34.0 (31.0-37.0) g/dL RDW Std Deviation 47.6 46.2 (28.0-62.0) fl RDW Coeff of Carly 14 14 (11.0-15.0) % Plt Count 234 239 (150-400) K/uL MPV 10.00 9.90 (7.40-12.00) fL Neut % (Auto) 67.1 (48.0-80.0) % Lymph % (Auto) 15.2 L (16.0-40.0) % Butts % (Auto) 13.7 (0.0-15.0) % Eos % (Auto) 3.7 (0.0-7.0) % Baso % (Auto) 0.3 (0.0-1.5) % Neut # (Auto) 7.9 H (1.4-5.7) K/uL Lymph # (Auto) 1.8 (0.6-2.4) K/uL Butts # (Auto) 1.6 H (0.0-0.8) K/uL Eos # (Auto) 0.4 (0.0-0.7) K/uL Baso # (Auto) 0.0 (0.0-0.1) K/uL Add Manual Diff YES Neutrophils % (Manual) 65 (48.0-80.0) % Band Neutrophils % 6 % Lymphocytes % (Manual) 12 L (16.0-40.0) % Monocytes % (Manual) 11 (0.0-15.0) % Eosinophils % (Manual) 5 (0.0-7.0) % Metamyelocytes % 1 % Nucleated RBC % 0.0 0.0 /100WBC Absolute Seg Neuts 6.7 H (1.4-5.7) Band Neutrophils # 0.6 Lymphocytes # (Manual) 1.2 (0.6-2.4) Monocytes # (Manual) 1.1 H (0.0-0.8) Eosinophils # (Manual) 0.5 (0.0-0.7) Absolute Metamyelocyte 0.1 Nucleated RBCs # 0 0 K/uL Sodium 138 (136-148) mmol/L Potassium 3.8 (3.5-5.1) mmol/L Chloride 102 (98-107) mmol/L Carbon Dioxide 30.3 (21.0-32.0) mmol/L BUN 19 H (7.0-18.0) mg/dL Creatinine 0.8 (0.8-1.3) mg/dL Est Cr Clr Drug Dosing 97.00 mL/min Estimated GFR (MDRD) > 60.0 ml/min Glucose 92 (74-106) mg/dL Calcium 8.4 L (8.5-10.1) mg/dL Total Bilirubin 0.5 (0.2-1.0) mg/dL AST 19 (15-37) IU/L ALT 58 (14-63) IU/L Alkaline Phosphatase 65 (46-116) U/L Total Protein 6.7 (6.4-8.2) g/dL Albumin 2.5 L (3.4-5.0) g/dL Globulin 4.2 H (2.6-4.0) g/dL Albumin/Globulin Ratio 0.6 L (0.9-1.6) 12/28/20 Range/Units 06:00 WBC (4.0-11.0) K/uL RBC (4.50-5.90) M/uL Hgb (13.0-17.0) g/dL Hct (38.0-50.0) % MCV (80.0-98.0) fL MCH (27.0-32.0) pg MCHC (31.0-37.0) g/dL RDW Std Deviation (28.0-62.0) fl RDW Coeff of Carly (11.0-15.0) % Plt Count (150-400) K/uL MPV (7.40-12.00) fL Neut % (Auto) (48.0-80.0) % Lymph % (Auto) (16.0-40.0) % Butts % (Auto) (0.0-15.0) % Eos % (Auto) (0.0-7.0) % Baso % (Auto) (0.0-1.5) % Neut # (Auto) (1.4-5.7) K/uL Lymph # (Auto) (0.6-2.4) K/uL Butts # (Auto) (0.0-0.8) K/uL Eos # (Auto) (0.0-0.7) K/uL Baso # (Auto) (0.0-0.1) K/uL Add Manual Diff Neutrophils % (Manual) (48.0-80.0) % Band Neutrophils % % Lymphocytes % (Manual) (16.0-40.0) % Monocytes % (Manual) (0.0-15.0) % Eosinophils % (Manual) (0.0-7.0) % Metamyelocytes % % Nucleated RBC % /100WBC Absolute Seg Neuts (1.4-5.7) Band Neutrophils # Lymphocytes # (Manual) (0.6-2.4) Monocytes # (Manual) (0.0-0.8) Eosinophils # (Manual) (0.0-0.7) Absolute Metamyelocyte Nucleated RBCs # K/uL Sodium 137 (136-148) mmol/L Potassium 3.8 (3.5-5.1) mmol/L Chloride 102 (98-107) mmol/L Carbon Dioxide 27.3 (21.0-32.0) mmol/L BUN 21 H (7.0-18.0) mg/dL Creatinine 0.8 (0.8-1.3) mg/dL Est Cr Clr Drug Dosing 97.00 mL/min Estimated GFR (MDRD) > 60.0 ml/min Glucose 93 (74-106) mg/dL Calcium 8.3 L (8.5-10.1) mg/dL Total Bilirubin (0.2-1.0) mg/dL AST (15-37) IU/L ALT (14-63) IU/L Alkaline Phosphatase (46-116) U/L Total Protein (6.4-8.2) g/dL Albumin (3.4-5.0) g/dL Globulin (2.6-4.0) g/dL Albumin/Globulin Ratio (0.9-1.6) Med Orders - Current: Current Medications Albuterol/Ipratropium (Albuterol/Ipratropium 4 Gm Inhalation [place]) 0 gm INH Q4H PRN PRN Reason: Dyspnea Last Admin: 12/24/20 09:35 Dose: 1 puff Documented by: Albuterol/Ipratropium (Albuterol/Ipratropium 3.0-0.5 Mg/3 Ml Neb Soln) 3 ml NEB Q4HRRT PRN PRN Reason: Wheezing Last Admin: 12/26/20 11:29 Dose: 3 ml Documented by: Alprazolam (Alprazolam 0.25 Mg Tab) 0.25 mg PO Q6H PRN PRN Reason: Anxiety Last Admin: 12/27/20 22:41 Dose: 0.25 mg Documented by: Benzonatate (Benzonatate 100 Mg Cap) 200 mg PO TID [facility] Last Admin: 12/28/20 05:57 Dose: 200 mg Documented by: Docusate Sodium (Docusate Sodium 100 Mg Cap) 100 mg PO BID [facility] Last Admin: 12/27/20 21:51 Dose: 100 mg Documented by: Enoxaparin Sodium (Enoxaparin 40 Mg/0.4 Ml Syringe) 40 mg SUBCUT Q24H [facility] Last Admin: 12/27/20 17:05 Dose: 40 mg Documented by: Guaifenesin/Codeine Phosphate (Codeine/Guaifenesin 10-100 Mg/5 Ml Syrup 5 Ml Cup) 5 ml PO Q4H PRN PRN Reason: Cough Last Admin: 12/28/20 03:29 Dose: 5 ml Documented by: Melatonin (Melatonin 3 Mg Tab) 6 mg PO BEDTIME PRN PRN Reason: Insomnia Last Admin: 12/27/20 23:07 Dose: 6 mg Documented by: Pantoprazole Sodium (Pantoprazole 40 Mg Tab.Cr) 40 mg PO DAILY [facility] Last Admin: 12/27/20 08:35 Dose: 40 mg Documented by: Polyethylene Glycol (Polyethylene Glycol 3350 Powder 17 Gm Packet) 17 gm PO DAILY [facility] Last Admin: 12/27/20 08:35 Dose: 17 gm Documented by: Prednisone (Prednisone 20 Mg Tab) 20 mg PO WITHBREAKFAST [facility] Stop: 12/30/20 08:01 Last Admin: 12/27/20 08:35 Dose: 20 mg Documented by: Sodium Chloride (Sodium Chloride 0.9% 10 Ml Syringe) 10 ml FLUSH ASDIRECTED PRN PRN Reason: Keep Vein Open Last Admin: 11/30/20 14:17 Dose: 10 ml Documented by: Sodium Chloride (Sodium Chloride 0.9% 2.5 Ml Syringe) 2.5 ml FLUSH ASDIRECTED PRN PRN Reason: Keep Vein Open Last Admin: 11/30/20 14:17 Dose: 2.5 ml Documented by: Sodium Chloride (Sodium Chloride 0.65% Nasal [place] 45 Ml Bottle) 1 ml LATHA Q6H PRN PRN Reason: Congestion Last Admin: 12/09/20 12:20 Dose: 1 spray Documented by: Discontinued Medications Dexamethasone (Dexamethasone 10 Mg/Ml Sdv) 6 mg IVPUSH ONETIME ONE Stop: 11/30/20 14:46 Last Admin: 11/30/20 15:00 Dose: 6 mg Documented by: Dexamethasone (Dexamethasone 4 Mg Tab) 6 mg PO DAILY [facility] Last Admin: 12/12/20 09:12 Dose: 6 mg Documented by: Famotidine (Famotidine 20 Mg/2 Ml Sdv) 20 mg IVPUSH BID [facility] Last Admin: 12/05/20 08:55 Dose: 20 mg Documented by: Guaifenesin (Guaifenesin 100 Mg/5 Ml Soln 5 Ml Ud Cup) 100 mg PO Q4H [facility] Last Admin: 12/06/20 04:02 Dose: 100 mg Documented by: Guaifenesin/Codeine Phosphate (Codeine/Guaifenesin 10-100 Mg/5 Ml Syrup 5 Ml Cup) 5 ml PO Q4H [facility] Last Admin: 12/11/20 17:21 Dose: 5 ml Documented by: Guaifenesin/Codeine Phosphate (Codeine/Guaifenesin 10-100 Mg/5 Ml Syrup 5 Ml Cup) 5 ml PO Q4H [facility] Last Admin: 12/19/20 12:47 Dose: 5 ml Documented by: Guaifenesin/Dextromethorphan (Guaifenesin/Dextromethorphan 100-10 Mg/5 Ml Soln 10 Ml Cup) 10 ml PO Q4H PRN PRN Reason: Cough Last Admin: 12/03/20 12:45 Dose: 10 ml Documented by: Guaifenesin/Dextromethorphan (Guaifenesin/Dextromethorphan 100-10 Mg/5 Ml Soln 10 Ml Cup) 10 ml PO Q4H [facility] Last Admin: 12/05/20 10:24 Dose: Not Given Documented by: Remdesivir 200 mg/ Sodium (Chloride) 250 mls @ 250 mls/hr IV ONETIME ONE Stop: 11/30/20 14:46 Last Admin: 11/30/20 20:04 Dose: 250 mls/hr Documented by: Remdesivir 100 mg/ Sodium (Chloride) 100 mls @ 100 mls/hr IV Q24H [facility] Stop: 12/04/20 18:59 Last Admin: 12/04/20 18:12 Dose: 100 mls/hr Documented by: Pantoprazole Sodium 40 mg/ (Sodium Chloride) 10 mls @ 300 mls/hr IV Q24H [facility] Last Admin: 12/09/20 08:56 Dose: 300 mls/hr Documented by: Levofloxacin/Dextrose 750 mg/ (Premix) 150 mls @ 100 mls/hr IV Q24H [facility] Last Admin: 12/11/20 15:24 Dose: 100 mls/hr Documented by: Lactated Ringer's (Ringers, Lactated) 250 mls @ 250 mls/hr IV ASDIRECTED [facility] Iopamidol (Iopamidol 755 Mg/Ml 500 Ml Multipack Bottle) 100 ml IVPUSH ONETIME STA Stop: 12/01/20 16:41 Last Admin: 12/01/20 16:41 Dose: 100 ml Documented by: Lorazepam (Lorazepam 2 Mg/Ml Sdv) 1 mg IVPUSH Q12H PRN PRN Reason: Anxiety Last Admin: 12/12/20 15:53 Dose: 1 mg Documented by: Lorazepam (Lorazepam 2 Mg/Ml Sdv) 0.5 mg IVPUSH Q8H PRN PRN Reason: Anxiety Lorazepam (Lorazepam 2 Mg/Ml Sdv) 1 mg IVPUSH ONETIME ONE Stop: 12/20/20 20:48 Last Admin: 12/20/20 22:23 Dose: 1 mg Documented by: Melatonin (Melatonin 3 Mg Tab) 6 mg PO BEDTIME [facility] Melatonin (Melatonin 3 Mg Tab) 6 mg PO BEDTIME PRN PRN Reason: Insomnia Last Admin: 12/06/20 21:39 Dose: 6 mg Documented by: Methylprednisolone Sodium Succinate (Methylprednisolone Sodium Succinate 40 Mg/1 Ml Sdv) 40 mg IVPUSH Q8H [facility] Last Admin: 12/16/20 03:51 Dose: 40 mg Documented by: Methylprednisolone Sodium Succinate (Methylprednisolone Sodium Succinate 40 Mg/1 Ml Sdv) 40 mg IVPUSH Q12H [facility] Last Admin: 12/18/20 09:06 Dose: 40 mg Documented by: Polyethylene Glycol (Polyethylene Glycol 3350 Powder 17 Gm Packet) 17 gm PO BEDTIME [facility] Last Admin: 12/12/20 22:28 Dose: Not Given Documented by: Prednisone (Prednisone 20 Mg Tab) 40 mg PO WITHBREAKFAST [facility] Last Admin: 12/24/20 08:24 Dose: 40 mg Documented by: - Exam Quality Assessment: Supplemental Oxygen General: Alert, Oriented, Cooperative, No Acute Distress HEENT: Pupils Equal, Pupils Reactive Neck: Supple, Trachea Midline Lungs: Normal Respiratory Effort, Decreased Breath Sounds Cardiovascular: Regular Rate, Regular Rhythm, No Murmurs GI/Abdominal Exam: Normal Bowel Sounds, Soft, Non-Tender, No Organomegaly Extremities: Normal Inspection, Normal Range of Motion, Non-Tender, No Pedal Edema. No: Jessica's Sign Peripheral Pulses: 2+: Dorsalis Pedis (L), Dorsalis Pedis (R) Skin: Warm, Dry, Intact Neurological: No New Focal Deficit - Patient Data Lab Results Last 24 hrs: Laboratory Results - last 24 hr 12/27/20 12/27/20 12/28/20 Range/Units 07:09 07:09 06:00 WBC 11.78 H 10.34 (4.0-11.0) K/uL RBC 4.33 L 4.27 L (4.50-5.90) M/uL Hgb 13.2 13.1 (13.0-17.0) g/dL Hct 39.4 38.5 (38.0-50.0) % MCV 91.0 90.2 (80.0-98.0) fL MCH 30.5 30.7 (27.0-32.0) pg MCHC 33.5 34.0 (31.0-37.0) g/dL RDW Std Deviation 47.6 46.2 (28.0-62.0) fl RDW Coeff of Carly 14 14 (11.0-15.0) % Plt Count 234 239 (150-400) K/uL MPV 10.00 9.90 (7.40-12.00) fL Neut % (Auto) 67.1 (48.0-80.0) % Lymph % (Auto) 15.2 L (16.0-40.0) % Butts % (Auto) 13.7 (0.0-15.0) % Eos % (Auto) 3.7 (0.0-7.0) % Baso % (Auto) 0.3 (0.0-1.5) % Neut # (Auto) 7.9 H (1.4-5.7) K/uL Lymph # (Auto) 1.8 (0.6-2.4) K/uL Butts # (Auto) 1.6 H (0.0-0.8) K/uL Eos # (Auto) 0.4 (0.0-0.7) K/uL Baso # (Auto) 0.0 (0.0-0.1) K/uL Add Manual Diff YES Neutrophils % (Manual) 65 (48.0-80.0) % Band Neutrophils % 6 % Lymphocytes % (Manual) 12 L (16.0-40.0) % Monocytes % (Manual) 11 (0.0-15.0) % Eosinophils % (Manual) 5 (0.0-7.0) % Metamyelocytes % 1 % Nucleated RBC % 0.0 0.0 /100WBC Absolute Seg Neuts 6.7 H (1.4-5.7) Band Neutrophils # 0.6 Lymphocytes # (Manual) 1.2 (0.6-2.4) Monocytes # (Manual) 1.1 H (0.0-0.8) Eosinophils # (Manual) 0.5 (0.0-0.7) Absolute Metamyelocyte 0.1 Nucleated RBCs # 0 0 K/uL Sodium 138 (136-148) mmol/L Potassium 3.8 (3.5-5.1) mmol/L Chloride 102 (98-107) mmol/L Carbon Dioxide 30.3 (21.0-32.0) mmol/L BUN 19 H (7.0-18.0) mg/dL Creatinine 0.8 (0.8-1.3) mg/dL Est Cr Clr Drug Dosing 97.00 mL/min Estimated GFR (MDRD) > 60.0 ml/min Glucose 92 (74-106) mg/dL Calcium 8.4 L (8.5-10.1) mg/dL Total Bilirubin 0.5 (0.2-1.0) mg/dL AST 19 (15-37) IU/L ALT 58 (14-63) IU/L Alkaline Phosphatase 65 (46-116) U/L Total Protein 6.7 (6.4-8.2) g/dL Albumin 2.5 L (3.4-5.0) g/dL Globulin 4.2 H (2.6-4.0) g/dL Albumin/Globulin Ratio 0.6 L (0.9-1.6) 12/28/20 Range/Units 06:00 WBC (4.0-11.0) K/uL RBC (4.50-5.90) M/uL Hgb (13.0-17.0) g/dL Hct (38.0-50.0) % MCV (80.0-98.0) fL MCH (27.0-32.0) pg MCHC (31.0-37.0) g/dL RDW Std Deviation (28.0-62.0) fl RDW Coeff of Carly (11.0-15.0) % Plt Count (150-400) K/uL MPV (7.40-12.00) fL Neut % (Auto) (48.0-80.0) % Lymph % (Auto) (16.0-40.0) % Butts % (Auto) (0.0-15.0) % Eos % (Auto) (0.0-7.0) % Baso % (Auto) (0.0-1.5) % Neut # (Auto) (1.4-5.7) K/uL Lymph # (Auto) (0.6-2.4) K/uL Butts # (Auto) (0.0-0.8) K/uL Eos # (Auto) (0.0-0.7) K/uL Baso # (Auto) (0.0-0.1) K/uL Add Manual Diff Neutrophils % (Manual) (48.0-80.0) % Band Neutrophils % % Lymphocytes % (Manual) (16.0-40.0) % Monocytes % (Manual) (0.0-15.0) % Eosinophils % (Manual) (0.0-7.0) % Metamyelocytes % % Nucleated RBC % /100WBC Absolute Seg Neuts (1.4-5.7) Band Neutrophils # Lymphocytes # (Manual) (0.6-2.4) Monocytes # (Manual) (0.0-0.8) Eosinophils # (Manual) (0.0-0.7) Absolute Metamyelocyte Nucleated RBCs # K/uL Sodium 137 (136-148) mmol/L Potassium 3.8 (3.5-5.1) mmol/L Chloride 102 (98-107) mmol/L Carbon Dioxide 27.3 (21.0-32.0) mmol/L BUN 21 H (7.0-18.0) mg/dL Creatinine 0.8 (0.8-1.3) mg/dL Est Cr Clr Drug Dosing 97.00 mL/min Estimated GFR (MDRD) > 60.0 ml/min Glucose 93 (74-106) mg/dL Calcium 8.3 L (8.5-10.1) mg/dL Total Bilirubin (0.2-1.0) mg/dL AST (15-37) IU/L ALT (14-63) IU/L Alkaline Phosphatase (46-116) U/L Total Protein (6.4-8.2) g/dL Albumin (3.4-5.0) g/dL Globulin (2.6-4.0) g/dL Albumin/Globulin Ratio (0.9-1.6) Result Diagrams: 12/28/20 06:00 12/28/20 06:00 Sepsis Event Note - Evaluation Sepsis Screening Result: No Definite Risk - Focused Exam Vital Signs: Vital Signs Temp Pulse Resp BP Pulse Ox 12/28/20 04:50 96.9 F 65 17 108/72 95 12/28/20 00:30 96.9 F 62 18 114/75 97 12/27/20 20:38 98.1 F 79 18 120/79 94 L - Problem List Review Problem List Initiated/Reviewed/Updated: Yes - Plan Plan:: 70 yo male admitted with COVID-19 pneumonia and acute hypoxic respiratrory failure: Hypoxia: currently on 5 L NC. Continue to wean oxygen as tolerated. COVID: completed Remdesivir, on prednisone taper 40 mg x5 days completed. 20 mg x 5 days. 10 mg x5 days. 5 mg x5 days. Then stopping. Combivent. Incentive spirometry. Acapella chest physical therapy. Lovenox 40 mg. Robitussin. Melatonin 6mg prn bedtime. Physical therapy-on board. <Nimisha Julian - Last Filed: 12/29/20 19:35> - General Info Subjective Update: I have seen and evaluated the patient and agree with the residents note unless specified in my note - Patient Data Vitals - Most Recent: Last Vital Signs Temp 35.6 C L 12/29/20 16:00 Pulse 76 12/29/20 16:00 Resp 20 12/29/20 16:00 BP 111/70 12/29/20 16:00 Pulse Ox 95 12/29/20 16:00 I&O - Last 24 Hours: Intake & Output 12/29/20 12/29/20 12/29/20 06:59 14:59 22:59 Intake Total 400 Output Total 180 Balance 220 Lab Results Last 24 Hours: Laboratory Results - last 24 hr 12/29/20 12/29/20 Range/Units 05:15 05:15 WBC 10.45 (4.0-11.0) K/uL RBC 4.27 L (4.50-5.90) M/uL Hgb 13.2 (13.0-17.0) g/dL Hct 39.2 (38.0-50.0) % MCV 91.8 (80.0-98.0) fL MCH 30.9 (27.0-32.0) pg MCHC 33.7 (31.0-37.0) g/dL RDW Std Deviation 48.2 (28.0-62.0) fl RDW Coeff of Carly 15 (11.0-15.0) % Plt Count 255 (150-400) K/uL MPV 10.90 (7.40-12.00) fL Add Manual Diff YES Neutrophils % (Manual) 55 (48.0-80.0) % Band Neutrophils % 2 % Lymphocytes % (Manual) 30 (16.0-40.0) % Monocytes % (Manual) 9 (0.0-15.0) % Eosinophils % (Manual) 4 (0.0-7.0) % Nucleated RBC % 0.0 /100WBC Absolute Seg Neuts 5.7 (1.4-5.7) Band Neutrophils # 0.2 Lymphocytes # (Manual) 3.1 H (0.6-2.4) Monocytes # (Manual) 0.9 H (0.0-0.8) Eosinophils # (Manual) 0.4 (0.0-0.7) Nucleated RBCs # 0 K/uL Sodium 139 (136-148) mmol/L Potassium 4.2 (3.5-5.1) mmol/L Chloride 103 (98-107) mmol/L Carbon Dioxide 27.9 (21.0-32.0) mmol/L BUN 24 H (7.0-18.0) mg/dL Creatinine 0.9 (0.8-1.3) mg/dL Est Cr Clr Drug Dosing 86.34 mL/min Estimated GFR (MDRD) > 60.0 ml/min Glucose 84 (74-106) mg/dL Calcium 8.4 L (8.5-10.1) mg/dL Total Bilirubin 0.4 (0.2-1.0) mg/dL AST 20 (15-37) IU/L ALT 54 (14-63) IU/L Alkaline Phosphatase 63 (46-116) U/L Total Protein 6.2 L (6.4-8.2) g/dL Albumin 2.6 L (3.4-5.0) g/dL Globulin 3.6 (2.6-4.0) g/dL Albumin/Globulin Ratio 0.7 L (0.9-1.6) Med Orders - Current: Current Medications Albuterol/Ipratropium (Albuterol/Ipratropium 4 Gm Inhalation [place]) 0 gm INH Q4H PRN PRN Reason: Dyspnea Last Admin: 12/24/20 09:35 Dose: 1 puff Documented by: Albuterol/Ipratropium (Albuterol/Ipratropium 3.0-0.5 Mg/3 Ml Neb Soln) 3 ml NEB Q4HRRT PRN PRN Reason: Wheezing Last Admin: 12/29/20 14:17 Dose: 3 ml Documented by: Alprazolam (Alprazolam 0.25 Mg Tab) 0.25 mg PO Q6H PRN PRN Reason: Anxiety Last Admin: 12/29/20 08:54 Dose: 0.25 mg Documented by: Benzonatate (Benzonatate 100 Mg Cap) 200 mg PO TID [facility] Last Admin: 12/29/20 14:13 Dose: 200 mg Documented by: Docusate Sodium (Docusate Sodium 100 Mg Cap) 100 mg PO BID [facility] Last Admin: 12/29/20 08:54 Dose: 100 mg Documented by: Enoxaparin Sodium (Enoxaparin 40 Mg/0.4 Ml Syringe) 40 mg SUBCUT Q24H [facility] Last Admin: 12/29/20 19:32 Dose: 40 mg Documented by: Guaifenesin/Codeine Phosphate (Codeine/Guaifenesin 10-100 Mg/5 Ml Syrup 5 Ml Cup) 5 ml PO Q4H PRN PRN Reason: Cough Last Admin: 12/29/20 08:54 Dose: 5 ml Documented by: Melatonin (Melatonin 3 Mg Tab) 6 mg PO BEDTIME PRN PRN Reason: Insomnia Last Admin: 12/28/20 21:48 Dose: 6 mg Documented by: Pantoprazole Sodium (Pantoprazole 40 Mg Tab.Cr) 40 mg PO DAILY [facility] Last Admin: 12/29/20 08:54 Dose: 40 mg Documented by: Polyethylene Glycol (Polyethylene Glycol 3350 Powder 17 Gm Packet) 17 gm PO DAILY [facility] Last Admin: 12/29/20 08:54 Dose: 17 gm Documented by: Prednisone (Prednisone 20 Mg Tab) 20 mg PO WITHBREAKFAST [facility] Stop: 12/30/20 08:01 Last Admin: 12/29/20 08:54 Dose: 20 mg Documented by: Prednisone (Prednisone 10 Mg Tab) 10 mg PO WITHBREAKFAST [facility] Stop: 01/04/21 08:01 Sodium Chloride (Sodium Chloride 0.9% 10 Ml Syringe) 10 ml FLUSH ASDIRECTED PRN PRN Reason: Keep Vein Open Last Admin: 11/30/20 14:17 Dose: 10 ml Documented by: Sodium Chloride (Sodium Chloride 0.9% 2.5 Ml Syringe) 2.5 ml FLUSH ASDIRECTED PRN PRN Reason: Keep Vein Open Last Admin: 11/30/20 14:17 Dose: 2.5 ml Documented by: Sodium Chloride (Sodium Chloride 0.65% Nasal [place] 45 Ml Bottle) 1 ml LATHA Q6H PRN PRN Reason: Congestion Last Admin: 12/09/20 12:20 Dose: 1 spray Documented by: Discontinued Medications Dexamethasone (Dexamethasone 10 Mg/Ml Sdv) 6 mg IVPUSH ONETIME ONE Stop: 11/30/20 14:46 Last Admin: 11/30/20 15:00 Dose: 6 mg Documented by: Dexamethasone (Dexamethasone 4 Mg Tab) 6 mg PO DAILY [facility] Last Admin: 12/12/20 09:12 Dose: 6 mg Documented by: Famotidine (Famotidine 20 Mg/2 Ml Sdv) 20 mg IVPUSH BID [facility] Last Admin: 12/05/20 08:55 Dose: 20 mg Documented by: Guaifenesin (Guaifenesin 100 Mg/5 Ml Soln 5 Ml Ud Cup) 100 mg PO Q4H [facility] Last Admin: 12/06/20 04:02 Dose: 100 mg Documented by: Guaifenesin/Codeine Phosphate (Codeine/Guaifenesin 10-100 Mg/5 Ml Syrup 5 Ml Cup) 5 ml PO Q4H [facility] Last Admin: 12/11/20 17:21 Dose: 5 ml Documented by: Guaifenesin/Codeine Phosphate (Codeine/Guaifenesin 10-100 Mg/5 Ml Syrup 5 Ml Cup) 5 ml PO Q4H [facility] Last Admin: 12/19/20 12:47 Dose: 5 ml Documented by: Guaifenesin/Dextromethorphan (Guaifenesin/Dextromethorphan 100-10 Mg/5 Ml Soln 10 Ml Cup) 10 ml PO Q4H PRN PRN Reason: Cough Last Admin: 12/03/20 12:45 Dose: 10 ml Documented by: Guaifenesin/Dextromethorphan (Guaifenesin/Dextromethorphan 100-10 Mg/5 Ml Soln 10 Ml Cup) 10 ml PO Q4H [facility] Last Admin: 12/05/20 10:24 Dose: Not Given Documented by: Remdesivir 200 mg/ Sodium (Chloride) 250 mls @ 250 mls/hr IV ONETIME ONE Stop: 11/30/20 14:46 Last Admin: 11/30/20 20:04 Dose: 250 mls/hr Documented by: Remdesivir 100 mg/ Sodium (Chloride) 100 mls @ 100 mls/hr IV Q24H [facility] Stop: 12/04/20 18:59 Last Admin: 12/04/20 18:12 Dose: 100 mls/hr Documented by: Pantoprazole Sodium 40 mg/ (Sodium Chloride) 10 mls @ 300 mls/hr IV Q24H [facility] Last Admin: 12/09/20 08:56 Dose: 300 mls/hr Documented by: Levofloxacin/Dextrose 750 mg/ (Premix) 150 mls @ 100 mls/hr IV Q24H [facility] Last Admin: 12/11/20 15:24 Dose: 100 mls/hr Documented by: Lactated Ringer's (Ringers, Lactated) 250 mls @ 250 mls/hr IV ASDIRECTED [facility] Iopamidol (Iopamidol 755 Mg/Ml 500 Ml Multipack Bottle) 100 ml IVPUSH ONETIME STA Stop: 12/01/20 16:41 Last Admin: 12/01/20 16:41 Dose: 100 ml Documented by: Lorazepam (Lorazepam 2 Mg/Ml Sdv) 1 mg IVPUSH Q12H PRN PRN Reason: Anxiety Last Admin: 12/12/20 15:53 Dose: 1 mg Documented by: Lorazepam (Lorazepam 2 Mg/Ml Sdv) 0.5 mg IVPUSH Q8H PRN PRN Reason: Anxiety Lorazepam (Lorazepam 2 Mg/Ml Sdv) 1 mg IVPUSH ONETIME ONE Stop: 12/20/20 20:48 Last Admin: 12/20/20 22:23 Dose: 1 mg Documented by: Melatonin (Melatonin 3 Mg Tab) 6 mg PO BEDTIME [facility] Melatonin (Melatonin 3 Mg Tab) 6 mg PO BEDTIME PRN PRN Reason: Insomnia Last Admin: 12/06/20 21:39 Dose: 6 mg Documented by: Methylprednisolone Sodium Succinate (Methylprednisolone Sodium Succinate 40 Mg/1 Ml Sdv) 40 mg IVPUSH Q8H [facility] Last Admin: 12/16/20 03:51 Dose: 40 mg Documented by: Methylprednisolone Sodium Succinate (Methylprednisolone Sodium Succinate 40 Mg/1 Ml Sdv) 40 mg IVPUSH Q12H [facility] Last Admin: 12/18/20 09:06 Dose: 40 mg Documented by: Polyethylene Glycol (Polyethylene Glycol 3350 Powder 17 Gm Packet) 17 gm PO BEDTIME [facility] Last Admin: 12/12/20 22:28 Dose: Not Given Documented by: Prednisone (Prednisone 20 Mg Tab) 40 mg PO WITHBREAKFAST [facility] Last Admin: 12/24/20 08:24 Dose: 40 mg Documented by: - Patient Data Lab Results Last 24 hrs: Laboratory Results - last 24 hr 12/29/20 12/29/20 Range/Units 05:15 05:15 WBC 10.45 (4.0-11.0) K/uL RBC 4.27 L (4.50-5.90) M/uL Hgb 13.2 (13.0-17.0) g/dL Hct 39.2 (38.0-50.0) % MCV 91.8 (80.0-98.0) fL MCH 30.9 (27.0-32.0) pg MCHC 33.7 (31.0-37.0) g/dL RDW Std Deviation 48.2 (28.0-62.0) fl RDW Coeff of Carly 15 (11.0-15.0) % Plt Count 255 (150-400) K/uL MPV 10.90 (7.40-12.00) fL Add Manual Diff YES Neutrophils % (Manual) 55 (48.0-80.0) % Band Neutrophils % 2 % Lymphocytes % (Manual) 30 (16.0-40.0) % Monocytes % (Manual) 9 (0.0-15.0) % Eosinophils % (Manual) 4 (0.0-7.0) % Nucleated RBC % 0.0 /100WBC Absolute Seg Neuts 5.7 (1.4-5.7) Band Neutrophils # 0.2 Lymphocytes # (Manual) 3.1 H (0.6-2.4) Monocytes # (Manual) 0.9 H (0.0-0.8) Eosinophils # (Manual) 0.4 (0.0-0.7) Nucleated RBCs # 0 K/uL Sodium 139 (136-148) mmol/L Potassium 4.2 (3.5-5.1) mmol/L Chloride 103 (98-107) mmol/L Carbon Dioxide 27.9 (21.0-32.0) mmol/L BUN 24 H (7.0-18.0) mg/dL Creatinine 0.9 (0.8-1.3) mg/dL Est Cr Clr Drug Dosing 86.34 mL/min Estimated GFR (MDRD) > 60.0 ml/min Glucose 84 (74-106) mg/dL Calcium 8.4 L (8.5-10.1) mg/dL Total Bilirubin 0.4 (0.2-1.0) mg/dL AST 20 (15-37) IU/L ALT 54 (14-63) IU/L Alkaline Phosphatase 63 (46-116) U/L Total Protein 6.2 L (6.4-8.2) g/dL Albumin 2.6 L (3.4-5.0) g/dL Globulin 3.6 (2.6-4.0) g/dL Albumin/Globulin Ratio 0.7 L (0.9-1.6) Result Diagrams: 12/29/20 05:15 12/29/20 05:15 Sepsis Event Note - Focused Exam Vital Signs: Vital Signs Temp Pulse Pulse Resp BP Pulse Ox 12/29/20 16:00 35.6 C L 76 20 111/70 95 12/29/20 11:37 36.1 C 92 20 105/63 92 L 12/29/20 08:00 36.1 C 73 21 H 133/70 91 L - Problem List & Annotations (1) Acute hypoxemic respiratory failure due to COVID-19 SNOMED Code(s): 174273004 Code(s): U07.1 - COVID-19; J96.01 - ACUTE RESPIRATORY FAILURE WITH HYPOXIA Status: Acute Current Visit: Yes (2) Anxiety about health SNOMED Code(s): 147585182 Code(s): F41.8 - OTHER SPECIFIED ANXIETY DISORDERS Status: Acute Current Visit: Yes - My Orders Last 24 Hours: My Active Orders 12/31/20 08:00 predniSONE 10 mg PO WITHBREAKFAST
[2020-12-28] MEDS: predniSONE 20 MG Tab PO SCH (08:19)
[2020-12-28] MEDS: Pantoprazole 40 MG Tab.CR PO SCH (08:19)
[2020-12-28] MEDS: Docusate Sodium 100 MG Cap PO SCH ×2 (08:19→21:48)
[2020-12-28] MEDS: Polyethylene Glycol 3350 Powder 17 GM Packet PO SCH (08:20)
[2020-12-28] MEDS: ALPRAZolam 0.25 MG Tab PO PRN ×2 (09:21→21:48)
[2020-12-28] MEDS: Albuterol/Ipratropium 3.0-0.5 MG/3 ML Neb Soln NEB PRN (09:26)
[2020-12-28] MEDS: Enoxaparin 40 MG/0.4 ML Syringe SUBCUT SCH (17:54)
[2020-12-28] MEDS: Melatonin 3 MG Tab PO PRN (21:48)
[2020-12-29] MEDS: Benzonatate 100 MG Cap PO SCH ×3 (06:21→21:05)
[2020-12-29 07:48] LABS: BLOOD UREA NITROGEN,BUN 24 mg/dL (7.0-18.0); CARBON DIOXIDE,CO2 27.9 mmol/L (21.0-32.0); CHLORIDE,CL 103 mmol/L (98-107); GLUCOSE RANDOM 84 mg/dL (74-106); POTASSIUM,K 4.2 mmol/L (3.5-5.1); SODIUM,NA 139 mmol/L (136-148)
[2020-12-29] MEDS: Docusate Sodium 100 MG Cap PO SCH ×2 (08:54→21:05)
[2020-12-29] MEDS: predniSONE 20 MG Tab PO SCH (08:54)
[2020-12-29] MEDS: Polyethylene Glycol 3350 Powder 17 GM Packet PO SCH (08:54)
[2020-12-29] MEDS: Albuterol/Ipratropium 3.0-0.5 MG/3 ML Neb Soln NEB PRN ×3 (08:54→21:06)
[2020-12-29] MEDS: ALPRAZolam 0.25 MG Tab PO PRN (08:54)
[2020-12-29] MEDS: Pantoprazole 40 MG Tab.CR PO SCH (08:54)
[2020-12-29] MEDS: Codeine/guaiFENesin 10-100 MG/5 ML Syrup 5 ML Cup PO PRN ×2 (08:54→21:06)
[2020-12-29] MEDS: Enoxaparin 40 MG/0.4 ML Syringe SUBCUT SCH (19:32)
--- NOTE | 2020-12-29 19:35 | PCM.PN ---
- General Info Date of Service: 12/29/20 Admission Dx/Problem (Free Text): Admission Diagnosis/Problem Admission Diagnosis/Problem Respiratory failure with hypoxia Subjective Update: Patient seen sitting in recliner. Patient is currently on 6 L nasal cannula. Patient is tolerating diet. Patient denies cough, fever, chest pain, abdominal pain, palpitations, headache, dizziness. Tolerating physical therapy well Functional Status: Reports: Tolerating Diet, Ambulating, Urinating - Review of Systems General: Reports: Weakness. Denies: Fever, Fatigue, Malaise Pulmonary: Reports: Shortness of Breath, Cough. Denies: Pleuritic Chest Pain, Sputum Cardiovascular: Reports: Dyspnea on Exertion. Denies: Chest Pain, Palpitations Gastrointestinal: Denies: Abdominal Pain, Constipation, Decreased Appetite Genitourinary: Denies: Dysuria, Frequency, Burning Musculoskeletal: Denies: Neck Pain, Shoulder Pain, Arm Pain Skin: Denies: Cyanosis, Jaundice, Mottled - Patient Data Vitals - Most Recent: Last Vital Signs Temp 35.6 C L 12/29/20 16:00 Pulse 76 12/29/20 16:00 Resp 20 12/29/20 16:00 BP 111/70 12/29/20 16:00 Pulse Ox 95 12/29/20 16:00 Weight - Most Recent: 102.058 kg I&O - Last 24 Hours: Intake & Output 12/29/20 12/29/20 12/29/20 06:59 14:59 22:59 Intake Total 400 Output Total 180 Balance 220 Lab Results Last 24 Hours: Laboratory Results - last 24 hr 12/29/20 12/29/20 Range/Units 05:15 05:15 WBC 10.45 (4.0-11.0) K/uL RBC 4.27 L (4.50-5.90) M/uL Hgb 13.2 (13.0-17.0) g/dL Hct 39.2 (38.0-50.0) % MCV 91.8 (80.0-98.0) fL MCH 30.9 (27.0-32.0) pg MCHC 33.7 (31.0-37.0) g/dL RDW Std Deviation 48.2 (28.0-62.0) fl RDW Coeff of Carly 15 (11.0-15.0) % Plt Count 255 (150-400) K/uL MPV 10.90 (7.40-12.00) fL Add Manual Diff YES Neutrophils % (Manual) 55 (48.0-80.0) % Band Neutrophils % 2 % Lymphocytes % (Manual) 30 (16.0-40.0) % Monocytes % (Manual) 9 (0.0-15.0) % Eosinophils % (Manual) 4 (0.0-7.0) % Nucleated RBC % 0.0 /100WBC Absolute Seg Neuts 5.7 (1.4-5.7) Band Neutrophils # 0.2 Lymphocytes # (Manual) 3.1 H (0.6-2.4) Monocytes # (Manual) 0.9 H (0.0-0.8) Eosinophils # (Manual) 0.4 (0.0-0.7) Nucleated RBCs # 0 K/uL Sodium 139 (136-148) mmol/L Potassium 4.2 (3.5-5.1) mmol/L Chloride 103 (98-107) mmol/L Carbon Dioxide 27.9 (21.0-32.0) mmol/L BUN 24 H (7.0-18.0) mg/dL Creatinine 0.9 (0.8-1.3) mg/dL Est Cr Clr Drug Dosing 86.34 mL/min Estimated GFR (MDRD) > 60.0 ml/min Glucose 84 (74-106) mg/dL Calcium 8.4 L (8.5-10.1) mg/dL Total Bilirubin 0.4 (0.2-1.0) mg/dL AST 20 (15-37) IU/L ALT 54 (14-63) IU/L Alkaline Phosphatase 63 (46-116) U/L Total Protein 6.2 L (6.4-8.2) g/dL Albumin 2.6 L (3.4-5.0) g/dL Globulin 3.6 (2.6-4.0) g/dL Albumin/Globulin Ratio 0.7 L (0.9-1.6) Med Orders - Current: Current Medications Albuterol/Ipratropium (Albuterol/Ipratropium 4 Gm Inhalation [place]) 0 gm INH Q4H PRN PRN Reason: Dyspnea Last Admin: 12/24/20 09:35 Dose: 1 puff Documented by: Albuterol/Ipratropium (Albuterol/Ipratropium 3.0-0.5 Mg/3 Ml Neb Soln) 3 ml NEB Q4HRRT PRN PRN Reason: Wheezing Last Admin: 12/29/20 14:17 Dose: 3 ml Documented by: Alprazolam (Alprazolam 0.25 Mg Tab) 0.25 mg PO Q6H PRN PRN Reason: Anxiety Last Admin: 12/29/20 08:54 Dose: 0.25 mg Documented by: Benzonatate (Benzonatate 100 Mg Cap) 200 mg PO TID [facility] Last Admin: 12/29/20 14:13 Dose: 200 mg Documented by: Docusate Sodium (Docusate Sodium 100 Mg Cap) 100 mg PO BID [facility] Last Admin: 12/29/20 08:54 Dose: 100 mg Documented by: Enoxaparin Sodium (Enoxaparin 40 Mg/0.4 Ml Syringe) 40 mg SUBCUT Q24H [facility] Last Admin: 12/28/20 17:54 Dose: 40 mg Documented by: Guaifenesin/Codeine Phosphate (Codeine/Guaifenesin 10-100 Mg/5 Ml Syrup 5 Ml Cup) 5 ml PO Q4H PRN PRN Reason: Cough Last Admin: 12/29/20 08:54 Dose: 5 ml Documented by: Melatonin (Melatonin 3 Mg Tab) 6 mg PO BEDTIME PRN PRN Reason: Insomnia Last Admin: 12/28/20 21:48 Dose: 6 mg Documented by: Pantoprazole Sodium (Pantoprazole 40 Mg Tab.Cr) 40 mg PO DAILY [facility] Last Admin: 12/29/20 08:54 Dose: 40 mg Documented by: Polyethylene Glycol (Polyethylene Glycol 3350 Powder 17 Gm Packet) 17 gm PO DAILY [facility] Last Admin: 12/29/20 08:54 Dose: 17 gm Documented by: Prednisone (Prednisone 20 Mg Tab) 20 mg PO WITHBREAKFAST [facility] Stop: 12/30/20 08:01 Last Admin: 12/29/20 08:54 Dose: 20 mg Documented by: Sodium Chloride (Sodium Chloride 0.9% 10 Ml Syringe) 10 ml FLUSH ASDIRECTED PRN PRN Reason: Keep Vein Open Last Admin: 11/30/20 14:17 Dose: 10 ml Documented by: Sodium Chloride (Sodium Chloride 0.9% 2.5 Ml Syringe) 2.5 ml FLUSH ASDIRECTED PRN PRN Reason: Keep Vein Open Last Admin: 11/30/20 14:17 Dose: 2.5 ml Documented by: Sodium Chloride (Sodium Chloride 0.65% Nasal [place] 45 Ml Bottle) 1 ml LATHA Q6H PRN PRN Reason: Congestion Last Admin: 12/09/20 12:20 Dose: 1 spray Documented by: Discontinued Medications Dexamethasone (Dexamethasone 10 Mg/Ml Sdv) 6 mg IVPUSH ONETIME ONE Stop: 11/30/20 14:46 Last Admin: 11/30/20 15:00 Dose: 6 mg Documented by: Dexamethasone (Dexamethasone 4 Mg Tab) 6 mg PO DAILY [facility] Last Admin: 12/12/20 09:12 Dose: 6 mg Documented by: Famotidine (Famotidine 20 Mg/2 Ml Sdv) 20 mg IVPUSH BID [facility] Last Admin: 12/05/20 08:55 Dose: 20 mg Documented by: Guaifenesin (Guaifenesin 100 Mg/5 Ml Soln 5 Ml Ud Cup) 100 mg PO Q4H [facility] Last Admin: 12/06/20 04:02 Dose: 100 mg Documented by: Guaifenesin/Codeine Phosphate (Codeine/Guaifenesin 10-100 Mg/5 Ml Syrup 5 Ml Cup) 5 ml PO Q4H [facility] Last Admin: 12/11/20 17:21 Dose: 5 ml Documented by: Guaifenesin/Codeine Phosphate (Codeine/Guaifenesin 10-100 Mg/5 Ml Syrup 5 Ml Cup) 5 ml PO Q4H [facility] Last Admin: 12/19/20 12:47 Dose: 5 ml Documented by: Guaifenesin/Dextromethorphan (Guaifenesin/Dextromethorphan 100-10 Mg/5 Ml Soln 10 Ml Cup) 10 ml PO Q4H PRN PRN Reason: Cough Last Admin: 12/03/20 12:45 Dose: 10 ml Documented by: Guaifenesin/Dextromethorphan (Guaifenesin/Dextromethorphan 100-10 Mg/5 Ml Soln 10 Ml Cup) 10 ml PO Q4H [facility] Last Admin: 12/05/20 10:24 Dose: Not Given Documented by: Remdesivir 200 mg/ Sodium (Chloride) 250 mls @ 250 mls/hr IV ONETIME ONE Stop: 11/30/20 14:46 Last Admin: 11/30/20 20:04 Dose: 250 mls/hr Documented by: Remdesivir 100 mg/ Sodium (Chloride) 100 mls @ 100 mls/hr IV Q24H [facility] Stop: 12/04/20 18:59 Last Admin: 12/04/20 18:12 Dose: 100 mls/hr Documented by: Pantoprazole Sodium 40 mg/ (Sodium Chloride) 10 mls @ 300 mls/hr IV Q24H [facility] Last Admin: 12/09/20 08:56 Dose: 300 mls/hr Documented by: Levofloxacin/Dextrose 750 mg/ (Premix) 150 mls @ 100 mls/hr IV Q24H [facility] Last Admin: 12/11/20 15:24 Dose: 100 mls/hr Documented by: Lactated Ringer's (Ringers, Lactated) 250 mls @ 250 mls/hr IV ASDIRECTED [facility] Iopamidol (Iopamidol 755 Mg/Ml 500 Ml Multipack Bottle) 100 ml IVPUSH ONETIME STA Stop: 12/01/20 16:41 Last Admin: 12/01/20 16:41 Dose: 100 ml Documented by: Lorazepam (Lorazepam 2 Mg/Ml Sdv) 1 mg IVPUSH Q12H PRN PRN Reason: Anxiety Last Admin: 12/12/20 15:53 Dose: 1 mg Documented by: Lorazepam (Lorazepam 2 Mg/Ml Sdv) 0.5 mg IVPUSH Q8H PRN PRN Reason: Anxiety Lorazepam (Lorazepam 2 Mg/Ml Sdv) 1 mg IVPUSH ONETIME ONE Stop: 12/20/20 20:48 Last Admin: 12/20/20 22:23 Dose: 1 mg Documented by: Melatonin (Melatonin 3 Mg Tab) 6 mg PO BEDTIME [facility] Melatonin (Melatonin 3 Mg Tab) 6 mg PO BEDTIME PRN PRN Reason: Insomnia Last Admin: 12/06/20 21:39 Dose: 6 mg Documented by: Methylprednisolone Sodium Succinate (Methylprednisolone Sodium Succinate 40 Mg/1 Ml Sdv) 40 mg IVPUSH Q8H [facility] Last Admin: 12/16/20 03:51 Dose: 40 mg Documented by: Methylprednisolone Sodium Succinate (Methylprednisolone Sodium Succinate 40 Mg/1 Ml Sdv) 40 mg IVPUSH Q12H [facility] Last Admin: 12/18/20 09:06 Dose: 40 mg Documented by: Polyethylene Glycol (Polyethylene Glycol 3350 Powder 17 Gm Packet) 17 gm PO BEDTIME [facility] Last Admin: 12/12/20 22:28 Dose: Not Given Documented by: Prednisone (Prednisone 20 Mg Tab) 40 mg PO WITHBREAKFAST [facility] Last Admin: 12/24/20 08:24 Dose: 40 mg Documented by: - Exam Quality Assessment: Supplemental Oxygen General: Alert, Oriented, Cooperative, No Acute Distress Lungs: Normal Respiratory Effort, Decreased Breath Sounds, Crackles, Rales Cardiovascular: Regular Rate, Regular Rhythm GI/Abdominal Exam: Normal Bowel Sounds, Soft, Non-Tender - Patient Data Lab Results Last 24 hrs: Laboratory Results - last 24 hr 12/29/20 12/29/20 Range/Units 05:15 05:15 WBC 10.45 (4.0-11.0) K/uL RBC 4.27 L (4.50-5.90) M/uL Hgb 13.2 (13.0-17.0) g/dL Hct 39.2 (38.0-50.0) % MCV 91.8 (80.0-98.0) fL MCH 30.9 (27.0-32.0) pg MCHC 33.7 (31.0-37.0) g/dL RDW Std Deviation 48.2 (28.0-62.0) fl RDW Coeff of Carly 15 (11.0-15.0) % Plt Count 255 (150-400) K/uL MPV 10.90 (7.40-12.00) fL Add Manual Diff YES Neutrophils % (Manual) 55 (48.0-80.0) % Band Neutrophils % 2 % Lymphocytes % (Manual) 30 (16.0-40.0) % Monocytes % (Manual) 9 (0.0-15.0) % Eosinophils % (Manual) 4 (0.0-7.0) % Nucleated RBC % 0.0 /100WBC Absolute Seg Neuts 5.7 (1.4-5.7) Band Neutrophils # 0.2 Lymphocytes # (Manual) 3.1 H (0.6-2.4) Monocytes # (Manual) 0.9 H (0.0-0.8) Eosinophils # (Manual) 0.4 (0.0-0.7) Nucleated RBCs # 0 K/uL Sodium 139 (136-148) mmol/L Potassium 4.2 (3.5-5.1) mmol/L Chloride 103 (98-107) mmol/L Carbon Dioxide 27.9 (21.0-32.0) mmol/L BUN 24 H (7.0-18.0) mg/dL Creatinine 0.9 (0.8-1.3) mg/dL Est Cr Clr Drug Dosing 86.34 mL/min Estimated GFR (MDRD) > 60.0 ml/min Glucose 84 (74-106) mg/dL Calcium 8.4 L (8.5-10.1) mg/dL Total Bilirubin 0.4 (0.2-1.0) mg/dL AST 20 (15-37) IU/L ALT 54 (14-63) IU/L Alkaline Phosphatase 63 (46-116) U/L Total Protein 6.2 L (6.4-8.2) g/dL Albumin 2.6 L (3.4-5.0) g/dL Globulin 3.6 (2.6-4.0) g/dL Albumin/Globulin Ratio 0.7 L (0.9-1.6) Result Diagrams: 12/29/20 05:15 12/29/20 05:15 Sepsis Event Note - Evaluation Sepsis Screening Result: No Definite Risk - Focused Exam Vital Signs: Vital Signs Temp Pulse Pulse Resp BP Pulse Ox 12/29/20 16:00 35.6 C L 76 20 111/70 95 12/29/20 11:37 36.1 C 92 20 105/63 92 L 12/29/20 08:00 36.1 C 73 21 H 133/70 91 L - Problem List & Annotations (1) Acute hypoxemic respiratory failure due to COVID-19 SNOMED Code(s): 232724160 Code(s): U07.1 - COVID-19; J96.01 - ACUTE RESPIRATORY FAILURE WITH HYPOXIA Status: Acute Current Visit: Yes (2) Anxiety about health SNOMED Code(s): 496684475 Code(s): F41.8 - OTHER SPECIFIED ANXIETY DISORDERS Status: Acute Current Visit: Yes - Problem List Review Problem List Initiated/Reviewed/Updated: Yes - Plan Plan:: 70 yo male admitted with COVID-19 pneumonia and acute hypoxic respiratrory failure: Hypoxia: currently on 5-6 L NC. Continue to wean oxygen as tolerated. COVID: completed Remdesivir, on prednisone taper 40 mg x5 days completed. 20 mg x 5 days. 10 mg x5 days. 5 mg x5 days. Then stopping. Combivent. Incentive spirometry. Acapella chest physical therapy. Lovenox 40 mg. Robitussin. Melatonin 6mg prn bedtime. Physical therapy-on board.
[2020-12-29] MEDS: Melatonin 3 MG Tab PO PRN (21:05)
[2020-12-30] MEDS: Codeine/guaiFENesin 10-100 MG/5 ML Syrup 5 ML Cup PO PRN ×5 (04:19→21:49)
[2020-12-30] MEDS: Benzonatate 100 MG Cap PO SCH ×3 (05:47→21:03)
[2020-12-30] MEDS: Pantoprazole 40 MG Tab.CR PO SCH (08:59)
[2020-12-30] MEDS: Docusate Sodium 100 MG Cap PO SCH ×2 (09:00→21:03)
[2020-12-30] MEDS: Albuterol/Ipratropium 3.0-0.5 MG/3 ML Neb Soln NEB PRN ×3 (09:00→21:49)
[2020-12-30] MEDS: Polyethylene Glycol 3350 Powder 17 GM Packet PO SCH (09:00)
[2020-12-30] MEDS: predniSONE 20 MG Tab PO SCH (09:01)
--- NOTE | 2020-12-30 10:57 | PCM.PN ---
<Joe Lopez - Last Filed: 12/30/20 10:53> - General Info Date of Service: 12/30/20 Admission Dx/Problem (Free Text): Admission Diagnosis/Problem Admission Diagnosis/Problem Respiratory failure with hypoxia Subjective Update: Patient seen at bedside and states his cough kept him up overnight. No sputum. Patient remains on 6L NC. Anxious about weaning down and ambulating without PT present. Patient had bowel movement yesterday. Denies fever, chills, chest pain, palpitations, difficulty breathing, headache, dizziness, loss of consciousness, abdominal pain, nausea, vomiting or diarrhea. - Review of Systems General: Denies: Fever, Chills HEENT: Denies: Headaches Pulmonary: Reports: Shortness of Breath, Cough. Denies: Wheezing Cardiovascular: Reports: Dyspnea on Exertion. Denies: Chest Pain, Palpitations Gastrointestinal: Denies: Abdominal Pain, Constipation, Decreased Appetite, Diarrhea Genitourinary: Denies: Dysuria Musculoskeletal: Denies: Leg Pain Skin: Denies: Cyanosis Neurological: Denies: Confusion, Dizziness, Headache, Numbness, Paresthesia - Patient Data Vitals - Most Recent: Last Vital Signs Temp 96.9 F 12/30/20 04:38 Pulse 66 12/30/20 04:38 Resp 18 12/30/20 04:38 BP 118/71 12/30/20 04:38 Pulse Ox 94 L 12/30/20 04:38 Weight - Most Recent: 101.9 kg I&O - Last 24 Hours: Intake & Output 12/29/20 12/30/20 12/30/20 22:59 06:59 14:59 Intake Total 300 Output Total 350 Balance -50 Med Orders - Current: Current Medications Albuterol/Ipratropium (Albuterol/Ipratropium 4 Gm Inhalation [place]) 0 gm INH Q4H PRN PRN Reason: Dyspnea Last Admin: 12/24/20 09:35 Dose: 1 puff Documented by: Albuterol/Ipratropium (Albuterol/Ipratropium 3.0-0.5 Mg/3 Ml Neb Soln) 3 ml NEB Q4HRRT PRN PRN Reason: Wheezing Last Admin: 12/30/20 09:00 Dose: 3 ml Documented by: Alprazolam (Alprazolam 0.25 Mg Tab) 0.25 mg PO Q6H PRN PRN Reason: Anxiety Last Admin: 12/29/20 08:54 Dose: 0.25 mg Documented by: Benzonatate (Benzonatate 100 Mg Cap) 200 mg PO TID [facility] Last Admin: 12/30/20 05:47 Dose: 200 mg Documented by: Docusate Sodium (Docusate Sodium 100 Mg Cap) 100 mg PO BID [facility] Last Admin: 12/30/20 09:00 Dose: 100 mg Documented by: Enoxaparin Sodium (Enoxaparin 40 Mg/0.4 Ml Syringe) 40 mg SUBCUT Q24H [facility] Last Admin: 12/29/20 19:32 Dose: 40 mg Documented by: Guaifenesin/Codeine Phosphate (Codeine/Guaifenesin 10-100 Mg/5 Ml Syrup 5 Ml Cup) 5 ml PO Q4H PRN PRN Reason: Cough Last Admin: 12/30/20 09:00 Dose: 5 ml Documented by: Melatonin (Melatonin 3 Mg Tab) 6 mg PO BEDTIME PRN PRN Reason: Insomnia Last Admin: 12/29/20 21:05 Dose: 6 mg Documented by: Pantoprazole Sodium (Pantoprazole 40 Mg Tab.Cr) 40 mg PO DAILY [facility] Last Admin: 12/30/20 08:59 Dose: 40 mg Documented by: Polyethylene Glycol (Polyethylene Glycol 3350 Powder 17 Gm Packet) 17 gm PO DAILY [facility] Last Admin: 12/30/20 09:00 Dose: 17 gm Documented by: Prednisone (Prednisone 10 Mg Tab) 10 mg PO WITHBREAKFAST [facility] Stop: 01/04/21 08:01 Sodium Chloride (Sodium Chloride 0.9% 10 Ml Syringe) 10 ml FLUSH ASDIRECTED PRN PRN Reason: Keep Vein Open Last Admin: 11/30/20 14:17 Dose: 10 ml Documented by: Sodium Chloride (Sodium Chloride 0.9% 2.5 Ml Syringe) 2.5 ml FLUSH ASDIRECTED PRN PRN Reason: Keep Vein Open Last Admin: 11/30/20 14:17 Dose: 2.5 ml Documented by: Sodium Chloride (Sodium Chloride 0.65% Nasal [place] 45 Ml Bottle) 1 ml LATHA Q6H PRN PRN Reason: Congestion Last Admin: 12/09/20 12:20 Dose: 1 spray Documented by: Discontinued Medications Dexamethasone (Dexamethasone 10 Mg/Ml Sdv) 6 mg IVPUSH ONETIME ONE Stop: 11/30/20 14:46 Last Admin: 11/30/20 15:00 Dose: 6 mg Documented by: Dexamethasone (Dexamethasone 4 Mg Tab) 6 mg PO DAILY [facility] Last Admin: 12/12/20 09:12 Dose: 6 mg Documented by: Famotidine (Famotidine 20 Mg/2 Ml Sdv) 20 mg IVPUSH BID [facility] Last Admin: 12/05/20 08:55 Dose: 20 mg Documented by: Guaifenesin (Guaifenesin 100 Mg/5 Ml Soln 5 Ml Ud Cup) 100 mg PO Q4H [facility] Last Admin: 12/06/20 04:02 Dose: 100 mg Documented by: Guaifenesin/Codeine Phosphate (Codeine/Guaifenesin 10-100 Mg/5 Ml Syrup 5 Ml Cup) 5 ml PO Q4H [facility] Last Admin: 12/11/20 17:21 Dose: 5 ml Documented by: Guaifenesin/Codeine Phosphate (Codeine/Guaifenesin 10-100 Mg/5 Ml Syrup 5 Ml Cup ) 5 ml PO Q4H [facility] Last Admin: 12/19/20 12:47 Dose: 5 ml Documented by: Guaifenesin/Dextromethorphan (Guaifenesin/Dextromethorphan 100-10 Mg/5 Ml Soln 10 Ml Cup) 10 ml PO Q4H PRN PRN Reason: Cough Last Admin: 12/03/20 12:45 Dose: 10 ml Documented by: Guaifenesin/Dextromethorphan (Guaifenesin/Dextromethorphan 100-10 Mg/5 Ml Soln 10 Ml Cup) 10 ml PO Q4H [facility] Last Admin: 12/05/20 10:24 Dose: Not Given Documented by: Remdesivir 200 mg/ Sodium (Chloride) 250 mls @ 250 mls/hr IV ONETIME ONE Stop: 11/30/20 14:46 Last Admin: 11/30/20 20:04 Dose: 250 mls/hr Documented by: Remdesivir 100 mg/ Sodium (Chloride) 100 mls @ 100 mls/hr IV Q24H [facility] Stop: 12/04/20 18:59 Last Admin: 12/04/20 18:12 Dose: 100 mls/hr Documented by: Pantoprazole Sodium 40 mg/ (Sodium Chloride) 10 mls @ 300 mls/hr IV Q24H [facility] Last Admin: 12/09/20 08:56 Dose: 300 mls/hr Documented by: Levofloxacin/Dextrose 750 mg/ (Premix) 150 mls @ 100 mls/hr IV Q24H [facility] Last Admin: 12/11/20 15:24 Dose: 100 mls/hr Documented by: Lactated Ringer's (Ringers, Lactated) 250 mls @ 250 mls/hr IV ASDIRECTED [facility] Iopamidol (Iopamidol 755 Mg/Ml 500 Ml Multipack Bottle) 100 ml IVPUSH ONETIME [facility] Stop: 12/01/20 16:41 Last Admin: 12/01/20 16:41 Dose: 100 ml Documented by: Lorazepam (Lorazepam 2 Mg/Ml Sdv) 1 mg IVPUSH Q12H PRN PRN Reason: Anxiety Last Admin: 12/12/20 15:53 Dose: 1 mg Documented by: Lorazepam (Lorazepam 2 Mg/Ml Sdv) 0.5 mg IVPUSH Q8H PRN PRN Reason: Anxiety Lorazepam (Lorazepam 2 Mg/Ml Sdv) 1 mg IVPUSH ONETIME ONE Stop: 12/20/20 20:48 Last Admin: 12/20/20 22:23 Dose: 1 mg Documented by: Melatonin (Melatonin 3 Mg Tab) 6 mg PO BEDTIME [facility] Melatonin (Melatonin 3 Mg Tab) 6 mg PO BEDTIME PRN PRN Reason: Insomnia Last Admin: 12/06/20 21:39 Dose: 6 mg Documented by: Methylprednisolone Sodium Succinate (Methylprednisolone Sodium Succinate 40 Mg/1 Ml Sdv) 40 mg IVPUSH Q8H [facility] Last Admin: 12/16/20 03:51 Dose: 40 mg Documented by: Methylprednisolone Sodium Succinate (Methylprednisolone Sodium Succinate 40 Mg/1 Ml Sdv) 40 mg IVPUSH Q12H [facility] Last Admin: 12/18/20 09:06 Dose: 40 mg Documented by: Polyethylene Glycol (Polyethylene Glycol 3350 Powder 17 Gm Packet) 17 gm PO BEDTIME [facility] Last Admin: 12/12/20 22:28 Dose: Not Given Documented by: Prednisone (Prednisone 20 Mg Tab) 40 mg PO WITHBREAKFAST [facility] Last Admin: 12/24/20 08:24 Dose: 40 mg Documented by: Prednisone (Prednisone 20 Mg Tab) 20 mg PO WITHBREAKFAST [facility] Stop: 10/27/21 08:01 Last Admin: 12/30/20 09:01 Dose: 20 mg Documented by: - Exam Quality Assessment: Supplemental Oxygen General: Alert, Oriented, Cooperative, No Acute Distress HEENT: Pupils Equal, Pupils Reactive Neck: Supple, Trachea Midline Lungs: Normal Respiratory Effort, Decreased Breath Sounds, Crackles Cardiovascular: Regular Rate, Regular Rhythm GI/Abdominal Exam: Normal Bowel Sounds, Soft, Non-Tender, No Organomegaly (Male) Exam: No Hernia Extremities: Normal Inspection, Normal Range of Motion, Non-Tender, No Pedal Edema Peripheral Pulses: 2+: Dorsalis Pedis (L), Dorsalis Pedis (R) Skin: Warm, Dry, Intact Neurological: No New Focal Deficit - Patient Data Result Diagrams: 12/29/20 05:15 12/29/20 05:15 Sepsis Event Note - Evaluation Sepsis Screening Result: No Definite Risk - Focused Exam Vital Signs: Vital Signs Temp Pulse Resp BP Pulse Ox 12/30/20 04:38 96.9 F 66 18 118/71 94 L 12/30/20 00:44 97.6 F 75 18 125/75 91 L - Problem List Review Problem List Initiated/Reviewed/Updated: Yes - Plan Plan:: 70 yo male admitted with COVID-19 pneumonia and acute hypoxic respiratrory failure: Hypoxia: currently on 5-6 L NC. Continue to wean oxygen as tolerated. COVID: completed Remdesivir, on prednisone taper 40 mg x5 days completed. 20 mg x 5 days. 10 mg x5 days. 5 mg x5 days. Then stopping. Combivent. Incentive spirometry. Acapella chest physical therapy. Lovenox 40 mg. Robitussin. Melatonin 6mg prn bedtime. Physical therapy: recommends discharging on walker with seat. <Nimisha Julian - Last Filed: 01/04/21 13:20> - Patient Data Vitals - Most Recent: Last Vital Signs Temp 35.6 C L 01/04/21 08:00 Pulse 72 01/04/21 08:00 Resp 16 01/04/21 08:00 BP 144/67 H 01/04/21 08:00 Pulse Ox 93 L 01/04/21 08:00 I&O - Last 24 Hours: Intake & Output 01/03/21 01/04/21 01/04/21 22:59 06:59 14:59 Intake Total 480 650 Output Total 400 750 Balance 80 -100 Lab Results Last 24 Hours: Laboratory Results - last 24 hr 01/04/21 01/04/21 Range/Units 05:12 05:12 WBC 9.55 (4.0-11.0) K/uL RBC 4.17 L (4.50-5.90) M/uL Hgb 12.8 L (13.0-17.0) g/dL Hct 38.2 (38.0-50.0) % MCV 91.6 (80.0-98.0) fL MCH 30.7 (27.0-32.0) pg MCHC 33.5 (31.0-37.0) g/dL RDW Std Deviation 49.2 (28.0-62.0) fl RDW Coeff of Carly 15 (11.0-15.0) % Plt Count 258 (150-400) K/uL MPV 10.40 (7.40-12.00) fL Add Manual Diff YES Neutrophils % (Manual) 65 (48.0-80.0) % Band Neutrophils % 2 % Lymphocytes % (Manual) 20 (16.0-40.0) % Monocytes % (Manual) 9 (0.0-15.0) % Eosinophils % (Manual) 4 (0.0-7.0) % Nucleated RBC % 0.0 /100WBC Absolute Seg Neuts 6.2 H (1.4-5.7) Band Neutrophils # 0.2 Lymphocytes # (Manual) 1.9 (0.6-2.4) Monocytes # (Manual) 0.9 H (0.0-0.8) Eosinophils # (Manual) 0.4 (0.0-0.7) Nucleated RBCs # 0 K/uL Sodium 138 (136-148) mmol/L Potassium 4.3 (3.5-5.1) mmol/L Chloride 101 (98-107) mmol/L Carbon Dioxide 29.0 (21.0-32.0) mmol/L BUN 20 H (7.0-18.0) mg/dL Creatinine 0.8 (0.8-1.3) mg/dL Est Cr Clr Drug Dosing 97.14 mL/min Estimated GFR (MDRD) > 60.0 ml/min Glucose 91 (74-106) mg/dL Calcium 8.6 (8.5-10.1) mg/dL Med Orders - Current: Current Medications Albuterol/Ipratropium (Albuterol/Ipratropium 4 Gm Inhalation [place]) 0 gm INH Q4H PRN PRN Reason: Dyspnea Last Admin: 12/24/20 09:35 Dose: 1 puff Documented by: Albuterol/Ipratropium (Albuterol/Ipratropium 3.0-0.5 Mg/3 Ml Neb Soln) 3 ml NEB Q4HRRT PRN PRN Reason: Wheezing Last Admin: 01/02/21 05:47 Dose: 3 ml Documented by: Alprazolam (Alprazolam 0.25 Mg Tab) 0.25 mg PO Q6H PRN PRN Reason: Anxiety Last Admin: 12/29/20 08:54 Dose: 0.25 mg Documented by: Benzonatate (Benzonatate 100 Mg Cap) 200 mg PO TID [facility] Last Admin: 01/04/21 13:15 Dose: 200 mg Documented by: Docusate Sodium (Docusate Sodium 100 Mg Cap) 100 mg PO BID [facility] Last Admin: 01/04/21 08:52 Dose: 100 mg Documented by: Enoxaparin Sodium (Enoxaparin 40 Mg/0.4 Ml Syringe) 40 mg SUBCUT Q24H [facility] Last Admin: 01/03/21 18:15 Dose: 40 mg Documented by: Guaifenesin/Codeine Phosphate (Codeine/Guaifenesin 10-100 Mg/5 Ml Syrup 5 Ml Cup) 5 ml PO Q4H PRN PRN Reason: Cough Last Admin: 01/04/21 13:15 Dose: 5 ml Documented by: Melatonin (Melatonin 3 Mg Tab) 6 mg PO BEDTIME PRN PRN Reason: Insomnia Last Admin: 01/03/21 21:20 Dose: 6 mg Documented by: Pantoprazole Sodium (Pantoprazole 40 Mg Tab.Cr) 40 mg PO DAILY [facility] Last Admin: 01/04/21 08:52 Dose: 40 mg Documented by: Polyethylene Glycol (Polyethylene Glycol 3350 Powder 17 Gm Packet) 17 gm PO DAILY [facility] Last Admin: 01/04/21 08:52 Dose: 17 gm Documented by: Sodium Chloride (Sodium Chloride 0.65% Nasal [place] 45 Ml Bottle) 1 ml LATHA Q6H PRN PRN Reason: Congestion Last Admin: 12/09/20 12:20 Dose: 1 spray Documented by: Discontinued Medications Dexamethasone (Dexamethasone 10 Mg/Ml Sdv) 6 mg IVPUSH ONETIME ONE Stop: 11/30/20 14:46 Last Admin: 11/30/20 15:00 Dose: 6 mg Documented by: Dexamethasone (Dexamethasone 4 Mg Tab) 6 mg PO DAILY [facility] Last Admin: 12/12/20 09:12 Dose: 6 mg Documented by: Famotidine (Famotidine 20 Mg/2 Ml Sdv) 20 mg IVPUSH BID [facility] Last Admin: 12/05/20 08:55 Dose: 20 mg Documented by: Guaifenesin (Guaifenesin 100 Mg/5 Ml Soln 5 Ml Ud Cup) 100 mg PO Q4H [facility] Last Admin: 12/06/20 04:02 Dose: 100 mg Documented by: Guaifenesin/Codeine Phosphate (Codeine/Guaifenesin 10-100 Mg/5 Ml Syrup 5 Ml Cup) 5 ml PO Q4H [facility] Last Admin: 12/11/20 17:21 Dose: 5 ml Documented by: Guaifenesin/Codeine Phosphate (Codeine/Guaifenesin 10-100 Mg/5 Ml Syrup 5 Ml Cup) 5 ml PO Q4H [facility] Last Admin: 12/19/20 12:47 Dose: 5 ml Documented by: Guaifenesin/Dextromethorphan (Guaifenesin/Dextromethorphan 100-10 Mg/5 Ml Soln 10 Ml Cup) 10 ml PO Q4H PRN PRN Reason: Cough Last Admin: 12/03/20 12:45 Dose: 10 ml Documented by: Guaifenesin/Dextromethorphan (Guaifenesin/Dextromethorphan 100-10 Mg/5 Ml Soln 10 Ml Cup) 10 ml PO Q4H [facility] Last Admin: 12/05/20 10:24 Dose: Not Given Documented by: Remdesivir 200 mg/ Sodium (Chloride) 250 mls @ 250 mls/hr IV ONETIME ONE Stop: 11/30/20 14:46 Last Admin: 11/30/20 20:04 Dose: 250 mls/hr Documented by: Remdesivir 100 mg/ Sodium (Chloride) 100 mls @ 100 mls/hr IV Q24H [facility] Stop: 10/01/21 18:59 Last Admin: 12/04/20 18:12 Dose: 100 mls/hr Documented by: Pantoprazole Sodium 40 mg/ (Sodium Chloride) 10 mls @ 300 mls/hr IV Q24H [facility] Last Admin: 12/09/20 08:56 Dose: 300 mls/hr Documented by: Levofloxacin/Dextrose 750 mg/ (Premix) 150 mls @ 100 mls/hr IV Q24H [facility] Last Admin: 12/11/20 15:24 Dose: 100 mls/hr Documented by: Lactated Ringer's (Ringers, Lactated) 250 mls @ 250 mls/hr IV ASDIRECTED [facility] Iopamidol (Iopamidol 755 Mg/Ml 500 Ml Multipack Bottle) 100 ml IVPUSH ONETIME [facility] Stop: 12/01/20 16:41 Last Admin: 12/01/20 16:41 Dose: 100 ml Documented by: Lorazepam (Lorazepam 2 Mg/Ml Sdv) 1 mg IVPUSH Q12H PRN PRN Reason: Anxiety Last Admin: 12/12/20 15:53 Dose: 1 mg Documented by: Lorazepam (Lorazepam 2 Mg/Ml Sdv) 0.5 mg IVPUSH Q8H PRN PRN Reason: Anxiety Lorazepam (Lorazepam 2 Mg/Ml Sdv) 1 mg IVPUSH ONETIME ONE Stop: 12/20/20 20:48 Last Admin: 12/20/20 22:23 Dose: 1 mg Documented by: Melatonin (Melatonin 3 Mg Tab) 6 mg PO BEDTIME [facility] Melatonin (Melatonin 3 Mg Tab) 6 mg PO BEDTIME PRN PRN Reason: Insomnia Last Admin: 12/06/20 21:39 Dose: 6 mg Documented by: Methylprednisolone Sodium Succinate (Methylprednisolone Sodium Succinate 40 Mg/1 Ml Sdv) 40 mg IVPUSH Q8H [facility] Last Admin: 12/16/20 03:51 Dose: 40 mg Documented by: Methylprednisolone Sodium Succinate (Methylprednisolone Sodium Succinate 40 Mg/1 Ml Sdv) 40 mg IVPUSH Q12H [facility] Last Admin: 12/18/20 09:06 Dose: 40 mg Documented by: Polyethylene Glycol (Polyethylene Glycol 3350 Powder 17 Gm Packet) 17 gm PO BE DTIME [facility] Last Admin: 12/12/20 22:28 Dose: Not Given Documented by: Potassium Chloride (Potassium Chloride 20 Meq Tab.Er) 40 meq PO ONETIME ONE Stop: 01/02/21 09:14 Last Admin: 01/02/21 09:55 Dose: 40 meq Documented by: Prednisone (Prednisone 20 Mg Tab) 40 mg PO WITHBREAKFAST [facility] Last Admin: 12/24/20 08:24 Dose: 40 mg Documented by: Prednisone (Prednisone 20 Mg Tab) 20 mg PO WITHBREAKFAST [facility] Stop: 12/30/20 08:01 Last Admin: 12/30/20 09:01 Dose: 20 mg Documented by: Prednisone (Prednisone 10 Mg Tab) 10 mg PO WITHBREAKFAST [facility] Stop: 01/04/21 08:01 Last Admin: 01/04/21 08:52 Dose: 10 mg Documented by: Sodium Chloride (Sodium Chloride 0.9% 10 Ml Syringe) 10 ml FLUSH ASDIRECTED PRN PRN Reason: Keep Vein Open Last Admin: 11/30/20 14:17 Dose: 10 ml Documented by: Sodium Chloride (Sodium Chloride 0.9% 2.5 Ml Syringe) 2.5 ml FLUSH ASDIRECTED PRN PRN Reason: Keep Vein Open Last Admin: 11/30/20 14:17 Dose: 2.5 ml Documented by: - Patient Data Lab Results Last 24 hrs: Laboratory Results - last 24 hr 01/04/21 01/04/21 Range/Units 05:12 05:12 WBC 9.55 (4.0-11.0) K/uL RBC 4.17 L (4.50-5.90) M/uL Hgb 12.8 L (13.0-17.0) g/dL Hct 38.2 (38.0-50.0) % MCV 91.6 (80.0-98.0) fL MCH 30.7 (27.0-32.0) pg MCHC 33.5 (31.0-37.0) g/dL RDW Std Deviation 49.2 (28.0-62.0) fl RDW Coeff of Carly 15 (11.0-15.0) % Plt Count 258 (150-400) K/uL MPV 10.40 (7.40-12.00) fL Add Manual Diff YES Neutrophils % (Manual) 65 (48.0-80.0) % Band Neutrophils % 2 % Lymphocytes % (Manual) 20 (16.0-40.0) % Monocytes % (Manual) 9 (0.0-15.0) % Eosinophils % (Manual) 4 (0.0-7.0) % Nucleated RBC % 0.0 /100WBC Absolute Seg Neuts 6.2 H (1.4-5.7) Band Neutrophils # 0.2 Lymphocytes # (Manual) 1.9 (0.6-2.4) Monocytes # (Manual) 0.9 H (0.0-0.8) Eosinophils # (Manual) 0.4 (0.0-0.7) Nucleated RBCs # 0 K/uL Sodium 138 (136-148) mmol/L Potassium 4.3 (3.5-5.1) mmol/L Chloride 101 (98-107) mmol/L Carbon Dioxide 29.0 (21.0-32.0) mmol/L BUN 20 H (7.0-18.0) mg/dL Creatinine 0.8 (0.8-1.3) mg/dL Est Cr Clr Drug Dosing 97.14 mL/min Estimated GFR (MDRD) > 60.0 ml/min Glucose 91 (74-106) mg/dL Calcium 8.6 (8.5-10.1) mg/dL Result Diagrams: 01/04/21 05:12 01/04/21 05:12 Sepsis Event Note - Focused Exam Vital Signs: Vital Signs Temp Temp Pulse Resp BP Pulse Ox 01/04/21 08:00 35.6 C L 72 16 144/67 H 93 L 01/04/21 06:16 68 18 95 01/04/21 03:20 36.1 C 67 19 117/73 92 L - Problem List & Annotations (1) Acute hypoxemic respiratory failure due to COVID-19 SNOMED Code(s): 779799940 Code(s): U07.1 - COVID-19; J96.01 - ACUTE RESPIRATORY FAILURE WITH HYPOXIA Status: Acute Current Visit: Yes (2) Anxiety about health SNOMED Code(s): 058695776 Code(s): F41.8 - OTHER SPECIFIED ANXIETY DISORDERS Status: Acute Current Visit: Yes - My Orders Last 24 Hours: My Active Orders 01/04/21 10:25 Ready for Discharge [RC] PER UNIT ROUTINE - Plan Plan:: I have seen and evaluated the patient and agree with the residents note unless specified in my note
[2020-12-30] MEDS: Enoxaparin 40 MG/0.4 ML Syringe SUBCUT SCH (17:28)
[2020-12-30] MEDS: Melatonin 3 MG Tab PO PRN (21:49)
[2020-12-31] MEDS: Codeine/guaiFENesin 10-100 MG/5 ML Syrup 5 ML Cup PO PRN ×4 (01:24→21:23)
[2020-12-31] MEDS: Benzonatate 100 MG Cap PO SCH ×4 (04:25→21:23)
[2020-12-31 07:36] LABS: BLOOD UREA NITROGEN,BUN 20 mg/dL (7.0-18.0); CHLORIDE,CL 101 mmol/L (98-107); GLUCOSE RANDOM 97 mg/dL (74-106); POTASSIUM,K 3.8 mmol/L (3.5-5.1); SODIUM,NA 137 mmol/L (136-148)
--- NOTE | 2020-12-31 08:15 | PCM.PN ---
<Joe Lopez - Last Filed: 12/31/20 19:30> - General Info Date of Service: 12/31/20 Admission Dx/Problem (Free Text): Admission Diagnosis/Problem Admission Diagnosis/Problem Respiratory failure with hypoxia Subjective Update: Patient seen at bedside. Oxygen down to 4L NC. Was 1.5L NC overnight. PT recommended walker with seat. He appears anxious about being weaned off O2. Denies fever, chills, chest pain, palpitations, difficulty breathing, headache, dizziness, loss of consciousness, abdominal pain, nausea, vomiting or diarrhea. - Review of Systems General: Denies: Fever, Chills HEENT: Denies: Headaches Pulmonary: Reports: Shortness of Breath, Cough. Denies: Pleuritic Chest Pain, Sputum Cardiovascular: Reports: Dyspnea on Exertion. Denies: Chest Pain, Palpitations Gastrointestinal: Denies: Abdominal Pain, Constipation, Nausea, Vomiting Genitourinary: Denies: Dysuria Musculoskeletal: Denies: Leg Pain Skin: Denies: Rash Neurological: Denies: Confusion, Dizziness, Headache, Numbness, Paresthesia - Patient Data Vitals - Most Recent: Last Vital Signs Temp 97.6 F 12/31/20 04:00 Pulse 60 12/31/20 04:00 Resp 20 12/31/20 04:00 BP 136/79 12/31/20 04:00 Pulse Ox 92 L 12/31/20 04:00 Weight - Most Recent: 101.9 kg I&O - Last 24 Hours: Intake & Output 12/30/20 12/31/20 12/31/20 22:59 06:59 14:59 Intake Total 750 420 Output Total 620 Balance 750 -200 Lab Results Last 24 Hours: Laboratory Results - last 24 hr 12/31/20 Range/Units 06:50 Sodium 137 (136-148) mmol/L Potassium 3.8 (3.5-5.1) mmol/L Chloride 101 (98-107) mmol/L Carbon Dioxide 31.0 (21.0-32.0) mmol/L BUN 20 H (7.0-18.0) mg/dL Creatinine 0.9 (0.8-1.3) mg/dL Est Cr Clr Drug Dosing 86.34 mL/min Estimated GFR (MDRD) > 60.0 ml/min Glucose 97 (74-106) mg/dL Calcium 8.5 (8.5-10.1) mg/dL Med Orders - Current: Current Medications Albuterol/Ipratropium (Albuterol/Ipratropium 4 Gm Inhalation Sarah Ann) 0 gm INH Q4H PRN PRN Reason: Dyspnea Last Admin: 12/24/20 09:35 Dose: 1 puff Documented by: Albuterol/Ipratropium (Albuterol/Ipratropium 3.0-0.5 Mg/3 Ml Neb Soln) 3 ml NEB Q4HRRT PRN PRN Reason: Wheezing Last Admin: 12/30/20 21:49 Dose: 3 ml Documented by: Alprazolam (Alprazolam 0.25 Mg Tab) 0.25 mg PO Q6H PRN PRN Reason: Anxiety Last Admin: 12/29/20 08:54 Dose: 0.25 mg Documented by: Benzonatate (Benzonatate 100 Mg Cap) 200 mg PO TID [facility] Last Admin: 12/31/20 05:52 Dose: Not Given Documented by: Docusate Sodium (Docusate Sodium 100 Mg Cap) 100 mg PO BID [facility] Last Admin: 12/30/20 21:03 Dose: 100 mg Documented by: Enoxaparin Sodium (Enoxaparin 40 Mg/0.4 Ml Syringe) 40 mg SUBCUT Q24H [facility] Last Admin: 12/30/20 17:28 Dose: 40 mg Documented by: Guaifenesin/Codeine Phosphate (Codeine/Guaifenesin 10-100 Mg/5 Ml Syrup 5 Ml Cup) 5 ml PO Q4H PRN PRN Reason: Cough Last Admin: 12/31/20 01:24 Dose: 5 ml Documented by: Melatonin (Melatonin 3 Mg Tab) 6 mg PO BEDTIME PRN PRN Reason: Insomnia Last Admin: 12/30/20 21:49 Dose: 6 mg Documented by: Pantoprazole Sodium (Pantoprazole 40 Mg Tab.Cr) 40 mg PO DAILY [facility] Last Admin: 12/30/20 08:59 Dose: 40 mg Documented by: Polyethylene Glycol (Polyethylene Glycol 3350 Powder 17 Gm Packet) 17 gm PO DAILY [facility] Last Admin: 12/30/20 09:00 Dose: 17 gm Documented by: Prednisone (Prednisone 10 Mg Tab) 10 mg PO WITHBREAKFAST [facility] Stop: 01/04/21 08:01 Sodium Chloride (Sodium Chloride 0.9% 10 Ml Syringe) 10 ml FLUSH ASDIRECTED PRN PRN Reason: Keep Vein Open Last Admin: 11/30/20 14:17 Dose: 10 ml Documented by: Sodium Chloride (Sodium Chloride 0.9% 2.5 Ml Syringe) 2.5 ml FLUSH ASDIRECTED PRN PRN Reason: Keep Vein Open Last Admin: 11/30/20 14:17 Dose: 2.5 ml Documented by: Sodium Chloride (Sodium Chloride 0.65% Nasal Sarah Ann 45 Ml Bottle) 1 ml LATHA Q6H PRN PRN Reason: Congestion Last Admin: 12/09/20 12:20 Dose: 1 spray Documented by: Discontinued Medications Dexamethasone (Dexamethasone 10 Mg/Ml Sdv) 6 mg IVPUSH ONETIME ONE Stop: 11/30/20 14:46 Last Admin: 11/30/20 15:00 Dose: 6 mg Documented by: Dexamethasone (Dexamethasone 4 Mg Tab) 6 mg PO DAILY [facility] Last Admin: 12/12/20 09:12 Dose: 6 mg Documented by: Famotidine (Famotidine 20 Mg/2 Ml Sdv) 20 mg IVPUSH BID [facility] Last Admin: 12/05/20 08:55 Dose: 20 mg Documented by: Guaifenesin (Guaifenesin 100 Mg/5 Ml Soln 5 Ml Ud Cup) 100 mg PO Q4H [facility] Last Admin: 12/06/20 04:02 Dose: 100 mg Documented by: Guaifenesin/Codeine Phosphate (Codeine/Guaifenesin 10-100 Mg/5 Ml Syrup 5 Ml Cup) 5 ml PO Q4H [facility] Last Admin: 12/11/20 17:21 Dose: 5 ml Documented by: Guaifenesin/Codeine Phosphate (Codeine/Guaifenesin 10-100 Mg/5 Ml Syrup 5 Ml Cup) 5 ml PO Q4H [facility] Last Admin: 12/19/20 12:47 Dose: 5 ml Documented by: Guaifenesin/Dextromethorphan (Guaifenesin/Dextromethorphan 100-10 Mg/5 Ml Soln 10 Ml Cup) 10 ml PO Q4H PRN PRN Reason: Cough Last Admin: 12/03/20 12:45 Dose: 10 ml Documented by: Guaifenesin/Dextromethorphan (Guaifenesin/Dextromethorphan 100-10 Mg/5 Ml Soln 10 Ml Cup) 10 ml PO Q4H [facility] Last Admin: 12/05/20 10:24 Dose: Not Given Documented by: Remdesivir 200 mg/ Sodium (Chloride) 250 mls @ 250 mls/hr IV ONETIME ONE Stop: 11/30/20 14:46 Last Admin: 11/30/20 20:04 Dose: 250 mls/hr Documented by: Remdesivir 100 mg/ Sodium (Chloride) 100 mls @ 100 mls/hr IV Q24H [facility] Stop: 12/04/20 18:59 Last Admin: 12/04/20 18:12 Dose: 100 mls/hr Documented by: Pantoprazole Sodium 40 mg/ (Sodium Chloride) 10 mls @ 300 mls/hr IV Q24H [facility] Last Admin: 12/09/20 08:56 Dose: 300 mls/hr Documented by: Levofloxacin/Dextrose 750 mg/ (Premix) 150 mls @ 100 mls/hr IV Q24H [facility] Last Admin: 12/11/20 15:24 Dose: 100 mls/hr Documented by: Lactated Ringer's (Ringers, Lactated) 250 mls @ 250 mls/hr IV ASDIRECTED [facility] Iopamidol (Iopamidol 755 Mg/Ml 500 Ml Multipack Bottle) 100 ml IVPUSH ONETIME STA Stop: 12/01/20 16:41 Last Admin: 12/01/20 16:41 Dose: 100 ml Documented by: Lorazepam (Lorazepam 2 Mg/Ml Sdv) 1 mg IVPUSH Q12H PRN PRN Reason: Anxiety Last Admin: 12/12/20 15:53 Dose: 1 mg Documented by: Lorazepam (Lorazepam 2 Mg/Ml Sdv) 0.5 mg IVPUSH Q8H PRN PRN Reason: Anxiety Lorazepam (Lorazepam 2 Mg/Ml Sdv) 1 mg IVPUSH ONETIME ONE Stop: 12/20/20 20:48 Last Admin: 12/20/20 22:23 Dose: 1 mg Documented by: Melatonin (Melatonin 3 Mg Tab) 6 mg PO BEDTIME [facility] Melatonin (Melatonin 3 Mg Tab) 6 mg PO BEDTIME PRN PRN Reason: Insomnia Last Admin: 12/06/20 21:39 Dose: 6 mg Documented by: Methylprednisolone Sodium Succinate (Methylprednisolone Sodium Succinate 40 Mg/1 Ml Sdv) 40 mg IVPUSH Q8H [facility] Last Admin: 12/16/20 03:51 Dose: 40 mg Documented by: Methylprednisolone Sodium Succinate (Methylprednisolone Sodium Succinate 40 Mg/1 Ml Sdv) 40 mg IVPUSH Q12H [facility] Last Admin: 12/18/20 09:06 Dose: 40 mg Documented by: Polyethylene Glycol (Polyethylene Glycol 3350 Powder 17 Gm Packet) 17 gm PO BEDTIME [facility] Last Admin: 12/12/20 22:28 Dose: Not Given Documented by: Prednisone (Prednisone 20 Mg Tab) 40 mg PO WITHBREAKFAST [facility] Last Admin: 12/24/20 08:24 Dose: 40 mg Documented by: Prednisone (Prednisone 20 Mg Tab) 20 mg PO WITHBREAKFAST [facility] Stop: 12/30/20 08:01 Last Admin: 12/30/20 09:01 Dose: 20 mg Documented by: - Exam Quality Assessment: Supplemental Oxygen General: Alert, Oriented, Cooperative, No Acute Distress HEENT: Pupils Equal, Pupils Reactive Neck: Supple, Trachea Midline Lungs: Decreased Breath Sounds Cardiovascular: Regular Rate, Regular Rhythm, No Murmurs GI/Abdominal Exam: Normal Bowel Sounds, Soft, Non-Tender Back Exam: Normal Inspection Extremities: Normal Inspection, Normal Range of Motion, Non-Tender, No Pedal Edema. No: Jessica's Sign Peripheral Pulses: 2+: Dorsalis Pedis (L), Dorsalis Pedis (R) Skin: Warm, Dry, Intact Neurological: No New Focal Deficit - Patient Data Lab Results Last 24 hrs: Laboratory Results - last 24 hr 12/31/20 Range/Units 06:50 Sodium 137 (136-148) mmol/L Potassium 3.8 (3.5-5.1) mmol/L Chloride 101 (98-107) mmol/L Carbon Dioxide 31.0 (21.0-32.0) mmol/L BUN 20 H (7.0-18.0) mg/dL Creatinine 0.9 (0.8-1.3) mg/dL Est Cr Clr Drug Dosing 86.34 mL/min Estimated GFR (MDRD) > 60.0 ml/min Glucose 97 (74-106) mg/dL Calcium 8.5 (8.5-10.1) mg/dL Result Diagrams: 12/29/20 05:15 12/31/20 06:50 Sepsis Event Note - Evaluation Sepsis Screening Result: No Definite Risk - Focused Exam Vital Signs: Vital Signs Temp Pulse Resp BP Pulse Ox 12/31/20 04:00 97.6 F 60 20 136/79 92 L 12/31/20 00:00 98.1 F 65 18 121/69 96 12/30/20 20:43 97.7 F 73 20 127/64 88 L - Problem List Review Problem List Initiated/Reviewed/Updated: Yes - Plan Plan:: 70 yo male admitted with COVID pneumonia: Hypoxia: currently on 1.5-4 L NC. Continue to wean oxygen as tolerated. COVID: completed Remdesivir, on prednisone taper 40 mg x5 days completed. 20 mg x 5 days completed. Today is day 1 of 10 mg x5 days. 5 mg x5 days. Then stopping. Combivent. Incentive spirometry. Acapella chest physical therapy. Lovenox 40 mg. Robitussin. Melatonin 6mg prn bedtime. Physical therapy: recommends discharging on walker with seat. <Nimisha Julian - Last Filed: 01/04/21 13:14> - Patient Data Vitals - Most Recent: Last Vital Signs Temp 35.6 C L 01/04/21 08:00 Pulse 72 01/04/21 08:00 Resp 16 01/04/21 08:00 BP 144/67 H 01/04/21 08:00 Pulse Ox 93 L 01/04/21 08:00 I&O - Last 24 Hours: Intake & Output 01/03/21 01/04/21 01/04/21 22:59 06:59 14:59 Intake Total 480 650 Output Total 400 750 Balance 80 -100 Lab Results Last 24 Hours: Laboratory Results - last 24 hr 01/04/21 01/04/21 Range/Units 05:12 05:12 WBC 9.55 (4.0-11.0) K/uL RBC 4.17 L (4.50-5.90) M/uL Hgb 12.8 L (13.0-17.0) g/dL Hct 38.2 (38.0-50.0) % MCV 91.6 (80.0-98.0) fL MCH 30.7 (27.0-32.0) pg MCHC 33.5 (31.0-37.0) g/dL RDW Std Deviation 49.2 (28.0-62.0) fl RDW Coeff of Carly 15 (11.0-15.0) % Plt Count 258 (150-400) K/uL MPV 10.40 (7.40-12.00) fL Add Manual Diff YES Neutrophils % (Manual) 65 (48.0-80.0) % Band Neutrophils % 2 % Lymphocytes % (Manual) 20 (16.0-40.0) % Monocytes % (Manual) 9 (0.0-15.0) % Eosinophils % (Manual) 4 (0.0-7.0) % Nucleated RBC % 0.0 /100WBC Absolute Seg Neuts 6.2 H (1.4-5.7) Band Neutrophils # 0.2 Lymphocytes # (Manual) 1.9 (0.6-2.4) Monocytes # (Manual) 0.9 H (0.0-0.8) Eosinophils # (Manual) 0.4 (0.0-0.7) Nucleated RBCs # 0 K/uL Sodium 138 (136-148) mmol/L Potassium 4.3 (3.5-5.1) mmol/L Chloride 101 (98-107) mmol/L Carbon Dioxide 29.0 (21.0-32.0) mmol/L BUN 20 H (7.0-18.0) mg/dL Creatinine 0.8 (0.8-1.3) mg/dL Est Cr Clr Drug Dosing 97.14 mL/min Estimated GFR (MDRD) > 60.0 ml/min Glucose 91 (74-106) mg/dL Calcium 8.6 (8.5-10.1) mg/dL Med Orders - Current: Current Medications Albuterol/Ipratropium (Albuterol/Ipratropium 4 Gm Inhalation Sarah Ann) 0 gm INH Q4H PRN PRN Reason: Dyspnea Last Admin: 12/24/20 09:35 Dose: 1 puff Documented by: Albuterol/Ipratropium (Albuterol/Ipratropium 3.0-0.5 Mg/3 Ml Neb Soln) 3 ml NEB Q4HRRT PRN PRN Reason: Wheezing Last Admin: 01/02/21 05:47 Dose: 3 ml Documented by: Alprazolam (Alprazolam 0.25 Mg Tab) 0.25 mg PO Q6H PRN PRN Reason: Anxiety Last Admin: 12/29/20 08:54 Dose: 0.25 mg Documented by: Benzonatate (Benzonatate 100 Mg Cap) 200 mg PO TID [facility] Last Admin: 01/04/21 06:18 Dose: 200 mg Documented by: Docusate Sodium (Docusate Sodium 100 Mg Cap) 100 mg PO BID [facility] Last Admin: 01/04/21 08:52 Dose: 100 mg Documented by: Enoxaparin Sodium (Enoxaparin 40 Mg/0.4 Ml Syringe) 40 mg SUBCUT Q24H [facility] Last Admin: 01/03/21 18:15 Dose: 40 mg Documented by: Guaifenesin/Codeine Phosphate (Codeine/Guaifenesin 10-100 Mg/5 Ml Syrup 5 Ml Cup) 5 ml PO Q4H PRN PRN Reason: Cough Last Admin: 01/04/21 06:18 Dose: 5 ml Documented by: Melatonin (Melatonin 3 Mg Tab) 6 mg PO BEDTIME PRN PRN Reason: Insomnia Last Admin: 01/03/21 21:20 Dose: 6 mg Documented by: Pantoprazole Sodium (Pantoprazole 40 Mg Tab.Cr) 40 mg PO DAILY [facility] Last Admin: 01/04/21 08:52 Dose: 40 mg Documented by: Polyethylene Glycol (Polyethylene Glycol 3350 Powder 17 Gm Packet) 17 gm PO DAILY [facility] Last Admin: 01/04/21 08:52 Dose: 17 gm Documented by: Sodium Chloride (Sodium Chloride 0.65% Nasal Sarah Ann 45 Ml Bottle) 1 ml LATHA Q6H PRN PRN Reason: Congestion Last Admin: 12/09/20 12:20 Dose: 1 spray Documented by: Discontinued Medications Dexamethasone (Dexamethasone 10 Mg/Ml Sdv) 6 mg IVPUSH ONETIME ONE Stop: 11/30/20 14:46 Last Admin: 11/30/20 15:00 Dose: 6 mg Documented by: Dexamethasone (Dexamethasone 4 Mg Tab) 6 mg PO DAILY [facility] Last Admin: 12/12/20 09:12 Dose: 6 mg Documented by: Famotidine (Famotidine 20 Mg/2 Ml Sdv) 20 mg IVPUSH BID [facility] Last Admin: 12/05/20 08:55 Dose: 20 mg Documented by: Guaifenesin (Guaifenesin 100 Mg/5 Ml Soln 5 Ml Ud Cup) 100 mg PO Q4H [facility] Last Admin: 12/06/20 04:02 Dose: 100 mg Documented by: Guaifenesin/Codeine Phosphate (Codeine/Guaifenesin 10-100 Mg/5 Ml Syrup 5 Ml Cup) 5 ml PO Q4H [facility] Last Admin: 12/11/20 17:21 Dose: 5 ml Documented by: Guaifenesin/Codeine Phosphate (Codeine/Guaifenesin 10-100 Mg/5 Ml Syrup 5 Ml Cup) 5 ml PO Q4H [facility] Last Admin: 12/19/20 12:47 Dose: 5 ml Documented by: Guaifenesin/Dextromethorphan (Guaifenesin/Dextromethorphan 100-10 Mg/5 Ml Soln 10 Ml Cup) 10 ml PO Q4H PRN PRN Reason: Cough Last Admin: 12/03/20 12:45 Dose: 10 ml Documented by: Guaifenesin/Dextromethorphan (Guaifenesin/Dextromethorphan 100-10 Mg/5 Ml Soln 10 Ml Cup) 10 ml PO Q4H [facility] Last Admin: 12/05/20 10:24 Dose: Not Given Documented by: Remdesivir 200 mg/ Sodium (Chloride) 250 mls @ 250 mls/hr IV ONETIME ONE Stop: 11/30/20 14:46 Last Admin: 11/30/20 20:04 Dose: 250 mls/hr Documented by: Remdesivir 100 mg/ Sodium (Chloride) 100 mls @ 100 mls/hr IV Q24H [facility] Stop: 12/04/20 18:59 Last Admin: 12/04/20 18:12 Dose: 100 mls/hr Documented by: Pantoprazole Sodium 40 mg/ (Sodium Chloride) 10 mls @ 300 mls/hr IV Q24H [facility] Last Admin: 12/09/20 08:56 Dose: 300 mls/hr Documented by: Levofloxacin/Dextrose 750 mg/ (Premix) 150 mls @ 100 mls/hr IV Q24H [facility] Last Admin: 12/11/20 15:24 Dose: 100 mls/hr Documented by: Lactated Ringer's (Ringers, Lactated) 250 mls @ 250 mls/hr IV ASDIRECTED [facility] Iopamidol (Iopamidol 755 Mg/Ml 500 Ml Multipack Bottle) 100 ml IVPUSH ONETIME S TA Stop: 12/01/20 16:41 Last Admin: 12/01/20 16:41 Dose: 100 ml Documented by: Lorazepam (Lorazepam 2 Mg/Ml Sdv) 1 mg IVPUSH Q12H PRN PRN Reason: Anxiety Last Admin: 12/12/20 15:53 Dose: 1 mg Documented by: Lorazepam (Lorazepam 2 Mg/Ml Sdv) 0.5 mg IVPUSH Q8H PRN PRN Reason: Anxiety Lorazepam (Lorazepam 2 Mg/Ml Sdv) 1 mg IVPUSH ONETIME ONE Stop: 12/20/20 20:48 Last Admin: 12/20/20 22:23 Dose: 1 mg Documented by: Melatonin (Melatonin 3 Mg Tab) 6 mg PO BEDTIME [facility] Melatonin (Melatonin 3 Mg Tab) 6 mg PO BEDTIME PRN PRN Reason: Insomnia Last Admin: 12/06/20 21:39 Dose: 6 mg Documented by: Methylprednisolone Sodium Succinate (Methylprednisolone Sodium Succinate 40 Mg/1 Ml Sdv) 40 mg IVPUSH Q8H [facility] Last Admin: 12/16/20 03:51 Dose: 40 mg Documented by: Methylprednisolone Sodium Succinate (Methylprednisolone Sodium Succinate 40 Mg/1 Ml Sdv) 40 mg IVPUSH Q12H [facility] Last Admin: 12/18/20 09:06 Dose: 40 mg Documented by: Polyethylene Glycol (Polyethylene Glycol 3350 Powder 17 Gm Packet) 17 gm PO BEDTIME [facility] Last Admin: 12/12/20 22:28 Dose: Not Given Documented by: Potassium Chloride (Potassium Chloride 20 Meq Tab.Er) 40 meq PO ONETIME ONE Stop: 01/02/21 09:14 Last Admin: 01/02/21 09:55 Dose: 40 meq Documented by: Prednisone (Prednisone 20 Mg Tab) 40 mg PO WITHBREAKFAST [facility] Last Admin: 12/24/20 08:24 Dose: 40 mg Documented by: Prednisone (Prednisone 20 Mg Tab) 20 mg PO WITHBREAKFAST [facility] Stop: 12/30/20 08:01 Last Admin: 12/30/20 09:01 Dose: 20 mg Documented by: Prednisone (Prednisone 10 Mg Tab) 10 mg PO WITHBREAKFAST [facility] Stop: 01/04/21 08:01 Last Admin: 01/04/21 08:52 Dose: 10 mg Documented by: Sodium Chloride (Sodium Chloride 0.9% 10 Ml Syringe) 10 ml FLUSH ASDIRECTED PRN PRN Reason: Keep Vein Open Last Admin: 11/30/20 14:17 Dose: 10 ml Documented by: Sodium Chloride (Sodium Chloride 0.9% 2.5 Ml Syringe) 2.5 ml FLUSH ASDIRECTED PRN PRN Reason: Keep Vein Open Last Admin: 11/30/20 14:17 Dose: 2.5 ml Documented by: - Patient Data Lab Results Last 24 hrs: Laboratory Results - last 24 hr 01/04/21 01/04/21 Range/Units 05:12 05:12 WBC 9.55 (4.0-11.0) K/uL RBC 4.17 L (4.50-5.90) M/uL Hgb 12.8 L (13.0-17.0) g/dL Hct 38.2 (38.0-50.0) % MCV 91.6 (80.0-98.0) fL MCH 30.7 (27.0-32.0) pg MCHC 33.5 (31.0-37.0) g/dL RDW Std Deviation 49.2 (28.0-62.0) fl RDW Coeff of Carly 15 (11.0-15.0) % Plt Count 258 (150-400) K/uL MPV 10.40 (7.40-12.00) fL Add Manual Diff YES Neutrophils % (Manual) 65 (48.0-80.0) % Band Neutrophils % 2 % Lymphocytes % (Manual) 20 (16.0-40.0) % Monocytes % (Manual) 9 (0.0-15.0) % Eosinophils % (Manual) 4 (0.0-7.0) % Nucleated RBC % 0.0 /100WBC Absolute Seg Neuts 6.2 H (1.4-5.7) Band Neutrophils # 0.2 Lymphocytes # (Manual) 1.9 (0.6-2.4) Monocytes # (Manual) 0.9 H (0.0-0.8) Eosinophils # (Manual) 0.4 (0.0-0.7) Nucleated RBCs # 0 K/uL Sodium 138 (136-148) mmol/L Potassium 4.3 (3.5-5.1) mmol/L Chloride 101 (98-107) mmol/L Carbon Dioxide 29.0 (21.0-32.0) mmol/L BUN 20 H (7.0-18.0) mg/dL Creatinine 0.8 (0.8-1.3) mg/dL Est Cr Clr Drug Dosing 97.14 mL/min Estimated GFR (MDRD) > 60.0 ml/min Glucose 91 (74-106) mg/dL Calcium 8.6 (8.5-10.1) mg/dL Result Diagrams: 01/04/21 05:12 01/04/21 05:12 Sepsis Event Note - Focused Exam Vital Signs: Vital Signs Temp Temp Pulse Resp BP Pulse Ox 01/04/21 08:00 35.6 C L 72 16 144/67 H 93 L 01/04/21 06:16 68 18 95 01/04/21 03:20 36.1 C 67 19 117/73 92 L - Problem List & Annotations (1) Acute hypoxemic respiratory failure due to COVID-19 SNOMED Code(s): 297265132 Code(s): U07.1 - COVID-19; J96.01 - ACUTE RESPIRATORY FAILURE WITH HYPOXIA Status: Acute Current Visit: Yes (2) Anxiety about health SNOMED Code(s): 409131758 Code(s): F41.8 - OTHER SPECIFIED ANXIETY DISORDERS Status: Acute Current Visit: Yes - My Orders Last 24 Hours: My Active Orders 01/04/21 10:25 Ready for Discharge [RC] PER UNIT ROUTINE - Plan Plan:: I have seen and evaluated the patient and agree with the residents note unless specified in my note
[2020-12-31] MEDS: Docusate Sodium 100 MG Cap PO SCH ×2 (08:38→21:22)
[2020-12-31] MEDS: Albuterol/Ipratropium 3.0-0.5 MG/3 ML Neb Soln NEB PRN (08:38)
[2020-12-31] MEDS: predniSONE 10 MG Tab PO SCH (08:38)
[2020-12-31] MEDS: Pantoprazole 40 MG Tab.CR PO SCH (08:38)
[2020-12-31] MEDS: Polyethylene Glycol 3350 Powder 17 GM Packet PO SCH (12:49)
[2020-12-31] MEDS: Enoxaparin 40 MG/0.4 ML Syringe SUBCUT SCH (18:35)
[2020-12-31] MEDS: Melatonin 3 MG Tab PO PRN (21:23)
[2021-01-01] MEDS: Codeine/guaiFENesin 10-100 MG/5 ML Syrup 5 ML Cup PO PRN ×4 (03:23→21:57)
[2021-01-01] MEDS: Benzonatate 100 MG Cap PO SCH ×3 (05:45→21:51)
[2021-01-01 06:30] LABS: BLOOD UREA NITROGEN,BUN 26 mg/dL (7.0-18.0); CARBON DIOXIDE,CO2 28.6 mmol/L (21.0-32.0); CHLORIDE,CL 103 mmol/L (98-107); GLUCOSE RANDOM 93 mg/dL (74-106); POTASSIUM,K 3.8 mmol/L (3.5-5.1); SODIUM,NA 139 mmol/L (136-148)
--- NOTE | 2021-01-01 07:05 | PCM.PN ---
- General Info Date of Service: 01/01/21 Admission Dx/Problem (Free Text): Admission Diagnosis/Problem Admission Diagnosis/Problem Respiratory failure with hypoxia Subjective Update: Patient seen at bedside. Oxygen requirements continue to vary. Patient has needed as little as 1.5 L and up to 6L in the past 2 days. PT continues to work with the patient and provided him with a seated walker. Denies fever, chills, chest pain, palpitations, difficulty breathing, headache, dizziness, loss of consciousness, abdominal pain, nausea, vomiting or diarrhea. - Review of Systems General: Denies: Fever, Chills Pulmonary: Reports: Shortness of Breath. Denies: Cough Cardiovascular: Reports: Dyspnea on Exertion. Denies: Chest Pain, Palpitations Gastrointestinal: Denies: Abdominal Pain, Constipation, Nausea, Vomiting Genitourinary: Denies: Dysuria Musculoskeletal: Denies: Leg Pain Skin: Denies: Cyanosis Neurological: Denies: Confusion, Dizziness, Headache, Numbness, Paresthesia - Patient Data Vitals - Most Recent: Last Vital Signs Temp 96.9 F 01/01/21 04:00 Pulse 63 01/01/21 04:00 Resp 18 01/01/21 04:00 BP 136/71 01/01/21 04:00 Pulse Ox 95 01/01/21 04:00 Weight - Most Recent: 224 lb 10.417 oz I&O - Last 24 Hours: Intake & Output 12/31/20 01/01/21 01/01/21 22:59 06:59 14:59 Intake Total 1175 400 Output Total 650 360 Balance 525 40 Lab Results Last 24 Hours: Laboratory Results - last 24 hr 12/31/20 01/01/21 Range/Units 06:50 05:35 Sodium 137 139 (136-148) mmol/L Potassium 3.8 3.8 (3.5-5.1) mmol/L Chloride 101 103 (98-107) mmol/L Carbon Dioxide 31.0 28.6 (21.0-32.0) mmol/L BUN 20 H 26 H (7.0-18.0) mg/dL Creatinine 0.9 1.0 (0.8-1.3) mg/dL Est Cr Clr Drug Dosing 86.34 77.71 mL/min Estimated GFR (MDRD) > 60.0 > 60.0 ml/min Glucose 97 93 (74-106) mg/dL Calcium 8.5 8.3 L (8.5-10.1) mg/dL Med Orders - Current: Current Medications Albuterol/Ipratropium (Albuterol/Ipratropium 4 Gm Inhalation [place]) 0 gm INH Q4H PRN PRN Reason: Dyspnea Last Admin: 12/24/20 09:35 Dose: 1 puff Documented by: Albuterol/Ipratropium (Albuterol/Ipratropium 3.0-0.5 Mg/3 Ml Neb Soln) 3 ml NEB Q4HRRT PRN PRN Reason: Wheezing Last Admin: 12/31/20 08:38 Dose: 3 ml Documented by: Alprazolam (Alprazolam 0.25 Mg Tab) 0.25 mg PO Q6H PRN PRN Reason: Anxiety Last Admin: 12/29/20 08:54 Dose: 0.25 mg Documented by: Benzonatate (Benzonatate 100 Mg Cap) 200 mg PO TID [facility] Last Admin: 01/01/21 05:45 Dose: 200 mg Documented by: Docusate Sodium (Docusate Sodium 100 Mg Cap) 100 mg PO BID [facility] Last Admin: 12/31/20 21:22 Dose: 100 mg Documented by: Enoxaparin Sodium (Enoxaparin 40 Mg/0.4 Ml Syringe) 40 mg SUBCUT Q24H [facility] Last Admin: 12/31/20 18:35 Dose: 40 mg Documented by: Guaifenesin/Codeine Phosphate (Codeine/Guaifenesin 10-100 Mg/5 Ml Syrup 5 Ml Cup) 5 ml PO Q4H PRN PRN Reason: Cough Last Admin: 01/01/21 03:23 Dose: 5 ml Documented by: Melatonin (Melatonin 3 Mg Tab) 6 mg PO BEDTIME PRN PRN Reason: Insomnia Last Admin: 12/31/20 21:23 Dose: 6 mg Documented by: Pantoprazole Sodium (Pantoprazole 40 Mg Tab.Cr) 40 mg PO DAILY [facility] Last Admin: 12/31/20 08:38 Dose: 40 mg Documented by: Polyethylene Glycol (Polyethylene Glycol 3350 Powder 17 Gm Packet) 17 gm PO DAILY [facility] Last Admin: 12/31/20 12:49 Dose: Not Given Documented by: Prednisone (Prednisone 10 Mg Tab) 10 mg PO WITHBREAKFAST [facility] Stop: 01/04/21 08:01 Last Admin: 12/31/20 08:38 Dose: 10 mg Documented by: Sodium Chloride (Sodium Chloride 0.65% Nasal [place] 45 Ml Bottle) 1 ml LATHA Q6H P RN PRN Reason: Congestion Last Admin: 12/09/20 12:20 Dose: 1 spray Documented by: Discontinued Medications Dexamethasone (Dexamethasone 10 Mg/Ml Sdv) 6 mg IVPUSH ONETIME ONE Stop: 11/30/20 14:46 Last Admin: 11/30/20 15:00 Dose: 6 mg Documented by: Dexamethasone (Dexamethasone 4 Mg Tab) 6 mg PO DAILY [facility] Last Admin: 12/12/20 09:12 Dose: 6 mg Documented by: Famotidine (Famotidine 20 Mg/2 Ml Sdv) 20 mg IVPUSH BID [facility] Last Admin: 12/05/20 08:55 Dose: 20 mg Documented by: Guaifenesin (Guaifenesin 100 Mg/5 Ml Soln 5 Ml Ud Cup) 100 mg PO Q4H [facility] Last Admin: 12/06/20 04:02 Dose: 100 mg Documented by: Guaifenesin/Codeine Phosphate (Codeine/Guaifenesin 10-100 Mg/5 Ml Syrup 5 Ml Cup) 5 ml PO Q4H [facility] Last Admin: 12/11/20 17:21 Dose: 5 ml Documented by: Guaifenesin/Codeine Phosphate (Codeine/Guaifenesin 10-100 Mg/5 Ml Syrup 5 Ml Cup) 5 ml PO Q4H [facility] Last Admin: 12/19/20 12:47 Dose: 5 ml Documented by: Guaifenesin/Dextromethorphan (Guaifenesin/Dextromethorphan 100-10 Mg/5 Ml Soln 10 Ml Cup) 10 ml PO Q4H PRN PRN Reason: Cough Last Admin: 12/03/20 12:45 Dose: 10 ml Documented by: Guaifenesin/Dextromethorphan (Guaifenesin/Dextromethorphan 100-10 Mg/5 Ml Soln 10 Ml Cup) 10 ml PO Q4H [facility] Last Admin: 12/05/20 10:24 Dose: Not Given Documented by: Remdesivir 200 mg/ Sodium (Chloride) 250 mls @ 250 mls/hr IV ONETIME ONE Stop: 11/30/20 14:46 Last Admin: 11/30/20 20:04 Dose: 250 mls/hr Documented by: Remdesivir 100 mg/ Sodium (Chloride) 100 mls @ 100 mls/hr IV Q24H [facility] Stop: 12/04/20 18:59 Last Admin: 12/04/20 18:12 Dose: 100 mls/hr Documented by: Pantoprazole Sodium 40 mg/ (Sodium Chloride) 10 mls @ 300 mls/hr IV Q24H [facility] Last Admin: 12/09/20 08:56 Dose: 300 mls/hr Documented by: Levofloxacin/Dextrose 750 mg/ (Premix) 150 mls @ 100 mls/hr IV Q24H [facility] Last Admin: 12/11/20 15:24 Dose: 100 mls/hr Documented by: Lactated Ringer's (Ringers, Lactated) 250 mls @ 250 mls/hr IV ASDIRECTED [facility] Iopamidol (Iopamidol 755 Mg/Ml 500 Ml Multipack Bottle) 100 ml IVPUSH ONETIME STA Stop: 12/01/20 16:41 Last Admin: 12/01/20 16:41 Dose: 100 ml Documented by: Lorazepam (Lorazepam 2 Mg/Ml Sdv) 1 mg IVPUSH Q12H PRN PRN Reason: Anxiety Last Admin: 12/12/20 15:53 Dose: 1 mg Documented by: Lorazepam (Lorazepam 2 Mg/Ml Sdv) 0.5 mg IVPUSH Q8H PRN PRN Reason: Anxiety Lorazepam (Lorazepam 2 Mg/Ml Sdv) 1 mg IVPUSH ONETIME ONE Stop: 12/20/20 20:48 Last Admin: 12/20/20 22:23 Dose: 1 mg Documented by: Melatonin (Melatonin 3 Mg Tab) 6 mg PO BEDTIME [facility] Melatonin (Melatonin 3 Mg Tab) 6 mg PO BEDTIME PRN PRN Reason: Insomnia Last Admin: 12/06/20 21:39 Dose: 6 mg Documented by: Methylprednisolone Sodium Succinate (Methylprednisolone Sodium Succinate 40 Mg/1 Ml Sdv) 40 mg IVPUSH Q8H [facility] Last Admin: 12/16/20 03:51 Dose: 40 mg Documented by: Methylprednisolone Sodium Succinate (Methylprednisolone Sodium Succinate 40 Mg/1 Ml Sdv) 40 mg IVPUSH Q12H [facility] Last Admin: 12/18/20 09:06 Dose: 40 mg Documented by: Polyethylene Glycol (Polyethylene Glycol 3350 Powder 17 Gm Packet) 17 gm PO BEDTIME [facility] Last Admin: 12/12/20 22:28 Dose: Not Given Documented by: Prednisone (Prednisone 20 Mg Tab) 40 mg PO WITHBREAKFAST [facility] Last Admin: 12/24/20 08:24 Dose: 40 mg Documented by: Prednisone (Prednisone 20 Mg Tab) 20 mg PO WITHBREAKFAST [facility] Stop: 12/30/20 08:01 Last Admin: 12/30/20 09:01 Dose: 20 mg Documented by: Sodium Chloride (Sodium Chloride 0.9% 10 Ml Syringe) 10 ml FLUSH ASDIRECTED PRN PRN Reason: Keep Vein Open Last Admin: 11/30/20 14:17 Dose: 10 ml Documented by: Sodium Chloride (Sodium Chloride 0.9% 2.5 Ml Syringe) 2.5 ml FLUSH ASDIRECTED PRN PRN Reason: Keep Vein Open Last Admin: 11/30/20 14:17 Dose: 2.5 ml Documented by: - Exam Quality Assessment: Supplemental Oxygen General: Alert, Oriented, Cooperative, No Acute Distress HEENT: Pupils Equal, Pupils Reactive Neck: Supple, Trachea Midline Lungs: Clear to Auscultation. No: Wheezing Cardiovascular: Regular Rate, Regular Rhythm GI/Abdominal Exam: Normal Bowel Sounds, Soft, Non-Tender Extremities: Normal Inspection, No Pedal Edema. No: Jessica's Sign Peripheral Pulses: 2+: Dorsalis Pedis (L), Dorsalis Pedis (R) Skin: Warm, Dry, Intact Neurological: No New Focal Deficit - Patient Data Lab Results Last 24 hrs: Laboratory Results - last 24 hr 12/31/20 01/01/21 Range/Units 06:50 05:35 Sodium 137 139 (136-148) mmol/L Potassium 3.8 3.8 (3.5-5.1) mmol/L Chloride 101 103 (98-107) mmol/L Carbon Dioxide 31.0 28.6 (21.0-32.0) mmol/L BUN 20 H 26 H (7.0-18.0) mg/dL Creatinine 0.9 1.0 (0.8-1.3) mg/dL Est Cr Clr Drug Dosing 86.34 77.71 mL/min Estimated GFR (MDRD) > 60.0 > 60.0 ml/min Glucose 97 93 (74-106) mg/dL Calcium 8.5 8.3 L (8.5-10.1) mg/dL Result Diagrams: 01/01/21 05:35 01/01/21 05:35 Sepsis Event Note - Evaluation Sepsis Screening Result: No Definite Risk - Focused Exam Vital Signs: Vital Signs Temp Pulse Resp BP Pulse Ox 01/01/21 04:00 96.9 F 63 18 136/71 95 01/01/21 00:00 96.9 F 61 17 135/80 97 12/31/20 20:00 97.9 F 73 18 129/75 97 - Problem List Review Problem List Initiated/Reviewed/Updated: Yes - Plan Plan:: 70 yo male admitted with COVID pneumonia: Hypoxia: currently on 1.5-6 L NC. Continue to wean oxygen as tolerated. COVID: completed Remdesivir, on prednisone taper 40 mg x5 days completed. 20 mg x 5 days completed. Currently on 10 mg x5 days. 5 mg x5 days. Then stopping. Combivent. Incentive spirometry. Acapella chest physical therapy. Lovenox 40 mg. Robitussin. Melatonin 6mg prn bedtime. Physical therapy: recommends discharging on walker with seat.
[2021-01-01] MEDS: predniSONE 10 MG Tab PO SCH (08:52)
[2021-01-01] MEDS: Docusate Sodium 100 MG Cap PO SCH ×2 (08:52→21:51)
[2021-01-01] MEDS: Pantoprazole 40 MG Tab.CR PO SCH (08:52)
[2021-01-01] MEDS: Polyethylene Glycol 3350 Powder 17 GM Packet PO SCH (08:52)
[2021-01-01] MEDS: Enoxaparin 40 MG/0.4 ML Syringe SUBCUT SCH (17:27)
[2021-01-01] MEDS: Melatonin 3 MG Tab PO PRN (21:57)
[2021-01-02] MEDS: Benzonatate 100 MG Cap PO SCH ×3 (05:23→22:48)
[2021-01-02] MEDS: Codeine/guaiFENesin 10-100 MG/5 ML Syrup 5 ML Cup PO PRN ×5 (05:23→22:48)
[2021-01-02] MEDS: Albuterol/Ipratropium 3.0-0.5 MG/3 ML Neb Soln NEB PRN (05:47)
[2021-01-02] MEDS: Docusate Sodium 100 MG Cap PO SCH ×2 (08:04→22:48)
[2021-01-02] MEDS: Polyethylene Glycol 3350 Powder 17 GM Packet PO SCH (08:04)
[2021-01-02] MEDS: Pantoprazole 40 MG Tab.CR PO SCH (08:04)
[2021-01-02] MEDS: predniSONE 10 MG Tab PO SCH (08:04)
[2021-01-02 08:05] LABS: BLOOD UREA NITROGEN,BUN 23 mg/dL (7.0-18.0); CARBON DIOXIDE,CO2 26.8 mmol/L (21.0-32.0); CHLORIDE,CL 101 mmol/L (98-107); GLUCOSE RANDOM 90 mg/dL (74-106); POTASSIUM,K 3.4 mmol/L (3.5-5.1); SODIUM,NA 136 mmol/L (136-148)
[2021-01-02] MEDS ORDERED: Potassium Chloride 20 MEQ Tab.ER PO ONE (09:13)
--- NOTE | 2021-01-02 09:18 | PCM.PN ---
- General Info Date of Service: 01/02/21 - Review of Systems Systems Review Comment:: feeling better, feels he will be ready for discharge on monday as his son will be in town then - Patient Data Vitals - Most Recent: Last Vital Signs Temp 36.7 C 01/02/21 08:00 Pulse 87 01/02/21 08:00 Resp 18 01/02/21 08:00 BP 124/63 01/02/21 08:00 Pulse Ox 93 L 01/02/21 08:00 Weight - Most Recent: 101.9 kg I&O - Last 24 Hours: Intake & Output 01/01/21 01/02/21 01/02/21 22:59 06:59 14:59 Intake Total 580 400 Output Total 400 400 Balance 180 0 Lab Results Last 24 Hours: Laboratory Results - last 24 hr 01/02/21 01/02/21 Range/Units 06:28 06:28 WBC 8.81 (4.0-11.0) K/uL RBC 4.25 L (4.50-5.90) M/uL Hgb 13.2 (13.0-17.0) g/dL Hct 39.0 (38.0-50.0) % MCV 91.8 (80.0-98.0) fL MCH 31.1 (27.0-32.0) pg MCHC 33.8 (31.0-37.0) g/dL RDW Std Deviation 48.6 (28.0-62.0) fl RDW Coeff of Carly 15 (11.0-15.0) % Plt Count 257 (150-400) K/uL MPV 10.40 (7.40-12.00) fL Nucleated RBC % 0.0 /100WBC Nucleated RBCs # 0 K/uL Sodium 136 (136-148) mmol/L Potassium 3.4 L (3.5-5.1) mmol/L Chloride 101 (98-107) mmol/L Carbon Dioxide 26.8 (21.0-32.0) mmol/L BUN 23 H (7.0-18.0) mg/dL Creatinine 0.8 (0.8-1.3) mg/dL Est Cr Clr Drug Dosing 97.14 mL/min Estimated GFR (MDRD) > 60.0 ml/min Glucose 90 (74-106) mg/dL Calcium 8.4 L (8.5-10.1) mg/dL Med Orders - Current: Current Medications Albuterol/Ipratropium (Albuterol/Ipratropium 4 Gm Inhalation [place]) 0 gm INH Q4H PRN PRN Reason: Dyspnea Last Admin: 12/24/20 09:35 Dose: 1 puff Documented by: Albuterol/Ipratropium (Albuterol/Ipratropium 3.0-0.5 Mg/3 Ml Neb Soln) 3 ml NEB Q4HRRT PRN PRN Reason: Wheezing Last Admin: 01/02/21 05:47 Dose: 3 ml Documented by: Alprazolam (Alprazolam 0.25 Mg Tab) 0.25 mg PO Q6H PRN PRN Reason: Anxiety Last Admin: 12/29/20 08:54 Dose: 0.25 mg Documented by: Benzonatate (Benzonatate 100 Mg Cap) 200 mg PO TID [facility] Last Admin: 01/02/21 05:23 Dose: 200 mg Documented by: Docusate Sodium (Docusate Sodium 100 Mg Cap) 100 mg PO BID [facility] Last Admin: 01/02/21 08:04 Dose: 100 mg Documented by: Enoxaparin Sodium (Enoxaparin 40 Mg/0.4 Ml Syringe) 40 mg SUBCUT Q24H [facility] Last Admin: 01/01/21 17:27 Dose: 40 mg Documented by: Guaifenesin/Codeine Phosphate (Codeine/Guaifenesin 10-100 Mg/5 Ml Syrup 5 Ml Cup) 5 ml PO Q4H PRN PRN Reason: Cough Last Admin: 01/02/21 05:23 Dose: 5 ml Documented by: Melatonin (Melatonin 3 Mg Tab) 6 mg PO BEDTIME PRN PRN Reason: Insomnia Last Admin: 01/01/21 21:57 Dose: 6 mg Documented by: Pantoprazole Sodium (Pantoprazole 40 Mg Tab.Cr) 40 mg PO DAILY [facility] Last Admin: 01/02/21 08:04 Dose: 40 mg Documented by: Polyethylene Glycol (Polyethylene Glycol 3350 Powder 17 Gm Packet) 17 gm PO DAILY [facility] Last Admin: 01/02/21 08:04 Dose: 17 gm Documented by: Potassium Chloride (Potassium Chloride 20 Meq Tab.Er) 40 meq PO ONETIME ONE Stop: 01/02/21 09:14 Prednisone (Prednisone 10 Mg Tab) 10 mg PO WITHBREAKFAST [facility] Stop: 01/04/21 08:01 Last Admin: 01/02/21 08:04 Dose: 10 mg Documented by: Sodium Chloride (Sodium Chloride 0.65% Nasal [place] 45 Ml Bottle) 1 ml LATHA Q6H PRN PRN Reason: Congestion Last Admin: 12/09/20 12:20 Dose: 1 spray Documented by: Discontinued Medications Dexamethasone (Dexamethasone 10 Mg/Ml Sdv) 6 mg IVPUSH ONETIME ONE Stop: 11/30/20 14:46 Last Admin: 11/30/20 15:00 Dose: 6 mg Documented by: Dexamethasone (Dexamethasone 4 Mg Tab) 6 mg PO DAILY [facility] Last Admin: 12/12/20 09:12 Dose: 6 mg Documented by: Famotidine (Famotidine 20 Mg/2 Ml Sdv) 20 mg IVPUSH BID [facility] Last Admin: 12/05/20 08:55 Dose: 20 mg Documented by: Guaifenesin (Guaifenesin 100 Mg/5 Ml Soln 5 Ml Ud Cup) 100 mg PO Q4H [facility] Last Admin: 12/06/20 04:02 Dose: 100 mg Documented by: Guaifenesin/Codeine Phosphate (Codeine/Guaifenesin 10-100 Mg/5 Ml Syrup 5 Ml Cup) 5 ml PO Q4H [facility] Last Admin: 12/11/20 17:21 Dose: 5 ml Documented by: Guaifenesin/Codeine Phosphate (Codeine/Guaifenesin 10-100 Mg/5 Ml Syrup 5 Ml Cup) 5 ml PO Q4H [facility] Last Admin: 12/19/20 12:47 Dose: 5 ml Documented by: Guaifenesin/Dextromethorphan (Guaifenesin/Dextromethorphan 100-10 Mg/5 Ml Soln 10 Ml Cup) 10 ml PO Q4H PRN PRN Reason: Cough Last Admin: 12/03/20 12:45 Dose: 10 ml Documented by: Guaifenesin/Dextromethorphan (Guaifenesin/Dextromethorphan 100-10 Mg/5 Ml Soln 10 Ml Cup) 10 ml PO Q4H [facility] Last Admin: 12/05/20 10:24 Dose: Not Given Documented by: Remdesivir 200 mg/ Sodium (Chloride) 250 mls @ 250 mls/hr IV ONETIME ONE Stop: 11/30/20 14:46 Last Admin: 11/30/20 20:04 Dose: 250 mls/hr Documented by: Remdesivir 100 mg/ Sodium (Chloride) 100 mls @ 100 mls/hr IV Q24H [facility] Stop: 12/04/20 18:59 Last Admin: 12/04/20 18:12 Dose: 100 mls/hr Documented by: Pantoprazole Sodium 40 mg/ (Sodium Chloride) 10 mls @ 300 mls/hr IV Q24H [facility] Last Admin: 12/09/20 08:56 Dose: 300 mls/hr Documented by: Levofloxacin/Dextrose 750 mg/ (Premix) 150 mls @ 100 mls/hr IV Q24H [facility] Last Admin: 12/11/20 15:24 Dose: 100 mls/hr Documented by: Lactated Ringer's (Ringers, Lactated) 250 mls @ 250 mls/hr IV ASDIRECTED [facility] Iopamidol (Iopamidol 755 Mg/Ml 500 Ml Multipack Bottle) 100 ml IVPUSH ONETIME STA Stop: 12/01/20 16:41 Last Admin: 12/01/20 16:41 Dose: 100 ml Documented by: Lorazepam (Lorazepam 2 Mg/Ml Sdv) 1 mg IVPUSH Q12H PRN PRN Reason: Anxiety Last Admin: 12/12/20 15:53 Dose: 1 mg Documented by: Lorazepam (Lorazepam 2 Mg/Ml Sdv) 0.5 mg IVPUSH Q8H PRN PRN Reason: Anxiety Lorazepam (Lorazepam 2 Mg/Ml Sdv) 1 mg IVPUSH ONETIME ONE Stop: 12/20/20 20:48 Last Admin: 12/20/20 22:23 Dose: 1 mg Documented by: Melatonin (Melatonin 3 Mg Tab) 6 mg PO BEDTIME [facility] Melatonin (Melatonin 3 Mg Tab) 6 mg PO BEDTIME PRN PRN Reason: Insomnia Last Admin: 12/06/20 21:39 Dose: 6 mg Documented by: Methylprednisolone Sodium Succinate (Methylprednisolone Sodium Succinate 40 Mg/1 Ml Sdv) 40 mg IVPUSH Q8H [facility] Last Admin: 12/16/20 03:51 Dose: 40 mg Documented by: Methylprednisolone Sodium Succinate (Methylprednisolone Sodium Succinate 40 Mg/1 Ml Sdv) 40 mg IVPUSH Q12H [facility] Last Admin: 12/18/20 09:06 Dose: 40 mg Documented by: Polyethylene Glycol (Polyethylene Glycol 3350 Powder 17 Gm Packet) 17 gm PO B EDTIME [facility] Last Admin: 12/12/20 22:28 Dose: Not Given Documented by: Prednisone (Prednisone 20 Mg Tab) 40 mg PO WITHBREAKFAST [facility] Last Admin: 12/24/20 08:24 Dose: 40 mg Documented by: Prednisone (Prednisone 20 Mg Tab) 20 mg PO WITHBREAKFAST [facility] Stop: 12/30/20 08:01 Last Admin: 12/30/20 09:01 Dose: 20 mg Documented by: Sodium Chloride (Sodium Chloride 0.9% 10 Ml Syringe) 10 ml FLUSH ASDIRECTED PRN PRN Reason: Keep Vein Open Last Admin: 11/30/20 14:17 Dose: 10 ml Documented by: Sodium Chloride (Sodium Chloride 0.9% 2.5 Ml Syringe) 2.5 ml FLUSH ASDIRECTED PRN PRN Reason: Keep Vein Open Last Admin: 11/30/20 14:17 Dose: 2.5 ml Documented by: - Exam General: Alert, Oriented Lungs: Clear to Auscultation, Normal Respiratory Effort Cardiovascular: Regular Rate, Regular Rhythm GI/Abdominal Exam: Normal Bowel Sounds, Soft, Non-Tender Extremities: Non-Tender, No Pedal Edema - Patient Data Lab Results Last 24 hrs: Laboratory Results - last 24 hr 01/02/21 01/02/21 Range/Units 06:28 06:28 WBC 8.81 (4.0-11.0) K/uL RBC 4.25 L (4.50-5.90) M/uL Hgb 13.2 (13.0-17.0) g/dL Hct 39.0 (38.0-50.0) % MCV 91.8 (80.0-98.0) fL MCH 31.1 (27.0-32.0) pg MCHC 33.8 (31.0-37.0) g/dL RDW Std Deviation 48.6 (28.0-62.0) fl RDW Coeff of Carly 15 (11.0-15.0) % Plt Count 257 (150-400) K/uL MPV 10.40 (7.40-12.00) fL Nucleated RBC % 0.0 /100WBC Nucleated RBCs # 0 K/uL Sodium 136 (136-148) mmol/L Potassium 3.4 L (3.5-5.1) mmol/L Chloride 101 (98-107) mmol/L Carbon Dioxide 26.8 (21.0-32.0) mmol/L BUN 23 H (7.0-18.0) mg/dL Creatinine 0.8 (0.8-1.3) mg/dL Est Cr Clr Drug Dosing 97.14 mL/min Estimated GFR (MDRD) > 60.0 ml/min Glucose 90 (74-106) mg/dL Calcium 8.4 L (8.5-10.1) mg/dL Result Diagrams: 01/02/21 06:28 01/02/21 06:28 Sepsis Event Note - Evaluation Sepsis Screening Result: No Definite Risk - Focused Exam Vital Signs: Vital Signs Temp Pulse Resp BP Pulse Ox 01/02/21 08:00 36.7 C 87 18 124/63 93 L 01/02/21 05:22 36.1 C 64 18 136/72 95 01/02/21 00:00 36.4 C 67 17 123/74 98 - Problem List & Annotations (1) Acute hypoxemic respiratory failure due to COVID-19 SNOMED Code(s): 349844678 Code(s): U07.1 - COVID-19; J96.01 - ACUTE RESPIRATORY FAILURE WITH HYPOXIA Status: Acute Current Visit: Yes - Problem List Review Problem List Initiated/Reviewed/Updated: Yes - My Orders Last 24 Hours: My Active Orders 01/02/21 09:13 Potassium Chloride [Klor-Con M20] 40 meq PO ONETIME ONE - Plan Plan:: 70 yo male admitted with COVID pneumonia: Hypoxia: currently on 3L NC. Continue to wean oxygen as tolerated. COVID: completed Remdesivir, on prednisone taper. Currently on 10 mg x5 days. 5 mg x5 days. Then stopping. Combivent. Incentive spirometry. Acapella chest physical therapy. Lovenox 40 mg. Robitussin. Melatonin 6mg prn bedtime. Physical therapy: recommends discharging on walker with seat.
[2021-01-02] MEDS: Enoxaparin 40 MG/0.4 ML Syringe SUBCUT SCH (18:42)
[2021-01-02] MEDS: Melatonin 3 MG Tab PO PRN (22:48)
[2021-01-03] MEDS: Benzonatate 100 MG Cap PO SCH ×3 (06:24→21:13)
[2021-01-03] MEDS: Codeine/guaiFENesin 10-100 MG/5 ML Syrup 5 ML Cup PO PRN ×4 (06:24→21:13)
[2021-01-03] MEDS: predniSONE 10 MG Tab PO SCH (08:27)
[2021-01-03] MEDS: Docusate Sodium 100 MG Cap PO SCH ×2 (08:27→21:13)
[2021-01-03] MEDS: Pantoprazole 40 MG Tab.CR PO SCH (08:27)
[2021-01-03] MEDS: Polyethylene Glycol 3350 Powder 17 GM Packet PO SCH (08:27)
--- NOTE | 2021-01-03 14:28 | PCM.PN ---
- General Info Date of Service: 01/03/21 - Review of Systems Systems Review Comment:: no new complaints - Patient Data Vitals - Most Recent: Last Vital Signs Temp 36.2 C 01/03/21 12:00 Pulse 93 01/03/21 12:00 Resp 19 01/03/21 12:00 BP 119/70 01/03/21 12:00 Pulse Ox 94 L 01/03/21 12:00 Weight - Most Recent: 101.9 kg I&O - Last 24 Hours: Intake & Output 01/02/21 01/03/21 01/03/21 22:59 06:59 14:59 Intake Total 1040 400 Output Total 575 1100 Balance 465 -700 Med Orders - Current: Current Medications Albuterol/Ipratropium (Albuterol/Ipratropium 4 Gm Inhalation [place]) 0 gm INH Q4H PRN PRN Reason: Dyspnea Last Admin: 12/24/20 09:35 Dose: 1 puff Documented by: Albuterol/Ipratropium (Albuterol/Ipratropium 3.0-0.5 Mg/3 Ml Neb Soln) 3 ml NEB Q4HRRT PRN PRN Reason: Wheezing Last Admin: 01/02/21 05:47 Dose: 3 ml Documented by: Alprazolam (Alprazolam 0.25 Mg Tab) 0.25 mg PO Q6H PRN PRN Reason: Anxiety Last Admin: 12/29/20 08:54 Dose: 0.25 mg Documented by: Benzonatate (Benzonatate 100 Mg Cap) 200 mg PO TID [facility] Last Admin: 01/03/21 13:10 Dose: 200 mg Documented by: Docusate Sodium (Docusate Sodium 100 Mg Cap) 100 mg PO BID [facility] Last Admin: 01/03/21 08:27 Dose: 100 mg Documented by: Enoxaparin Sodium (Enoxaparin 40 Mg/0.4 Ml Syringe) 40 mg SUBCUT Q24H [facility] Last Admin: 01/02/21 18:42 Dose: 40 mg Documented by: Guaifenesin/Codeine Phosphate (Codeine/Guaifenesin 10-100 Mg/5 Ml Syrup 5 Ml Cup) 5 ml PO Q4H PRN PRN Reason: Cough Last Admin: 01/03/21 10:50 Dose: 5 ml Documented by: Melatonin (Melatonin 3 Mg Tab) 6 mg PO BEDTIME PRN PRN Reason: Insomnia Last Admin: 01/02/21 22:48 Dose: 6 mg Documented by: Pantoprazole Sodium (Pantoprazole 40 Mg Tab.Cr) 40 mg PO DAILY [facility] Last Admin: 01/03/21 08:27 Dose: 40 mg Documented by: Polyethylene Glycol (Polyethylene Glycol 3350 Powder 17 Gm Packet) 17 gm PO DAILY [facility] Last Admin: 01/03/21 08:27 Dose: 17 gm Documented by: Prednisone (Prednisone 10 Mg Tab) 10 mg PO WITHBREAKFAST [facility] Stop: 01/04/21 08:01 Last Admin: 01/03/21 08:27 Dose: 10 mg Documented by: Sodium Chloride (Sodium Chloride 0.65% Nasal [place] 45 Ml Bottle) 1 ml LATHA Q6H PRN PRN Reason: Congestion Last Admin: 12/09/20 12:20 Dose: 1 spray Documented by: Discontinued Medications Dexamethasone (Dexamethasone 10 Mg/Ml Sdv) 6 mg IVPUSH ONETIME ONE Stop: 11/30/20 14:46 Last Admin: 11/30/20 15:00 Dose: 6 mg Documented by: Dexamethasone (Dexamethasone 4 Mg Tab) 6 mg PO DAILY [facility] Last Admin: 12/12/20 09:12 Dose: 6 mg Documented by: Famotidine (Famotidine 20 Mg/2 Ml Sdv) 20 mg IVPUSH BID [facility] Last Admin: 12/05/20 08:55 Dose: 20 mg Documented by: Guaifenesin (Guaifenesin 100 Mg/5 Ml Soln 5 Ml Ud Cup) 100 mg PO Q4H [facility] Last Admin: 12/06/20 04:02 Dose: 100 mg Documented by: Guaifenesin/Codeine Phosphate (Codeine/Guaifenesin 10-100 Mg/5 Ml Syrup 5 Ml Cup) 5 ml PO Q4H [facility] Last Admin: 12/11/20 17:21 Dose: 5 ml Documented by: Guaifenesin/Codeine Phosphate (Codeine/Guaifenesin 10-100 Mg/5 Ml Syrup 5 Ml Cup) 5 ml PO Q4H [facility] Last Admin: 12/19/20 12:47 Dose: 5 ml Documented by: Guaifenesin/Dextromethorphan (Guaifenesin/Dextromethorphan 100-10 Mg/5 Ml Soln 10 Ml Cup) 10 ml PO Q4H PRN PRN Reason: Cough Last Admin: 12/03/20 12:45 Dose: 10 ml Documented by: Guaifenesin/Dextromethorphan (Guaifenesin/Dextromethorphan 100-10 Mg/5 Ml Soln 10 Ml Cup) 10 ml PO Q4H [facility] Last Admin: 12/05/20 10:24 Dose: Not Given Documented by: Remdesivir 200 mg/ Sodium (Chloride) 250 mls @ 250 mls/hr IV ONETIME ONE Stop: 11/30/20 14:46 Last Admin: 11/30/20 20:04 Dose: 250 mls/hr Documented by: Remdesivir 100 mg/ Sodium (Chloride) 100 mls @ 100 mls/hr IV Q24H [facility] Stop: 12/04/20 18:59 Last Admin: 12/04/20 18:12 Dose: 100 mls/hr Documented by: Pantoprazole Sodium 40 mg/ (Sodium Chloride) 10 mls @ 300 mls/hr IV Q24H [facility] Last Admin: 12/09/20 08:56 Dose: 300 mls/hr Documented by: Levofloxacin/Dextrose 750 mg/ (Premix) 150 mls @ 100 mls/hr IV Q24H [facility] Last Admin: 12/11/20 15:24 Dose: 100 mls/hr Documented by: Lactated Ringer's (Ringers, Lactated) 250 mls @ 250 mls/hr IV ASDIRECTED [facility] Iopamidol (Iopamidol 755 Mg/Ml 500 Ml Multipack Bottle) 100 ml IVPUSH ONETIME STA Stop: 12/01/20 16:41 Last Admin: 12/01/20 16:41 Dose: 100 ml Documented by: Lorazepam (Lorazepam 2 Mg/Ml Sdv) 1 mg IVPUSH Q12H PRN PRN Reason: Anxiety Last Admin: 12/12/20 15:53 Dose: 1 mg Documented by: Lorazepam (Lorazepam 2 Mg/Ml Sdv) 0.5 mg IVPUSH Q8H PRN PRN Reason: Anxiety Lorazepam (Lorazepam 2 Mg/Ml Sdv) 1 mg IVPUSH ONETIME ONE Stop: 12/20/20 20:48 Last Admin: 12/20/20 22:23 Dose: 1 mg Documented by: Melatonin (Melatonin 3 Mg Tab) 6 mg PO BEDTIME [facility] Melatonin (Melatonin 3 Mg Tab) 6 mg PO BEDTIME PRN PRN Reason: Insomnia Last Admin: 12/06/20 21:39 Dose: 6 mg Documented by: Methylprednisolone Sodium Succinate (Methylprednisolone Sodium Succinate 40 Mg/1 Ml Sdv) 40 mg IVPUSH Q8H [facility] Last Admin: 12/16/20 03:51 Dose: 40 mg Documented by: Methylprednisolone Sodium Succinate (Methylprednisolone Sodium Succinate 40 Mg/1 Ml Sdv) 40 mg IVPUSH Q12H [facility] Last Admin: 12/18/20 09:06 Dose: 40 mg Documented by: Polyethylene Glycol (Polyethylene Glycol 3350 Powder 17 Gm Packet) 17 gm PO BEDTIME [facility] Last Admin: 12/12/20 22:28 Dose: Not Given Documented by: Potassium Chloride (Potassium Chloride 20 Meq Tab.Er) 40 meq PO ONETIME ONE Stop: 01/02/21 09:14 Last Admin: 01/02/21 09:55 Dose: 40 meq Documented by: Prednisone (Prednisone 20 Mg Tab) 40 mg PO WITHBREAKFAST [facility] Last Admin: 12/24/20 08:24 Dose: 40 mg Documented by: Prednisone (Prednisone 20 Mg Tab) 20 mg PO WITHBREAKFAST [facility] Stop: 12/30/20 08:01 Last Admin: 12/30/20 09:01 Dose: 20 mg Documented by: Sodium Chloride (Sodium Chloride 0.9% 10 Ml Syringe) 10 ml FLUSH ASDIRECTED PRN PRN Reason: Keep Vein Open Last Admin: 11/30/20 14:17 Dose: 10 ml Documented by: Sodium Chloride (Sodium Chloride 0.9% 2.5 Ml Syringe) 2.5 ml FLUSH ASDIRECTED PRN PRN Reason: Keep Vein Open Last Admin: 11/30/20 14:17 Dose: 2.5 ml Documented by: - Exam General: Alert, Oriented Neck: Supple Lungs: Clear to Auscultation, Normal Respiratory Effort Cardiovascular: Regular Rate, Regular Rhythm GI/Abdominal Exam: Normal Bowel Sounds, Soft, Non-Tender, No Distention Extremities: Non-Tender, No Pedal Edema Skin: Warm, Dry, Intact Neurological: No New Focal Deficit - Patient Data Result Diagrams: 01/02/21 06:28 01/02/21 06:28 Sepsis Event Note - Evaluation Sepsis Screening Result: No Definite Risk - Focused Exam Vital Signs: Vital Signs Temp Temp Pulse Resp BP Pulse Ox 10/31/21 12:00 36.2 C 93 19 119/70 94 L 01/03/21 08:05 94 L 01/03/21 08:00 36.2 C 75 18 119/68 95 01/03/21 04:40 35.8 C L 67 20 140/75 92 L - Problem List & Annotations (1) Acute hypoxemic respiratory failure due to COVID-19 SNOMED Code(s): 225105034 Code(s): U07.1 - COVID-19; J96.01 - ACUTE RESPIRATORY FAILURE WITH HYPOXIA Status: Acute Current Visit: Yes - Problem List Review Problem List Initiated/Reviewed/Updated: Yes - My Orders Last 24 Hours: My Active Orders 01/04/21 05:11 BASIC METABOLIC PANEL,BMP [CHEM] AM CBC WITH AUTO DIFF [HEME] AM - Plan Plan:: 70 yo male admitted with COVID pneumonia: Hypoxia: currently on 3L NC. Continue to wean oxygen as tolerated. COVID: completed Remdesivir, on prednisone taper. Currently on 10 mg x5 days. 5 mg x5 days. Then stopping. Combivent. Incentive spirometry. Acapella chest physical therapy. Lovenox 40 mg. Robitussin. Melatonin 6mg prn bedtime. Physical therapy: recommends discharging on walker with seat. dispo: home tomorrow
[2021-01-03] MEDS: Enoxaparin 40 MG/0.4 ML Syringe SUBCUT SCH (18:15)
[2021-01-03] MEDS: Melatonin 3 MG Tab PO PRN (21:20)
[2021-01-04] MEDS: Codeine/guaiFENesin 10-100 MG/5 ML Syrup 5 ML Cup PO PRN ×2 (06:18→13:15)
[2021-01-04] MEDS: Benzonatate 100 MG Cap PO SCH ×2 (06:18→13:15)
[2021-01-04 06:24] LABS: BLOOD UREA NITROGEN,BUN 20 mg/dL (7.0-18.0); CHLORIDE,CL 101 mmol/L (98-107); GLUCOSE RANDOM 91 mg/dL (74-106); POTASSIUM,K 4.3 mmol/L (3.5-5.1); SODIUM,NA 138 mmol/L (136-148)
[2021-01-04] MEDS: Docusate Sodium 100 MG Cap PO SCH (08:52)
[2021-01-04] MEDS: Pantoprazole 40 MG Tab.CR PO SCH (08:52)
[2021-01-04] MEDS: predniSONE 10 MG Tab PO SCH (08:52)
[2021-01-04] MEDS: Polyethylene Glycol 3350 Powder 17 GM Packet PO SCH (08:52)
--- NOTE | 2021-01-04 14:44 | PCM.DCSUM1 ---
Discharge Summary - Discharge Data Discharge Date: 01/04/21 Discharge Disposition: Home, W Home Health Agency 06 Condition: Fair - Referral to Home Health Reason for Homebound Status: patient needs walker to ambulate, is a fall risk Primary Care Physician: PCP None Skilled Need: home PT due to deconditioning from recent hospitalization - Discharge Diagnosis/Problem(s) (1) Acute hypoxemic respiratory failure due to COVID-19 SNOMED Code(s): 895437787 ICD Code: U07.1 - COVID-19; J96.01 - ACUTE RESPIRATORY FAILURE WITH HYPOXIA Status: Acute Current Visit: Yes (2) Anxiety about health SNOMED Code(s): 281805720 ICD Code: F41.8 - OTHER SPECIFIED ANXIETY DISORDERS Status: Acute Current Visit: Yes - Patient Summary/Data Consults: Consultations 12/21/20 16:32 Consult to Wound Care Services [CONS] Routine 12/24/20 13:08 Consult to Home Health [CONS] Routine - Patient Instructions Diet: Usual Diet as Tolerated Activity: As Tolerated Showering/Bathing: May Shower Notify Provider of: Fever (increasing shortness of breath, increasing oxygen needs), Increased Pain, Swelling and Redness - Discharge Plan Prescriptions/Med Rec: Albuterol/Ipratropium [Combivent Respimat] 0 gm INH Q4H PRN #1 inhaler PRN Reason: Dyspnea Codeine Phosphate/Guaifenesin [Guaiatussin AC] 10 ml PO TID PRN #1 bottle PRN Reason: Cough Benzonatate [Tessalon Perles] 200 mg PO TID #30 cap Home Medications: Home Meds Albuterol/Ipratropium [Combivent Respimat] 0 gm INH Q4H PRN #1 inhaler 01/04/21 [Rx] Benzonatate [Tessalon Perles] 200 mg PO TID #30 cap 01/04/21 [Rx] Codeine Phosphate/Guaifenesin [Guaiatussin AC] 10 ml PO TID PRN #1 bottle 01/04/21 [Rx] Patient Handouts: COVID-19 Frequently Asked Questions, COVID-19, COVID-19 Vaccine Information, COVID-19: How to Protect Yourself and Others - CDC, Managing Anxiety, Adult Referrals: Frederic Giordano MD [Physician] - 01/11/21 2:00 pm (Please arrive 15 minutes early with your ID and insurance cards and wearing a face covering.) - Patient Data Vitals - Most Recent: Last Vital Signs Temp 36.1 C 01/04/21 12:00 Pulse 84 01/04/21 12:00 Resp 18 01/04/21 12:00 BP 113/62 01/04/21 12:00 Pulse Ox 93 L 01/04/21 12:00 Weight - Most Recent: 101.9 kg I&O - Last 24 hours: Intake & Output 01/03/21 01/04/21 01/04/21 22:59 06:59 14:59 Intake Total 480 650 Output Total 400 750 Balance 80 -100 Lab Results - Last 24 hrs: Laboratory Results - last 24 hr 01/04/21 01/04/21 Range/Units 05:12 05:12 WBC 9.55 (4.0-11.0) K/uL RBC 4.17 L (4.50-5.90) M/uL Hgb 12.8 L (13.0-17.0) g/dL Hct 38.2 (38.0-50.0) % MCV 91.6 (80.0-98.0) fL MCH 30.7 (27.0-32.0) pg MCHC 33.5 (31.0-37.0) g/dL RDW Std Deviation 49.2 (28.0-62.0) fl RDW Coeff of Carly 15 (11.0-15.0) % Plt Count 258 (150-400) K/uL MPV 10.40 (7.40-12.00) fL Add Manual Diff YES Neutrophils % (Manual) 65 (48.0-80.0) % Band Neutrophils % 2 % Lymphocytes % (Manual) 20 (16.0-40.0) % Monocytes % (Manual) 9 (0.0-15.0) % Eosinophils % (Manual) 4 (0.0-7.0) % Nucleated RBC % 0.0 /100WBC Absolute Seg Neuts 6.2 H (1.4-5.7) Band Neutrophils # 0.2 Lymphocytes # (Manual) 1.9 (0.6-2.4) Monocytes # (Manual) 0.9 H (0.0-0.8) Eosinophils # (Manual) 0.4 (0.0-0.7) Nucleated RBCs # 0 K/uL Sodium 138 (136-148) mmol/L Potassium 4.3 (3.5-5.1) mmol/L Chloride 101 (98-107) mmol/L Carbon Dioxide 29.0 (21.0-32.0) mmol/L BUN 20 H (7.0-18.0) mg/dL Creatinine 0.8 (0.8-1.3) mg/dL Est Cr Clr Drug Dosing 97.14 mL/min Estimated GFR (MDRD) > 60.0 ml/min Glucose 91 (74-106) mg/dL Calcium 8.6 (8.5-10.1) mg/dL Med Orders - Current: Current Medications Albuterol/Ipratropium (Albuterol/Ipratropium 4 Gm Inhalation [place]) 0 gm INH Q4H PRN PRN Reason: Dyspnea Last Admin: 12/24/20 09:35 Dose: 1 puff Documented by: Albuterol/Ipratropium (Albuterol/Ipratropium 3.0-0.5 Mg/3 Ml Neb Soln) 3 ml NEB Q4HRRT PRN PRN Reason: Wheezing Last Admin: 01/02/21 05:47 Dose: 3 ml Documented by: Alprazolam (Alprazolam 0.25 Mg Tab) 0.25 mg PO Q6H PRN PRN Reason: Anxiety Last Admin: 12/29/20 08:54 Dose: 0.25 mg Documented by: Benzonatate (Benzonatate 100 Mg Cap) 200 mg PO TID [facility] Last Admin: 01/04/21 13:15 Dose: 200 mg Documented by: Docusate Sodium (Docusate Sodium 100 Mg Cap) 100 mg PO BID [facility] Last Admin: 01/04/21 08:52 Dose: 100 mg Documented by: Enoxaparin Sodium (Enoxaparin 40 Mg/0.4 Ml Syringe) 40 mg SUBCUT Q24H [facility] Last Admin: 01/03/21 18:15 Dose: 40 mg Documented by: Guaifenesin/Codeine Phosphate (Codeine/Guaifenesin 10-100 Mg/5 Ml Syrup 5 Ml Cup) 5 ml PO Q4H PRN PRN Reason: Cough Last Admin: 01/04/21 13:15 Dose: 5 ml Documented by: Melatonin (Melatonin 3 Mg Tab) 6 mg PO BEDTIME PRN PRN Reason: Insomnia Last Admin: 01/03/21 21:20 Dose: 6 mg Documented by: Pantoprazole Sodium (Pantoprazole 40 Mg Tab.Cr) 40 mg PO DAILY [facility] Last Admin: 01/04/21 08:52 Dose: 40 mg Documented by: Polyethylene Glycol (Polyethylene Glycol 3350 Powder 17 Gm Packet) 17 gm PO DAILY [facility] Last Admin: 01/04/21 08:52 Dose: 17 gm Documented by: Sodium Chloride (Sodium Chloride 0.65% Nasal [place] 45 Ml Bottle) 1 ml LATHA Q6H PRN PRN Reason: Congestion Last Admin: 12/09/20 12:20 Dose: 1 spray Documented by: Discontinued Medications Dexamethasone (Dexamethasone 10 Mg/Ml Sdv) 6 mg IVPUSH ONETIME ONE Stop: 11/30/20 14:46 Last Admin: 11/30/20 15:00 Dose: 6 mg Documented by: Dexamethasone (Dexamethasone 4 Mg Tab) 6 mg PO DAILY [facility] Last Admin: 12/12/20 09:12 Dose: 6 mg Documented by: Famotidine (Famotidine 20 Mg/2 Ml Sdv) 20 mg IVPUSH BID [facility] Last Admin: 12/05/20 08:55 Dose: 20 mg Documented by: Guaifenesin (Guaifenesin 100 Mg/5 Ml Soln 5 Ml Ud Cup) 100 mg PO Q4H [facility] Last Admin: 12/06/20 04:02 Dose: 100 mg Documented by: Guaifenesin/Codeine Phosphate (Codeine/Guaifenesin 10-100 Mg/5 Ml Syrup 5 Ml Cup) 5 ml PO Q4H [facility] Last Admin: 12/11/20 17:21 Dose: 5 ml Documented by: Guaifenesin/Codeine Phosphate (Codeine/Guaifenesin 10-100 Mg/5 Ml Syrup 5 Ml Cup) 5 ml PO Q4H [facility] Last Admin: 12/19/20 12:47 Dose: 5 ml Documented by: Guaifenesin/Dextromethorphan (Guaifenesin/Dextromethorphan 100-10 Mg/5 Ml Soln 10 Ml Cup) 10 ml PO Q4H PRN PRN Reason: Cough Last Admin: 12/03/20 12:45 Dose: 10 ml Documented by: Guaifenesin/Dextromethorphan (Guaifenesin/Dextromethorphan 100-10 Mg/5 Ml Soln 10 Ml Cup) 10 ml PO Q4H [facility] Last Admin: 12/05/20 10:24 Dose: Not Given Documented by: Remdesivir 200 mg/ Sodium (Chloride) 250 mls @ 250 mls/hr IV ONETIME ONE Stop: 11/30/20 14:46 Last Admin: 11/30/20 20:04 Dose: 250 mls/hr Documented by: Remdesivir 100 mg/ Sodium (Chloride) 100 mls @ 100 mls/hr IV Q24H [facility] Stop: 12/04/20 18:59 Last Admin: 12/04/20 18:12 Dose: 100 mls/hr Documented by: Pantoprazole Sodium 40 mg/ (Sodium Chloride) 10 mls @ 300 mls/hr IV Q24H [facility] Last Admin: 12/09/20 08:56 Dose: 300 mls/hr Documented by: Levofloxacin/Dextrose 750 mg/ (Premix) 150 mls @ 100 mls/hr IV Q24H [facility] Last Admin: 12/11/20 15:24 Dose: 100 mls/hr Documented by: Lactated Ringer's (Ringers, Lactated) 250 mls @ 250 mls/hr IV ASDIRECTED [facility] Iopamidol (Iopamidol 755 Mg/Ml 500 Ml Multipack Bottle) 100 ml IVPUSH ONETIME [facility] Stop: 12/01/20 16:41 Last Admin: 12/01/20 16:41 Dose: 100 ml Documented by: Lorazepam (Lorazepam 2 Mg/Ml Sdv) 1 mg IVPUSH Q12H PRN PRN Reason: Anxiety Last Admin: 12/12/20 15:53 Dose: 1 mg Documented by: Lorazepam (Lorazepam 2 Mg/Ml Sdv) 0.5 mg IVPUSH Q8H PRN PRN Reason: Anxiety Lorazepam (Lorazepam 2 Mg/Ml Sdv) 1 mg IVPUSH ONETIME ONE Stop: 12/20/20 20:48 Last Admin: 12/20/20 22:23 Dose: 1 mg Documented by: Melatonin (Melatonin 3 Mg Tab) 6 mg PO BEDTIME [facility] Melatonin (Melatonin 3 Mg Tab) 6 mg PO BEDTIME PRN PRN Reason: Insomnia Last Admin: 12/06/20 21:39 Dose: 6 mg Documented by: Methylprednisolone Sodium Succinate (Methylprednisolone Sodium Succinate 40 Mg/1 Ml Sdv) 40 mg IVPUSH Q8H [facility] Last Admin: 12/16/20 03:51 Dose: 40 mg Documented by: Methylprednisolone Sodium Succinate (Methylprednisolone Sodium Succinate 40 Mg/1 Ml Sdv) 40 mg IVPUSH Q12H [facility] Last Admin: 12/18/20 09:06 Dose: 40 mg Documented by: Polyethylene Glycol (Polyethylene Glycol 3350 Powder 17 Gm Packet) 17 gm PO BEDTIME [facility] Last Admin: 12/12/20 22:28 Dose: Not Given Documented by: Potassium Chloride (Potassium Chloride 20 Meq Tab.Er) 40 meq PO ONETIME ONE Stop: 01/02/21 09:14 Last Admin: 01/02/21 09:55 Dose: 40 meq Documented by: Prednisone (Prednisone 20 Mg Tab) 40 mg PO WITHBREAKFAST [facility] Last Admin: 12/24/20 08:24 Dose: 40 mg Documented by: Prednisone (Prednisone 20 Mg Tab) 20 mg PO WITHBREAKFAST [facility] Stop: 12/30/20 08:01 Last Admin: 12/30/20 09:01 Dose: 20 mg Documented by: Prednisone (Prednisone 10 Mg Tab) 10 mg PO WITHBREAKFAST [facility] Stop: 01/04/21 08:01 Last Admin: 01/04/21 08:52 Dose: 10 mg Documented by: Sodium Chloride (Sodium Chloride 0.9% 10 Ml Syringe) 10 ml FLUSH ASDIRECTED PRN PRN Reason: Keep Vein Open Last Admin: 11/30/20 14:17 Dose: 10 ml Documented by: Sodium Chloride (Sodium Chloride 0.9% 2.5 Ml Syringe) 2.5 ml FLUSH ASDIRECTED PRN PRN Reason: Keep Vein Open Last Admin: 11/30/20 14:17 Dose: 2.5 ml Documented by:
== END 2021-01-04 17:50 | disposition home health service (06) | DRG 177 ==
LOC: MW.ED 13:52 → MW.ICU 15:26 → MW.MS 12-24 14:30
PROVIDERS: ADMIT Internal Medicine; ATTEND Internal Medicine
PROC: XW033E5 Introduction of Remdesivir Anti-infective into Peripheral Vein, Percutaneous Approach, New Technology Group 5 (ICD-10-PCS; principal; 2020-11-30)
PROC: 3E0333Z Introduction of Anti-inflammatory into Peripheral Vein, Percutaneous Approach (ICD-10-PCS; 2020-11-30)
PROC: 5A0955A Assistance with Respiratory Ventilation, Greater than 96 Consecutive Hours, High Flow/Velocity Cannula (ICD-10-PCS; 2020-11-30)
PROC: 3E0DX3Z Introduction of Anti-inflammatory into Mouth and Pharynx, External Approach (ICD-10-PCS; 2020-12-01)
PROC: XW0DXM6 Introduction of Baricitinib into Mouth and Pharynx, External Approach, New Technology Group 6 (ICD-10-PCS; 2020-12-14)
DX: U07.1 COVID-19 (principal); J96.01 Acute respiratory failure with hypoxia; J12.89 Other viral pneumonia; F41.8 Other specified anxiety disorders; J98.2 Interstitial emphysema
CPT/HCPCS: 36415; 71045; 80053; 82803; 83605; 84145; 84484; 85025; 85379; 86140; 93005; 96374; 99285; J1100; U0002; 71275; 71275-26; 80048; 83735; 84100; 85027; 86141; 94640; 94660; 97110-GP; 97112-GP; 97140-GP; 97163-GP; 97530-GP; 97535-GP; 99291; A9270-GY; C9113; J1650; J1956; J2060; J2920; J3490; J7050; J7620-GY; J8540; Q9967

== ENCOUNTER 2022-04-06 06:39 | Day surgery (SDC) | payer MEDICARE, OTHER ==
[~2022-04-06 06:39] MED LIST: Acetaminophen 1,000 MG in Premix Bag 1 BAG IV SCH; Lactated Ringers 1,000 ML IV SCH; Pregabalin 75 MG Cap PO SCH; cefOXitin 2 GM in Premix Bag 1 BAG IV SCH
[2022-04-06] MEDS ORDERED: Albuterol 0.083% 2.5 MG/3 ML Neb Soln NEB PRN (07:00)
[2022-04-06] MEDS ORDERED: fentaNYL 50 MCG/ML SDV IVPUSH PRN (07:00)
[2022-04-06] MEDS ORDERED: Morphine 2 MG/ML SYRINGE IVPUSH PRN (07:00)
[2022-04-06] MEDS ORDERED: Ondansetron 4 MG/2 ML SDV IVPUSH PRN (07:00)
[2022-04-06] MEDS ORDERED: Metoclopramide 10 MG/2 ML SDV IVPUSH PRN (07:00)
[2022-04-06] MEDS ORDERED: Naloxone 0.4 MG/ML SDV IVPUSH PRN (07:00)
[2022-04-06] MEDS ORDERED: HYDROmorphone 1 MG/ML Syringe IVPUSH PRN (07:00)
[2022-04-06] MEDS ORDERED: Bupivacaine 0.25% 30 ML SDV ONE ×2 (07:22→07:35)
[2022-04-06] MEDS ORDERED: fentaNYL 100 MCG/2 ML SDV ONE (07:29)
[2022-04-06] MEDS ORDERED: Propofol 200 MG/20 ML SDV ONE (07:29)
[2022-04-06] MEDS ORDERED: Dexmedetomidine 200 MCG/2 ML SDV ONE (07:29)
[2022-04-06] MEDS ORDERED: Indocyanine Green 25 MG SDV ONE (08:14)
[2022-04-06] MEDS ORDERED: cefOXitin 1 GM Vial ONE (08:14)
[2022-04-06] MEDS ORDERED: Magnesium Sulfate (4.06 MEQ/ML) 5 GM/10 ML SDV ONE (08:16)
[2022-04-06] MEDS ORDERED: ePHEDrine 50 MG/ML SDV ONE (08:27)
[2022-04-06] MEDS ORDERED: Dexamethasone 4 MG/ML 5 ML MDV ONE (08:33)
[2022-04-06] MEDS ORDERED: Rocuronium Bromide 50 MG/5 ML Syringe ONE ×2 (09:21→09:22)
[2022-04-06] MEDS ORDERED: Sugammadex Sodium 200 MG/2 ML VIAL ONE (09:31)
[2022-04-06] MEDS ORDERED: Ketorolac 30 MG/ML SDV ONE (09:31)
[2022-04-06] MEDS ORDERED: Ondansetron 4 MG/2 ML SDV ONE (09:31)
== END 2022-04-06 14:35 | disposition home or self-care (01) ==
LOC: MW.SDS 06:39
PROVIDERS: ATTEND Surgery
DX: K81.1 Chronic cholecystitis (principal); K82.8 Other specified diseases of gallbladder; D50.9 Iron deficiency anemia, unspecified; E80.6 Other disorders of bilirubin metabolism; E55.9 Vitamin D deficiency, unspecified; E66.9 Obesity, unspecified; Z68.29 Body mass index [BMI] 29.0-29.9, adult; Z79.899 Other long term (current) drug therapy; Z98.890 Other specified postprocedural states
CPT/HCPCS: 00790; 64488; 88304; A9270-GY; J0694; J1100; J1885; J2405; J2704; J3010; J3475; J3490; J7120